=== PATIENT | male | born 1950 | race Caucasian/White ===

== ENCOUNTER → 2017-06-09 | Day surgery (SDC) | payer OTHER ==
[2017-05-14 12:13] VITALS: Ht 175.3 cm; Wt 104.5 kg
[~2017-06-09] VITALS: Ht 175.3 cm; Wt 104.5 kg
[~2017-06-09] MED LIST: 500ML BSS 0.3ML EPI 1:1000PF IRRIG ONE; ACETAMINOPHEN 325 MG TAB PO PRN; AMVISC PLUS 0.8ML SYRINGE INT OCU ONE; ATROPINE SULFATE 0.1 MG/ML 5ML SYR IV PRN; BSS FLUSH ONE; CARV25TA2 PO; CYCL10TA6 PO; DICL-201 PO; EpHEDrine SULFATE INJ 50 MG/ML AMP IV PRN; EpINEphrine INJ 1MG/ML AMP 1 MG/ML AMP ONE; FRS/40 PO; INSDGIPEN SC; LACTATED RINGER'S 1000ML 500 ML IV SCH; LIDOCAINE 3.5% OPH GEL PER APPLICATION CHARGE ONE; LIDOCAINE 4% OP SOLN DROP CHARGE OPL SCH; LIDOCAINE HCL 1% MPF 2 ML VIAL ONE; LISI40TA PO; MIDAZOLAM HCL 1 MG/ML 2ML VIAL ONE; MIX: 4ML BSS 1ML EPI 1:1000 PF INSTIL ONE; NVLGIPEN SQ; NovoLIN-R INSULIN PER UNIT CHARGE IV STA; NovoLIN-R INSULIN PER UNIT CHARGE ONE; OCUCOAT 1 ML SOLN IO ONE; PHENYLEPHRINE HCL 10% OP SOLN PER DROP CHARGE OPL SCH; PHENYLEPHRINE HCL 2.5% OP SOLN PER DROP CHARGE OPL SCH; POTA20TA16 PO; POVIDONE-IODINE OP SOLN 30 ML BTL ONE; PROPARACAINE 0.5% OP SOLN PER DROP CHARGE OPL SCH; RRIPRATNEB INH; TAMS0.4C38 PO; TOBRAMYCIN/DEXAMETHASONE OPH OINT PER APPLN CHARGE ONE
[2017-06-09] MEDS: TROPICAMIDE 1% OP SOLN PER DROP CHARGE OPL SCH ×2 (09:54→10:03)
[2017-06-09] MEDS: CYCLOPENTOLATE HCL 1% OP SOLN PER DROP CHARGE OPL SCH ×2 (09:56→10:05)
[2017-06-09] MEDS: KETOROLAC 0.5% OP SOLN PER DROP CHARGE OPL SCH ×2 (09:57→10:06)
[2017-06-09] MEDS: GATIFLOXACIN OP SOLN PER DROP CHARGE OPL SCH ×2 (09:58→10:09)
--- NOTE | 2017-06-09 10:09 | History & Physical Bridge - [place] ---
H&P Re-Evaluation Bridge Note: I have examined the patient, reviewed the History & Physical and in the interval since the performance of the History & Physical I have noted the following changes of clinical significance: No changes noted
--- NOTE | 2017-06-09 10:49 | Discharge Instructions-SurgCtr ---
Discharge Instructions Date of Service Jun 09, 2017. Visit Reason for Visit: Cataract Left Eye Discharge Discharge Diagnosis / Problem: cataract Discharge Goals Goal(s): Improve function Activity Recommendations Activity Limitations: per Instructions/Follow-up section Anesthesia . Post Anesthesia Instructions: If you have had General Anesthesia or IV Sedation: * Do not drive today. * Resume driving when surgeon permits. * Do not make important decisions or sign legal documents today. * Call surgeon for: 1. Temperature elevations greater than 101 degrees F. 2. Uncontrollable pain. 3. Excessive bleeding. 4. Persistent nausea and vomiting. 5. Medication intolerance (nausea, vomiting or rash). * For nausea and vomiting use only clear liquids such as: tea, soda, bouillon until nausea subsides, then gradually increase diet as tolerated. * If you have any concerns or questions, call your surgeon's office. If physician is unavailable and it is an emergency, call 911 or go to the nearest emergency room. . Instructions / Follow-Up Instructions / Follow-Up ACTIVITY RECOMMENDATIONS: * No strenuous lifting, jogging or running for 4 days * No swimming or yard work for 1 week. * Limited bending is permitted, such as putting on shoes. RETURN TO SCHOOL/WORK: No work until seen by physician in office. MEDICATIONS: Resume previous medications unless instructed otherwise by your surgeon. This includes eye drops for glaucoma. Zymaxid/Gatifloxacin (pham cap) - one drop every 2 hours until bedtime Nevanac/Ilevro/Prolensa/Ketorolac (escalante cap) - one drop every 4 hours until bedtime Prednisolone/Durezol (white/pink cap, SHAKE WELL) - one drop every 2 hours until bedtime Starting tomorrow - all 3 drops every 4 hours until seen in the office Optive drops - as needed for discomfort SPECIAL CARE INSTRUCTIONS: * Wear eyeshield when sleeping, for four nights. * You may wear your own glasses or sunglasses while awake. * You may read or watch TV * You may shower and wash your face, but be gentle around the eye and pat dry. * Blurry vision and mild irritation are normal. * Call office if pain is more severe or vision becomes dark at . FOLLOW UP VISIT: Follow-up with Dr Raygoza tomorrow. Diet Recommendations Home Diet: resume previous diet Procedures Procedures Performed: Left Cataract Phacoemulsification With Intraocular Lens Implant Pending Studies Studies pending at discharge: no Medical Emergencies . Who to Call and When: Medical Emergencies: If at any time you feel your situation is an emergency, please call 911 immediately. . Non-Emergent Contact Non-Emergency issues call your: [employer] . . "Provider Documentation" section prepared by Jerry Raygoza. .
--- NOTE | 2017-06-09 10:50 | [facility] Operative Report ---
Operative Report Date of Service Jun 09, 2017. Operative Report 1. PREOPERATIVE DIAGNOSIS: Cataract of the left eye. 2. POSTOPERATIVE DIAGNOSIS: Same. 3. PROCEDURE: Phacoemulsification with intraocular lens implantation of the left eye. SURGEON: Dr. Jerry Raygoza. ANESTHESIA: Topical Lidocaine gel, 1% Non- Preserved intracameral Lidocaine, and monitored intravenous sedation. INDICATIONS FOR THE PROCEDURE: The patient is a 66 - year-old male with a history of cataract of the left eye causing significant visual impairment. The details of the proposed procedure were explained to the patient who asked appropriate questions and following discussion of all risks, benefits and alternatives agreed to have the procedure done. The patient had a know history of taking of flomax. 4. OPERATION AND FINDINGS: DESCRIPTION OF PROCEDURE: After informed consent was obtained, the patient was brought to the Operating Room at the [facility]. The patient was placed in a supine position and then the left eye was prepped and draped in the usual sterile fashion for intraocular surgery. A drop of topical Lidocaine gel was placed in the operative eye. A wire lid speculum was then placed in the fornices. A corneal paracentesis was then created temporally. The Non-Preserved Lidocaine was then instilled into the anterior chamber. Epinephrine with a 1:4 dilution was instilled into the anterior chamber. The anterior chamber was then pressurized with viscoelastic. A 2.0 mm clear corneal incision was then created temporally. A cystotome was inserted into the anterior chamber and used to create a tear in the anterior lens capsule. This capsular tear was then used to create a small flap and the flap was dragged in a counterclockwise direction in order to create a continuous curvilinear capsulorrhexis. Hydrodissection was accomplished with balanced salt solution. Phacoemulsification of the lens nucleus was then performed in a standard [id number] technique. The phaco time was 1 minute with an average power of 18 %. The remaining cortical material was removed using irrigation aspiration. The capsular bag was then filled with viscoelastic. A [employer]ch [employer] Lomb MI60L +18.0 diopters lens was then loaded into the injector and injected into the capsular bag. The remaining viscoelastic was removed with the irrigation aspiration handpiece. The wound was hydrated and then checked and found to be watertight. The intraocular pressure was checked and found to be adequate. The wire lid speculum was removed and the patient's face was cleaned and dried. TobraDex ointment was placed in the inferior fornix. The patient was discharged to the Recovery Room having tolerated the procedure well. There were no complications. The patient will be seen tomorrow in the office for follow-up. I attest to the content of the Intraoperative Record and any orders documented therein. Any exceptions are noted below.
[2017-06-09 10:53] VITALS: TEMP 36.4
--- NOTE | 2017-06-09 11:03 | Anesthesia Progress Nt - [facility] ---
Anesthesia Post Op Note Date & Time Jun 09, 2017 at 11:03 Vital Signs Vital Signs Past 12 Hours Date Time Temp Pulse Resp B/P (MAP) Pulse Ox O2 Delivery O2 Flow Rate FiO2 06/09/17 10:53 36.4 99 16 165/92 (116) 98 Room Air Notes Mental Status: alert / awake / arousable, participated in evaluation Pt Amnestic to Procedure: Yes Nausea / Vomiting: adequately controlled Pain: adequately controlled Airway Patency, RR, SpO2: stable & adequate BP & HR: stable & adequate Hydration State: stable & adequate Anesthetic Complications: no major complications apparent
[2017-06-09 11:11] VITALS: BP 177/88; PULSE 84; O2SAT 98
== END | disposition home or self-care (01) ==
LOC: X.SURG 09:43
PROVIDERS: ATTEND Ophthalmology
DX: H26.9 Unspecified cataract (principal); I10 Essential (primary) hypertension; E11.9 Type 2 diabetes mellitus without complications; E03.9 Hypothyroidism, unspecified; J44.9 Chronic obstructive pulmonary disease, unspecified; B19.20 Unspecified viral hepatitis C without hepatic coma; K70.30 Alcoholic cirrhosis of liver without ascites; N40.0 Benign prostatic hyperplasia without lower urinary tract symptoms; R91.1 Solitary pulmonary nodule; F17.210 Nicotine dependence, cigarettes, uncomplicated; Z79.899 Other long term (current) drug therapy

== ENCOUNTER 2017-10-07 12:30 | Inpatient (IN) | payer OTHER ==
[~2017-10-07] VITALS: Ht 172.7 cm; Wt 97.8 kg
[~2017-10-07 12:30] MED LIST changes: -500ML BSS 0.3ML EPI 1:1000PF IRRIG ONE; -ACETAMINOPHEN 325 MG TAB PO PRN; -AMVISC PLUS 0.8ML SYRINGE INT OCU ONE; -ATROPINE SULFATE 0.1 MG/ML 5ML SYR IV PRN; -BSS FLUSH ONE; -EpHEDrine SULFATE INJ 50 MG/ML AMP IV PRN; -EpINEphrine INJ 1MG/ML AMP 1 MG/ML AMP ONE; -LACTATED RINGER'S 1000ML 500 ML IV SCH; -LIDOCAINE 3.5% OPH GEL PER APPLICATION CHARGE ONE; -LIDOCAINE 4% OP SOLN DROP CHARGE OPL SCH; -LIDOCAINE HCL 1% MPF 2 ML VIAL ONE; -MIDAZOLAM HCL 1 MG/ML 2ML VIAL ONE; -MIX: 4ML BSS 1ML EPI 1:1000 PF INSTIL ONE; -NovoLIN-R INSULIN PER UNIT CHARGE IV STA; -NovoLIN-R INSULIN PER UNIT CHARGE ONE; -OCUCOAT 1 ML SOLN IO ONE; -PHENYLEPHRINE HCL 10% OP SOLN PER DROP CHARGE OPL SCH; -PHENYLEPHRINE HCL 2.5% OP SOLN PER DROP CHARGE OPL SCH; +POTA-639 PO; -POTA20TA16 PO; -POVIDONE-IODINE OP SOLN 30 ML BTL ONE; -PROPARACAINE 0.5% OP SOLN PER DROP CHARGE OPL SCH; -TOBRAMYCIN/DEXAMETHASONE OPH OINT PER APPLN CHARGE ONE
[2017-10-07] MEDS ORDERED: GUAIFENESIN 600 MG TABCR PO STA (13:01)
[2017-10-07] MEDS ORDERED: ACETAMINOPHEN 325 MG TAB PO STA (13:01)
[2017-10-07] MEDS ORDERED: COUGH DROP (SUGAR FREE) LOZ 24 LOZ/1 BOX PO STA (13:01)
[2017-10-07] MEDS ORDERED: IBUPROFEN 200 MG TAB PO STA (13:01)
--- NOTE | 2017-10-07 13:19 | EMERGENCY ROOM VISIT NOTE ---
History Report prepared by Jaren: Nuha Spence Under the Supervision of: Dr. Bennett Lee M.D. First contact with patient: 12:54 Chief Complaint: RESPIRATORY PROBLEMS Stated Complaint: SICK, TOLD BY [facility] TO COME IN History of Present Illness The patient is a 67 year old male with a past medical history of COPD who presents to the ED with a cc of worsening respiratory problems beginning 3 days ago. Positive productive cough and shortness of breath, noting it feels similar to his COPD. Negative nausea, vomiting, or diarrhea. The patient states that the last time he smoked was yesterday. He notes he stopped taking his medication 6 days ago. Source of History: patient Onset: 3 days ago Position: other (global) Quality: other (respiratory problems) Timing: worsening Associated Symptoms: + cough (productive), + SOB, No nausea, No vomiting, No diarrhea Review of Systems See HPI for pertinent positives and negatives. A total of ten systems were reviewed and were otherwise negative. Past Medical & Surgical Medical Problems: (1) COPD exacerbation (2) Pneumonia Family History Patient reports no known family medical history. Social History Smoking Status: Current Every Day Smoker Current/Historical Medications Scheduled Carvedilol (Coreg), 25 MG PO BID Cyclobenzaprine Hcl (Flexeril), 10 MG PO HS Diclofenac (Voltaren), 75 MG PO BID Furosemide (Lasix), 40 MG PO BID Insulin Glargine (Lantus Solostar), 54 UNITS SC BID Lisinopril (Zestril), 40 MG PO QAM Potassium Ext Rel (Klor-Con), 20 MEQ PO QAM Tamsulosin Hcl (Flomax), 0.4 MG PO QAM Scheduled PRN Insulin Aspart (Novolog Flexpen), 10 UNITS SQ WITH DINNER PRN for HIGH BLOOD SUGAR Ipratropium Caldwell (Ipratropium Caldwell), 1 DOSE INH BID PRN for SOB/Wheezing Allergies Coded Allergies: No Known Allergies (Verified , 06/09/17) Physical Exam Vital Signs Date Time Temp Pulse Resp B/P (MAP) Pulse Ox O2 Delivery O2 Flow Rate FiO2 10/07/17 15:00 140/78 10/07/17 14:35 103 18 98 10/07/17 14:05 88 21 100 10/07/17 14:00 86 18 176/93 100 10/07/17 13:58 96 Room Air 10/07/17 13:57 90 14 95 Room Air 10/07/17 13:30 88 28 97 10/07/17 13:27 181/93 10/07/17 13:27 88 10/07/17 13:27 96 Room Air 10/07/17 12:33 36.3 92 18 170/84 94 Physical Exam GENERAL: Mask in place. Awake, alert, well-appearing, NAD HENT: Normocephalic, atraumatic. EYES: Normal conjunctiva. Sclera non-icteric. NECK: Supple. No nuchal rigidity. FROM. RESPIRATORY: Expiratory wheezing throughout prolong expiratory phase. CTAB, no rhonchi, crackles CARDIAC: RRR, no MRG ABDOMEN: Soft, NTND, BS+ MSK: No chest wall TTP, no LE edema NEURO: GCS 15, CN 2-12 intact, moves all 4s on command SKIN: Arteriole insufficiency changes bilateral LEs. No rash or jaundice noted. Medical Decision & Procedures ER Provider Diagnostic Interpretation: Radiology results as stated below per my review and radiologist interpretation: CHEST ONE VIEW PORTABLE CLINICAL HISTORY: 67 years-old Male presenting with EVALUATE RESPIRATORY DISTRESS.DYSPNEA, sick. TECHNIQUE: Portable upright AP view of the chest was obtained. COMPARISON: None. FINDINGS: Atherosclerosis of aortic arch. Cardiac silhouette enlarged. Mild prominence of upper lobe pulmonary vasculature. Coarsened lung markings most prominently at the lung bases. No focal infiltrate. No large pleural effusion or pneumothorax.. Osseous structures normal. Upper abdomen normal. IMPRESSION: 1. Cardiomegaly with findings suggestive of volume overload. No felix pulmonary edema. Electronically signed by: Orlando Padron M.D. 10/07/2017 1:19 PM Dictated Date/Time: 10/07/2017 1:18 PM Laboratory Results Test 10/07/17 12:55 10/07/17 13:30 Immature Granulocyte % (Auto) 0.3 % White Blood Count 11.26 K/uL (4.8-10.8) Red Blood Count 4.23 M/uL (4.7-6.1) Hemoglobin 14.8 g/dL (14.0-18.0) Hematocrit 39.2 % (42-52) Mean Corpuscular Volume 92.7 fL (80-100) Mean Corpuscular Hemoglobin 35.0 pg (25-34) Mean Corpuscular Hemoglobin Concent 37.8 g/dl (32-36) Platelet Count 129 K/uL (130-400) Mean Platelet Volume 9.3 fL (7.4-10.4) Neutrophils (%) (Auto) 79.4 % Lymphocytes (%) (Auto) 13.0 % Monocytes (%) (Auto) 6.7 % Eosinophils (%) (Auto) 0.4 % Basophils (%) (Auto) 0.2 % Neutrophils # (Auto) 8.94 K/uL (1.4-6.5) Lymphocytes # (Auto) 1.46 K/uL (1.2-3.4) Monocytes # (Auto) 0.76 K/uL (0.11-0.59) Eosinophils # (Auto) 0.05 K/uL (0-0.5) Basophils # (Auto) 0.02 K/uL (0-0.2) Immature Granulocyte # (Auto) 0.03 K/uL (0.00-0.02) Prothrombin Time 10.5 SECONDS (9.0-12.0) Prothromb Time International Ratio 1.0 (0.9-1.1) Activated Partial Thromboplast Time 28.6 SECONDS (21.0-31.0) Partial Thromboplastin Ratio 1.1 Pro-B-Type Natriuretic Peptide 993 pg/ml (0-900) Globulin 4.9 gm/dl (2.5-4.0) Albumin/Globulin Ratio 0.5 (0.9-2) Beta-Hydroxybutyric Acid 8.09 mg/dL (0.2-2.81) Influenza Type A Antigen Neg for Influ A (NEG) Influenza Type B Antigen Neg for Influ B (NEG) Laboratory results reviewed by me Medications Administered Medications (Trade) Dose Ordered Sig/Uday Route Start Time Stop Time Status Last Admin Dose Admin Guaifenesin (Mucinex Contr Rel Tab) 1,200 mg ONE STAT PO 10/07/17 13:01 10/07/17 13:03 DC 10/07/17 14:53 1,200 MG Menthol (Nice Samara) 1 samara NOW STAT PO 10/07/17 13:01 10/07/17 13:03 DC 10/07/17 14:52 1 SAMARA Ibuprofen (Advil Tab) 400 mg NOW STAT PO 10/07/17 13:01 10/07/17 13:03 DC 10/07/17 13:47 400 MG Acetaminophen (Tylenol Tab) 650 mg NOW STAT PO 10/07/17 13:01 10/07/17 13:03 DC 10/07/17 13:47 650 MG Albuterol/ Ipratropium (Duoneb) 12 ml ONE ONCE INH 10/07/17 13:30 10/07/17 13:31 DC 10/07/17 13:55 12 ML Azithromycin (Zithromax Tab) 500 mg NOW STAT PO 10/07/17 13:20 10/07/17 13:22 DC 10/07/17 13:48 500 MG Dexamethasone Sodium Phosphate (Decadron Inj) 10 mg NOW STAT IV 10/07/17 13:20 10/07/17 13:22 DC 10/07/17 13:48 10 MG Magnesium Sulfate (Magnesium Sulfate) 1 gm NOW STAT IV 10/07/17 13:20 10/07/17 13:22 DC 10/07/17 14:00 1 GM Aspirin (Aspirin Chew) 324 mg NOW STAT PO 10/07/17 14:14 10/07/17 14:15 DC 10/07/17 14:53 324 MG Insulin Human Regular (novoLIN-R U-100 PER UNIT) 5 units NOW STAT SQ 10/07/17 14:25 10/07/17 14:26 DC 10/07/17 15:11 5 UNITS ECG Indication: other (cough ) Rate (beats per minute): 91 Rhythm: normal sinus Findings: other (normal intervals and axis, no other STS changes or TWI) ED Course 1314: The patient was evaluated in room A11. A complete history and physical exam was performed. 1401: I reevaluated the patient, who was resting comfortably. I discussed the test findings with the patient, who verbalized complete agreement and understanding. 1427: Discussed the patient's case with Dr. Alex Strickland [facility] [place]. The patient will be evaluated for further treatment and disposition. Medical Decision The patient is a 67 year old male with a past medical history of COPD who presents to the ED with a cc of worsening respiratory problems beginning 3 days ago. Differential diagnosis: Etiologies such as infections, reactive airway disease, pneumonia, pneumothorax , COPD, CHF, cardiac ischemia, pulmonary embolism, musculoskeletal, gastrointestinal, as well as others were entertained. Patient was seen and evaluated at bedside. Patient was referred here from the NH for worsening productive sputum and cough. Patient has noted some shortness of breath. Patient states this is mildly chronic in nature. Patient did have expiratory wheezing as well as a pro-longed expiratory phase. Patient's chest x -ray was negative acute. Patient was treated for COPD exacerbation with mag, steroids, and DuoNeb's. Patient was also given azithromycin. Patient was noted to be hyperglycemic. Patient had a normal anion gap. Patient by bicarbonate was also normal. Patient did have a positive troponin. Patient has mild history of present illness or CK D. I did speak with the hospitalist and given the patient's positive troponin which may be infectious, demand related or other that this could continue to trend especially in light of his shortness of breath. He does sound to have more infectious etiology and he does not have an ischemic EKG. Patient was given a full dose aspirin however. Patient was also given 5 units of subcutaneous insulin for his hyperglycemia. Patient was admitted. Medication Reconcilliation Current Medication List: was personally reviewed by me Blood Pressure Screening Patient's blood pressure: Elevated blood pressure Blood pressure disposition: Referred to PCP (hospitalist) Consults Time Called: 1427 Consulting Physician: ASHLIE Stoddard Returned Call: 1427 Discussed the patient's case with ASHLIE Stoddard. The patient will be evaluated for further treatment and disposition. Impression Primary Impression: COPD exacerbation Additional Impressions: Elevated troponin Anemia Encounter for smoking cessation counseling Transaminitis Hyperglycemia Scribe Attestation The scribe's documentation has been prepared under my direction and personally reviewed by me in its entirety. I confirm that the note above accurately reflects all work, treatment, procedures, and medical decision making performed by me. Departure Information Dispostion Being Evaluated By Hospitalist Referrals No Doctor, Assigned (PCP) Forms HOME CARE DOCUMENTATION FORM, IMPORTANT VISIT INFORMATION, WORK / SCHOOL INSTRUCTIONS Patient Instructions My [facility] Problem Qualifiers Additional Impressions: Anemia Anemia type: unspecified type Qualified Codes: D64.9 - Anemia, unspecified
[2017-10-07] MEDS ORDERED: DEXAMETHASONE SOD INJ 4 MG/ML VIAL IV STA (13:20)
[2017-10-07] MEDS ORDERED: AZITHROMYCIN 250 MG TAB PO STA (13:20)
[2017-10-07] MEDS ORDERED: MAGNESIUM SULFATE 1GM / D5W 1 GM BAG IV STA (13:20)
[2017-10-07 13:23] LABS: BASO % 0.2 %; BASO ABS # 0.02 K/uL (0-0.2); EOS % 0.4 %; EOS ABS # 0.05 K/uL (0-0.5); HEMATOCRIT 39.2 % (42-52); HEMOGLOBIN 14.8 g/dL (14.0-18.0); IG# 0.03 K/uL (0.00-0.02); LYMPH ABS # 1.46 K/uL (1.2-3.4); MEAN CELL VOLUME 92.7 fL (80-100); MEAN CORPUSCULAR HGB CONC 37.8 g/dl (32-36); MEAN PLATELET VOLUME 9.3 fL (7.4-10.4); MONO % 6.7 %; MONO ABS # 0.76 K/uL (0.11-0.59); NEUT % 79.4 %; NEUT ABS # 8.94 K/uL (1.4-6.5); PLATELET COUNT 129 K/uL (130-400); RED CELL DISTRIBUTION WIDTH CV 14.6 % (11.5-14.5); RED CELL DISTRIBUTION WIDTH SD 49.6 fL (36.4-46.3); WHITE BLOOD COUNT 11.26 K/uL (4.8-10.8)
[2017-10-07] MEDS ORDERED: ALBUT/IPRATROP 3MG/0.5MG NEB 3 ML VIAL INH ONE (13:30)
[2017-10-07 13:36] LABS: PTT PATIENT 28.6 SECONDS (21.0-31.0)
[2017-10-07 13:42] LABS: ALBUMIN 2.4 gm/dl (3.4-5.0); CALCIUM 8.5 mg/dl (8.5-10.1); CREATININE 1.34 mg/dl (0.60-1.40); POTASSIUM 3.5 mmol/L (3.5-5.1)
[2017-10-07 13:45] LABS: TOTAL PROTEIN 7.3 gm/dl (6.4-8.2)
[2017-10-07 13:57] VITALS: PULSE 90; O2SAT 95
[2017-10-07] MEDS ORDERED: ASPIRIN 324 MG CHEW PO STA (14:14)
[2017-10-07] MEDS ORDERED: INSULIN HUMAN REGULAR SC STA (14:16)
[2017-10-07] MEDS ORDERED: NovoLIN-R INSULIN PER UNIT CHARGE SQ STA (14:25)
[2017-10-07 14:34] LABS: INFLUENZA B ANTIGEN Neg for Influ B (NEG)
[2017-10-07] MEDS ORDERED: ACETAMINOPHEN 325 MG TAB PO PRN (15:00)
[2017-10-07] MEDS ORDERED: ONDANSETRON INJ 2 MG/ML 2 ML VIAL IV PRN (15:00)
[2017-10-07 15:30] VITALS: Ht 172.7 cm; Wt 97.8 kg
--- NOTE | 2017-10-07 15:42 | NUR ---
admission assessment completed in ED room A11. see documentation. awaiting bed placement. call moreira in reach.
[2017-10-07] MEDS ORDERED: GLUCAGON FOR INJ 1 MG VIAL SQ PRN (15:45)
[2017-10-07] MEDS ORDERED: GLUCOSE 40% GEL 15 GM TUBE PO PRN (15:45)
[2017-10-07] MEDS ORDERED: DEXTROSE 50% 50 ML SYR IV PRN (15:45)
[2017-10-07] MEDS ORDERED: GLUCOSE 10 TABS/TUBE PO PRN (15:45)
[2017-10-07] MEDS ORDERED: PANTOprazole SOD 40 MG TAB PO STA (15:48)
--- NOTE | 2017-10-07 16:14 | HISTORY & PHYSICAL EXAMINATION ---
DATE OF ADMISSION: 10/07/2017 PRIMARY CARE PHYSICIAN: BRADEN. CHIEF COMPLAINT: Increasing shortness of breath with cough and feverish feeling since last. HISTORY OF PRESENT COMPLAINT: He is a 67-year-old male with significant past medical history, diabetes and COPD. Apparently has not been taking any medications, has been complaining of a cough with some shortness of breath since last. He feels feverish and he thinks that he had a low grade fever. The condition is not getting any better. He has productive of white phlegm and since the condition is getting worse he has been here for further evaluation. He called the [place] [facility] but was advised to come to the ER for further evaluation. Denies to have any chest pain, no palpitation. Does not have any swelling of the legs. No numbness or tingling in the extremities and does not have any weakness involving any side of the body. PAST MEDICAL HISTORY: Significant for diabetes on insulin and COPD with emphysema. PAST SURGICAL HISTORY: Only significant for cholecystectomy. FAMILY HISTORY: No significant family history of diabetes and/or ischemic heart disease or high blood pressure. SOCIAL HISTORY: He is single. He lives alone. He smokes sometimes. He drinks occasionally and he has been reasonably ambulant, though he mentions to have some problem with ambulation recently. ALLERGIES: NKDA. MEDICATIONS: As an outpatient, he has been on Flexeril 10 mg at night, diclofenac 375 mg daily, furosemide 40 mg b.i.d., NovoLog 10 units subQ with dinner, bupropion bromide 0.5 mg twice daily, carvedilol 25 mg b.i.d., Lantus 54 units b.i.d., Zestril 40 mg daily, potassium 20 mEq daily, Flomax 0.4 mg daily, but apparently he has not been taking his medications for the last week or so. REVIEW OF SYSTEMS: All other systems were unremarkable except those mentioned in history of present complaint. PHYSICAL EXAMINATION: GENERAL: In the ER, he was having more shortness of breath. VITAL SIGNS: Temperature 36.3, pulse was 86, blood pressure 176/93, saturation 95% on room air. HEAD, EYES, EARS, NOSE, AND THROAT: Unremarkable. NECK: Supple. No JVD. No bruit. CHEST: Decreased breath sounds all over with bibasilar crackles more on the left than on the right. HEART: S1, S2 regular. No murmur appreciated. ABDOMEN: Soft, benign, nontender, no organomegaly. Bowel sounds present. EXTREMITIES: Chronic skin changes but no significant edema bilaterally. GENERAL: He does have bruising especially in the upper extremities, but he has not been taking any aspirin and/or any anticoagulation. CENTRAL NERVOUS SYSTEM: He is alert, awake, oriented x3. He does not have any focal neuro deficit on examination. MUSCULOSKELETAL SYSTEM: Did not show any acute arthritis involving any joint. LABORATORY DATA: Noted today white count was 11.26, H&H 14.8/49 and 39.2, platelet was 129. Sodium 130, potassium 3.5, chloride 96, carbon dioxide 26, BUN 33, creatinine 1.34, random glucose 314, total bilirubin 3.6, AST 94, ALT 64, alkaline phosphatase 96. Troponin was 0.059. BNP was 993. PT/INR unremarkable. Influenza A and B negative. Chest x-ray reported as cardiomegaly with findings suggestive of volume overload. No felix pulmonary edema. It sounded like a left lower lobe infiltration, could be bilateral. EKG was in sinus rhythm, rate of 91 per minute, normal axis and minimal nonspecific ST-T wave changes. IMPRESSION AND PLAN: 1. Chronic obstructive pulmonary disease exacerbation with possible left basilar infiltration. The patient will be admitted to medical floor. He was given oral azithromycin. We will continue with oral azithromycin, add cefuroxime for broader coverage. We will get a nebulized bronchodilator and also intravenous Solu-Medrol for treatment of COPD exacerbation. 2. Diabetes type 2, very uncontrolled. He has not been taking his insulin for the last few days. His blood sugar more than 300. We will put him on sliding scale coverage and we will continue with his Lantus. Will get hemoglobin A1c checked tomorrow. 3. Hypertension. Blood pressure seems to be reasonably controlled. Continue with current medications of carvedilol and also lisinopril. 4.Increase Bilirubin with mild elevation of AST: Likely secondary to use of Alcohol Will monitor LFT 5.Tobacco Abuse ;Continues to smoke . Tobacco cessation Advised to quit. 6. Gastrointestinal prophylaxis with Protonix. 7. Deep venous thrombosis prophylaxis, subQ Lovenox. 8. CODE STATUS. DISCUSSED WITH THE PATIENT. HE WILL BE A DNR. In my clinical judgment, the beneficiary meets criteria as per CMS for 2 midnight stay in the hospital. MTDD
--- NOTE | 2017-10-07 16:15 | NUR ---
A: Pt arrived to room 251-2. Pt is A&Ox4 and denies pain at this time. Pt having non productive cough at this time. Lungs are diminished in the bases. VSS with elevated HR. Pt ambulates to the bathroom with minimal assist. +BS and +PP. No edema and discolored lower extremities. Left arm is ecchymotic with scattered scabs the patient reports from a fall at home recently. Will continue to monitor.
[2017-10-07 16:28] VITALS: BP 144/76; PULSE 120; TEMP 36.4; O2SAT 90
[2017-10-07] MEDS: INSULIN ASPART 100 UNITS/ML 3 ML PEN SC SCH ×3 (16:30→22:40)
[2017-10-07] MEDS ORDERED: NSS + 20MEQ KCL 1000ML 1,000 ML IV SCH (17:00)
[2017-10-07] MEDS ORDERED: CEFUROXIME IV 1,000 MG in DEXTROSE 5% 50ML 50 ML IV SCH (18:00)
[2017-10-07] MEDS: ENOXAPARIN 40 MG/0.4 ML SYR SQ SCH (18:10)
[2017-10-07] MEDS: METHYLPREDNISOLONE IV 40 MG in SYRINGE 0 ML IV SCH (18:18)
[2017-10-07] MEDS: CEFUROXIME IV SCH (18:56)
[2017-10-07] MEDS: DEXTROSE 5% IV SCH (18:56)
[2017-10-07 19:00] VITALS: PULSE 108; O2SAT 96
[2017-10-07] MEDS: ALBUTEROL 0.083% NEBU SOLN 3 ML VIAL INH SCH (19:00)
[2017-10-07 19:58] VITALS: BP 135/76; PULSE 105
[2017-10-07] MEDS ORDERED: PNEUMOCOCCAL POLYSACCHARIDES 25 MCG/0.5 ML VIAL/SYR IM. ONE (20:00)
[2017-10-07] MEDS: CARVEDILOL 25 MG TAB PO SCH (20:00)
[2017-10-07] MEDS ORDERED: PNEUMOCOCCAL ADMINISTRATION CHARGE ONE (20:00)
[2017-10-07] MEDS ORDERED: INSULIN GLARGINE SOLOSTAR 100 UNITS/ML 3 ML PEN SC SCH (20:00)
[2017-10-07] MEDS ORDERED: PHARMACY GLYCEMIC MGMT CONSULT PRN (22:24)
[2017-10-07] MEDS ORDERED: INSULIN IV INFUSION PROTOCOL SCH (22:30)
[2017-10-07 23:00] VITALS: BP 134/81; PULSE 75; TEMP 36.5; O2SAT 91
[2017-10-07] MEDS ORDERED: INSULIN HUMAN REGULAR IV BOLUS 2.5 UNIT in SYRINGE 0 ML IV SCH (23:00)
--- NOTE | 2017-10-07 23:32 | NUR ---
A: Insulin Gtt started @ 2.4 units/hour and bolus of 2.5 units. Pt alert & oriented x 4. IVF per MD order. Pt denies pain or further needs. Will continue to monitor.
[2017-10-07] MEDS: INSULIN REGULAR 250 UNITS in SODIUM CHLORIDE 0.9% 250ML 250 ML IV SCH (23:33)
[2017-10-08] VITALS (10 sets, daily range): BP systolic 97–133; BP diastolic 51–71; PULSE 66–75; TEMP 36.3–36.4; O2SAT 91–97
--- NOTE | 2017-10-08 00:30 | NUR ---
A: BSG 185. Per Insulin Infusion calculator hold infusion for 30 minutes and restart @ 40% lower than previous rate which will be 1.4 units/hour. Will restart at 0100.
[2017-10-08] MEDS ORDERED: PENDING D5NS+20mEq KCL IVF SCH (02:00)
[2017-10-08] MEDS ORDERED: D5NSS + 20MEQ KCL 1,000 ML IV SCH (02:00)
--- NOTE | 2017-10-08 02:00 | NUR ---
A: BSG 122 with previous BSG of 185. Per insulin Gtt protocol reduce rate of Gtt by 20% which is 1.1 units/hour on the pump. Also, per pharmacy, change fluids to D5NS + 20 Kcl @ 125. Downtime begins now.
[2017-10-08] MEDS: ALBUTEROL 0.083% NEBU SOLN 3 ML VIAL INH SCH ×4 (02:20→19:03)
--- NOTE | 2017-10-08 03:00 | NUR ---
A: Downtime calculator shows no change to insulin Gtt.
[2017-10-08 05:40] LABS: HEMOGLOBIN A1C 8.9 % (4.5-5.6)
[2017-10-08] MEDS: METHYLPREDNISOLONE IV 40 MG in SYRINGE 0 ML IV SCH ×2 (05:55→17:11)
[2017-10-08] MEDS: DEXTROSE 5% IV SCH (05:56)
[2017-10-08] MEDS: CEFUROXIME IV SCH (05:56)
[2017-10-08 06:10] LABS: CALCIUM 7.8 mg/dl (8.5-10.1); CREATININE 1.45 mg/dl (0.60-1.40); HEMATOCRIT 34.5 % (42-52); HEMOGLOBIN 13.1 g/dL (14.0-18.0); MEAN CORPUSCULAR HEMOGLOBIN 34.9 pg (25-34); MEAN PLATELET VOLUME 9.3 fL (7.4-10.4); PHOSPHORUS 3.1 mg/dl (2.5-4.9); PLATELET COUNT 105 K/uL (130-400); POTASSIUM 4.2 mmol/L (3.5-5.1); RED CELL DISTRIBUTION WIDTH CV 13.9 % (11.5-14.5); RED CELL DISTRIBUTION WIDTH SD 46.8 fL (36.4-46.3)
[2017-10-08 06:20] LABS: TOTAL PROTEIN 6.3 gm/dl (6.4-8.2)
[2017-10-08] MEDS: INSULIN REGULAR 250 UNITS in SODIUM CHLORIDE 0.9% 250ML 250 ML IV SCH ×7 (06:20→12:01)
[2017-10-08] MEDS: LISINOPRIL 40 MG TAB PO SCH (07:35)
[2017-10-08] MEDS: TAMSULOSIN HCL 0.4 MG CAP PO SCH (07:36)
[2017-10-08] MEDS: CARVEDILOL 25 MG TAB PO SCH ×2 (07:36→21:05)
[2017-10-08] MEDS: PANTOprazole SOD 40 MG TAB PO SCH (07:36)
[2017-10-08] MEDS: AZITHROMYCIN 250 MG TAB PO SCH (07:36)
[2017-10-08] MEDS: POTASSIUM CHLORIDE 20 MEQ TABCR PO SCH (07:36)
[2017-10-08] MEDS ORDERED: INSULIN GLARGINE SOLOSTAR 100 UNITS/ML 3 ML PEN SC ONE ×2 (08:00→11:30)
[2017-10-08] MEDS ORDERED: INSULIN ASPART 100 UNITS/ML 3 ML PEN SC SCH (09:00)
--- NOTE | 2017-10-08 10:04 | Pharmacy Progress Note ---
Glycemic Control Intl Consult Date of Service Oct 08, 2017. Scope Glycemic Pharmacist consulted by Dr Diaz on 10/07/17 for glycemic control and to write orders per [facility] inpatient glycemic control protocol Objective Weight (Kilograms): 98.800 Accuchecks BSG (last 24hrs): Test 10/07/17 12:55 10/07/17 17:21 10/07/17 22:09 10/08/17 00:30 Random Glucose 314 mg/dl (70-99) Bedside Glucose 424 mg/dl (70-99) 435 mg/dl (70-99) 185 mg/dl (70-99) Test 10/08/17 01:51 10/08/17 03:04 10/08/17 04:09 10/08/17 05:15 Bedside Glucose 122 mg/dl (70-99) 137 mg/dl (70-99) 174 mg/dl (70-99) Random Glucose 153 mg/dl (70-99) Laboratory Data (last 24hrs) Test 10/07/17 12:55 10/08/17 05:15 Anion Gap 8.0 mmol/L 6.0 mmol/L BUN/Creatinine Ratio 24.8 29.9 Blood Urea Nitrogen 33 mg/dl 43 mg/dl Creatinine 1.34 mg/dl 1.45 mg/dl Potassium Level 3.5 mmol/L 4.2 mmol/L Sodium Level 130 mmol/L 134 mmol/L White Blood Count 11.26 K/uL 8.80 K/uL Red Blood Count 4.23 M/uL Hemoglobin 14.8 g/dL Hematocrit 39.2 % Mean Corpuscular Volume 92.7 fL Mean Corpuscular Hemoglobin 35.0 pg Mean Corpuscular Hemoglobin Concent 37.8 g/dl Platelet Count 129 K/uL Mean Platelet Volume 9.3 fL Neutrophils (%) (Auto) 79.4 % Lymphocytes (%) (Auto) 13.0 % Monocytes (%) (Auto) 6.7 % Eosinophils (%) (Auto) 0.4 % Basophils (%) (Auto) 0.2 % Neutrophils # (Auto) 8.94 K/uL Lymphocytes # (Auto) 1.46 K/uL Monocytes # (Auto) 0.76 K/uL Eosinophils # (Auto) 0.05 K/uL Basophils # (Auto) 0.02 K/uL Hemoglobin A1c 8.9 % HbA1c Test 10/08/17 05:15 Hemoglobin A1c 8.9 % (4.5-5.6) H Recent Pertinent Medications Outpatient Anti-diabetic Regimen: * Lantus 54 units BID * Novolog 10 units with dinner if high * NONCOMPLIANT The patient is currently receiving: * Basal insulin: Lantus 54 units X 1 * Insulin drip per protocol Risk Factors for Insulin Resistance: * Steroids * Infection? * IVF * Diet Assessment & Plan ASSESSMENT: * 67 yo T2 diabetic M admitted with COPD exacerbation * Pt given high dose dexamethasone IV X 1 in ER then continued on solumedrol 40 mg IV every 12 hours * Per admitting MD's note- pt has not been taking any medication (including insulin) so BSGs even prior to steroid administration were elevated * Given baseline basal deficiency and steroids - insulin drip initiated in addition to Lantus last night * Spoke with Dr. Kamara today - plan is to cut dextrose containing fluids, taper steroids in the near future to PO and get patient off insulin drip PLAN FOR INPATIENT GLYCEMIC CONTROL: * Continue IV insulin infusion per protocol till 1400 * Goal Range 110 - 140 mg/dl * Basal insulin with LANTUS 30 units SQ X 1 this AM * Drip still running at ~2 units/hr - give additional 20 units X 1 * Continue dosing BID based on BSG response tonight * Correctional Insulin with NOVOLOG per scale ACHS + 00,04 to make for smoother transition incase basal dose not appropriate * Goal Range: Low 110 mg/dL - High 140 mg/dL * Correction Factor: 15 mg/dL/unit * Nutritional / Prandial insulin per carb ratio of 1 unit per 5 grams CHO consumed * Please note that the plan above was derived based on current level of insulin resistance and hospital stress. These recommendations are appropriate for inpatient admission only. Plan of care upon discharge will need to be reassessed to avoid potential outpatient hypo/hyperglycemia. Thank you.
--- NOTE | 2017-10-08 10:42 | Progress Note ---
Medicine Progress Note Date & Time of Visit: Oct 08, 2017 at 10:21. Subjective 67 yo M smoker presents with one week of productive cough of whitish sputum and some SOB. Pt denies chest pain this morning and states that his breathing is not much improved. He is not requiring oxygen and is not in respiratory distress. Reports one episode of loose watery stool but nothing since then. Tolerating PO. Afebrile and no chills. Some headache is present. Asking if he can take his Tiotropium inhaler. Objective Last 8 Hrs Date Time Temp Pulse Resp B/P (MAP) Pulse Ox O2 Delivery O2 Flow Rate FiO2 10/08/17 08:00 Room Air 10/08/17 07:29 36.4 68 20 133/71 (91) 95 Room Air 10/08/17 07:16 75 16 94 Room Air Physical Exam: GEN: WNWD, in no acute distress, alert and appropriate, no oxygen, no respiratory distress. HEENT: NC/AT, pupils are equal and round, normal sclerae, MMM CARDIO: reg rate, S1/2 heard without m/g/r, distant heart sounds. LUNGS: minor wheezing in [place], otherwise CTA bilaterally. ABD: soft, non-tender, non-distended, no rebound or guarding, +BS EXTREMITY: RP and DP palpable 2+ bilat, no LE swelling or edema, extremities are warm and well-perfused NEURO: CN 2-12 grossly intact, no gross deficits. MUSC: moves around in bed slowly and deliberately. Appears deconditioned. Moves all extremities equally. SKIN: warm and dry Laboratory Results: 10/08/17 05:15 10/08/17 05:15 Test 10/07/17 12:55 10/07/17 13:30 10/07/17 18:27 10/07/17 19:00 Immature Granulocyte % (Auto) 0.3 % White Blood Count 11.26 K/uL (4.8-10.8) Red Blood Count 4.23 M/uL (4.7-6.1) Hemoglobin 14.8 g/dL (14.0-18.0) Hematocrit 39.2 % (42-52) Mean Corpuscular Volume 92.7 fL (80-100) Mean Corpuscular Hemoglobin 35.0 pg (25-34) Mean Corpuscular Hemoglobin Concent 37.8 g/dl (32-36) Platelet Count 129 K/uL (130-400) Mean Platelet Volume 9.3 fL (7.4-10.4) Neutrophils (%) (Auto) 79.4 % Lymphocytes (%) (Auto) 13.0 % Monocytes (%) (Auto) 6.7 % Eosinophils (%) (Auto) 0.4 % Basophils (%) (Auto) 0.2 % Neutrophils # (Auto) 8.94 K/uL (1.4-6.5) Lymphocytes # (Auto) 1.46 K/uL (1.2-3.4) Monocytes # (Auto) 0.76 K/uL (0.11-0.59) Eosinophils # (Auto) 0.05 K/uL (0-0.5) Basophils # (Auto) 0.02 K/uL (0-0.2) Immature Granulocyte # (Auto) 0.03 K/uL (0.00-0.02) Prothrombin Time 10.5 SECONDS (9.0-12.0) Prothromb Time International Ratio 1.0 (0.9-1.1) Activated Partial Thromboplast Time 28.6 SECONDS (21.0-31.0) Partial Thromboplastin Ratio 1.1 Pro-B-Type Natriuretic Peptide 993 pg/ml (0-900) Globulin 4.9 gm/dl (2.5-4.0) Albumin/Globulin Ratio 0.5 (0.9-2) Beta-Hydroxybutyric Acid 8.09 mg/dL (0.2-2.81) Influenza Type A Antigen Neg for Influ A (NEG) Influenza Type B Antigen Neg for Influ B (NEG) Troponin I 0.071 ng/ml (0-0.045) Urine Color BROWN Urine Appearance CLOUDY (CLEAR) Urine pH (4.5-7.5) Urine Specific [place] 1.026 (1.000-1.030) Urine Protein POS (NEG) Urine Glucose (UA) (NEG) Urine Ketones (NEG) Urine Occult Blood (NEG) Urine Nitrite (NEG) Urine Bilirubin (NEG) Urine Urobilinogen (NEG) Urine Leukocyte Esterase (NEG) Urine RBC 0-4 /hpf (0-4) Urine WBC 1-5 /hpf (0-5) Urine Epithelial Cells >30 /lpf (0-5) Urine Amorphous Sediment PRESENT (NONE PRSENT) Urine Bacteria 2+ (NEG) Urine Hyaline Casts 1-5 /lpf (0-5) Urine Granular Casts 10-20 /lpf (0) Urine Waxy Casts 0-3 /lpf (0) Urine White Blood Cell Casts 0-3 /lpf (0) Urine Mucus PRESENT (NONE PRSENT) Test 10/08/17 04:09 10/08/17 05:15 Bedside Glucose 174 mg/dl (70-99) Red Blood Count 3.75 M/uL (4.7-6.1) Mean Corpuscular Volume 92.0 fL (80-100) Mean Corpuscular Hemoglobin 34.9 pg (25-34) Mean Corpuscular Hemoglobin Concent 38.0 g/dl (32-36) RDW Standard Deviation 46.8 fL (36.4-46.3) RDW Coefficient of Variation 13.9 % (11.5-14.5) Mean Platelet Volume 9.3 fL (7.4-10.4) Anion Gap 6.0 mmol/L (3-11) Est Creatinine Clear Calc Drug Dose 54.8 ml/min Estimated GFR () 56.5 Estimated GFR (Non- 48.8 BUN/Creatinine Ratio 29.9 (10-20) Estimated Average Glucose 209 mg/dl Hemoglobin A1c 8.9 % (4.5-5.6) Calcium Level 7.8 mg/dl (8.5-10.1) Phosphorus Level 3.1 mg/dl (2.5-4.9) Magnesium Level 2.9 mg/dl (1.8-2.4) Total Bilirubin 1.4 mg/dl (0.2-1) Direct Bilirubin 0.5 mg/dl (0-0.2) Aspartate Amino Transf (AST/SGOT) 58 U/L (15-37) Alanine Aminotransferase (ALT/SGPT) 56 U/L (12-78) Alkaline Phosphatase 84 U/L (45-117) Total Protein 6.3 gm/dl (6.4-8.2) Albumin 2.0 gm/dl (3.4-5.0) Thyroid Stimulating Hormone (TSH) 0.800 uIu/ml (0.300-4.500) Last 24 Hours Test 10/07/17 12:55 10/07/17 13:30 10/07/17 17:21 10/07/17 18:27 White Blood Count 11.26 K/uL Red Blood Count 4.23 M/uL Hemoglobin 14.8 g/dL Hematocrit 39.2 % Mean Corpuscular Volume 92.7 fL Mean Corpuscular Hemoglobin 35.0 pg Mean Corpuscular Hemoglobin Concent 37.8 g/dl Platelet Count 129 K/uL Mean Platelet Volume 9.3 fL Neutrophils (%) (Auto) 79.4 % Lymphocytes (%) (Auto) 13.0 % Monocytes (%) (Auto) 6.7 % Eosinophils (%) (Auto) 0.4 % Basophils (%) (Auto) 0.2 % Neutrophils # (Auto) 8.94 K/uL Lymphocytes # (Auto) 1.46 K/uL Monocytes # (Auto) 0.76 K/uL Eosinophils # (Auto) 0.05 K/uL Basophils # (Auto) 0.02 K/uL RDW Standard Deviation 49.6 fL RDW Coefficient of Variation 14.6 % Immature Granulocyte % (Auto) 0.3 % Immature Granulocyte # (Auto) 0.03 K/uL Prothrombin Time 10.5 SECONDS Prothromb Time International Ratio 1.0 Activated Partial Thromboplast Time 28.6 SECONDS Partial Thromboplastin Ratio 1.1 Sodium Level 130 mmol/L Potassium Level 3.5 mmol/L Chloride Level 96 mmol/L Carbon Dioxide Level 26 mmol/L Anion Gap 8.0 mmol/L Blood Urea Nitrogen 33 mg/dl Creatinine 1.34 mg/dl Est Creatinine Clear Calc Drug Dose 59.3 ml/min Estimated GFR () 62.2 Estimated GFR (Non- 53.7 BUN/Creatinine Ratio 24.8 Random Glucose 314 mg/dl Calcium Level 8.5 mg/dl Total Bilirubin 3.6 mg/dl Aspartate Amino Transf (AST/SGOT) 94 U/L Alanine Aminotransferase (ALT/SGPT) 64 U/L Alkaline Phosphatase 96 U/L Troponin I 0.059 ng/ml 0.071 ng/ml Pro-B-Type Natriuretic Peptide 993 pg/ml Total Protein 7.3 gm/dl Albumin 2.4 gm/dl Globulin 4.9 gm/dl Albumin/Globulin Ratio 0.5 Beta-Hydroxybutyric Acid 8.09 mg/dL Influenza Type A Antigen Neg for Influ A Influenza Type B Antigen Neg for Influ B Bedside Glucose 424 mg/dl Test 10/07/17 19:00 10/07/17 22:09 10/08/17 00:30 10/08/17 01:51 Urine Color BROWN Urine Appearance CLOUDY Urine pH Urine Specific [place] 1.026 Urine Protein POS Urine Glucose (UA) Urine Ketones Urine Occult Blood Urine Nitrite Urine Bilirubin Urine Urobilinogen Urine Leukocyte Esterase Urine RBC 0-4 /hpf Urine WBC 1-5 /hpf Urine Epithelial Cells >30 /lpf Urine Amorphous Sediment PRESENT Urine Bacteria 2+ Urine Hyaline Casts 1-5 /lpf Urine Granular Casts 10-20 /lpf Urine Waxy Casts 0-3 /lpf Urine White Blood Cell Casts 0-3 /lpf Urine Mucus PRESENT Bedside Glucose 435 mg/dl 185 mg/dl 122 mg/dl Test 10/08/17 03:04 10/08/17 04:09 10/08/17 05:15 Bedside Glucose 137 mg/dl 174 mg/dl White Blood Count 8.80 K/uL Red Blood Count 3.75 M/uL Hemoglobin 13.1 g/dL Hematocrit 34.5 % Mean Corpuscular Volume 92.0 fL Mean Corpuscular Hemoglobin 34.9 pg Mean Corpuscular Hemoglobin Concent 38.0 g/dl RDW Standard Deviation 46.8 fL RDW Coefficient of Variation 13.9 % Platelet Count 105 K/uL Mean Platelet Volume 9.3 fL Sodium Level 134 mmol/L Potassium Level 4.2 mmol/L Chloride Level 101 mmol/L Carbon Dioxide Level 27 mmol/L Anion Gap 6.0 mmol/L Blood Urea Nitrogen 43 mg/dl Creatinine 1.45 mg/dl Est Creatinine Clear Calc Drug Dose 54.8 ml/min Estimated GFR () 56.5 Estimated GFR (Non- 48.8 BUN/Creatinine Ratio 29.9 Random Glucose 153 mg/dl Estimated Average Glucose 209 mg/dl Hemoglobin A1c 8.9 % Calcium Level 7.8 mg/dl Phosphorus Level 3.1 mg/dl Magnesium Level 2.9 mg/dl Total Bilirubin 1.4 mg/dl Direct Bilirubin 0.5 mg/dl Aspartate Amino Transf (AST/SGOT) 58 U/L Alanine Aminotransferase (ALT/SGPT) 56 U/L Alkaline Phosphatase 84 U/L Total Protein 6.3 gm/dl Albumin 2.0 gm/dl Thyroid Stimulating Hormone (TSH) 0.800 uIu/ml Assessment & Plan 67 yo M smoker presents with one week of productive cough of whitish sputum and some SOB. Pt denies chest pain this morning and states that his breathing is not much improved. He is not requiring oxygen and is not in respiratory distress. Reports one episode of loose watery stool but nothing since then. Tolerating PO. Afebrile and no chills. Some headache is present. Asking if he can take his Tiotropium inhaler. 1. COPD exacerbation-no infiltrates were seen on xray. Stopping cefuroxime and will continue with Azithromycin. Adding tiotropium per home regimen and patient's request. Minor wheezing on exam with otherwise clear lungs to auscultation. Last dose solumedrol this evening and will transition to prednisone in the morning. Cont duonebs. 2. Elevated troponin-pt denies any chest pain but is a diabetic. Denies a history of heart disease (prior records are not available as [facility]) . Will request records from the [place]. With elevated troponin, will move to telemetry and order echo to ensure no wall motion abnormalities. Pt appears euvolemic at this time and has very distant heart sounds with no obvious murmur heard. 3. DMII-uncontrolled at [facility] with elevated A1C 8.9. Hyperglycemia 2/2 noncompliance with insulin over the past week. Insulin drip initiated yesterday with improvement in glucose this morning. Pt is eating and pharmacy is assisting with transition off the drip onto ISS/Glargine with carb coverage. 4. HTN-controlled, cont Coreg and lisinopril. 5. Elevated AST to 94. No abdominal pain or nausea. Pt reports rare ETOH use. Will trend in am. 6. Smoker-tobacco cessation advised. 7. GI prophylaxis while on steroids-Protonix 8. Bacteriuria-repeat UA and add urine culture at this time. Pt is asymptomatic. 9. BRADEN?-unknown baseline. Will cont to trend and await records. DVT proph-Lovenox. DNR Dispo-to telemetry DO [facility] Current Inpatient Medications: Current Inpatient Medications Medications (Trade) Dose Ordered Sig/Uday Route Start Time Stop Time Status Last Admin Dose Admin Enoxaparin Sodium (Lovenox Inj) 40 mg Q24H SQ 10/07/17 18:00 11/06/17 17:59 10/07/17 18:10 40 MG Acetaminophen (Tylenol Tab) 650 mg Q4H PRN PO 10/07/17 15:00 11/06/17 14:59 Ondansetron HCl (Zofran Inj) 4 mg Q6H PRN IV 10/07/17 15:00 11/06/17 14:59 Carvedilol (Coreg Tab) 25 mg BID PO 10/07/17 20:00 11/06/17 20:59 10/08/17 07:36 25 MG Lisinopril (Zestril Tab) 40 mg QAM PO 10/08/17 08:00 11/07/17 08:59 10/08/17 07:35 40 MG Potassium Chloride (Klor-Con Tab) 20 meq QAM PO 10/08/17 08:00 11/07/17 08:59 10/08/17 07:36 20 MEQ Tamsulosin HCl (Flomax Cap) 0.4 mg QAM PO 10/08/17 08:00 11/07/17 08:59 10/08/17 07:36 0.4 MG Insulin Aspart (novoLOG ASPART) SLIDING SCALE G... ACHS SC 10/07/17 16:00 11/06/17 15:59 Future Hold 10/07/17 22:40 13 UNITS Azithromycin (Zithromax Tab) 250 mg QAM PO 10/08/17 08:00 10/10/17 08:01 10/08/17 07:36 250 MG Albuterol Sulfate (Ventolin 0.083% 2.5MG/3ML Neb) 2.5 mg Q6R INH 10/07/17 21:00 11/06/17 20:59 10/08/17 07:14 2.5 MG Methylprednisolone Sodium Succinate 40 mg/Syringe 0.64 ml @ 1.5 mls/min Q12@0600,1800 IV 10/07/17 18:00 11/06/17 17:59 10/08/17 05:55 1.5 MLS/MIN Pantoprazole Sodium (Protonix Tab) 40 mg QAM PO 10/08/17 08:00 11/07/17 08:59 10/08/17 07:36 40 MG Glucose (Glucose 40% Gel) 15-30 GRAMS 15 GRAMS... UD PRN PO 10/07/17 15:45 11/06/17 15:44 Glucose (Glucose Chew Tab) 4-8 Tablets 4 Tabl... UD PRN PO 10/07/17 15:45 11/06/17 15:44 Dextrose (Dextrose 50% 50ML Syringe) 25-50ML OF 50% DW IV FOR... UD PRN IV 10/07/17 15:45 11/06/17 15:44 Glucagon (Glucagon Inj) 1 mg UD PRN SQ 10/07/17 15:45 11/06/17 15:44 Cefuroxime Sodium 1500 mg/Dextrose 65 ml @ 100 mls/hr Q12H IV 10/07/17 19:00 10/14/17 18:59 10/08/17 05:56 100 MLS/HR Miscellaneous Information (Consult Glycemic Management Pharmacy) 1 ea DAILY PRN N/A 10/07/17 22:24 11/06/17 22:23 Insulin Human Regular 250 units/ Sodium Chloride 252.5 ml @ 0 mls/hr Q24H IV 10/07/17 23:00 11/06/17 22:59 10/08/17 10:08 2.8 MLS/HR Insulin Aspart (novoLOG ASPART) SLIDING SCALE [facility] 10/08/17 09:00 11/07/17 08:59 10/08/17 08:24 3 UNITS
--- NOTE | 2017-10-08 11:00 | NUR ---
Case Management- Met with pt to review the role of transplant case manager, possible needs identified. Pt lives alone in a basement apartment, 4 stairs to enter. He reports he is independent with ambulation and all other ADLs, he continues to drive. Pt has a daughter that lives in [place] she assist prn. Noted on admission pt had not been taking his medications for several days, he stated "I just don't feel like they do anything. I don't even know what most of them are for and I was taking a fist full of pills every day." Pt reports he is able to get his medications through the [place] but just doesn't bother. He does realize that his non compliance contributed to his admission. Offered home health services for possible medication management and teaching, pt is declining stating "It wouldn't do any good I'm just going to do what I want to do anyway." Pt denies needs at this time. Will continue to follow. Addendum: 10/08/17 at 1320 by Carmen Christopher SERV Pt transferred to 209, report given to unit transplant case manager.
[2017-10-08] MEDS: TIOTROPIUM BROMIDE 5 PUFF/90 MCG INH INH SCH (11:34)
--- NOTE | 2017-10-08 12:30 | NUR ---
Patient received into PCU Room 209 from the medical floor. Cardiac monitoring applied. VSS. NSR on monitor. Patient able to ambulate over to bed with standby supervision. Insulin drip infusing at 1.8 unit/hr- to be discontinued at 1400. Patient denies any CP/pressure. Pulses palpable. 1+ edema noted to B/LLE. PVD-type appearance to B/LLE. He report neuropathy/tingling in bilateral feet. Lung sounds diminished throughout with expiratory wheezing heard in the left lung terry. Currently 91% on RA; he reports feeling mildly SOB, but is not in obvious distress. Tolerating diet. 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 Voids in urinal per his report. No pressure ulcers seen. Scattered ecchymosis to bilateral arms. IV to right hand infusing Insulin drip and KVO. Oriented patient to new room and unit setup. Call moreira within reach. Explained plan to D/C Insulin drip at 1400. Advised patient to ring for assistance before getting out of bed on his own. Will continue to monitor.
--- NOTE | 2017-10-08 12:30 | NUR ---
A- Patient transferred to E209 due to elevated troponin. Report called to KARYNA Early. Patient transported at 1220 via wheelchair accompanied by this RN and BUFFING TURNER AND COUNTER. Chart,belongings and meds with patient.
[2017-10-08] MEDS ORDERED: DC IV INSULIN INFUSION SCH (14:00)
--- NOTE | 2017-10-08 14:52 | NUR ---
DIABETES: Pt seen for elevated A1c 8.9%. Good goal for his age & PMH might be < 8%. Pt admits to being ill & not taking meds for ~ 1 week [employer]OT[employer] SAL[employer]. Pt placed on insulin gtt for elevated BS on admission & then big spike w/ solumedrol. Pharmacist is consulted for glycemic management. Lantus 30 units Sq given when CDE vss prior to weaning gtt. Pt w/ + neuropathy & agrees to shoes when OOB- place on neuropathy precautions please. See DM teaching record for subjects taught. Addendum: 10/08/17 at 1500 by Shannan Johnston RN Amended: Links added.
--- NOTE | 2017-10-08 15:48 | NUR ---
A: Patient resting in room. Denies CP or SOB. VSS. Self positioning. Tolerating diet. Call moreira within reach. Verbalizes no needs at this time.
[2017-10-08] MEDS: ENOXAPARIN 40 MG/0.4 ML SYR SQ SCH (17:11)
[2017-10-08] MEDS: INSULIN ASPART 100 UNITS/ML 3 ML PEN SC SCH ×2 (17:14→21:08)
--- NOTE | 2017-10-08 19:10 | ECHOCARDIOGRAM REPORT ---
*NOTICE TO RECEIVING [employer] This information is strictly Confidential and protected under [place] law. [place] law prohibits you from making any further disclosure of this information unless further disclosure is expressly permitted by the written consent of the person to whom it pertains or is authorized by law. A general authorization for the release of medical or other information is not sufficient for this purpose. Hospital accepts no responsibility if the information is made available to any other person, INCLUDING THE PATIENT. Interpretation Summary * Name: RENETTA GUZMAN Study Date: 10/08/2017 02:55 PM BP: 97/51 mmHg * Patient Location: C.2E\S\E209\S\1 HR: 75 * : 1950 (M/d/yyyy) Gender: Male Height: 67 in * Age: 67 yrs Ethnicity: CA Weight: 217 lb * Ordering Physician: Yvette Kamara * Performed By: Joy Hadley RDCS * * Reason For Study: Elevated Troponin, Dyspnea, Diabetic * BSA: 2.1 m2 * -- Conclusions -- * The aortic valve is not well visualized. * Hemodynamically significant valvular aortic stenosis cannot be excluded. * There is moderate concentric left ventricular hypertrophy. * Ejection Fraction = 55-60%. * The right ventricular systolic function is normal. * The left atrium is moderately dilated. * Right atrial size is normal. * There is mild mitral regurgitation. * Significant tricuspid regurgitation is absent. Procedure Details * A complete two-dimensional transthoracic echocardiogram was performed (2D, M-mode, Doppler and color flow Doppler). Left Ventricle * The left ventricle is normal in size. * There is moderate concentric left ventricular hypertrophy. * Ejection Fraction = 55-60%. * The left ventricular wall motion is normal. Right Ventricle * The right ventricle is normal size. * The right ventricular systolic function is normal. Atria * The left atrium is moderately dilated. * Right atrial size is normal. * The interatrial septum is intact with no evidence for an atrial septal defect. Mitral Valve * The mitral valve leaflets appear thickened, but open well. * There is mild mitral regurgitation. Tricuspid Valve * The tricuspid valve is not well visualized, but is grossly normal. * Significant tricuspid regurgitation is absent. Aortic Valve * The aortic valve is not well visualized. * Hemodynamically significant valvular aortic stenosis cannot be excluded. * There is no significant aortic regurgitation. Pulmonic Valve * The pulmonic valve is not well visualized. Great Vessels * The aortic root and proximal ascending aorta are normal sized. Pericardium/Pleural * There is no pericardial effusion. MMode 2D Measurements and Calculations IVSd 1.5 cm IVSs 1.7 cm LVIDd 4.7 cm LVIDs 3.3 cm LVPWd 1.1 cm LVPWs 1.5 cm IVS/LVPW 1.4 FS 29.5 % EDV(Teich) 102.3 ml ESV(Teich) 44.6 ml EF(Teich) 56.4 % EDV(cubed) 103.7 ml ESV(cubed) 36.4 ml EF(cubed) 64.9 % % IVS thick 19.6 % % LVPW thick 44.0 % LV mass(C)d 225.5 grams LV mass(C)dI 107.7 grams/m\S\2 LV mass(C)s 206.2 grams LV mass(C)sI 98.5 grams/m\S\2 SV(Teich) 57.7 ml SI(Teich) 27.6 ml/m\S\2 SV(cubed) 67.3 ml SI(cubed) 32.2 ml/m\S\2 Ao root diam 4.0 cm Ao root area 12.4 cm\S\2 ACS 1.4 cm LA dimension 4.7 cm LA/Ao 1.2 LVOT diam 1.8 cm LVOT area 2.4 cm\S\2 LVAd ap4 32.4 cm\S\2 LVLd ap4 9.1 cm EDV(MOD-sp4) 96.4 ml EDV(sp4-el) 98.0 ml LVAs ap4 18.6 cm\S\2 LVLs ap4 8.2 cm ESV(MOD-sp4) 36.8 ml ESV(sp4-el) 36.1 ml EF(MOD-sp4) 61.9 % EF(sp4-el) 63.2 % LVAd ap2 34.5 cm\S\2 LVLd ap2 9.1 cm EDV(MOD-sp2) 114.9 ml EDV(sp2-el) 111.2 ml LVAs ap2 21.2 cm\S\2 LVLs ap2 8.2 cm ESV(MOD-sp2) 47.6 ml ESV(sp2-el) 46.3 ml EF(MOD-sp2) 58.5 % EF(sp2-el) 58.4 % LVLd %diff 0.04 % EDV(MOD-bp) 104.9 ml LVLs %diff 0.53 % ESV(MOD-bp) 41.7 ml EF(MOD-bp) 60.2 % SV(MOD-sp4) 59.6 ml SI(MOD-sp4) 28.5 ml/m\S\2 SV(MOD-sp2) 67.3 ml SI(MOD-sp2) 32.1 ml/m\S\2 SV(MOD-bp) 63.2 ml SI(MOD-bp) 30.2 ml/m\S\2 SV(sp4-el) 62.0 ml SI(sp4-el) 29.6 ml/m\S\2 SV(sp2-el) 64.9 ml SI(sp2-el) 31.0 ml/m\S\2 Doppler Measurements and Calculations MV E max brian 106.8 cm/sec MV A max brian 92.1 cm/sec MV E/A 1.2 MV dec time 0.28 sec Ao V2 max 243.2 cm/sec Ao max PG 23.7 mmHg Ao max PG (full) 20.7 mmHg Ao V2 mean 173.0 cm/sec Ao mean PG 13.4 mmHg Ao mean PG (full) 11.7 mmHg Ao V2 VTI 59.3 cm LEFTY(I,A) 0.88 cm\S\2 LEFTY(I,D) 0.88 cm\S\2 LEFTY(V,A) 0.86 cm\S\2 LEFTY(V,D) 0.86 cm\S\2 LV V1 max PG 3.0 mmHg LV V1 mean PG 1.7 mmHg LV V1 max 86.6 cm/sec LV V1 mean 62.1 cm/sec LV V1 VTI 21.6 cm SV(Ao) 737.1 ml SI(Ao) 352.1 ml/m\S\2 SV(LVOT) 51.9 ml SI(LVOT) 24.8 ml/m\S\2 PA V2 max 118.9 cm/sec PA max PG 5.8 mmHg TR max brian 225.4 cm/sec
[2017-10-08] MEDS ORDERED: INSULIN GLARGINE SOLOSTAR 100 UNITS/ML 3 ML PEN SC SCH (20:00)
--- NOTE | 2017-10-08 20:33 | NUR ---
A: Patient resting in room. Denies CP or SOB. VSS. Self positioning. Tolerating diet. Call moreira within reach. Verbalizes no needs at this time.
[2017-10-09] VITALS (10 sets, daily range): BP systolic 105–151; BP diastolic 64–89; PULSE 61–84; TEMP 36.3–36.9; O2SAT 93–97
--- NOTE | 2017-10-09 | NUR ---
PHYSICAL ASSESSMENT COMPLETE, SEE EMR FOR FULL DOCUMENTATION. RESTING IN BED, READING. VSS. NO DISTRESS EVIDENT. DENIES PAIN OR SOB. AMBULATING TO BR W/ WALKER AND STANDBY ASSIST OF 1. PRODUCTIVE COUGH NOTED. REMAINS OFF INSULIN GTT. NO S/S OF HYPO- OR HYPERGLYCEMIA NOTED. CALL [facility] IN REACH, BED IN LOWEST POSITION, SIDE RAILS UP, WILL CONTINUE TO MONITOR.
[2017-10-09] MEDS: INSULIN ASPART 100 UNITS/ML 3 ML PEN SC SCH ×6 (00:27→20:38)
[2017-10-09] MEDS: ALBUTEROL 0.083% NEBU SOLN 3 ML VIAL INH SCH ×4 (01:55→19:04)
--- NOTE | 2017-10-09 04:00 | NUR ---
PHYSICAL ASSESSMENT UNCHANGED AT THIS TIME. SLEEPING W/O DIFFICULTY. SR ON MONITOR. NO DISTRESS EVIDENT. NO C/O PAIN OR SOB. REPOSITIONS SELF IN BED. NO NEW ISSUES OR CONCERNS AT THIS TIME. CALL [facility] IN REACH, WILL CONTINUE TO MONITOR.
[2017-10-09 07:12] LABS: ALBUMIN 2.1 gm/dl (3.4-5.0); CALCIUM 7.9 mg/dl (8.5-10.1); CREATININE 1.22 mg/dl (0.60-1.40); POTASSIUM 3.8 mmol/L (3.5-5.1)
[2017-10-09 07:15] LABS: TOTAL PROTEIN 6.2 gm/dl (6.4-8.2)
[2017-10-09] MEDS: TIOTROPIUM BROMIDE 5 PUFF/90 MCG INH INH SCH (07:56)
[2017-10-09] MEDS: TAMSULOSIN HCL 0.4 MG CAP PO SCH (07:57)
[2017-10-09] MEDS: CARVEDILOL 25 MG TAB PO SCH ×2 (07:57→20:39)
[2017-10-09] MEDS: POTASSIUM CHLORIDE 20 MEQ TABCR PO SCH (07:58)
[2017-10-09] MEDS: LISINOPRIL 40 MG TAB PO SCH (07:58)
[2017-10-09] MEDS: PANTOprazole SOD 40 MG TAB PO SCH (07:58)
[2017-10-09] MEDS: AZITHROMYCIN 250 MG TAB PO SCH (07:58)
--- NOTE | 2017-10-09 08:00 | NUR ---
A/ID: Patient assessment complete, see EMR. Patient alert and oriented x4. Denies pain, nausea, or shortness of breath at this time. See EMR for labs and vital signs. SR on flexo operator. Patient tolerated breakfast well. Patient independent with bed mobility. Awaiting physician assessment. Call moreira within reach, will continue to monitor.
[2017-10-09] MEDS ORDERED: INSULIN GLARGINE SOLOSTAR 100 UNITS/ML 3 ML PEN SC SCH (09:00)
--- NOTE | 2017-10-09 11:05 | Progress Note ---
Medicine Progress Note Date & Time of Visit: Oct 09, 2017 at 10:49. Subjective 67 yo M smoker presents with one week of productive cough of whitish sputum and some SOB. States breathing has improved somewhat and that his mucous is clearing up and not discolored. He is still coughing some and there is wheezing at the bases on exam. He remains free of fevers and chills. In the last 24 hours he has had two small (<10sec) bursts of an atrial tachycardia. Echo yesterday revealed a normal EF with a dilated LA. EKG was not performed yet this morning as ordered. Objective Last 8 Hrs Date Time Temp Pulse Resp B/P (MAP) Pulse Ox O2 Delivery O2 Flow Rate FiO2 10/09/17 08:11 36.8 66 19 105/64 (78) 93 Room Air 10/09/17 08:00 Room Air 10/09/17 06:57 68 16 94 Room Air 10/09/17 04:52 36.3 62 19 141/74 (96) 94 Room Air 10/09/17 04:00 Room Air Physical Exam: GEN: WNWD, in no acute distress, alert and appropriate, no oxygen, no respiratory distress. HEENT: NC/AT, pupils are equal and round, normal sclerae, MMM CARDIO: reg rate, S1/2 heard without m/g/r, distant heart sounds. LUNGS: wheezing heard at bases, otherwise CTA bilaterally. ABD: soft, non-tender, non-distended, no rebound or guarding, +BS EXTREMITY: RP and DP palpable 2+ bilat, no LE swelling or edema, extremities are warm and well-perfused NEURO: CN 2-12 grossly intact, no gross deficits. MUSC: Appears deconditioned. Moves all extremities equally. SKIN: warm and dry Laboratory Results: 10/08/17 05:15 10/09/17 06:05 Test 10/07/17 12:55 10/07/17 13:30 10/07/17 19:00 10/08/17 05:15 Immature Granulocyte % (Auto) 0.3 % White Blood Count 11.26 K/uL (4.8-10.8) Red Blood Count 4.23 M/uL (4.7-6.1) 3.75 M/uL (4.7-6.1) Hemoglobin 14.8 g/dL (14.0-18.0) Hematocrit 39.2 % (42-52) Mean Corpuscular Volume 92.7 fL (80-100) 92.0 fL (80-100) Mean Corpuscular Hemoglobin 35.0 pg (25-34) 34.9 pg (25-34) Mean Corpuscular Hemoglobin Concent 37.8 g/dl (32-36) 38.0 g/dl (32-36) Platelet Count 129 K/uL (130-400) Mean Platelet Volume 9.3 fL (7.4-10.4) 9.3 fL (7.4-10.4) Neutrophils (%) (Auto) 79.4 % Lymphocytes (%) (Auto) 13.0 % Monocytes (%) (Auto) 6.7 % Eosinophils (%) (Auto) 0.4 % Basophils (%) (Auto) 0.2 % Neutrophils # (Auto) 8.94 K/uL (1.4-6.5) Lymphocytes # (Auto) 1.46 K/uL (1.2-3.4) Monocytes # (Auto) 0.76 K/uL (0.11-0.59) Eosinophils # (Auto) 0.05 K/uL (0-0.5) Basophils # (Auto) 0.02 K/uL (0-0.2) Immature Granulocyte # (Auto) 0.03 K/uL (0.00-0.02) Prothrombin Time 10.5 SECONDS (9.0-12.0) Prothromb Time International Ratio 1.0 (0.9-1.1) Activated Partial Thromboplast Time 28.6 SECONDS (21.0-31.0) Partial Thromboplastin Ratio 1.1 Pro-B-Type Natriuretic Peptide 993 pg/ml (0-900) Globulin 4.9 gm/dl (2.5-4.0) Albumin/Globulin Ratio 0.5 (0.9-2) Beta-Hydroxybutyric Acid 8.09 mg/dL (0.2-2.81) Influenza Type A Antigen Neg for Influ A (NEG) Influenza Type B Antigen Neg for Influ B (NEG) Urine RBC 0-4 /hpf (0-4) Urine WBC 1-5 /hpf (0-5) Urine Epithelial Cells >30 /lpf (0-5) Urine Amorphous Sediment PRESENT (NONE PRSENT) Urine Bacteria 2+ (NEG) Urine Hyaline Casts 1-5 /lpf (0-5) Urine Granular Casts 10-20 /lpf (0) Urine Waxy Casts 0-3 /lpf (0) Urine White Blood Cell Casts 0-3 /lpf (0) RDW Standard Deviation 46.8 fL (36.4-46.3) RDW Coefficient of Variation 13.9 % (11.5-14.5) Estimated Average Glucose 209 mg/dl Hemoglobin A1c 8.9 % (4.5-5.6) Phosphorus Level 3.1 mg/dl (2.5-4.9) Magnesium Level 2.9 mg/dl (1.8-2.4) Thyroid Stimulating Hormone (TSH) 0.800 uIu/ml (0.300-4.500) Test 10/08/17 11:45 10/09/17 06:05 10/09/17 06:58 Urine Color DK YELLOW Urine Appearance CLEAR (CLEAR) Urine pH 5.0 (4.5-7.5) Urine Specific [place] 1.028 (1.000-1.030) Urine Protein 2+ (NEG) Urine Glucose (UA) TRACE (NEG) Urine Ketones TRACE (NEG) Urine Occult Blood 1+ (NEG) Urine Nitrite NEG (NEG) Urine Bilirubin NEG (NEG) Urine Urobilinogen NEG (NEG) Urine Leukocyte Esterase TRACE (NEG) Urine WBC (Auto) 1-5 /hpf (0-5) Urine RBC (Auto) 0-4 /hpf (0-4) Urine Hyaline Casts (Auto) 1-5 /lpf (0-5) Urine Epithelial Cells (Auto) >30 /lpf (0-5) Urine Bacteria (Auto) NEG (NEG) Urine Pathogenic Casts 0-3 GRANULAR CASTS /lpf (0) Urine Mucus PRESENT (NONE PRSENT) Urine Yeast (Auto) (NONE PRSENT) Anion Gap 6.0 mmol/L (3-11) Est Creatinine Clear Calc Drug Dose 65.2 ml/min Estimated GFR () 69.7 Estimated GFR (Non- 60.1 BUN/Creatinine Ratio 34.8 (10-20) Calcium Level 7.9 mg/dl (8.5-10.1) Total Bilirubin 0.9 mg/dl (0.2-1) Direct Bilirubin 0.3 mg/dl (0-0.2) Aspartate Amino Transf (AST/SGOT) 73 U/L (15-37) Alanine Aminotransferase (ALT/SGPT) 71 U/L (12-78) Alkaline Phosphatase 88 U/L (45-117) Total Protein 6.2 gm/dl (6.4-8.2) Albumin 2.1 gm/dl (3.4-5.0) Bedside Glucose 119 mg/dl (70-99) Date/Time Source Procedure Growth Status 10/08/17 11:45 Urine , Clean Catch Urine Culture Pending Received Last 24 Hours Test 10/08/17 11:02 10/08/17 11:45 10/08/17 11:57 10/08/17 13:03 Bedside Glucose 144 mg/dl 115 mg/dl 118 mg/dl Urine Color DK YELLOW Urine Appearance CLEAR Urine pH 5.0 Urine Specific [place] 1.028 Urine Protein 2+ Urine Glucose (UA) TRACE Urine Ketones TRACE Urine Occult Blood 1+ Urine Nitrite NEG Urine Bilirubin NEG Urine Urobilinogen NEG Urine Leukocyte Esterase TRACE Urine WBC (Auto) 1-5 /hpf Urine RBC (Auto) 0-4 /hpf Urine Hyaline Casts (Auto) 1-5 /lpf Urine Epithelial Cells (Auto) >30 /lpf Urine Bacteria (Auto) NEG Urine Pathogenic Casts 0-3 GRANULAR CASTS /lpf Urine Mucus PRESENT Urine Yeast (Auto) Test 10/08/17 16:11 10/08/17 20:23 10/09/17 00:14 10/09/17 04:15 Bedside Glucose 153 mg/dl 166 mg/dl 213 mg/dl 136 mg/dl Test 10/09/17 06:05 10/09/17 06:58 Sodium Level 133 mmol/L Potassium Level 3.8 mmol/L Chloride Level 103 mmol/L Carbon Dioxide Level 24 mmol/L Anion Gap 6.0 mmol/L Blood Urea Nitrogen 42 mg/dl Creatinine 1.22 mg/dl Est Creatinine Clear Calc Drug Dose 65.2 ml/min Estimated GFR () 69.7 Estimated GFR (Non- 60.1 BUN/Creatinine Ratio 34.8 Random Glucose 114 mg/dl Calcium Level 7.9 mg/dl Total Bilirubin 0.9 mg/dl Direct Bilirubin 0.3 mg/dl Aspartate Amino Transf (AST/SGOT) 73 U/L Alanine Aminotransferase (ALT/SGPT) 71 U/L Alkaline Phosphatase 88 U/L Total Protein 6.2 gm/dl Albumin 2.1 gm/dl Bedside Glucose 119 mg/dl Date/Time Source Procedure Growth Status 10/08/17 11:45 Urine , Clean Catch Urine Culture Pending Received Assessment & Plan 67 yo M smoker presents with one week of productive cough of whitish sputum and some SOB. States breathing has improved somewhat and that his mucous is clearing up and not discolored. He is still coughing some and there is wheezing at the bases on exam. He remains free of fevers and chills. In the last 24 hours he has had two small (<10sec) bursts of an atrial tachycardia. Echo yesterday revealed a normal EF with a dilated LA. EKG was not performed yet this morning as ordered. 1. COPD exacerbation-no infiltrates were seen on xray. Stopped cefuroxime and will continue with Azithromycin. Minor wheezing on exam with otherwise clear lungs to auscultation. Cont prednisone and duonebs and home tiptropium. [facility]. 2. Elevated troponin-third trop pending this morning. No evidence of acute wall motion abnormalities on ECHO yesterday. Clinical picture not consistent with acute ischemia. Cardiology consulted for short bursts atrial tachycardia on monitor overnight, poss 2/2/ acute lung disease. 3. Atrial tachycardia-very short bursts, likely related to acute lung disease. Consulted Cards to assess. 4. DMII-uncontrolled at baseline with elevated A1C 8.9. Hyperglycemia 2/2 noncompliance with insulin over the past week. Off insulin drip with improvement in glucose this morning. Pt is eating and pharmacy is assisting with management, cont ISS/Glargine with carb coverage. 5. HTN-controlled, cont Coreg and lisinopril. 6. Elevated AST to 94. No abdominal pain or nausea. Pt reports rare ETOH use. Would recommend outpatient follow-up with PCP. 7. Smoker-tobacco cessation advised. 8. GI prophylaxis while on steroids-Protonix 9. Bacteriuria-repeat UA and add urine culture at this time. Pt is asymptomatic. No abx at this time unless UCx positive. 9. BRADEN?-unknown baseline. Creatinine improved to 1.2. Will cont to trend and await records. DVT proph-Lovenox. DNR Dispo-to telemetry DO [facility] Current Inpatient Medications: Current Inpatient Medications Medications (Trade) Dose Ordered Sig/Uday Route Start Time Stop Time Status Last Admin Dose Admin Enoxaparin Sodium (Lovenox Inj) 40 mg Q24H SQ 10/07/17 18:00 11/06/17 17:59 10/08/17 17:11 40 MG Acetaminophen (Tylenol Tab) 650 mg Q4H PRN PO 10/07/17 15:00 11/06/17 14:59 Ondansetron HCl (Zofran Inj) 4 mg Q6H PRN IV 10/07/17 15:00 11/06/17 14:59 Carvedilol (Coreg Tab) 25 mg BID PO 10/07/17 20:00 11/06/17 20:59 10/09/17 07:57 25 MG Lisinopril (Zestril Tab) 40 mg QAM PO 10/08/17 08:00 11/07/17 08:59 10/09/17 07:58 40 MG Potassium Chloride (Klor-Con Tab) 20 meq QAM PO 10/08/17 08:00 11/07/17 08:59 10/09/17 07:58 20 MEQ Tamsulosin HCl (Flomax Cap) 0.4 mg QAM PO 10/08/17 08:00 11/07/17 08:59 10/09/17 07:57 0.4 MG Azithromycin (Zithromax Tab) 250 mg QAM PO 10/08/17 08:00 10/10/17 09:01 10/09/17 07:58 250 MG Albuterol Sulfate (Ventolin 0.083% 2.5MG/3ML Neb) 2.5 mg Q6R INH 10/07/17 21:00 11/06/17 20:59 10/09/17 06:56 2.5 MG Pantoprazole Sodium (Protonix Tab) 40 mg QAM PO 10/08/17 08:00 11/07/17 08:59 10/09/17 07:58 40 MG Glucose (Glucose 40% Gel) 15-30 GRAMS 15 GRAMS... UD PRN PO 10/07/17 15:45 11/06/17 15:44 Glucose (Glucose Chew Tab) 4-8 Tablets 4 Tabl... UD PRN PO 10/07/17 15:45 11/06/17 15:44 Dextrose (Dextrose 50% 50ML Syringe) 25-50ML OF 50% DW IV FOR... UD PRN IV 10/07/17 15:45 11/06/17 15:44 Glucagon (Glucagon Inj) 1 mg UD PRN SQ 10/07/17 15:45 11/06/17 15:44 Miscellaneous Information (Consult Glycemic Management Pharmacy) 1 ea DAILY PRN N/A 10/07/17 22:24 11/06/17 22:23 Tiotropium [place] (Spiriva Handihaler Inhaler) 1 puff QAM INH 10/08/17 11:00 11/07/17 10:59 10/09/17 07:56 1 PUFF Prednisone (PredniSONE TAB) 40 mg DAILY PO 10/09/17 08:00 11/08/17 07:59 10/09/17 07:59 40 MG Insulin Aspart (novoLOG ASPART) SLIDING SCALE ACHS SC 10/08/17 16:15 11/07/17 16:29 10/09/17 08:06 12 UNITS Insulin Glargine (Lantus Solostar Pen) 30 units BID SC 10/09/17 09:00 11/08/17 08:59 10/09/17 08:07 30 UNITS
--- NOTE | 2017-10-09 11:52 | NUR ---
A: VSS, SR on drier belt conveyor. See EMR for troponin result, physician aware. Patient tolerating lunch well. Independent with mobility. Call moreira within reach, will continue to monitor.
[2017-10-09] MEDS ORDERED: TIOTROPIUM BROMIDE-OLODATEROL 2.5-2.5MCG/ACT INH SCH (12:15)
--- NOTE | 2017-10-09 12:28 | Cardiology Consultation ---
Cardiology Consultation Date of Consultation: Oct 09, 2017 History of Present Illness Patient is a 67 year old male seen in cardiology consultation per the request of Dr Kamara for the evaluation of tachycardia. The patient has not been followed by our cardiology practice in the past. He receives [facility] primary [facility] in [place] and he believes that he also sees the [facility] cardiology practice in [place]. He has an apparent long-standing history of COPD and emphysema. He presented on 10/07/17 with a one-week history of generalized illness with feeling feverish, decreased appetite, productive cough, and shortness of breath. He is found to be hyperglycemic on presentation. His been treated with azithromycin, inhaled bronchodilators, and corticosteroids with subsequent improvement. On telemetry, he has been noted to have 2 short episodes of tachycardia at the first of which was captured on 10/08/17 at 1435 with 17 beat run of narrow complex tachycardia with peak rate of 150 bpm and a second tachycardia episodes of took place today on 10/09/17 at 5:18 AM to 9 beat run of narrow complex tachycardia. Review of the telemetry strips reveals episodes of regular R to R interval as well as irregular R to R interval. Both episodes seemed to start with a premature atrial complex. The patient is a symptomatically tachycardia standpoint states he is not treated for any heart rate concerns as an outpatient. He is on carvedilol 25 twice a day as an outpatient for hypertension. He denies any past history of no coronary disease. He believes that he is followed by the [facility] cardiology clinic due to a valve problem. History Past Medical History: 1. Type 2 diabetes mellitus requiring insulin 2. Hypertension 3. Apparent aortic stenosis, at least mild in severity Past Surgical History: Cholecystectomy Social History: He is single and lives alone. He continues to smoke cigarettes. Family History: Denies family history of ischemic heart disease Review Of Systems See above for pertinent positives & negatives. A total of 10 systems reviewed and were otherwise negative. Allergies Coded Allergies: No Known Allergies (Verified , 06/09/17) Medications Reported Home Medications Medications Dose Route/Sig Max Daily Dose Days Date Category Dose Instructions Ipratropium [place] 0.5 Mg/2.5 Ml Nebu 1 Dose INH BID PRN 05/14/17 Reported Novolog Flexpen (Insulin Aspart) 100 Units/Ml Inj 10 Units SQ WITH DINNER PRN 05/14/17 Reported Lantus Solostar (Insulin Glargine) 100 Unit/Ml Inj 54 Units SC BID 05/14/17 Reported Flexeril (Cyclobenzaprine Hcl) 10 Mg Tab 10 Mg PO HS 05/14/17 Reported Zestril (Lisinopril) 40 Mg Tab 40 Mg PO QAM 05/14/17 Reported Coreg (Carvedilol) 25 Mg Tab 25 Mg PO BID 05/14/17 Reported Lasix (Furosemide) 40 Mg Tab 40 Mg PO BID 05/14/17 Reported Flomax (Tamsulosin Hcl) 0.4 Mg Cap 0.4 Mg PO QAM 05/14/17 Reported Voltaren (Diclofenac Sodium) 75 Mg Tabcr 75 Mg PO BID 05/14/17 Reported WITH FOOD Klor-Con (Potassium Chloride) 20 Meq Tabcr 20 Meq PO QAM 05/14/17 Reported Physical Exam Vital Signs (Last 8hrs): Last 8 Hrs Date Time Temp Pulse Resp B/P (MAP) Pulse Ox O2 Delivery O2 Flow Rate FiO2 10/09/17 12:03 Room Air 10/09/17 12:00 Room Air 10/09/17 10:59 36.3 67 18 126/65 (85) 95 Room Air 10/09/17 08:11 36.8 66 19 105/64 (78) 93 Room Air 10/09/17 08:00 Room Air 10/09/17 06:57 68 16 94 Room Air 10/09/17 04:52 36.3 62 19 141/74 (96) 94 Room Air General Appearance: Alert and Oriented x3. NAD. Head: Normocephalic Atraumatic. Eyes: PERRLA, EOMI, conjunctiva and sclera clear Neck: Supple. No carotid bruits noted. No JVD. No HJD. Respiratory: Breath sounds clear to auscultation bilaterally. No w/r/r. Cardiovascular: Reg rate and rhythm. S1 and S2 noted. 1/6 systolic murmur Abdomen: Normal bowel sounds, soft nontender. no abdominal bruits. Extremities: No edema, no clubbing or cyanosis. distal pulses 2/4 bilaterally. Neuro: No focal deficits. Psychiatric: Normal affect. Data Last Resulted 10/08/17 05:15 Last Resulted 10/09/17 06:05 Past 24 Hours Test 10/09/17 06:05 Range/Units Troponin I 0.270 *H 0-0.045 ng/ml Troponin has been mildly elevated at: 0.059,0.071,-10/07/17 and 0.270 ng/ml on 10/09/17 ProBNP screen was mildly elevated at 993 on admission Echocardiogram performed 10/08/17: The aortic valve is not well visualized. Moderate concentric left ventricular hypertrophy was present with ejection fraction 55-60%. The right ventricular systolic function was noted to be normal. Based on the Doppler evaluation with peak continuous wave velocity of 2.4 meters per second across aortic valve, at least mild aortic valve stenosis appears to be present. Imaging: Chest x-ray performed 10/07/17, per radiology report revealed enlargement of the cardiac silhouette with findings suggestive of volume overload without felix pulmonary edema EKG: Performed 09/2713:18 normal sinus rhythm at 91 bpm, no significant ST changes Telemetry reviewed: As noted above Assessment & Plan Impression: 67-year-old male 1. Presentation for generalized illness with poor appetite shortness of breath , partially improved. He has responded to treatment for an acute exacerbation of COPD, although underlying volume overload is a concern also based on his chest x-ray findings mild elevation in BNP, and mild troponin elevation in the setting of what was felt to be at least mild aortic valve stenosis based on his echocardiogram 2. Two brief episodes tachycardia, felt to be either due to supraventricular tachycardia with complex super ventricular ectopy, or very brief episodes of atrial fibrillation. 3. Underlying risk factors of hypertension and diabetes, cigarette smoking Discussion/recommendations Per review of the patient's outpatient medication regimen, it is surprising that he is not on statin therapy. He states that in the past he has been told on repeated occasions that his good cholesterol is high and his bad cholesterol is low and that statin therapy is not indicated. Typically if the patient is a type II diabetic with an LDL at baseline in excess of 70, statin therapy is indicated. The patient however would not be swayed towards taking his statin medication at baseline and therefore think this seems to be readdressed by his primary care provider as an outpatient as it is not an acute issue. Regarding the 2 episodes tachycardia. This could simply be complex super ventricular ectopy/SVT provoked by his treatment with corticosteroids and inhaled bronchodilators. At the present time, I think we should just continue to watch him on his same dose of carvedilol. If he declares himself is having more frequent arrhythmia consistent with atrial fibrillation, then anticoagulation would become warranted given his age of over 63, type 2 diabetes , history of hypertension, at this point I favor just watching him. I recommend an empiric trial of low-dose furosemide 20 mg IV to see if this helps with his respiratory status. His very mild blunted elevation in troponin , and mild BNP elevation together with chest x-ray findings suggest possible mild interstitial edema which in light of his aortic stenosis would make sense. I do not think he is expressing acute coronary syndrome as he has no felix anginal symptoms. No regional wall motion of her maladies on his recent echo. Repeat resting EKG tomorrow.
--- NOTE | 2017-10-09 12:48 | NUR ---
Advance Directive note: Information provided to patient and questions answered. Patient is not interested in completing an Advance Directive at this time.
--- NOTE | 2017-10-09 12:52 | Pharmacy Progress Note ---
Pharmacy Glycemic Short Note 2 Date of Service Oct 09, 2017. OUTPATIENT ANTIDIABETIC REGIMEN: * Lantus 54 units BID * Novolog 10 units with dinner if high * NONCOMPLIANT ASSESSMENT: * 67 yo T2 diabetic M admitted with COPD exacerbation * Pt given high dose dexamethasone IV X 1 in ER then continued on solumedrol 40 mg IV every 12 hours * Per admitting MD's note- pt has not been taking any medication (including insulin) so BSGs even prior to steroid administration were elevated * Given baseline basal deficiency and steroids - insulin drip initiated * Pt successfully transitioned off insulin drip last night and only one BSG above goal range * Today lunch BSG 88 because IV steroids discontinued and change to PO prednisone * Loosen Novolog and start to titrate down on Lantus tonight PLAN FOR INPATIENT GLYCEMIC CONTROL: * Hold outpatient oral diabetes medications * Reduce Basal insulin * Lantus 17-25 units SQ BID based on BSG * Loosen Bolus insulin * NovoLog per scale ACHS or Q6hrs while NPO * Goal Range: Low 110 mg/dL - High 140 mg/dL * Correction Factor: 20 mg/dL/unit * Nutritional / Prandial insulin per carb ratio of 1 unit per 8 grams CHO consumed PLAN FOR DISCHARGE: * Need to assess compliance as outpatient regimen not safe if patient not taking * Please note that the plan above was derived based on current level of insulin resistance and hospital stress. These recommendations are appropriate for inpatient admission only. Plan of care upon discharge will need to be reassessed to avoid potential outpatient hypo/hyperglycemia. Thank you.
[2017-10-09] MEDS ORDERED: POTASSIUM CHLORIDE 10 MEQ TABCR PO ONE (13:00)
[2017-10-09] MEDS ORDERED: FUROSEMIDE INJ 20 MG in SYRINGE 0 ML IV ONE (13:00)
[2017-10-09] MEDS ORDERED: NURSING VERBAL MED ORDER ONE ×2 (14:00→14:15)
--- NOTE | 2017-10-09 16:00 | NUR ---
A: Patient OOB ad vicente in room, sitting up in recliner, tolerating well. Patient is voiding in the toilet. Denies pain or shortness of breath. SR on site monitor. VSS, see EMR. Will continue to monitor.
--- NOTE | 2017-10-09 16:22 | NUR ---
Case management note. Spoke with pt about discharge planning. Pt a&o. Pt plans to return home at discharge. Pt does not want home health. Pt denies any discharge needs. Case management to follow with pt.
[2017-10-09] MEDS: ENOXAPARIN 40 MG/0.4 ML SYR SQ SCH (17:11)
--- NOTE | 2017-10-09 20:00 | NUR ---
Pt A&O. Denies pain. Independent in room. VSS. Monitor showing NSR. See EMR for full assessment.
[2017-10-09] MEDS: INSULIN GLARGINE SOLOSTAR 100 UNITS/ML 3 ML PEN SC SCH (20:40)
[2017-10-10] VITALS (12 sets, daily range): BP systolic 121–140; BP diastolic 63–75; PULSE 50–101; TEMP 36.3–37.8; O2SAT 92–96
--- NOTE | 2017-10-10 | NUR ---
Pt sleeping. Has had no complaints. No change in status.
[2017-10-10] MEDS: ALBUTEROL 0.083% NEBU SOLN 3 ML VIAL INH SCH ×3 (02:03→15:00)
[2017-10-10 06:33] LABS: CALCIUM 8.2 mg/dl (8.5-10.1); CREATININE 1.16 mg/dl (0.60-1.40); POTASSIUM 3.7 mmol/L (3.5-5.1)
[2017-10-10] MEDS: INSULIN ASPART 100 UNITS/ML 3 ML PEN SC SCH ×4 (07:00→21:20)
[2017-10-10] MEDS: TAMSULOSIN HCL 0.4 MG CAP PO SCH (08:00)
[2017-10-10] MEDS: FUROSEMIDE 40 MG TAB PO SCH ×2 (08:01→17:14)
[2017-10-10] MEDS: AZITHROMYCIN 250 MG TAB PO SCH (08:01)
[2017-10-10] MEDS: LISINOPRIL 40 MG TAB PO SCH (08:01)
[2017-10-10] MEDS: POTASSIUM CHLORIDE 20 MEQ TABCR PO SCH (08:02)
[2017-10-10] MEDS: PANTOprazole SOD 40 MG TAB PO SCH (08:02)
[2017-10-10] MEDS: INSULIN GLARGINE SOLOSTAR 100 UNITS/ML 3 ML PEN SC SCH ×2 (08:07→21:21)
--- NOTE | 2017-10-10 08:10 | NUR ---
Pt oob in chair eating breakfast, stating he was having a hard time catching his breath this morning. Sat normal on room air, received breathing treatment. BSG low, rechecked and came up wnl with breakfast; Lantus given, No Novolog required. Call moreira in reach. Coreg Held for heart rate 40-50s this morning.
[2017-10-10] MEDS ORDERED: TIOTROPIUM BROMIDE-OLODATEROL 2.5-2.5MCG/ACT INH SCH (09:00)
[2017-10-10] MEDS: CARVEDILOL 25 MG TAB PO SCH (09:00)
--- NOTE | 2017-10-10 12:00 | NUR ---
Pt sitting up in bed with feet dangling eating lunch; daughter visiting. No changes at this time. Call moreira in reach.
--- NOTE | 2017-10-10 16:00 | NUR ---
No changes. Waiting for bed to transfer to [facility]. Addendum: 10/10/17 at 1722 by Savanah Romero RN Pt refused Lovenox in abdomen; given in right arm per pt request.
[2017-10-10] MEDS: ENOXAPARIN 40 MG/0.4 ML SYR SQ SCH (17:17)
--- NOTE | 2017-10-10 17:36 | Progress Note ---
Medicine Progress Note Date & Time of Visit: Oct 10, 2017 at 15:53. Subjective 67 yo M smoker presents with one week of productive cough of whitish sputum and some SOB. Continues to improve off oxygen. Cont inhalers. Ambulatory. Denies CP, Tolerating PO. Objective Last 8 Hrs Date Time Temp Pulse Resp B/P (MAP) Pulse Ox O2 Delivery O2 Flow Rate FiO2 10/10/17 15:49 60 16 92 Room Air 10/10/17 12:25 Room Air 10/10/17 12:25 58 20 138/63 (88) 93 Room Air 10/10/17 08:00 Room Air 10/10/17 08:00 36.6 51 18 130/73 (92) 95 Room Air Physical Exam: GEN: WNWD, in no acute distress, alert and appropriate, no oxygen, no respiratory distress. HEENT: NC/AT, pupils are equal and round, normal sclerae, MMM CARDIO: reg rate, S1/2 heard without m/g/r, distant heart sounds. LUNGS: CTAB, no wheezing, rhonchi or rales were heard. ABD: soft, non-tender, non-distended, no rebound or guarding, +BS EXTREMITY: RP and DP palpable 2+ bilat, no LE swelling or edema, extremities are warm and well-perfused NEURO: CN 2-12 grossly intact, no gross deficits. MUSC: Moves all extremities equally. SKIN: warm and dry Laboratory Results: 10/08/17 05:15 10/10/17 05:48 Test 10/07/17 12:55 10/07/17 13:30 10/07/17 19:00 10/08/17 05:15 Immature Granulocyte % (Auto) 0.3 % White Blood Count 11.26 K/uL (4.8-10.8) Red Blood Count 4.23 M/uL (4.7-6.1) 3.75 M/uL (4.7-6.1) Hemoglobin 14.8 g/dL (14.0-18.0) Hematocrit 39.2 % (42-52) Mean Corpuscular Volume 92.7 fL (80-100) 92.0 fL (80-100) Mean Corpuscular Hemoglobin 35.0 pg (25-34) 34.9 pg (25-34) Mean Corpuscular Hemoglobin Concent 37.8 g/dl (32-36) 38.0 g/dl (32-36) Platelet Count 129 K/uL (130-400) Mean Platelet Volume 9.3 fL (7.4-10.4) 9.3 fL (7.4-10.4) Neutrophils (%) (Auto) 79.4 % Lymphocytes (%) (Auto) 13.0 % Monocytes (%) (Auto) 6.7 % Eosinophils (%) (Auto) 0.4 % Basophils (%) (Auto) 0.2 % Neutrophils # (Auto) 8.94 K/uL (1.4-6.5) Lymphocytes # (Auto) 1.46 K/uL (1.2-3.4) Monocytes # (Auto) 0.76 K/uL (0.11-0.59) Eosinophils # (Auto) 0.05 K/uL (0-0.5) Basophils # (Auto) 0.02 K/uL (0-0.2) Immature Granulocyte # (Auto) 0.03 K/uL (0.00-0.02) Prothrombin Time 10.5 SECONDS (9.0-12.0) Prothromb Time International Ratio 1.0 (0.9-1.1) Activated Partial Thromboplast Time 28.6 SECONDS (21.0-31.0) Partial Thromboplastin Ratio 1.1 Pro-B-Type Natriuretic Peptide 993 pg/ml (0-900) Globulin 4.9 gm/dl (2.5-4.0) Albumin/Globulin Ratio 0.5 (0.9-2) Beta-Hydroxybutyric Acid 8.09 mg/dL (0.2-2.81) Influenza Type A Antigen Neg for Influ A (NEG) Influenza Type B Antigen Neg for Influ B (NEG) Urine RBC 0-4 /hpf (0-4) Urine WBC 1-5 /hpf (0-5) Urine Epithelial Cells >30 /lpf (0-5) Urine Amorphous Sediment PRESENT (NONE PRSENT) Urine Bacteria 2+ (NEG) Urine Hyaline Casts 1-5 /lpf (0-5) Urine Granular Casts 10-20 /lpf (0) Urine Waxy Casts 0-3 /lpf (0) Urine White Blood Cell Casts 0-3 /lpf (0) RDW Standard Deviation 46.8 fL (36.4-46.3) RDW Coefficient of Variation 13.9 % (11.5-14.5) Estimated Average Glucose 209 mg/dl Hemoglobin A1c 8.9 % (4.5-5.6) Phosphorus Level 3.1 mg/dl (2.5-4.9) Magnesium Level 2.9 mg/dl (1.8-2.4) Thyroid Stimulating Hormone (TSH) 0.800 uIu/ml (0.300-4.500) Test 10/08/17 11:45 10/09/17 06:05 10/10/17 05:48 10/10/17 20:21 Urine Color DK YELLOW Urine Appearance CLEAR (CLEAR) Urine pH 5.0 (4.5-7.5) Urine Specific [place] 1.028 (1.000-1.030) Urine Protein 2+ (NEG) Urine Glucose (UA) TRACE (NEG) Urine Ketones TRACE (NEG) Urine Occult Blood 1+ (NEG) Urine Nitrite NEG (NEG) Urine Bilirubin NEG (NEG) Urine Urobilinogen NEG (NEG) Urine Leukocyte Esterase TRACE (NEG) Urine WBC (Auto) 1-5 /hpf (0-5) Urine RBC (Auto) 0-4 /hpf (0-4) Urine Hyaline Casts (Auto) 1-5 /lpf (0-5) Urine Epithelial Cells (Auto) >30 /lpf (0-5) Urine Bacteria (Auto) NEG (NEG) Urine Pathogenic Casts 0-3 GRANULAR CASTS /lpf (0) Urine Mucus PRESENT (NONE PRSENT) Urine Yeast (Auto) (NONE PRSENT) Total Bilirubin 0.9 mg/dl (0.2-1) Direct Bilirubin 0.3 mg/dl (0-0.2) Aspartate Amino Transf (AST/SGOT) 73 U/L (15-37) Alanine Aminotransferase (ALT/SGPT) 71 U/L (12-78) Alkaline Phosphatase 88 U/L (45-117) Troponin I 0.270 ng/ml (0-0.045) Total Protein 6.2 gm/dl (6.4-8.2) Albumin 2.1 gm/dl (3.4-5.0) Anion Gap 5.0 mmol/L (3-11) Est Creatinine Clear Calc Drug Dose 68.6 ml/min Estimated GFR () 74.1 Estimated GFR (Non- 63.9 BUN/Creatinine Ratio 30.3 (10-20) Calcium Level 8.2 mg/dl (8.5-10.1) Bedside Glucose 166 mg/dl (70-99) Date/Time Source Procedure Growth Status 10/08/17 11:45 Urine , Clean Catch Urine Culture - Final THREE TYPES OF ORGANISMS PRESENT, ALL... Complete Last 24 Hours Test 10/09/17 16:09 10/09/17 20:30 10/10/17 05:48 10/10/17 08:01 Bedside Glucose 127 mg/dl 139 mg/dl 104 mg/dl Sodium Level 136 mmol/L Potassium Level 3.7 mmol/L Chloride Level 105 mmol/L Carbon Dioxide Level 26 mmol/L Anion Gap 5.0 mmol/L Blood Urea Nitrogen 35 mg/dl Creatinine 1.16 mg/dl Est Creatinine Clear Calc Drug Dose 68.6 ml/min Estimated GFR () 74.1 Estimated GFR (Non- 63.9 BUN/Creatinine Ratio 30.3 Random Glucose 60 mg/dl Calcium Level 8.2 mg/dl Test 10/10/17 11:18 Bedside Glucose 183 mg/dl Assessment & Plan 67 yo M smoker presents with one week of productive cough of whitish sputum and some SOB. Continues to improve off oxygen. Cont inhalers. Ambulatory. Denies CP, Tolerating PO. 1. COPD exacerbation-no infiltrates were seen on xray. Azithromycin. Wheezing has cleared on exam. Cont prednisone and duonebs and home tiptropium. 2. Elevated troponin-No evidence of acute wall motion abnormalities on ECHO. Clinical picture not consistent with acute ischemia. Cardiology consulted for short bursts atrial tachycardia on monitor overnight, poss 2/2 acute lung disease. No further workup recommended at this time. 3. Atrial tachycardia-very short bursts, likely related to acute lung disease. No further workup at this time. 4. DMII-uncontrolled at baseline with elevated A1C 8.9. Hyperglycemia 2/2 noncompliance with insulin over the past week. Controlled, cont ISS/Glargine with carb coverage. Apprec pharmacy management. 5. HTN-controlled, cont Coreg and lisinopril. 6. Elevated AST to 94. No abdominal pain or nausea. Pt reports rare ETOH use. Would recommend outpatient follow-up with PCP. 7. Smoker-tobacco cessation advised. 8. GI prophylaxis while on steroids-Protonix. 9. BRADEN-resolved, DVT proph-Lovenox. DNR Dispo-transfer to med/surg, likely dc to home in am. Yvette Kamara DO [facility] Hospitalist Consultants: Rajni Current Inpatient Medications: Current Inpatient Medications Medications (Trade) Dose Ordered Sig/Uday Route Start Time Stop Time Status Last Admin Dose Admin Enoxaparin Sodium (Lovenox Inj) 40 mg Q24H SQ 10/07/17 18:00 11/06/17 17:59 10/09/17 17:11 40 MG Acetaminophen (Tylenol Tab) 650 mg Q4H PRN PO 10/07/17 15:00 11/06/17 14:59 Ondansetron HCl (Zofran Inj) 4 mg Q6H PRN IV 10/07/17 15:00 11/06/17 14:59 Carvedilol (Coreg Tab) 25 mg BID PO 10/07/17 20:00 11/06/17 20:59 10/09/17 20:39 25 MG Lisinopril (Zestril Tab) 40 mg QAM PO 10/08/17 08:00 11/07/17 08:59 10/10/17 08:01 40 MG Potassium Chloride (Klor-Con Tab) 20 meq QAM PO 10/08/17 08:00 11/07/17 08:59 10/10/17 08:02 20 MEQ Tamsulosin HCl (Flomax Cap) 0.4 mg QAM PO 10/08/17 08:00 11/07/17 08:59 10/10/17 08:00 0.4 MG Albuterol Sulfate (Ventolin 0.083% 2.5MG/3ML Neb) 2.5 mg Q6R INH 10/07/17 21:00 11/06/17 20:59 10/10/17 15:00 2.5 MG Pantoprazole Sodium (Protonix Tab) 40 mg QAM PO 10/08/17 08:00 11/07/17 08:59 10/10/17 08:02 40 MG Glucose (Glucose 40% Gel) 15-30 GRAMS 15 GRAMS... UD PRN PO 10/07/17 15:45 11/06/17 15:44 Glucose (Glucose Chew Tab) 4-8 Tablets 4 Tabl... UD PRN PO 10/07/17 15:45 11/06/17 15:44 Dextrose (Dextrose 50% 50ML Syringe) 25-50ML OF 50% DW IV FOR... UD PRN IV 10/07/17 15:45 11/06/17 15:44 Glucagon (Glucagon Inj) 1 mg UD PRN SQ 10/07/17 15:45 11/06/17 15:44 Miscellaneous Information (Consult Glycemic Management Pharmacy) 1 ea DAILY PRN N/A 10/07/17 22:24 11/06/17 22:23 Prednisone (PredniSONE TAB) 40 mg DAILY PO 10/09/17 08:00 11/08/17 07:59 10/10/17 08:02 40 MG Insulin Aspart (novoLOG ASPART) SLIDING SCALE ACHS SC 10/08/17 16:15 11/07/17 16:29 10/10/17 12:00 5 UNITS Insulin Glargine (Lantus Solostar Pen) SEE PROTOCOL BID SC 10/09/17 21:00 11/08/17 20:59 10/10/17 08:07 17 UNITS Tiotropium [place]/Olodaterol (Stiolto Respimat 2.5-2.5 Mcg/Act) 5 mcg QAM INH 10/10/17 09:00 11/09/17 08:59 10/10/17 08:08 5 MCG Furosemide (Lasix Tab) 40 mg BID17 PO 10/10/17 09:00 11/09/17 08:59 10/10/17 08:01 40 MG
--- NOTE | 2017-10-10 18:40 | NUR ---
Pt transferred via wheelchair to room 461 with meds, chart and belongings. Monitor removed. Report called to
--- NOTE | 2017-10-10 18:42 | Cardiology Progress Note ---
Cardiology Progress Note Date of Service Oct 10, 2017. Cardiology Progress Note No additional arrhythmia events have been noted since that described on at 5:18 AM. Continue present therapy.
--- NOTE | 2017-10-10 18:53 | NUR ---
A: Pt transferred to [facility], oriented to room and call moreira system. VSS on RA. Denies pain, N/V/D, pain, SOB. Currently sitting at side of bed. Independent in room, gait steady. Denies further needs at this time. Call moreira and bedside table in reach, bed in lowest position. Continue to monitor.
[2017-10-10] MEDS: CARVEDILOL 12.5 MG TAB PO SCH (20:43)
[2017-10-10] MEDS: ALBUTEROL 0.083% NEBU SOLN 3 ML VIAL INH PRN (21:55)
[2017-10-11] VITALS (7 sets, daily range): BP systolic 107–193; BP diastolic 63–84; PULSE 61–74; TEMP 36.6–36.8; O2SAT 92–96
--- NOTE | 2017-10-11 00:38 | NUR ---
ID: Pt has been resting comfortably in bed. No complaints of pain or SOB. Assessment completed see EMR. VSS on RA. Pt is A&O X4. Independent in room, encouraged to ring for assistance. Hourly rounding maintained. Pt will be discharged home when medically stable. Will continue to monitor.
[2017-10-11] MEDS: TAMSULOSIN HCL 0.4 MG CAP PO SCH (07:22)
[2017-10-11] MEDS: LISINOPRIL 40 MG TAB PO SCH (07:22)
[2017-10-11] MEDS: POTASSIUM CHLORIDE 20 MEQ TABCR PO SCH (07:23)
[2017-10-11] MEDS: PANTOprazole SOD 40 MG TAB PO SCH (07:24)
[2017-10-11] MEDS: CARVEDILOL 12.5 MG TAB PO SCH ×2 (07:24→20:28)
[2017-10-11] MEDS: FUROSEMIDE 40 MG TAB PO SCH ×2 (07:25→16:57)
[2017-10-11] MEDS: INSULIN GLARGINE SOLOSTAR 100 UNITS/ML 3 ML PEN SC SCH ×2 (09:28→20:28)
[2017-10-11] MEDS: INSULIN ASPART 100 UNITS/ML 3 ML PEN SC SCH ×4 (09:31→20:27)
[2017-10-11] MEDS ORDERED: GUAIFENESIN/CODEINE 200MG/20MG 10ML UDC PO PRN (10:15)
[2017-10-11] MEDS: ALBUTEROL 0.083% NEBU SOLN 3 ML VIAL INH PRN ×2 (10:57→22:03)
--- NOTE | 2017-10-11 11:11 | DIAGNOSTIC IMAGING REPORT ---
CHEST 2 VIEWS ROUTINE CLINICAL HISTORY: persistent cough, admitted for COPD exacerb, no hypoxia, malaise dyspnea COMPARISON STUDY: 10/07/2017 FINDINGS: Mild emphysematous change. Mild stable chronic fibrotic change. No well-defined focal infiltrate. IMPRESSION: Mild emphysematous change. Mild chronic fibrosis. No acute process. The above report was generated using voice recognition software. It may contain grammatical, syntax or spelling errors. Electronically signed by: Kwesi Sr M.D. 10/11/2017 11:09 AM Dictated Date/Time: 10/11/2017 11:09 AM
[2017-10-11] MEDS: DOXYCYCLINE HYCLATE 100 MG CAP PO SCH ×2 (13:32→20:29)
--- NOTE | 2017-10-11 13:40 | Pharmacy Progress Note ---
Pharmacy Glycemic Short Note 2 Date of Service Oct 11, 2017. OUTPATIENT ANTIDIABETIC REGIMEN: * Lantus 54 units BID * Novolog 10 units with dinner if high * NONCOMPLIANT ASSESSMENT: * 67 yo T2 diabetic M admitted with COPD exacerbation - currently titrated down to Prednisone 40 mg daily * I have aggressively been titrating Lantus down each day due to quick steroid taper but pt has had fasting low's X 2 days * Unfortunately - pt was to receive a reduced Lantus dose last night and was given a higher dose by nurse * Plan will be to hold basal insulin this AM and continue with much reduced dose tonight * Pt could use tighter meal time coverage which I will adjust for dinner tonight PLAN FOR INPATIENT GLYCEMIC CONTROL: * Reduce Basal insulin * Lantus 0-17 units SQ BID based on BSG * Tighten Bolus insulin * NovoLog per scale ACHS or Q6hrs while NPO * Goal Range: Low 110 mg/dL - High 140 mg/dL * Correction Factor: 20 mg/dL/unit * Nutritional / Prandial insulin per carb ratio of 1 unit per 7 grams CHO consumed PLAN FOR DISCHARGE: * Pt requiring much less insulin inpatient versus outpatient regimen - even with steroids on board * It is known that he is noncompliant prior to admission * Will be important to stress compliance and reduce insulin regimen significantly prior to discharge * Please note that the plan above was derived based on current level of insulin resistance and hospital stress. These recommendations are appropriate for inpatient admission only. Plan of care upon discharge will need to be reassessed to avoid potential outpatient hypo/hyperglycemia. Thank you.
[2017-10-11] MEDS ORDERED: PROMETHAZINE HCL 12.5 MG SUPP PR PRN (17:00)
[2017-10-11] MEDS: ENOXAPARIN 40 MG/0.4 ML SYR SQ SCH (18:13)
[2017-10-11] MEDS ORDERED: TIOTROPIUM BROMIDE-OLODATEROL 2.5-2.5MCG/ACT INH SCH (20:00)
--- NOTE | 2017-10-11 21:23 | Progress Note ---
Medicine Progress Note Date & Time of Visit: Oct 11, 2017 at 10:15. Subjective 67 yo M smoker presents with one week of productive cough of whitish sputum and some SOB. Today he states that he doesn't feel much better. Still not requiring oxygen, still coughing some and reporting shortness of breath. Repeat xray 2 view today was negative for new infiltrate. Changed abx -zpak just given to doxy in case of resistance. Objective Last 8 Hrs Date Time Temp Pulse Resp B/P (MAP) Pulse Ox O2 Delivery O2 Flow Rate FiO2 10/11/17 07:11 61 18 193/84 (120) 95 Room Air Physical Exam: GEN: WNWD, in no acute distress, alert and appropriate, no oxygen, no respiratory distress. HEENT: NC/AT, pupils are equal and round, normal sclerae, MMM CARDIO: reg rate, S1/2 heard without m/g/r, distant heart sounds. LUNGS: CTAB, no wheezing, rhonchi or rales were heard. ABD: soft, non-tender, non-distended, no rebound or guarding, +BS EXTREMITY: RP and DP palpable 2+ bilat, no LE swelling or edema, extremities are warm and well-perfused NEURO: CN 2-12 grossly intact, no gross deficits. MUSC: Moves all extremities equally. SKIN: warm and dry Laboratory Results: 10/08/17 05:15 10/10/17 05:48 Test 10/07/17 12:55 10/07/17 13:30 10/07/17 19:00 10/08/17 05:15 Immature Granulocyte % (Auto) 0.3 % White Blood Count 11.26 K/uL (4.8-10.8) Red Blood Count 4.23 M/uL (4.7-6.1) 3.75 M/uL (4.7-6.1) Hemoglobin 14.8 g/dL (14.0-18.0) Hematocrit 39.2 % (42-52) Mean Corpuscular Volume 92.7 fL (80-100) 92.0 fL (80-100) Mean Corpuscular Hemoglobin 35.0 pg (25-34) 34.9 pg (25-34) Mean Corpuscular Hemoglobin Concent 37.8 g/dl (32-36) 38.0 g/dl (32-36) Platelet Count 129 K/uL (130-400) Mean Platelet Volume 9.3 fL (7.4-10.4) 9.3 fL (7.4-10.4) Neutrophils (%) (Auto) 79.4 % Lymphocytes (%) (Auto) 13.0 % Monocytes (%) (Auto) 6.7 % Eosinophils (%) (Auto) 0.4 % Basophils (%) (Auto) 0.2 % Neutrophils # (Auto) 8.94 K/uL (1.4-6.5) Lymphocytes # (Auto) 1.46 K/uL (1.2-3.4) Monocytes # (Auto) 0.76 K/uL (0.11-0.59) Eosinophils # (Auto) 0.05 K/uL (0-0.5) Basophils # (Auto) 0.02 K/uL (0-0.2) Immature Granulocyte # (Auto) 0.03 K/uL (0.00-0.02) Prothrombin Time 10.5 SECONDS (9.0-12.0) Prothromb Time International Ratio 1.0 (0.9-1.1) Activated Partial Thromboplast Time 28.6 SECONDS (21.0-31.0) Partial Thromboplastin Ratio 1.1 Pro-B-Type Natriuretic Peptide 993 pg/ml (0-900) Globulin 4.9 gm/dl (2.5-4.0) Albumin/Globulin Ratio 0.5 (0.9-2) Beta-Hydroxybutyric Acid 8.09 mg/dL (0.2-2.81) Influenza Type A Antigen Neg for Influ A (NEG) Influenza Type B Antigen Neg for Influ B (NEG) Urine RBC 0-4 /hpf (0-4) Urine WBC 1-5 /hpf (0-5) Urine Epithelial Cells >30 /lpf (0-5) Urine Amorphous Sediment PRESENT (NONE PRSENT) Urine Bacteria 2+ (NEG) Urine Hyaline Casts 1-5 /lpf (0-5) Urine Granular Casts 10-20 /lpf (0) Urine Waxy Casts 0-3 /lpf (0) Urine White Blood Cell Casts 0-3 /lpf (0) RDW Standard Deviation 46.8 fL (36.4-46.3) RDW Coefficient of Variation 13.9 % (11.5-14.5) Estimated Average Glucose 209 mg/dl Hemoglobin A1c 8.9 % (4.5-5.6) Phosphorus Level 3.1 mg/dl (2.5-4.9) Magnesium Level 2.9 mg/dl (1.8-2.4) Thyroid Stimulating Hormone (TSH) 0.800 uIu/ml (0.300-4.500) Test 10/08/17 11:45 10/09/17 06:05 10/10/17 05:48 10/11/17 19:31 Urine Color DK YELLOW Urine Appearance CLEAR (CLEAR) Urine pH 5.0 (4.5-7.5) Urine Specific [place] 1.028 (1.000-1.030) Urine Protein 2+ (NEG) Urine Glucose (UA) TRACE (NEG) Urine Ketones TRACE (NEG) Urine Occult Blood 1+ (NEG) Urine Nitrite NEG (NEG) Urine Bilirubin NEG (NEG) Urine Urobilinogen NEG (NEG) Urine Leukocyte Esterase TRACE (NEG) Urine WBC (Auto) 1-5 /hpf (0-5) Urine RBC (Auto) 0-4 /hpf (0-4) Urine Hyaline Casts (Auto) 1-5 /lpf (0-5) Urine Epithelial Cells (Auto) >30 /lpf (0-5) Urine Bacteria (Auto) NEG (NEG) Urine Pathogenic Casts 0-3 GRANULAR CASTS /lpf (0) Urine Mucus PRESENT (NONE PRSENT) Urine Yeast (Auto) (NONE PRSENT) Total Bilirubin 0.9 mg/dl (0.2-1) Direct Bilirubin 0.3 mg/dl (0-0.2) Aspartate Amino Transf (AST/SGOT) 73 U/L (15-37) Alanine Aminotransferase (ALT/SGPT) 71 U/L (12-78) Alkaline Phosphatase 88 U/L (45-117) Troponin I 0.270 ng/ml (0-0.045) Total Protein 6.2 gm/dl (6.4-8.2) Albumin 2.1 gm/dl (3.4-5.0) Anion Gap 5.0 mmol/L (3-11) Est Creatinine Clear Calc Drug Dose 68.6 ml/min Estimated GFR () 74.1 Estimated GFR (Non- 63.9 BUN/Creatinine Ratio 30.3 (10-20) Calcium Level 8.2 mg/dl (8.5-10.1) Bedside Glucose 282 mg/dl (70-99) Date/Time Source Procedure Growth Status 10/08/17 11:45 Urine , Clean Catch Urine Culture - Final THREE TYPES OF ORGANISMS PRESENT, ALL... Complete Last 24 Hours Test 10/10/17 11:18 10/10/17 16:32 10/10/17 20:21 10/11/17 07:15 Bedside Glucose 183 mg/dl 212 mg/dl 166 mg/dl 65 mg/dl Test 10/11/17 07:34 Bedside Glucose 90 mg/dl Assessment & Plan 67 yo M smoker presents with one week of productive cough of whitish sputum and some SOB. Today he states that he doesn't feel much better. Still not requiring oxygen, still coughing some and reporting shortness of breath. Repeat xray 2 view today was negative for new infiltrate. Changed abx -zpak just given to doxy in case of resistance. 1. COPD exacerbation-no infiltrates were seen on xray. Azithromycin completed yesterday-starting doxy. Wheezing has cleared on exam. Cont prednisone and duonebs and home tiptropium. 2. Elevated troponin-No evidence of acute wall motion abnormalities on ECHO. Clinical picture not consistent with acute ischemia. Cardiology consulted for short bursts atrial tachycardia on monitor overnight, poss 2/2 acute lung disease. No further workup recommended at this time. 3. Atrial tachycardia-very short bursts, likely related to acute lung disease. No further workup at this time. 4. DMII-uncontrolled at baseline with elevated A1C 8.9. Hyperglycemia 2/2 noncompliance with insulin over the past week. Cont ISS/Glargine with carb coverage. Apprec pharmacy management. 5. HTN-controlled, cont Coreg and lisinopril. 6. Elevated AST to 94. No abdominal pain or nausea. Pt reports rare ETOH use. Would recommend outpatient follow-up with PCP. 7. Smoker-tobacco cessation advised. 8. GI prophylaxis while on steroids-Protonix. 9. BRADEN-resolved, DVT proph-Lovenox. DNR Dispo-transfer to med/surg, likely dc to home in am. Yvette Kamara DO [facility] Hospitalist Consultants: Rajni Current Inpatient Medications: Current Inpatient Medications Medications (Trade) Dose Ordered Sig/Uday Route Start Time Stop Time Status Last Admin Dose Admin Enoxaparin Sodium (Lovenox Inj) 40 mg Q24H SQ 10/07/17 18:00 11/06/17 17:59 10/10/17 17:17 40 MG Acetaminophen (Tylenol Tab) 650 mg Q4H PRN PO 10/07/17 15:00 11/06/17 14:59 Ondansetron HCl (Zofran Inj) 4 mg Q6H PRN IV 10/07/17 15:00 11/06/17 14:59 Lisinopril (Zestril Tab) 40 mg QAM PO 10/08/17 08:00 11/07/17 08:59 10/11/17 07:22 40 MG Potassium Chloride (Klor-Con Tab) 20 meq QAM PO 10/08/17 08:00 11/07/17 08:59 10/11/17 07:23 20 MEQ Tamsulosin HCl (Flomax Cap) 0.4 mg QAM PO 10/08/17 08:00 11/07/17 08:59 10/11/17 07:22 0.4 MG Pantoprazole Sodium (Protonix Tab) 40 mg QAM PO 10/08/17 08:00 11/07/17 08:59 10/11/17 07:24 40 MG Glucose (Glucose 40% Gel) 15-30 GRAMS 15 GRAMS... UD PRN PO 10/07/17 15:45 11/06/17 15:44 Glucose (Glucose Chew Tab) 4-8 Tablets 4 Tabl... UD PRN PO 10/07/17 15:45 11/06/17 15:44 Dextrose (Dextrose 50% 50ML Syringe) 25-50ML OF 50% DW IV FOR... UD PRN IV 10/07/17 15:45 11/06/17 15:44 Glucagon (Glucagon Inj) 1 mg UD PRN SQ 10/07/17 15:45 11/06/17 15:44 Miscellaneous Information (Consult Glycemic Management Pharmacy) 1 ea DAILY PRN N/A 10/07/17 22:24 11/06/17 22:23 Prednisone (PredniSONE TAB) 40 mg DAILY PO 10/09/17 08:00 11/08/17 07:59 10/11/17 07:23 40 MG Insulin Aspart (novoLOG ASPART) SLIDING SCALE ACHS SC 10/08/17 16:15 11/07/17 16:29 10/11/17 09:31 6 UNITS Insulin Glargine (Lantus Solostar Pen) SEE PROTOCOL BID SC 10/09/17 21:00 11/08/17 20:59 10/10/17 21:21 17 UNITS Furosemide (Lasix Tab) 40 mg BID17 PO 10/10/17 09:00 11/09/17 08:59 10/11/17 07:25 40 MG Albuterol Sulfate (Ventolin 0.083% 2.5MG/3ML Neb) 2.5 mg Q6R PRN INH 10/10/17 21:00 11/06/17 20:59 10/10/17 21:55 2.5 MG Carvedilol (Coreg Tab) 12.5 mg BID PO 10/10/17 20:00 11/09/17 20:59 10/11/17 07:24 12.5 MG Tiotropium [place]/Olodaterol (Stiolto Respimat 2.5-2.5 Mcg/Act) 5 mcg DAILY@1999 INH 10/11/17 20:00 11/10/17 19:59
[2017-10-11] MEDS ORDERED: GUAIFENESIN SUGAR FREE 100 MG/5 ML UDC PO PRN (21:30)
--- NOTE | 2017-10-12 06:31 | NUR ---
ID: PT ALERT AND ORIENTED. NO C/O PAIN. PT HAS SL. INDEPENDENT FOR CARE. LICENSED [employer] INVOLVED WITH D/C PLANNING. HOURLY ROUNDING MAINTAINED/ENCOURAGED TO RING FOR ASSISTANCE.
[2017-10-12 06:58] VITALS: BP 111/70; PULSE 71; TEMP 36.6; O2SAT 91
[2017-10-12] MEDS: TAMSULOSIN HCL 0.4 MG CAP PO SCH (08:09)
[2017-10-12] MEDS: LISINOPRIL 40 MG TAB PO SCH (08:09)
[2017-10-12] MEDS: PANTOprazole SOD 40 MG TAB PO SCH (08:09)
[2017-10-12] MEDS: CARVEDILOL 12.5 MG TAB PO SCH (08:09)
[2017-10-12] MEDS: DOXYCYCLINE HYCLATE 100 MG CAP PO SCH (08:09)
[2017-10-12] MEDS: POTASSIUM CHLORIDE 20 MEQ TABCR PO SCH (08:10)
[2017-10-12] MEDS: INSULIN ASPART 100 UNITS/ML 3 ML PEN SC SCH ×2 (08:15→12:18)
[2017-10-12] MEDS: INSULIN GLARGINE SOLOSTAR 100 UNITS/ML 3 ML PEN SC SCH (08:16)
[2017-10-12] MEDS: FUROSEMIDE 40 MG TAB PO SCH (09:43)
[2017-10-12] MEDS ORDERED: PRD20 PO (10:05)
[2017-10-12] MEDS ORDERED: DXY100 PO (10:05)
--- NOTE | 2017-10-12 10:08 | Discharge Summary ---
Discharge Summary Date of Service Oct 12, 2017. Discharge Summary Admission Date: Oct 07, 2017 at 15:00 Discharge Date: Oct 12, 2017 Discharge Disposition: Home Principal Diagnosis: COPD exacerbation Elevated troponin Atrial tachycardia-lone episode DMII HTN Elevated transaminase Smoker BRADEN Procedures: TTE 10/08: The aortic valve is not well visualized. * Hemodynamically significant valvular aortic stenosis cannot be excluded. * There is moderate concentric left ventricular hypertrophy. * Ejection Fraction = 55-60%. * The right ventricular systolic function is normal. * The left atrium is moderately dilated. * Right atrial size is normal. * There is mild mitral regurgitation. * Significant tricuspid regurgitation is absent. Vaccinations: Pneumovax Consultations: Rajni Pending Studies/Follow-Up: see instructions below Medication Reconciliation New Medications: Doxycycline Hyclate (Doxycycline Hyclate) 100 Mg Cap 100 MG PO BID for 4 Days, #8 CAP Prednisone (Prednisone) 20 Mg Tab 40 MG PO DAILY for 4 Days, #8 TAB Continued Medications: Carvedilol (Coreg) 25 Mg Tab 25 MG PO BID, TAB Cyclobenzaprine Hcl (Flexeril) 10 Mg Tab 10 MG PO HS Diclofenac (Voltaren) 75 Mg Tabcr 75 MG PO BID, TAB WITH FOOD Furosemide (Lasix) 40 Mg Tab 40 MG PO BID, TAB Insulin Aspart (Novolog Flexpen) 100 Units/Ml Inj 10 UNITS SQ WITH DINNER PRN for HIGH BLOOD SUGAR Insulin Glargine (Lantus Solostar) 100 Unit/Ml Inj 54 UNITS SC BID, PEN Ipratropium [place] (Ipratropium [place]) 0.5 Mg/2.5 Ml Nebu 1 DOSE INH BID PRN for SOB/Wheezing Lisinopril (Zestril) 40 Mg Tab 40 MG PO QAM, TAB Potassium Ext Rel (Klor-Con) 20 Meq Tabcr 20 MEQ PO QAM, TAB Tamsulosin Hcl (Flomax) 0.4 Mg Cap 0.4 MG PO QAM, CAP Admission Information HPI (per Admitting provider): HISTORY OF PRESENT COMPLAINT: He is a 67-year-old male with significant past medical history, diabetes and COPD. Apparently has not been taking any medications, has been complaining of a cough with some shortness of breath since last. He feels feverish and he thinks that he had a low grade fever. The condition is not getting any better. He has productive of white phlegm and since the condition is getting worse he has been here for further evaluation. He called the [place] [facility] but was advised to come to the ER for further evaluation. Denies to have any chest pain, no palpitation. Does not have any swelling of the legs. No numbness or tingling in the extremities and does not have any weakness involving any side of the body. Physical Exam (per Admitting): PHYSICAL EXAMINATION: GENERAL: In the ER, he was having more shortness of breath. VITAL SIGNS: Temperature 36.3, pulse was 86, blood pressure 176/93, saturation 95% on room air. HEAD, EYES, EARS, NOSE, AND THROAT: Unremarkable. NECK: Supple. No JVD. No bruit. CHEST: Decreased breath sounds all over with bibasilar crackles more on the left than on the right. HEART: S1, S2 regular. No murmur appreciated. ABDOMEN: Soft, benign, nontender, no organomegaly. Bowel sounds present. EXTREMITIES: Chronic skin changes but no significant edema bilaterally. GENERAL: He does have bruising especially in the upper extremities, but he has not been taking any aspirin and/or any anticoagulation. CENTRAL NERVOUS SYSTEM: He is alert, awake, oriented x3. He does not have any focal neuro deficit on examination. MUSCULOSKELETAL SYSTEM: Did not show any acute arthritis involving any joint. Hospital Course 67 yo M smoker presents with one week of productive cough of whitish sputum and some SOB. Repeat xray 2 view today was negative for new infiltrate. Changed abx -zpak just given to doxy in case of resistance as he wasn't improved enough after the Zpak was completed. 1. COPD exacerbation-no infiltrates were seen on xray. Azithromycin completed yesterday-starting doxy. Wheezing has cleared on exam. Cont prednisone and duonebs and home tiptropium. 2. Elevated troponin-No evidence of acute wall motion abnormalities on ECHO. Clinical picture not consistent with acute ischemia. Cardiology consulted for short bursts atrial tachycardia on monitor overnight, poss 2/2 acute lung disease. No further workup recommended at this time. 3. Atrial tachycardia-very short bursts, likely related to acute lung disease. No further workup at this time. 4. DMII-uncontrolled at baseline with elevated A1C 8.9. Hyperglycemia 2/2 noncompliance with insulin over the past week. Cont ISS/Glargine with carb coverage. Apprec pharmacy management. 5. HTN-controlled, cont Coreg and lisinopril. 6. Elevated AST to 94. No abdominal pain or nausea. Pt reports rare ETOH use. Would recommend outpatient follow-up with PCP. 7. Smoker-tobacco cessation advised. 8. GI prophylaxis while on steroids-Protonix. 9. BRADEN-resolved, On day of discharge he was mentating and ambulating at baseline and was tolerating PO. He was reliably not requiring supplemental oxygen and was feeling improved from a breathing standpoint overall. Physical exam was unremarkable. He was discharged in stable condition with close PCP follow-up at the [place] [facility] in [place], [place]. Total time spent on discharge = 60 minutes This includes examination of the patient, discharge planning, medication reconciliation, and communication with other providers. Discharge Instructions [facility] [address] [place] [address] Discharge Medical Patient Name: Ihsan Miranda Unit Number: [id number] Date of : 1950 Patient Status: Admitted Inpatient Attending Doctor: Yvette Kamara DO DI: Medical v4 Discharge Instructions Date of Service Oct 12, 2017. Admission Reason for Admission: Copd Exacerbation, Pneumonia Discharge Discharge Diagnosis / Problem: COPD exacerbation Discharge Goals Goal(s): Prevent Disease Progression Activity Recommendations Activity Limitations: per Instructions/Follow-up section . Instructions / Follow-Up Instructions / Follow-Up Please take all medications as instructed on discharge list. It is recommended that you follow-up with your primary care provider within one week of discharge. It was a pleasure taking care of you! Call if you have any questions or problems. You can reach a [facility] hospitalist on duty at [facility] 24 hours a day by calling [phone]. Take care of yourself. DO [facility] Hospitalist Current Hospital Diet Patient's current hospital diet: AHA Diet (Heart Healthy), Diabetes Type 2 Diet Discharge Diet Recommended Diet: AHA Diet (Heart Healthy), Diabetes Type 2 Diet Procedures Procedures Performed: TTE: Hemodynamically significant valvular aortic stenosis cannot be excluded. * There is moderate concentric left ventricular hypertrophy. * Ejection Fraction = 55-60%. * The right ventricular systolic function is normal. * The left atrium is moderately dilated. * Right atrial size is normal. * There is mild mitral regurgitation. * Significant tricuspid regurgitation is absent. Pending Studies Studies pending at discharge: no Laboratory Results Hemoglobin A1c Test 10/08/17 05:15 Range/Units Estimated Average Glucose 209 mg/dl Hemoglobin A1c 8.9 H 4.5-5.6 % Medical Emergencies . Who to Call and When: Medical Emergencies: If at any time you feel your situation is an emergency, please call 911 immediately. . Non-Emergent Contact Non-Emergency issues call your: Primary Care Provider . . "Provider Documentation" section prepared by Yvette Kamara. . VTE Core Measure Inpt VTE Proph given/why not?: Enoxaparin (Lovenox)SQ Additional Copies To [facility]
[2017-10-12 10:31] VITALS: BP 111/70; PULSE 71; TEMP 36.6; O2SAT 91
--- NOTE | 2017-10-14 12:30 | EDITING REQUIRED CODING QUERY ---
CODING QUERY To promote full compliance with coding requirements relating to patient care, provider participation is requested in all cases of septic tank service technician uncertainty. Please assist us with the question(s) below: Coding Question(s): BRADEN is documented in the record and on the Discharge Summary. Please clarify below as BRADEN is not a valid abbreviation. ( x ) BRADEN means Acute Kidney Injury ( ) BRADEN means Acute Kidney Insufficiency ( ) BRADEN means other: Specify Physician's Response(s): Thank you Roma Kirk Principal Diagnosis: "_that condition established after study, to be chiefly responsible for occasioning the admission of the patient to the hospital for care." Co-Existing Principal Diagnosis: "_when two or more diagnoses equally meet the criteria for principal diagnosis as determined by the circumstances of admission, diagnostic work up, and/or therapy provided, and the Alphabetic Index, Tabular List, or another coding guideline does not provide sequencing direction, any one of the diagnoses may be sequenced first." "When the physician has documented what appears to be a current diagnosis in the body of the record, but has not included the diagnosis in the final diagnostic statement, the physician should be asked whether the diagnosis should be added." (Source Coding Clinic 2 QTR90. p3-4)
== END 2017-10-12 13:05 | disposition home or self-care (01) | DRG 191 ==
LOC: C.EDB 12:33 → C.MS4W 15:00 → ENRESERV 15:34 → C.2E 10-08 10:42 → EDBEDREQ 10-08 10:48 → ENRESERV 10-08 11:08 → C.MS4W 10-10 18:44
PROVIDERS: ADMIT Internal Medicine; ATTEND Hospitalist
DX: J44.1 Chronic obstructive pulmonary disease with (acute) exacerbation (principal); I47.1 Supraventricular tachycardia; N17.9 Acute kidney failure, unspecified; E11.65 Type 2 diabetes mellitus with hyperglycemia; R78.89 Finding of other specified substances, not normally found in blood; I35.0 Nonrheumatic aortic (valve) stenosis; I11.9 Hypertensive heart disease without heart failure; F17.210 Nicotine dependence, cigarettes, uncomplicated; Z51.81 Encounter for therapeutic drug level monitoring; Z79.899 Other long term (current) drug therapy; Z79.4 Long term (current) use of insulin; Z66 Do not resuscitate; Z91.14 Patient's other noncompliance with medication regimen

== ENCOUNTER 2019-10-26 16:02 | Inpatient (IN) ==
--- NOTE | 2019-10-26 16:43 | XRay Report ---
XR chest 1V portable CLINICAL HISTORY: weakness dyspnea COMPARISON STUDY: 10/07/2017 FINDINGS: Slight basilar chronic interstitial change. Mild cardiac enlargement. Diaphragms are smooth . Pulmonary apices are clear. IMPRESSION: Subtle basilar interstitial infiltrative change. ACT 112: Negative or not required by law. The above report was generated using voice recognition software. It may contain grammatical, syntax or spelling errors. Electronically signed by: Kwesi Sr M.D. 10/26/2019 4:41 PM
[2019-10-26 16:45] LABS: Basophils # (auto) 0.01 K/uL (0-0.2); Basophils % (auto) 0.1 %; Eosinophils # (auto) 0.14 K/uL (0-0.5); Eosinophils % (auto) 2.1 %; Hematocrit (blood only) 34.3 % (42-52); Hemoglobin 12.7 g/dL (14.0-18.0); Immature Granulocytes # (auto) 0.01 K/uL (0.00-0.02); Immature Granulocytes % (auto) 0.1 %; Lymphocytes # (auto) 2.19 K/uL (1.2-3.4); Lymphocytes % (auto) 32.8 %; Mean Corpuscular Hemoglobin 34.3 pg (25-34); Mean Corpuscular Volume 92.7 fL (80-100); Mean Platelet Volume 9.1 fL (7.4-10.4); Monocytes # (auto) 0.36 K/uL (0.11-0.59); Monocytes % (auto) 5.4 %; Neutrophils # (auto) 3.96 K/uL (1.4-6.5); Neutrophils % (auto) 59.5 %; Platelet Count 129 K/uL (130-400); RDW Coefficient of Variation 14.8 % (11.5-14.5); RDW Standard Deviation 50.4 fL (36.4-46.3); White Blood Count 6.67 K/uL (4.8-10.8)
[2019-10-26 16:58] LABS: Albumin Level 2.9 gm/dl (3.4-5.0); BUN Creatinine Ratio 10.6 (10-20); Calcium 8.8 mg/dl (8.5-10.1); Creatinine Clr Calc Pharmacy 57.8 ml/min; Est GFR (African American) 60.8; Est GFR (Non-African American) 52.4; Magnesium 1.9 mg/dl (1.8-2.4)
[2019-10-26 17:00] LABS: Prothrombin Time 10.6 Seconds (9.0-12.0)
--- NOTE | 2019-10-26 17:15 | CT Scan Report ---
CT head/brain wo con CT DOSE: 537.48 mGy.cm HISTORY: Mental status change R hand tingling, difficulty w/ ambulation TECHNIQUE: Multiaxial CT images of the head were performed without the use of intravenous contrast. A dose lowering technique was utilized adhering to the principles of ALARA. Comparison: None. Findings: The paranasal sinuses and mastoid air cells are clear. The calvarium and skull base are int act. The ventricles and sulci are within normal limits. There is no mass, hematoma, midline shift, or acute infarct. Impression: No acute intracranial abnormality. ACT 112: Negative or not required by law. The above report was generated using voice recognition software. It may contain grammatical, syntax or spelling errors. Electronically signed by: Kwesi Sr M.D. 10/26/2019 5:14 PM
[2019-10-26 17:18] LABS: Albumin Globulin Ratio 0.7 (0.9-2); Bilirubin,Total 1.5 mg/dl (0.2-1); Globulin 3.9 gm/dl (2.5-4.0); Thyroid Stimulating Hormone 5.99 uIu/ml (0.300-4.500); Total Protein 6.8 gm/dl (6.4-8.2); Troponin I 0.086 ng/ml (0-0.045)
[2019-10-26] MEDS ORDERED: ASPIRIN CHEW 324 MG PO STA (17:19)
[2019-10-26 17:30] LABS: Appearance Urine Clear (Clear); Bacteria Urine Automated Negative (Negative); Bilirubin Urine Negative (Negative); Blood Urine 1+ (Negative); Color Urine Yellow; Glucose Urine UA Negative (Negative); Ketones Urine Negative (Negative); Leukocyte Esterase Urine Negative (Negative); Nitrite Urine Negative (Negative); Protein Urine 3+ (Negative); RBC Urine Automated 0-4 /hpf (0-4); Specific Gravity Urine 1.008 (1.000-1.030); Urobilinogen Urine Negative (Negative)
--- NOTE | 2019-10-26 18:19 | History & Physical Report ---
Date of Service October 26, 2019 Assessment & Plan (1) Right sided weakness: Pt is 69 y/o M with PMH DM II, COPD, HTN, cirrhosis, tobacco use, chronic back pain presented to ER with c/o right hand paresthesias and intermittent right leg weakness x 1 month. Family member reports intermittent slurred speech this past week. In ER BP: 176/92, P: 84, R: 18, 98% on RA, afebrile. No leukocytosis. H/H: 12.7/34 (Hgb: 13 in 2017), Plt: 129, Glucose: 181 CT Head: no acute findings -In ER given ASA 325mg po -Tele to monitor for arrhythmias -Lipid, HA1C in AM -MRI brain without contrast -U/S carotids -echo with bubble study -aspiration precautions -PT/OT consult -Start atorvastatin, aspirin 81mg -Pt did not take all home BP meds today, will dose now -neurology consult (2) Elevated troponin: Troponin: 0.086. No acute EKG changes Pt denies CP, denies increased SOB from baseline. History elevated troponin in 2017 (0.059, 0.07) -Repeat EKG in am -Will trend troponin -Echo -lipid panel in am -Continue carvedilol -Consider cardiology consult if increasing troponin or develops CP (3) HTN (hypertension): BP elevated in ER up to 193/91 Did not have all BP meds today -Dose lisinopril and evening carvedilol now -Monitor BP -Continue lisinopril and carvedilol (4) COPD (chronic obstructive pulmonary disease): No increased SOB or cough or sputum production -Continue inhalers (5) Diabetes mellitus, type II: Insulin dependent -A1c in AM -Hold home insulin -Basal bolus insulin per protocol (6) Hypothyroidism: TSH: 5.9 -Will need further TSH monitoring outpatient -Continue levothyroxine (7) Tobacco abuse: -Smoking cessation encouraged -Nicotine patch DVT Prophylaxis -Heparin SQ DNR/DNI as per discussion with pt Follows with Rose Daniels PA-C at [facility] for routine care Pt was seen and care coordinated with Dr Rosales. See addendum History of Present Illness Chief Complaint: Right sided weakness Primary Care Provider: Rebeca Cardona PA-C at [facility] in [place] Pt is 69 y/o M with PMH DM II, COPD, HTN, cirrhosis, tobacco use, chronic back pain presented to ER with c/o right hand paresthesias and intermittent right leg weakness x 1 month. Pt lives alone. Family member reports talks to pt on phone daily and has noticed some intermittent slurred speech this past week. Reports intermittent right leg weakness with walking. Denies falls or injury. Denies any noted right hand/arm weakness but paresthesias sensation to hand/fingers is constant. Pt denies any CP. Reports chronic SOB and cough with COPD and denies any increased SOB or increased cough or sputum production. Reports follows with cardiology at [facility] in [place] and reports had follow up appointment yesterday and "things ok". Reports chronic heart murmur but denies any hx TX or cardiac procedures. Reports chronic leg redness/discoloration and discomfort and denies any increased redness or edema. Denies fever/chills, diaphoresis, N/V/D/C, WICK, dizziness, syncope, vision changes, neck pain, orthopnea, palpitations, cough, sore throat, choking, otalgia, rhinorrhea, abdominal pain, rashes, urinary symptoms. Allergies Allergy/AdvReac Type Severity Reaction Status Date / Time No Known Allergies Allergy Mild Verified 10/26/19 18:12 Home Medications Home Medications Medication Instructions Recorded Confirmed Type albuterol sulfate 1 puff INHALATION QID PRN 10/26/19 10/26/19 History albuterol sulfate 2.5 mg INHALATION QID PRN 10/26/19 10/26/19 History carvedilol 25 mg PO BID 10/26/19 10/26/19 History cyclobenzaprine 10 mg PO BID PRN 10/26/19 10/26/19 History insulin aspart U-100 [Novolog 10 unit SUBCUT TIDM 10/26/19 10/26/19 History Flexpen U-100 Insulin] insulin glargine 51 unit SUBCUT BID 10/26/19 10/26/19 History levothyroxine 50 mcg PO DAILY 10/26/19 10/26/19 History lisinopril 40 mg PO DAILY 10/26/19 10/26/19 History polyvinyl alcohol [Artificial 1 drp OPHTHALMIC (EYE) BID PRN 10/26/19 10/26/19 History Tears (polyvin alc)] potassium chloride 20 meq PO DAILY 10/26/19 10/26/19 History tiotropium-olodaterol 2 puff INHALATION DAILY 10/26/19 10/26/19 History Past Med/Surg History Medical History (Updated 10/26/19 @ 18:47 by Irina Donovan PA-C) Cirrhosis COPD (chronic obstructive pulmonary disease) COPD exacerbation Diabetes mellitus, type II HTN (hypertension) Hypothyroidism Pneumonia Tobacco abuse Surgical History (Updated 10/26/19 @ 18:41 by Irina Donovan PA-C) History of cholecystectomy Family History (Updated 10/26/19 @ 18:41 by Irina Donovan PA-C) Other Family history non-contributory Social History (Updated 10/26/19 @ 18:42 by Irina Donovan PA-C) Preferred Language: Haitian Beliefs That Will Affect Care: None Current Living Situation: Alone Other Information That Helps Us Care for You: No Feels Safe at Home: Yes Safety Concerns: Feels Safe At This Time Smoking Status: Current every day smoker Tobacco Type: cigarettes ; Cigarettes Per Day: 1ppd ; Do You Dip or Chew Tobacco: No ; Hx Alcohol Use: No Hx Substance Use: No Review of Systems Review of Systems: All systems reviewed & are unremarkable except as noted in HPI & below Physical Exam Physical Exam: General: no acute distress, WDWN Head: normocephalic, atraumatic Eyes: PERRL, EOM's intact, conjunctiva non-injected, anicteric ENT: normal inspection external ears, nose, mucous membranes moist Neck: supple, trachea midline, non-tender, ROM intact Lungs: no respiratory distress, diminished breath sounds without rales, rhonchi, wheezing CV: RRR,+ systolic murmur, 1+pretibial edema Abd: normal BS, soft, non-tender Ext: no calf tenderness, BLE +venous stasis skin discoloration Neuro: A&O x 3, normal affect, No nystagmus, Facial sensation is intact and symmetric, The face is strong and symmetric, Soft palate elevates symmetrically, no dysarthria, Shoulder shrug intact, Tongue is midline, normal movement, no fasciculations, strength upper and lower extremities 4/5, ice skater strength strong and equal bilaterally, finger to nose intact, rapid alternating movements intact, no pronator drift Skin: warm, dry Results & Data Vital Signs (Past 12 Hours) Vital Signs Temp Pulse Pulse Resp BP BP Pulse Ox 10/26/19 17:34 84 193/91 H 10/26/19 17:18 85 18 195/114 H 97 10/26/19 16:10 98 10/26/19 16:03 36.7 C 84 18 176/92 H 98 Laboratory Results Short CBC 10/26/19 Range/Units 16:10 WBC 6.67 (4.8-10.8) K/uL Hgb 12.7 L (14.0-18.0) g/dL Hct 34.3 L (42-52) % Plt Count 129 L (130-400) K/uL BMP 10/26/19 16:10 Sodium 136 Potassium 4.0 Chloride 106 Carbon Dioxide 28 BUN 14 Creatinine 1.35 Glucose 181 H Calcium 8.8 Cardiac Enzymes 10/26/19 Range/Units 16:10 Troponin I 0.086 H* (0-0.045) ng/ml Liver Function 10/26/19 Range/Units 16:10 Total Bilirubin 1.5 H (0.2-1) mg/dl AST 16 (15-37) U/L ALT 29 (12-78) U/L Alkaline Phosphatase 128 H (45-117) U/L Albumin 2.9 L (3.4-5.0) gm/dl Urine 10/26/19 Range/Units Unknown Urine Color Yellow Urine Appearance Clear (Clear) Urine pH 6.0 (4.5-7.5) Ur Specific [place] 1.008 (1.000-1.030) Urine Protein 3+ H (Negative) Urine Glucose (UA) Negative (Negative) Diagnostic Findings CXR: IMPRESSION: Subtle basilar interstitial infiltrative change. CT HEAD: Impression: No acute intracranial abnormality. ECG Rate (beats per minute): 85 Rhythm: sinus rhythm Code Status & VTE Plan VTE Prophylaxis Plan VTE Prophylaxis will be ordered: Yes Supervising Physician Co-Signing Physician Notes I, Dr. Anuj Rosales, have seen and examined the patient with physician assistant property manager and agree with the assessment and plan as above and would like to comment that On my exam General/Extremities: no gross motor weakness of upper extremities, patient reports numbness of palm of right hand, lower extremity strength on bed is generally symmetric, no aphasia, no facial droop Lungs: clear to auscultation Heart: regular rate Abdomen: soft, nontender, positive bowel sounds right sided weakness elevated troponins Hypertension/Hypertensive Urgency Type 2 diabetes mellitus with intermediate accountant current use of insulin -symptoms or complaints of 1 month duration of right hand numbness and difficulty with ambulation -patient denies falls -CT head on presentation unremarkable but blood pressures are elevated -continue current medications as documented by physician assistant property manager. in addition because blood pressures have been above systolic 176, patient has either poorly controlled hypertension or hypertensive urgency and so will add labetolol 10 mg IV q8 hours as needed if blood pressure are above systolic 185 and hold parameters. -currently patient getting imaging for Brain MRI and ultrasound carotid -will need neurology consult -continue telemetry, get echocardiogram My colleague Dr. Donovan will follow the patient starting on 08/27/2020
[2019-10-26] MEDS ORDERED: CARBOHYDRATES FOR HYPOGLYCEMIA PO PRN (19:13)
[2019-10-26] MEDS ORDERED: GLUCAGON FOR INJ 1 MG VIAL SQ PRN (19:13)
[2019-10-26] MEDS ORDERED: DEXTROSE 50% 50 ML SYRINGE IV PRN (19:13)
[2019-10-26] MEDS ORDERED: PHARMACIST DISCHARGE MED REC CONSULT PRN (19:13)
[2019-10-26] MEDS ORDERED: GLUCOSE 10 TABS/TUBE PO PRN (19:13)
[2019-10-26] MEDS ORDERED: ACETAMINOPHEN 325 MG TAB PO PRN (19:13)
[2019-10-26] MEDS ORDERED: GLUCOSE 40% GEL 15 GM TUBE PO PRN (19:13)
[2019-10-26] MEDS ORDERED: ARTIFICIAL TEARS OP PRN (19:13)
[2019-10-26] MEDS ORDERED: ALBUTEROL 0.083% NEBU SOLN 3 ML VIAL NEB PRN (19:13)
[2019-10-26] MEDS ORDERED: NITROGLYCERIN SL 0.4 MG/TAB TAB SL PRN (19:13)
[2019-10-26] MEDS ORDERED: CYCLOBENZAPRINE HCL 10 MG TAB PO PRN (19:49)
[2019-10-26] MEDS ORDERED: UMECLIDINIUM/VILANTEROL 62.5/25MCG 7 PUFFS/INHALER INH ONE (19:52)
[2019-10-26 20:35] LABS: Bilirubin Direct 0.3 mg/dl (0-0.2); Bilirubin,Total 1.6 mg/dl (0.2-1); Troponin I 0.067 ng/ml (0-0.045)
[2019-10-26] MEDS: lisinopriL 40 MG TAB PO SCH (21:09)
[2019-10-26] MEDS: carvediloL 25 MG TAB PO SCH (21:09)
[2019-10-26] MEDS: INSULIN ASPART 100 UNITS/ML 3 ML PEN SC SCH (21:10)
[2019-10-26] MEDS: NICOTINE 21 MG/24 HR TDSY TD SCH (21:10)
[2019-10-26] MEDS: INSULIN GLARGINE SOLOSTAR 100 UNITS/ML 3 ML PEN SC SCH (21:12)
[2019-10-26] MEDS: HEPARIN SOD 5,000 UNIT/0.5 ML VIAL SQ SCH (21:13)
[2019-10-26] MEDS ORDERED: LABETALOL HCL IV 5 MG/ML 20ML IV PRN (23:02)
--- NOTE | 2019-10-26 23:56 | Emergency Department Note ---
Entered by Domi Guthrie acting as a scribe for History of Present Illness General Chief complaint: Neuro Symptoms/Deficit Stated complaint: ABNORMAL GAIT, R HAND TINGLING Time Seen by Provider: 10/26/19 16:21 History of Present Illness Location: chest, upper extremity, lower extremity and right Pain Consistency: + intermittent Quality: + other (weakness) Relieved By: + none Associated symptoms: + denies other symptoms (denies abdominal pain), + chest pain, + weakness and + other (trouble speaking, leg swelling, right upper extremity numbness); no loss of appetite and no nausea/vomiting Treatments prior to arrival: none The patient is a 69 year old white male who presents to the ED w/ CC of neurological symptoms beginning a month ago. The patient states that he first started feeling intermittent chest pain about a month ago. He went to bed and when he woke up the next morning, he states that he could not walk and had num bness in his right hand. He notes that the weakness seems to be worse in his right leg. He now needs a walker to ambulate and often bumps into things. He went to [facility] in [place], who recommended going to a commercial manager. He had an appointment with him yesterday, and the doctor stated that his heart was fine, and stated that his symptoms may have a neurological cause. He complains of trouble speaking and finding words. The patient is a current smoker, and denies alcohol use. He denies abdominal pain, nausea, vomiting, and loss of appetite. The patient lives by himself. He has also noticed leg swelling recently. Home Medications Home Medications Medication Instructions Recorded Confirmed Type albuterol sulfate 1 puff INHALATION QID PRN 10/26/19 10/26/19 History albuterol sulfate 2.5 mg INHALATION QID PRN 10/26/19 10/26/19 History carvedilol 25 mg PO BID 10/26/19 10/26/19 History cyclobenzaprine 10 mg PO BID PRN 10/26/19 10/26/19 History insulin aspart U-100 [Novolog 10 unit SUBCUT TIDM 10/26/19 10/26/19 History Flexpen U-100 Insulin] insulin glargine 51 unit SUBCUT BID 10/26/19 10/26/19 History levothyroxine 50 mcg PO DAILY 10/26/19 10/26/19 History lisinopril 40 mg PO DAILY 10/26/19 10/26/19 History polyvinyl alcohol [Artificial 1 drp OPHTHALMIC (EYE) BID PRN 10/26/19 10/26/19 H istory Tears (polyvin alc)] potassium chloride 20 meq PO DAILY 10/26/19 10/26/19 History tiotropium-olodaterol 2 puff INHALATION DAILY 10/26/19 10/26/19 History Allergies Allergy/AdvReac Type Severity Reaction Status Date / Time No Known Allergies Allergy Mild Verified 10/26/19 18:12 Past Med/Surg History Medical History (Updated 10/26/19 @ 18:47 by Irina Donovan PA-C) Cirrhosis COPD (chronic obstructive pulmonary disease) COPD exacerbation Diabetes mellitus, type II HTN (hypertension) Hypothyroidism Pneumonia Tobacco abuse Surgical History (Updated 10/26/19 @ 18:41 by Irina Donovan PA-C) History of cholecystectomy Family History (Updated 10/26/19 @ 18:41 by Irina Donovan PA-C) Other Family history non-contributory Social History (Updated 10/26/19 @ 18:42 by Irina Donovan PA-C) Preferred Language: Faroese Beliefs That Will Affect Care: None Current Living Situation: Alone Other Information That Helps Us Care for You: No Feels Safe at Home: Yes Safety Concerns: Feels Safe At This Time Smoking Status: Current every day smoker Tobacco Type: cigarettes ; Cigarettes Per Day: 1ppd ; Do You Dip or Chew Tobacco: No ; Hx Alcohol Use: No Hx Substance Use: No Review of Systems See HPI for pertinent positives & negatives. and A total of 10 systems reviewed and were otherwise negative Physical Exam Vital Signs Vital Signs - 24 hr 10/26/19 16:03 10/26/19 16:10 10/26/19 17:18 Temperature 36.7 C Temperature Source Oral Pulse Rate 84 Pulse Rate [Apical] 85 Respiratory Rate 18 18 Respiratory Effort / Characteristics Non-Labored Spontaneous Respiratory Depth Normal Respiratory Pattern Regular Blood Pressure 176/92 H Blood Pressure [Left Arm] 195/114 H Blood Pressure Mean 120 Blood Pressure Mean [Left Arm] 141 Pulse Oximetry 98 98 97 Oxygen Delivery Method Room Air Room Air Room Air Sepsis Recent Fever Within 48 Hours No Sepsis New/Unexplained Change in Mental Status No Sepsis Action Taken by Nursing No Action Required 10/26/19 17:34 Temperature Temperature Source Pulse Rate Pulse Rate [Apical] 84 Respiratory Rate Respiratory Effort / Characteristics Respiratory Depth Respiratory Pattern Blood Pressure Blood Pressure [Left Arm] 193/91 H Blood Pressure Mean Blood Pressure Mean [Left Arm] 125 Pulse Oximetry Oxygen Delivery Method Sepsis Recent Fever Within 48 Hours Sepsis New/Unexplained Change in Mental Status Sepsis Action Taken by Nursing GENERAL: Well appearing, well nourished, NAD, non-toxic. EYE EXAM: Normal conjunctiva. PERRL, no anisocoria and EOM's grossly intact w/o pain. OROPHARYNX: Moist mucous membranes. Poor dentition. NECK: Supple, no nuchal rigidity, no adenopathy, non-tender. No signs of meningismus. LUNGS: Clear to auscultation. Normal chest wall mechanics. HEART: NSR, no MRG. ABDOMEN: Abdomen soft, non-tender, normo-active bowel sounds, no masses, no rebound or guarding. BACK: No CVA TTP. SKIN: No rashes and no bruising. UPPER EXTREMITIES: Upper extremities are grossly normal. LOWER EXTREMITIES: No pitting edema. No calf pain. NEURO EXAM: Questionable right sided weakness. No droop, no sensory deficits. Questionable dysarthria. Course Course 1652: Past medical records reviewed. The patient was evaluated in room C09. A complete history and physical exam was performed. 1654: Patient was placed on monitor car operator. Sinus rhythm with rate of 85. 1728: [facility] take over care of the patient. Dr. Rosales will see the patient for further evaluation and treatment. I updated the patient, who verbally expressed understanding and agreement of the treatment plan. The patient will be evaluated for further treatment. Administered Medications Carvedilol (Coreg) 25 mg PO BID DARIAN Stop: 11/25/19 20:59 Last Admin: 10/26/19 21:09 Dose: 25 mg Documented by: [id number] Heparin Sodium (Porcine) (Heparin Sodium (Porcine)) 5,000 units SQ Q8 DARIAN Stop: 11/25/19 21:59 Last Admin: 10/26/19 21:13 Dose: 5,000 units Documented by: [id number] Cosigned by: [id number] Insulin Aspart (Novolog Flexpen) 0 units SC ACHS DARIAN Stop: 11/25/19 20:59 Last Admin: 10/26/19 21:10 Dose: 2 units Documented by: [id number] Cosigned by: [id number] Insulin Glargine (Lantus Solostar Pen) 0 - 50 units SC BID DARIAN Stop: 11/25/19 20:59 Last Admin: 10/26/19 21:12 Dose: 50 units Documented by: [id number] Cosigned by: [id number] Lisinopril (Zestril) 40 mg PO DAILY DARIAN Stop: 11/25/19 18:31 Last Admin: 10/26/19 21:09 Dose: 40 mg Documented by: [id number] Nicotine (Nicoderm Cq) 21 mg TD QAM DARIAN Stop: 11/25/19 19:12 Last Admin: 10/26/19 21:10 Dose: Not Given Documented by: [id number] Discontinued Medications Aspirin (Aspirin) 324 mg PO NOW STA Stop: 10/26/19 17:20 Last Admin: 10/26/19 17:42 Dose: 324 mg Documented by: [id number] Medical Decision Making Differential Diagnosis Differential includes acute coronary syndrome, myocardial infarction, CVA, TIA, anemia, infection, pneumonia, UTI, pyelonephritis, poor nutrition, dehydration, electrolyte disturbance,hypoglycemia. Medical Records Attestation: I reviewed the patient's medical records. Home Medications Current Medication List: was personally reviewed by me Laboratory Data Attestation: I reviewed the patient's lab results. Result diagrams: 10/26/19 16:10 10/26/19 16:10 Lab Results 10/26/19 10/26/19 10/26/19 Range/Units 16:10 16:10 16:10 WBC 6.67 (4.8-10.8) K/uL RBC 3.70 L (4.7-6.1) M/uL Hgb 12.7 L (14.0-18.0) g/dL Hct 34.3 L (42-52) % MCV 92.7 (80-100) fL MCH 34.3 H (25-34) pg MCHC 37.0 H (32-36) g/dL RDW Std Deviation 50.4 H (36.4-46.3) fL RDW Coeff of Khushboo 14.8 H (11.5-14.5) % Plt Count 129 L (130-400) K/uL MPV 9.1 (7.4-10.4) fL Immature Gran % (Auto) 0.1 % Neut % (Auto) 59.5 % Lymph % (Auto) 32.8 % [place] % (Auto) 5.4 % Eos % (Auto) 2.1 % Baso % (Auto) 0.1 % Immature Gran # (Auto) 0.01 (0.00-0.02) K/uL Neut # (Auto) 3.96 (1.4-6.5) K/uL Lymph # (Auto) 2.19 (1.2-3.4) K/uL [place] # (Auto) 0.36 (0.11-0.59) K/uL Eos # (Auto) 0.14 (0-0.5) K/uL Baso # (Auto) 0.01 (0-0.2) K/uL PT 10.6 (9.0-12.0) Seconds INR 1.0 (0.9-1.1) Sodium 136 (136-145) mmol/L Potassium 4.0 (3.5-5.1) mmol/L Chloride 106 (98-107) mmol/L Carbon Dioxide 28 (21-32) mmol/L Anion Gap 3.0 (3-11) BUN 14 (7-18) mg/dl Creatinine 1.35 (0.6-1.4) mg/dl Est Cr Clr Drug Dosing 57.8 ml/min Est GFR ( Amer) 60.8 Est GFR (Non-Af Amer) 52.4 BUN/Creatinine Ratio 10.6 (10-20) Glucose 181 H (70-99) mg/dl POC Glucose (70-99) mg/dl Calcium 8.8 (8.5-10.1) mg/dl Magnesium 1.9 (1.8-2.4) mg/dl Total Bilirubin 1.5 H (0.2-1) mg/dl AST 16 (15-37) U/L ALT 29 (12-78) U/L Alkaline Phosphatase 128 H (45-117) U/L Troponin I 0.086 H* (0-0.045) ng/ml Total Protein 6.8 (6.4-8.2) gm/dl Albumin 2.9 L (3.4-5.0) gm/dl Globulin 3.9 (2.5-4.0) gm/dl Albumin/Globulin Ratio 0.7 L (0.9-2) TSH 5.990 H (0.300-4.500) uIu/ml Free T4 1.00 (0.8-1.6) ng/dl 10/26/19 Range/Units 16:37 WBC (4.8-10.8) K/uL RBC (4.7-6.1) M/uL Hgb (14.0-18.0) g/dL Hct (42-52) % MCV (80-100) fL MCH (25-34) pg MCHC (32-36) g/dL RDW Std Deviation (36.4-46.3) fL RDW Coeff of Khushboo (11.5-14.5) % Plt Count (130-400) K/uL MPV (7.4-10.4) fL Immature Gran % (Auto) % Neut % (Auto) % Lymph % (Auto) % [place] % (Auto) % Eos % (Auto) % Baso % (Auto) % Immature Gran # (Auto) (0.00-0.02) K/uL Neut # (Auto) (1.4-6.5) K/uL Lymph # (Auto) (1.2-3.4) K/uL [place] # (Auto) (0.11-0.59) K/uL Eos # (Auto) (0-0.5) K/uL Baso # (Auto) (0-0.2) K/uL PT (9.0-12.0) Seconds INR (0.9-1.1) Sodium (136-145) mmol/L Potassium (3.5-5.1) mmol/L Chloride (98-107) mmol/L Carbon Dioxide (21-32) mmol/L Anion Gap (3-11) BUN (7-18) mg/dl Creatinine (0.6-1.4) mg/dl Est Cr Clr Drug Dosing ml/min Est GFR ( Amer) Est GFR (Non-Af Amer) BUN/Creatinine Ratio (10-20) Glucose (70-99) mg/dl POC Glucose 205 H (70-99) mg/dl Calcium (8.5-10.1) mg/dl Magnesium (1.8-2.4) mg/dl Total Bilirubin (0.2-1) mg/dl AST (15-37) U/L ALT (12-78) U/L Alkaline Phosphatase (45-117) U/L Troponin I (0-0.045) ng/ml Total Protein (6.4-8.2) gm/dl Albumin (3.4-5.0) gm/dl Globulin (2.5-4.0) gm/dl Albumin/Globulin Ratio (0.9-2) TSH (0.300-4.500) uIu/ml Free T4 (0.8-1.6) ng/dl Imaging Data Radiologist's Impression: Radiology results as stated below per my review and the radiologist's interpretation: CT head/brain wo con CT DOSE: 537.48 mGy.cm HISTORY: Mental status change R hand tingling, difficulty w/ ambulation TECHNIQUE: Multiaxial CT images of the head were performed without the use of intravenous contrast. A dose lowering technique was utilized adhering to the principles of ALARA. Comparison: None. Findings: The paranasal sinuses and mastoid air cells are clear. The calvarium and skull base are intact. The ventricles and sulci are within normal limits. There is no mass, hematoma, midline shift, or acute infarct. Impression: No acute intracranial abnormality. ACT 112: Negative or not required by law. The above report was generated using voice recognition software. It may contain grammatical, syntax or spelling errors. Electronically signed by: Kwesi Sr M.D. 10/26/2019 5:14 PM XR chest 1V portable CLINICAL HISTORY: weakness dyspnea COMPARISON STUDY: 10/07/2017 FINDINGS: Slight basilar chronic interstitial change. Mild cardiac enlargement. Diaphragms are smooth. Pulmonary apices are clear. IMPRESSION: Subtle basilar interstitial infiltrative change. ACT 112: Negative or not required by law. The above report was generated using voice recognition software. It may contain grammatical, syntax or spelling errors. Electronically signed by: Kwesi Sr M.D. 10/26/2019 4:41 PM ECG Data Attestation: I personally reviewed and interpreted this ECG as follows: Indication: + weakness Rate (beats per minute): 85 Rhythm: + normal sinus ECG Intervals/blocks: + Normal QRS, + Normal ID and + Normal QT-c ECG [place]: + Normal ECG ST segments: no ST depression and no ST elevation Blood Pressure Blood Pressure Findings: Elevated blood pressure Blood Pressure Disposition: further management by hospitalist TON Mittal The patient is a 69 year old white male who presents to the ED w/ CC of neurological symptoms beginning a month ago Patient was seen in eval at the bedside. The patient did present with concerns for right-sided weakness that been ongoing for approximate 3 to 4 weeks. Patient also did relate that he had some nondescript chest pain but was seen by commercial manager at the [facility] yesterday and was cleared. The patient was stating that he was having some difficulty with ambulation. The patient also does complain of word finding difficulty as well as some slurred speech which is apparent on exam. Questionable right-sided weakness but it would be very subtle. The patient does have some slow deliberate speech and some dysarthria. Patient does have obvious ambulatory dysfunction. The patient did a blood work completed along with a CT of the head. CT head is negative. Blood work does show a positive troponin. No obvious EKG changes so the patient was given full dose aspirin. I counseled patient on smoking cessation for 3 minutes. Treatment options discussed and resources provided. Patient was not receptive. Impression & Plan Right sided weakness, Ambulatory dysfunction, Elevated troponin, Encounter for smoking cessation counseling Discharge Plan Visit Data *Final* Discharge Date/Time: 10/26/19 18:50 Chief Complaint: Neuro Symptoms/Deficit Stated Complaint: ABNORMAL GAIT, R HAND TINGLING ED Provider: Bennett Lee Discharge Problem: Right sided weakness, Ambulatory dysfunction, Elevated troponin, Encounter for smoking cessation counseling Patient Disposition: Admitted As Inpatient Discharge Instructions Interventions: ED Discharge Assessment Last Done: 10/26/19 18:50 The scribe's documentation has been prepared under my direction and personally reviewed by me in its entirety. I confirm that the note above accurately reflect s all work, treatment, procedures, and medical decision making performed by me.
[2019-10-27 04:00] LABS: Basophils # (auto) 0.01 K/uL (0-0.2); Basophils % (auto) 0.1 %; Eosinophils # (auto) 0.15 K/uL (0-0.5); Hematocrit (blood only) 32.7 % (42-52); Hemoglobin 11.9 g/dL (14.0-18.0); Immature Granulocytes # (auto) 0.01 K/uL (0.00-0.02); Immature Granulocytes % (auto) 0.1 %; Lymphocytes # (auto) 2.11 K/uL (1.2-3.4); Lymphocytes % (auto) 27.8 %; Mean Corpuscular Hemoglobin 33.8 pg (25-34); Mean Corpuscular Hgb Conc 36.4 g/dL (32-36); Mean Corpuscular Volume 92.9 fL (80-100); Mean Platelet Volume 8.8 fL (7.4-10.4); Monocytes # (auto) 0.37 K/uL (0.11-0.59); Monocytes % (auto) 4.9 %; Neutrophils # (auto) 4.93 K/uL (1.4-6.5); Neutrophils % (auto) 65.1 %; Platelet Count 116 K/uL (130-400); RDW Coefficient of Variation 14.8 % (11.5-14.5); RDW Standard Deviation 49.7 fL (36.4-46.3); Red Blood Count 3.52 M/uL (4.7-6.1); White Blood Count 7.58 K/uL (4.8-10.8)
[2019-10-27 04:18] LABS: BUN Creatinine Ratio 12.7 (10-20); Calcium 8.4 mg/dl (8.5-10.1); Creatinine Clr Calc Pharmacy 63.6 ml/min; Est GFR (African American) 66.7; Est GFR (Non-African American) 57.6; Potassium 4.4 mmol/L (3.5-5.1)
[2019-10-27 04:23] LABS: Troponin I 0.042 ng/ml (0-0.045)
[2019-10-27] MEDS: HEPARIN SOD 5,000 UNIT/0.5 ML VIAL SQ SCH ×3 (05:52→21:07)
[2019-10-27] MEDS: LEVOTHYROXINE SODIUM 50 MCG TABLET PO SCH (05:53)
[2019-10-27 06:06] LABS: Estimated Average Glucose 117 mg/dl; Hemoglobin A1C 5.7 % (4.5-5.6)
--- NOTE | 2019-10-27 07:03 | Ultrasound Report ---
US carotid doppler BI CLINICAL HISTORY: 69 years-old Male presenting with neuro symptoms, right hand tingling, difficulty w alking, altered mental status. TECHNIQUE: Real-time grayscale and color and spectral Doppler ultrasound imaging of the bilateral car otid arteries was performed. Stenosis measurements were based on NASCET-like criteria (distal lumen d iameter as the denominator for stenosis measurement). COMPARISON: None. FINDINGS: RIGHT: Common carotid artery (CCA): Atherosclerosis at the carotid bulb. Peak systolic velocity (PSV) 79 cm/ s. Internal carotid artery (ICA): Atherosclerosis of the proximal ICA. PSV 88 cm/s. End diastolic veloci ty (EDV) 24 cm/s. ICA/CCA (systolic) ratio: 1.1. External carotid artery (ECA): Patent. PSV 110 cm/s. LEFT: CCA: Patent. PSV 82 cm/s. ICA: Atherosclerosis of the proximal ICA. PSV 94 cm/s. EDV 33 cm/s. ICA/CCA (systolic) ratio: 1.1. ECA: Patent. PSV 106 cm/s. Bilateral antegrade flow within the vertebral arteries. Blood pressure: Brachial: Right: 107/58 mmHg, Left: 103/57 mmHg. Reference ranges: Stenosis measurements are compared to reference velocity parameters by the Society of Radiologists in Ultrasound (SRU) consensus and Sonographic NASCET index (S-NASCET). * SRU Primary parameters: ICA PSV <125 cm/s = normal or less than 50% stenosis; ICA PSV 125-230 cm/s = 50-69% stenosis; ICA PSV >230 cm/s = greater than or equal to 70% stenosis. * SRU Additional parameters: ICA/CCA PSV ratio <2 = normal or less than 50% stenosis; ratio 2-4 = 5 0-69% stenosis; ratio >4 = greater than or equal to 70% stenosis. ICA EDV <40 cm/s = normal or less t schneider 50% stenosis; ICA EDV 40-100 cm/s = 50-69% stenosis; ICA EDV >100 cm/s = greater than or equal to 70% stenosis. * S-NASCET parameters: Deceleration spectral broadening + PSV <125 cm/s = less than 50% stenosis; pa nsystolic spectral broadening + PSV <125 cm/s = 16-49% stenosis; pansystolic spectral broadening + PS V >125 cm/s + EDV <110 cm/s or ICA/CCA PSV ratio 2-4 = 50-69% stenosis; pansystolic spectral broadeni ng + PSV >270 cm/s OR EDV >110 cm/s OR ICA/CCA PSV ratio >4 = 70-79% stenosis; EDV >140 cm/s = 80-99% stenosis. IMPRESSION: 1. Atherosclerosis without hemodynamically significant stenosis in the carotid arteries. ACT 112: Negative or not required by law. Electronically signed by: Orlando Padron M.D. 10/27/2019 7:02 AM
--- NOTE | 2019-10-27 07:09 | Magnetic Resonance Report ---
MRI OF THE BRAIN WITHOUT IV CONTRAST CLINICAL HISTORY: Right hand tingling. COMPARISON STUDY: CT of the brain dated 10/26/2019. TECHNIQUE: MRI of the brain was performed utilizing various T1 and T2-weighted sequences in the axial , sagittal, and coronal planes. IV contrast was not administered for this examination. FINDINGS: Brain parenchyma: There is a punctate focus of restricted diffusion identified in the left thalamus c onsistent with acute to subacute ischemia. No additional foci of restricted diffusion are identified. There is no hemorrhage or mass effect. There is age-related involutional change noting mild subcorti arsen and periventricular microangiopathic disease. There are tiny chronic lacunar infarcts identified in the right thalamus and the right cerebellar hemisphere. Hurtado-white matter differentiation is prese rved. No extra-axial fluid collection is seen. The cerebellar tonsils are normal in configuration. Ventricles, sulci, and cisterns: Prominent secondary to involutional change. Pituitary and sella: Unremarkable. Intracranial vasculature: Normal flow voids are maintained at the skull base. Orbits: The bony orbits are grossly intact. Orbital contents are normal in appearance noting bilatera l ocular lens implants. Sinuses and mastoids: Clear. Calvarium: Unremarkable. Cervical cord: Partially visualized cervical spinal cord is normal in morphology and signal intensity . IMPRESSION: 1. There is a punctate focus of restricted diffusion identified in the left thalamus consistent with an acute to subacute lacunar infarct. 2. No additional foci of restricted diffusion are identified. 3. There is no hemorrhage or mass effect. ACT 112: Negative or not required by law. Electronically signed by: Remi Singer M.D. 10/27/2019 7:07 AM
[2019-10-27] MEDS: UMECLIDINIUM/VILANTEROL 62.5/25MCG 7 PUFFS/INHALER INH SCH (09:02)
[2019-10-27] MEDS: carvediloL 25 MG TAB PO SCH ×2 (09:03→21:08)
[2019-10-27] MEDS: ATORVASTATIN 40 MG TAB PO SCH (09:04)
[2019-10-27] MEDS: ASPIRIN 81 MG ECTAB PO SCH (09:04)
[2019-10-27] MEDS: INSULIN GLARGINE SOLOSTAR 100 UNITS/ML 3 ML PEN SC SCH ×2 (09:06→21:06)
[2019-10-27] MEDS: INSULIN ASPART 100 UNITS/ML 3 ML PEN SC SCH ×4 (09:07→21:07)
[2019-10-27] MEDS: NICOTINE 21 MG/24 HR TDSY TD SCH (09:09)
[2019-10-27] MEDS: CLOPIDOGREL BISULFATE 75 MG TAB PO SCH (09:11)
[2019-10-27] MEDS: lisinopriL 40 MG TAB PO SCH (09:46)
--- NOTE | 2019-10-27 10:35 | Hospitalist Progress Note ---
Date of Service October 27, 2019 Assessment & Plan (1) Right sided weakness: Pt is 69 y/o M with PMH DM II, COPD, HTN, cirrhosis, tobacco use, chronic back pain presented to ER with c/o right hand paresthesias and intermittent right leg weakness x 1 month. Family member reports intermittent slurred speech this past week. Acute/Subacute CVA MRI reveals: There is a punctate focus of restricted diffusion identified in the left thalamus consistent with an acute to subacute lacunar infarct. Carotid U/S: 1. Atherosclerosis without hemodynamically significant stenosis in the carotid arteries. Continue tele monitoring A1C 5.7, Lipid panel (trig 114, chol 125, LDL 72, HDL 30) awaiting Echo Had OT consult who is recommending Rehab await PT/ST await neuro recommendations Atorvastatin, ASA and plavix started (2) Elevated troponin: Troponin: 0.086 on admission, no chest pain or ecg changes troponin this a.m. 0.042 repeat ecg in a.m. unchanged Pt denies CP, denies increased SOB from baseline. History elevated troponin in 2017 (0.059, 0.07) await echo results continue coreg, now ASA and statin added (3) HTN (hypertension): BP improved continue lisinopril and coreg (4) COPD (chronic obstructive pulmonary disease): No increased SOB or cough or sputum production Continue inhalers (5) Diabetes mellitus, type II: Insulin dependent A1C 5.7 Hold home insulin Basal bolus insulin per protocol (6) Hypothyroidism: TSH: 5.9 Will need further TSH monitoring outpatient Continue levothyroxine (7) Tobacco abuse: Smoking cessation encouraged refused nicotine patch DVT Prophylaxis Heparin SQ DNR/DNI as per discussion with pt [facility] [place] [facility] Pt was seen and care coordinated with Dr Donovan. See addendum Disposition: await PT/OT/ST evals and neurology consultation to determine if patient able to d/c home or needs acute rehab Supervising Physician Co-Signing Physician Notes Patient is seen and examined at bedside. Complains of right leg weakness and slurred speech. Denies any change in vision. Denies any chest pain, shortness of breath, dizziness, nausea, abdominal pain. MRI brain showed acute to subacute lacunar infarct. Echo suggestive of small interatrial shunt. LDL 72. HbA1c 5.7. On exam patient is moderately built and nourished, no apparent distress, normocephalic atraumatic, lungs-clear to auscultation, S1-S2, no murmur, abdomen soft nontender, neuro--intermittent slurred speech, right lower extremity 4/5. No other focal deficits noted. Continue aspirin, plavix, Lipitor for CVA. Plan to continue aspirin, Plavix for 21 days and then transition to aspirin alone for lifelong. Await for neurology recommendations. Counseled to quit smoking completely. May need rehab placement. I personally reviewed the record. Patient is interviewed and examined at bedside. Patient's care is coordinated with Christa Cartwright PA-C. Please refer to the documentation above for details of patient's presentation and for discussion of other issues. Subjective Patient seen and examined in room 285-2. Follow up R sided weakness, dx of acute/subacute L thalamic CVA. "I want to go home." Continues with R sided weakness. Denies f/c/s, chest pain, n/v/d, abdominal pain, passing flatus, no dysuria, increased urg/freq with urination. +LOBO due to COPD and tobacco use. Craving nicotine but doesn't tolerate patch well. Had OT so far this morning. He is agreeable to rehab if necessary. Review of Systems Review of Systems: All systems reviewed & are unremarkable except as noted in HPI & below Physical Exam Physical Exam: Gen: WD/WN, M, Obese, unkempt, NAD, A&O x3 HEENT: Normocephalic, atraumatic, conjunctivae moist, sclerae anicteric, mucous membranes moist. 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 Nail beds/fingers stained yellow from sm oking Results & Data Vital Signs (Past 12 Hours) Vital Signs Temp Pulse Pulse Pulse Resp BP BP 10/27/19 07:40 77 10/27/19 07:29 36.6 C 74 18 129/66 10/27/19 06:05 82 20 10/27/19 04:55 75 10/27/19 04:05 36.4 C L 75 16 117/61 10/27/19 01:00 36.5 C 81 18 156/85 H Pulse Ox 10/27/19 07:40 10/27/19 07:29 95 10/27/19 06:05 94 10/27/19 04:55 10/27/19 04:05 92 10/27/19 01:00 95 Laboratory Results Short CBC 10/26/19 10/26/19 10/26/19 Range/Units 16:10 16:10 19:43 WBC 6.67 (4.8-10.8) K/uL Hgb 12.7 L (14.0-18.0) g/dL Hct 34.3 L (42-52) % Plt Count 129 L (130-400) K/uL Troponin I 0.086 H* 0.067 H* (0-0.045) ng/ml 10/26/19 10/27/19 10/27/19 Range/Units 21:42 03:43 03:43 WBC 7.58 (4.8-10.8) K/uL Hgb 11.9 L (14.0-18.0) g/dL Hct 32.7 L (42-52) % Plt Count 116 L (130-400) K/uL Troponin I 0.075 H* 0.042 (0-0.045) ng/ml BMP 10/26/19 10/27/19 16:10 03:43 Sodium 136 139 Potassium 4.0 4.4 Chloride 106 109 H Carbon Dioxide 28 28 BUN 14 16 Creatinine 1.35 1.25 Glucose 181 H 117 H Calcium 8.8 8.4 L Cardiac Enzymes 10/26/19 10/26/19 10/26/19 Range/Units 16:10 19:43 21:42 Troponin I 0.086 H* 0.067 H* 0.075 H* (0-0.045) ng/ml 10/27/19 Range/Units 03:43 Troponin I 0.042 (0-0.045) ng/ml Liver Function 10/26/19 10/26/19 Range/Units 16:10 19:43 Total Bilirubin 1.5 H 1.6 H (0.2-1) mg/dl Direct Bilirubin 0.3 H (0-0.2) mg/dl AST 16 (15-37) U/L ALT 29 (12-78) U/L Alkaline Phosphatase 128 H (45-117) U/L Albumin 2.9 L (3.4-5.0) gm/dl Urine 10/26/19 Range/Units Unknown Urine Color Yellow Urine Appearance Clear (Clear) Urine pH 6.0 (4.5-7.5) Ur Specific [place] 1.008 (1.000-1.030) Urine Protein 3+ H (Negative) Urine Glucose (UA) Negative (Negative) Medications Administered Short CBC 10/26/19 10/27/19 Range/Units 16:10 03:43 WBC 6.67 7.58 (4.8-10.8) K/uL Hgb 12.7 L 11.9 L (14.0-18.0) g/dL Hct 34.3 L 32.7 L (42-52) % Plt Count 129 L 116 L (130-400) K/uL BMP 10/26/19 10/27/19 16:10 03:43 Sodium 136 139 Potassium 4.0 4.4 Chloride 106 109 H Carbon Dioxide 28 28 BUN 14 16 Creatinine 1.35 1.25 Glucose 181 H 117 H Calcium 8.8 8.4 L Cardiac Enzymes 10/26/19 10/26/19 10/26/19 Range/Units 16:10 19:43 21:42 Troponin I 0.086 H* 0.067 H* 0.075 H* (0-0.045) ng/ml 10/27/19 Range/Units 03:43 Troponin I 0.042 (0-0.045) ng/ml Liver Function 10/26/19 10/26/19 Range/Units 16:10 19:43 Total Bilirubin 1.5 H 1.6 H (0.2-1) mg/dl Direct Bilirubin 0.3 H (0-0.2) mg/dl AST 16 (15-37) U/L ALT 29 (12-78) U/L Alkaline Phosphatase 128 H (45-117) U/L Albumin 2.9 L (3.4-5.0) gm/dl Urine 10/26/19 Range/Units Unknown Urine Color Yellow Urine Appearance Clear (Clear) Urine pH 6.0 (4.5-7.5) Ur Specific Mobile 1.008 (1.000-1.030) Urine Protein 3+ H (Negative) Urine Glucose (UA) Negative (Negative) ECG Rate (beats per minute): 72 Rhythm: normal sinus
--- NOTE | 2019-10-27 13:59 | Neurology Consultation ---
Date of Consultation October 27, 2019 Assessment & Plan (1) Right sided weakness: 1. MRI punctate focus L thalamus lacunar infarct 2. start aspirin 81 mg and plavix 75 mg daily x 3 weeks then asa alone 3. TTE - small ASD 4. optimize HTN, HLD, DM, LDL <70 5. PT/OT speech for discharge needs 6. smoking cessation strongly recommended. 7. carotid doppler-atherosclerosis no significant stenosis 8. ok to discharge when medically stable follow up with neurology 4-6 week Sailaja Henao PAC schedule (2) HTN (hypertension): as above (3) COPD (chronic obstructive pulmonary disease): as above (4) Tobacco abuse: as above Supervising Physician Co-Signing Physician Notes I have seen and discussed above patient with Dr Sailaja Pena, neurology Pt seen and examined, discussed with Demetria Henao. Agree with management as above. HENNY Pena MD History of Present Illness Reason for Consultation: R sided weakness Requesting Physician: Corwin Donovan MD Attending Physician: Corwin Donovan MD History of Present Illness Ihsan is a 69 year old male with PMH- DM II, COPD, HTN, cirrhosis, tobacco use, chronic back pain presented to ER with c/o right hand paresthesias and intermittent right leg weakness x 1 month. He lives alone but he was talking on the phone and family noticed intermittent slurred speech this past week. He was having a hard time walking due to right leg weakness he was running into [place] but no falls. He has chronic SOB and cough with COPD and venous stasis and peripheral neuropathy from DM. He follow [facility] [place] and reports had follow up appointment yesterday and "things ok" they gave him a walker and told him to see his PCP who then referred him to the ED. He is a ppd smoker and has LOBO due to chronic COPD.he was not on a daily aspirin. denies CP, SOB, abdominal pain, one sided weakness, tingling, vision changes, new bowel or bladder issues, N, V, swallowing issues. Allergies Allergy/AdvReac Type Severity Reaction Status Date / Time No Known Allergies Allergy Mild Verified 10/26/19 18:12 Home Medications Home Medications Medication Instructions Recorded Confirmed Type albuterol sulfate 1 puff INHALATION QID PRN 10/26/19 10/26/19 History albuterol sulfate 2.5 mg INHALATION QID PRN 10/26/19 10/26/19 History carvedilol 25 mg PO BID 10/26/19 10/26/19 History cyclobenzaprine 10 mg PO BID PRN 10/26/19 10/26/19 History insulin aspart U-100 [Novolog 10 unit SUBCUT TIDM 10/26/19 10/26/19 History Flexpen U-100 Insulin] insulin glargine 51 unit SUBCUT BID 10/26/19 10/26/19 History levothyroxine 50 mcg PO DAILY 10/26/19 10/26/19 History lisinopril 40 mg PO DAILY 10/26/19 10/26/19 History polyvinyl alcohol [Artificial 1 drp OPHTHALMIC (EYE) BID PRN 10/26/19 10/26/19 History Tears (polyvin alc)] potassium chloride 20 meq PO DAILY 10/26/19 10/26/19 History tiotropium-olodaterol 2 puff INHALATION DAILY 10/26/19 10/26/19 History Patient History Medical History (Updated 10/26/19 @ 18:47 by Irina Donovan PA-C) Cirrhosis COPD (chronic obstructive pulmonary disease) COPD exacerbation Diabetes mellitus, type II HTN (hypertension) Hypothyroidism Pneumonia Tobacco abuse Surgical History (Updated 10/26/19 @ 18:41 by Irina Donovan PA-C) History of cholecystectomy Family History (Updated 10/26/19 @ 18:41 by Irina Donovan PA-C) Other Family history non-contributory Social History (Updated 10/26/19 @ 18:42 by Irina Donovan PA-C) Preferred Language: Jamaican Communication Ability: Effective Beliefs That Will Affect Care: None Current Living Situation: Alone Other Information That Helps Us Care for You: No Feels Safe at Home: Yes Safety Concerns: Feels Safe At This Time Smoking Status: Current every day smoker Tobacco Type: cigarettes ; Cigarettes Per Day: 1ppd ; Do You Dip or Chew Tobacco: No ; Hx Alcohol Use: No Hx Substance Use: No Physical Exam Physical Exam: Physical Exam: Constitutional: appearance over nourished Ears, Nose, Mouth and Throat: mucous membranes moist, no injection and skin normal, eyes normal Cardiovascular: normal S-1 and S-2 and regular rate and rhythm Respiratory: course breath sounds Musculoskeletal: distant distal pulses Skin: venous stasis bilaterally to mid cifuentes neurocutaneous disease multiple scabs and bruises. Eyes: extraocular muscles intact (EOMI) and pupils equal, round and reactive to light (PERRL), gross peripheral vision intact NEUROLOGIC EXAMINATION: Mental status: Alert and interactive Oriented to full date and location Oriented to person Speech slurred speech, no ifs ands buts, identifies button pen, write with pen, stethoscope, close eyes, sticks out tongue, points to ceiling with right hand Cranial Nerves smile eye brow raise symmetric Reflexes: Deep tendon reflexes were symmetrical and graded 2/5. down going toes Sensory: decrease sensation to touch in hand, bilateral LE decreased sensation to cool, vibration to mid cifuentes, GT proprioception intact Coordination: finger to nose, cifuentes to heel intact, right hand slowed Gait/Stance: Posture normal. Gait normal: with steady with steps walks with walker Motor: Negative for pronator drift of out stretched arms with eyes closed. 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 5/5, hip flex plantar flex ext bilaterally 5/5 Results & Data Vital Signs (Past 12 Hours) Vital Signs Temp Pulse Pulse Pulse Resp BP Pulse Ox 10/27/19 11:26 36.5 C 66 18 161/67 H 98 10/27/19 07:40 77 10/27/19 07:29 36.6 C 74 18 129/66 95 10/27/19 06:05 82 20 94 10/27/19 04:55 75 10/27/19 04:05 36.4 C L 75 16 117/61 92 Laboratory Results Abnormal lab results 10/26/19 10/26/19 10/26/19 Range/Units 16:10 16:10 16:37 RBC 3.70 L (4.7-6.1) M/uL Hgb 12.7 L (14.0-18.0) g/dL Hct 34.3 L (42-52) % MCH 34.3 H (25-34) pg MCHC 37.0 H (32-36) g/dL RDW Std Deviation 50.4 H (36.4-46.3) fL RDW Coeff of Khushboo 14.8 H (11.5-14.5) % Plt Count 129 L (130-400) K/uL Chloride (98-107) mmol/L Anion Gap (3-11) Glucose 181 H (70-99) mg/dl POC Glucose 205 H (70-99) mg/dl Hemoglobin A1c (4.5-5.6) % Calcium (8.5-10.1) mg/dl Total Bilirubin 1.5 H (0.2-1) mg/dl Direct Bilirubin (0-0.2) mg/dl Alkaline Phosphatase 128 H (45-117) U/L Troponin I 0.086 H* (0-0.045) ng/ml Albumin 2.9 L (3.4-5.0) gm/dl Albumin/Globulin Ratio 0.7 L (0.9-2) TSH 5.990 H (0.300-4.500) uIu/ml Urine Protein (Negative) Urine Blood (Negative) U Epithel Cells (Auto) (0-5) /[facility] 10/26/19 10/26/19 10/26/19 Range/Units 19:39 19:43 20:21 RBC (4.7-6.1) M/uL Hgb (14.0-18.0) g/dL Hct (42-52) % MCH (25-34) pg MCHC (32-36) g/dL RDW Std Deviation (36.4-46.3) fL RDW Coeff of Khushboo (11.5-14.5) % Plt Count (130-400) K/uL Chloride (98-107) mmol/L Anion Gap (3-11) Glucose (70-99) mg/dl POC Glucose 156 H 171 H (70-99) mg/dl Hemoglobin A1c (4.5-5.6) % Calcium (8.5-10.1) mg/dl Total Bilirubin 1.6 H (0.2-1) mg/dl Direct Bilirubin 0.3 H (0-0.2) mg/dl Alkaline Phosphatase (45-117) U/L Troponin I 0.067 H* (0-0.045) ng/ml Albumin (3.4-5.0) gm/dl Albumin/Globulin Ratio (0.9-2) TSH (0.300-4.500) uIu/ml Urine Protein (Negative) Urine Blood (Negative) U Epithel Cells (Auto) (0-5) /lpf 10/26/19 10/26/1910/27/20 Range/Units 21:42 Unknown 03:43 RBC (4.7-6.1) M/uL Hgb (14.0-18.0) g/dL Hct (42-52) % MCH (25-34) pg MCHC (32-36) g/dL RDW Std Deviation (36.4-46.3) fL RDW Coeff of Khushboo (11.5-14.5) % Plt Count (130-400) K/uL Chloride 109 H (98-107) mmol/L Anion Gap 2.0 L (3-11) Glucose 117 H (70-99) mg/dl POC Glucose (70-99) mg/dl Hemoglobin A1c (4.5-5.6) % Calcium 8.4 L (8.5-10.1) mg/dl Total Bilirubin (0.2-1) mg/dl Direct Bilirubin (0-0.2) mg/dl Alkaline Phosphatase (45-117) U/L Troponin I 0.075 H* (0-0.045) ng/ml Albumin (3.4-5.0) gm/dl Albumin/Globulin Ratio (0.9-2) TSH (0.300-4.500) uIu/ml Urine Protein 3+ H (Negative) Urine Blood 1+ H (Negative) U Epithel Cells (Auto) 10-20 H (0-5) /lpf 10/27/19 10/27/19 10/27/19 Range/Units 03:43 03:43 07:40 RBC 3.52 L (4.7-6.1) M/uL Hgb 11.9 L (14.0-18.0) g/dL Hct 32.7 L (42-52) % MCH (25-34) pg MCHC 36.4 H (32-36) g/dL RDW Std Deviation 49.7 H (36.4-46.3) fL RDW Coeff of Khushboo 14.8 H (11.5-14.5) % Plt Count 116 L (130-400) K/uL Chloride (98-107) mmol/L Anion Gap (3-11) Glucose (70-99) mg/dl POC Glucose 120 H (70-99) mg/dl Hemoglobin A1c 5.7 H (4.5-5.6) % Calcium (8.5-10.1) mg/dl Total Bilirubin (0.2-1) mg/dl Direct Bilirubin (0-0.2) mg/dl Alkaline Phosphatase (45-117) U/L Troponin I (0-0.045) ng/ml Albumin (3.4-5.0) gm/dl Albumin/Globulin Ratio (0.9-2) TSH (0.300-4.500) uIu/ml Urine Protein (Negative) Urine Blood (Negative) U Epithel Cells (Auto) (0-5) /lpf Diagnostic Findings CXR-Subtle basilar interstitial infiltrative change. CT head- No acute intracranial abnormality. MRI brain-There is a punctate focus of restricted diffusion identified in the left thalamus consistent with an acute to subacute lacunar infarct. No additional foci of restricted diffusion are identified. There is no hemorrhage or mass effect Carotid doppler-Atherosclerosis without hemodynamically significant stenosis in the carotid arteries. TTE- 55-60% small ASD
--- NOTE | 2019-10-27 16:38 | Electrocardiogram Report ---
Test Reason : Blood Pressure : / mmHG Vent. Rate : 085 BPM Atrial Rate : 085 BPM P-R Int : 160 ms QRS Dur : 100 ms QT Int : 386 ms P-R-T Axes : 047 056 056 degrees QTc Int : 459 ms Normal sinus rhythm Normal ECG When compared with ECG of 10-OCT-2017 07:19, Vent. rate has increased BY 34 BPM Confirmed by Jase Carias ([id number]) on 10/27/2019 4:38:24 PM Referred By: REFERRED SELF Confirmed By:Jase Carias
--- NOTE | 2019-10-27 17:22 | Electrocardiogram Report ---
Test Reason : Blood Pressure : / mmHG Vent. Rate : 072 BPM Atrial Rate : 072 BPM P-R Int : 176 ms QRS Dur : 096 ms QT Int : 412 ms P-R-T Axes : 071 073 084 degrees QTc Int : 451 ms Normal sinus rhythm Normal ECG When compared with ECG of 26-OCT-2019 16:09, (unconfirmed) No significant change was found Confirmed by Jase Carias ([id number]) on 10/27/2019 5:22:35 PM Referred By: REFERRED SELF Confirmed By:Jase Carias
[2019-10-28] MEDS: LEVOTHYROXINE SODIUM 50 MCG TABLET PO SCH (05:53)
[2019-10-28] MEDS: HEPARIN SOD 5,000 UNIT/0.5 ML VIAL SQ SCH ×2 (05:53→13:46)
[2019-10-28 06:56] LABS: Hematocrit (blood only) 32.3 % (42-52); Hemoglobin 11.8 g/dL (14.0-18.0); Mean Corpuscular Hemoglobin 34.2 pg (25-34); Mean Corpuscular Hgb Conc 36.5 g/dL (32-36); Mean Corpuscular Volume 93.6 fL (80-100); Mean Platelet Volume 8.9 fL (7.4-10.4); Platelet Count 123 K/uL (130-400); RDW Coefficient of Variation 14.9 % (11.5-14.5); RDW Standard Deviation 50.4 fL (36.4-46.3); Red Blood Count 3.45 M/uL (4.7-6.1); White Blood Count 7.39 K/uL (4.8-10.8)
[2019-10-28 07:32] LABS: BUN Creatinine Ratio 13.8 (10-20); Calcium 8.4 mg/dl (8.5-10.1); Creatinine Clr Calc Pharmacy 56.8 ml/min; Est GFR (African American) 58.7; Est GFR (Non-African American) 50.6; Potassium 4.4 mmol/L (3.5-5.1)
--- NOTE | 2019-10-28 08:04 | Hospitalist Progress Note ---
Date of Service October 28, 2019 Assessment & Plan (1) Right sided weakness: Pt is 69 y/o M with PMH DM II, COPD, HTN, cirrhosis, tobacco use, chronic back pain presented to ER with c/o right hand paresthesias and intermittent right leg weakness x 1 month. Family member reports intermittent slurred speech this past week. Acute/Subacute CVA MRI reveals: There is a punctate focus of restricted diffusion identified in the left thalamus consistent with an acute to subacute lacunar infarct. Carotid U/S: 1. Atherosclerosis without hemodynamically significant stenosis in the carotid arteries. Continue tele monitoring: NSR 60-70s A1C 5.7, Lipid panel (trig 114, chol 125, LDL 72, HDL 30) Echo: EF 55-60%, AV sclerosis moderate w/o significant stenosis, grade I DD, small R to L interatrial shunt PT/OT recommending acute rehab: auth pending ASA, Plavix x 21 days, then ASA alone continue high intensity statin Smoking cessation strongly advised Follow up neurology in 4-6 weeks (2) Elevated troponin: Troponin: 0.086 on admission, no chest pain or ecg changes troponin this a.m. 0.042 repeat ecg in a.m. unchanged Pt denies CP, denies increased SOB from baseline. History elevated troponin in 2017 (0.059, 0.07) await echo results continue coreg, now ASA and statin added (3) HTN (hypertension): BP improved continue lisinopril and coreg (4) COPD (chronic obstructive pulmonary disease): No increased SOB or cough or sputum production Continue inhalers (5) Diabetes mellitus, type II: Insulin dependent A1C 5.7 Hold home insulin Basal bolus insulin per protocol (6) Hypothyroidism: TSH: 5.9 Will need further TSH monitoring outpatient Continue levothyroxine (7) Tobacco abuse: Smoking cessation encouraged refused nicotine patch DVT Prophylaxis Heparin SQ DNR/DNI as per discussion with pt Follows with [facility] at [facility] [place] for routine care Pt was seen and care coordinated with Dr Donovan. See addendum Disposition: Pt medically stable for discharge, awaiting auth for [employer] Supervising Physician Co-Signing Physician Notes Patient is seen and examined at bedside. Doing better today. Speech more clear today. Right leg weakness unchanged. No new complaints. Denies any chest pain, shortness of breath, dizziness, nausea, abdominal pain. On exam patient is moderately built and nourished, no apparent distress, normocephalic atraumatic, lungs-clear to auscultation, S1-S2, no murmur, abdomen soft nontender, neuro--intermittent slurred speech, right lower extremity 4/5. No other focal deficits noted. Continue aspirin, plavix, Lipitor for CVA. Plan to continue aspirin, Plavix for 21 days and then transition to aspirin alone for lifelong. Appreciate Neurology recommendations. Needs follow-up with neurology upon discharge. Counseled to quit smoking completely. Agree with decreasing Lantus dose upon discharge given HbA1c 5.7 to minimize hypoglycemic episodes. Needs further adjustment of his diabetic medication as outpatient. Planned to be discharged to Rehab facility today. I personally reviewed the record. Patient is interviewed and examined at bedside. Patient's care is coordinated with Christa Cartwright PA-C. Please refer to the documentation above for details of patient's presentation and for discussion of other issues. Subjective Patient seen and examined in room 285-2. Follow up R sided weakness, dx of acute/subacute L thalamic CVA. Pt overall feels well this morning. R sided weakness feels the same. "Hoping I g et to go home today." Slept well. Denies f/c/s, dizziness, lightheaded, chest pain, sob, n/v/d. Appetite is good. Offers no concerns or questions. Review of Systems Review of Systems: All systems reviewed & are unremarkable except as noted in HPI & below Physical Exam Physical Exam: Gen: WD/WN, M, appears older than age, NAD, A&O x3, sitting up at bedside HEENT: Normocephalic, atraumatic, conjunctivae moist, sclerae anicteric, mucous membranes moist. Lung: Clear to Auscultation bilaterally, distant breath sounds but no wheezes/rales/rhonchi Heart: Regular rate, regular rhythm, no murmurs, rubs, or gallops Abdomen: Soft, NT, ND +BS x 4 Extremities: b/l trace LE edema with venous stasis change Skin: Warm, no rash, negative turgor. Results & Data Vital Signs (Past 12 Hours) Vital Signs Temp Pulse Pulse Resp BP BP Pulse Ox 10/28/19 07:54 67 10/28/19 03:05 36.4 C L 66 20 124/58 L 96 10/28/19 00:03 36.6 C 72 20 159/69 H 95 10/27/19 23:40 72 10/27/19 20:08 36.4 C L 75 18 156/73 H 96 Laboratory Results Short CBC 10/28/19 Range/Units 06:27 WBC 7.39 (4.8-10.8) K/uL Hgb 11.8 L (14.0-18.0) g/dL Hct 32.3 L (42-52) % Plt Count 123 L (130-400) K/uL BMP 10/28/19 06:27 Sodium 138 Potassium 4.4 Chloride 108 H Carbon Dioxide 28 BUN 19 H Creatinine 1.39 Glucose 87 Calcium 8.4 L Diagnostic Findings Carotid Doppler Study: IMPRESSION: 1. Atherosclerosis without hemodynamically significant stenosis in the carotid arteries. Echocardiogram: EF 55-60%, AV sclerosis moderate w/o significant stenosis, grade I DD, small R to L interatrial shunt Medications Administered Albuterol (Ventolin 0.083% 2.5mg/3ml) 2.5 mg NEB Q6R PRN PRN Reason: Shortness Of Breath Or Wheezing Stop: 11/25/19 19:12 Last Admin: 10/27/19 06:02 Dose: 2.5 mg Documented by: [id number] Aspirin (Ecotrin Ectab) 81 mg PO [facility] Stop: 11/26/19 08:59 Last Admin: 10/27/19 09:04 Dose: 81 mg Documented by: [id number] Atorvastatin Calcium (Lipitor) 40 mg PO [facility] Stop: 11/26/19 08:59 Last Admin: 10/27/19 09:04 Dose: 40 mg Documented by: [id number] Carvedilol (Coreg) 25 mg PO BID [facility] Stop: 11/25/19 20:59 Last Admin: 10/27/19 21:08 Dose: 25 mg Documented by: [id number] Admin: 10/27/19 09:03 Dose: 25 mg Documented by: [id number] Admin: 10/26/19 21:09 Dose: 25 mg Documented by: [id number] Clopidogrel Bisulfate (Plavix) 75 mg PO [facility] Stop: 11/26/19 08:59 Last Admin: 10/27/19 09:11 Dose: 75 mg Documented by: [id number] Heparin Sodium (Porcine) (Heparin Sodium (Porcine)) 5,000 units SQ Q8 [facility] Stop: 11/25/19 21:59 Last Admin: 10/28/19 05:53 Dose: 5,000 units Documented by: [id number] Cosigned by: [id number] Admin: 10/27/19 21:07 Dose: 5,000 units Documented by: [id number] Cosigned by: [id number] Admin: 10/27/19 14:03 Dose: 5,000 units Documented by: [id number] Cosigned by: [id number] Admin: 10/27/19 05:52 Dose: 5,000 units Documented by: [id number] Cosigned by: [id number] Admin: 10/26/19 21:13 Dose: 5,000 units Documented by: [id number] Cosigned by: [id number] Insulin Aspart (Novolog Flexpen) 0 units SC ACHS [facility] Stop: 11/25/19 20:59 Last Admin: 10/27/19 21:07 Dose: Not Given Documented by: [id number] Cosigned by: [id number] Admin: 10/27/19 17:28 Dose: 15 units Documented by: [id number] Cosigned by: [id number] Admin: 10/27/19 12:58 Dose: Not Given Documented by: [id number] Cosigned by: [id number] Admin: 10/27/19 09:07 Dose: 13 units Documented by: [id number] Cosigned by: [id number] Admin: 10/26/19 21:10 Dose: 2 units Documented by: [id number] Cosigned by: [id number] Insulin Glargine (Lantus Solostar Pen) 0 - 50 units SC BID [facility] Stop: 11/25/19 20:59 Last Admin: 10/27/19 21:06 Dose: Not Given Documented by: [id number] Admin: 10/27/19 09:06 Dose: 25 units Documented by: [id number] Cosigned by: [id number] Admin: 10/26/19 21:12 Dose: 50 units Documented by: [id number] Cosigned by: [id number] Levothyroxine Sodium (Synthroid) 50 mcg PO DAILYBB [facility] Stop: 11/26/19 06:29 Last Admin: 10/28/19 05:53 Dose: 50 mcg Documented by: [id number] Admin: 10/27/19 05:53 Dose: 50 mcg Documented by: [id number] Lisinopril (Zestril) 40 mg PO DAILY [facility] Stop: 11/25/19 18:31 Last Admin: 10/27/19 09:46 Dose: 40 mg Documented by: [id number] Admin: 10/26/19 21:09 Dose: 40 mg Documented by: [id number] Miscellaneous (Remove Nicoderm Patch) 1 ea N/A DAILY@[id number] [facility] Stop: 11/26/19 08:58 Last Admin: 10/27/19 09:01 Dose: Not Given Documented by: [id number] Nicotine (Nicoderm Cq) 21 mg TD QAM [facility] Stop: 11/25/19 19:12 Last Admin: 10/27/19 09:09 Dose: Not Given Documented by: [id number] Admin: 10/26/19 21:10 Dose: Not Given Documented by: [id number] Umeclidinium/Vilanterol (Anoro Ellipta 62.5/25 Mcg Inh) 1 puffs INH DAILY [facility]; Protocol Stop: 11/26/19 08:59 Last Admin: 10/27/19 09:02 Dose: 1 puffs Documented by: [id number] Discontinued Medications Aspirin (Aspirin) 324 mg PO NOW STA Stop: 10/26/19 17:20 Last Admin: 10/26/19 17:42 Dose: 324 mg Documented by: [id number]
[2019-10-28] MEDS: INSULIN ASPART 100 UNITS/ML 3 ML PEN SC SCH ×2 (08:57→13:45)
[2019-10-28] MEDS: carvediloL 25 MG TAB PO SCH (08:57)
[2019-10-28] MEDS: lisinopriL 40 MG TAB PO SCH (08:58)
[2019-10-28] MEDS: ASPIRIN 81 MG ECTAB PO SCH (08:58)
[2019-10-28] MEDS: CLOPIDOGREL BISULFATE 75 MG TAB PO SCH (08:58)
[2019-10-28] MEDS: UMECLIDINIUM/VILANTEROL 62.5/25MCG 7 PUFFS/INHALER INH SCH (08:59)
[2019-10-28] MEDS: ATORVASTATIN 40 MG TAB PO SCH (08:59)
[2019-10-28] MEDS: INSULIN GLARGINE SOLOSTAR 100 UNITS/ML 3 ML PEN SC SCH (09:00)
[2019-10-28] MEDS: NICOTINE 21 MG/24 HR TDSY TD SCH (09:00)
--- NOTE | 2019-10-28 13:21 | Discharge Summary ---
Date of Service October 28, 2019 Admission HPI Per Admitting Provider Pt is 69 y/o M with PMH DM II, COPD, HTN, cirrhosis, tobacco use, chronic back pain presented to ER with c/o right hand paresthesias and intermittent right leg weakness x 1 month. Pt lives alone. Family member reports talks to pt on phone daily and has noticed some intermittent slurred speech this past week. Reports intermittent right leg weakness with walking. Denies falls or injury. Denies any noted right hand/arm weakness but paresthesias sensation to hand/fingers is constant. Pt denies any CP. Reports chronic SOB and cough with COPD and denies any increased SOB or increased cough or sputum production. Reports follows with cardiology at [facility] in [place] and reports had follow up appointment yesterday and "things ok". Reports chronic heart murmur but denies any hx AL or cardiac procedures. Reports chronic leg redness/discoloration and discomfort and denies any increased redness or edema. Denies fever/chills, diaphoresis, N/V/D/C, WICK, dizziness, syncope, vision changes, neck pain, orthopnea, palpi tations, cough, sore throat, choking, otalgia, rhinorrhea, abdominal pain, rashes, urinary symptoms. Admission Exam Per Admitting Provider General: no acute distress, WDWN Head: normocephalic, atraumatic Eyes: PERRL, EOM's intact, conjunctiva non-injected, anicteric ENT: normal inspection external ears, nose, mucous membranes moist Neck: supple, trachea midline, non-tender, ROM intact Lungs: no respiratory distress, diminished breath sounds without rales, rhonchi, wheezing CV: RRR,+ systolic murmur, 1+pretibial edema Abd: normal BS, soft, non-tender Ext: no calf tenderness, BLE +venous stasis skin discoloration Neuro: A&O x 3, normal affect, No nystagmus, Facial sensation is intact and symmetric, The face is strong and symmetric, Soft palate elevates symmetrically, no dysarthria, Shoulder shrug intact, Tongue is midline, normal movement, no fasciculations, strength upper and lower extremities 4/5, 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 Lung: Clear to Auscultation bilaterally, distant breath sounds but no wheezes/rales/rhonchi Heart: Regular rate, regular rhythm, no murmurs, rubs, or gallops Abdomen: Soft, NT, ND +BS x 4 Extremities: b/l trace LE edema with venous stasis change Skin: Warm, no rash, negative turgor. Discharge Data Allergies Allergy/AdvReac Type Severity Reaction Status Date / Time No Known Allergies Allergy Mild Verified 10/26/19 18:12 Consultations Consult Neurology: (1) Right sided weakness: 1. MRI punctate focus L thalamus lacunar infarct 2. start aspirin 81 mg and plavix 75 mg daily x 3 weeks then asa alone 3. TTE - small ASD 4. optimize HTN, HLD, DM, LDL <70 5. PT/OT speech for discharge needs 6. smoking cessation strongly recommended. 7. carotid doppler-atherosclerosis no significant stenosis 8. ok to discharge when medically stable follow up with neurology 4-6 week Sailaja Henao PAC schedule (2) HTN (hypertension): as above (3) COPD (chronic obstructive pulmonary disease): as above (4) Tobacco abuse: as above Ordered Studies CXR-Subtle basilar interstitial infiltrative change. CT head- No acute intracranial abnormality. MRI brain-There is a punctate focus of restricted diffusion identified in the le ft thalamus consistent with an acute to subacute lacunar infarct. No additional foci of restricted diffusion are identified. There is no hemorrhage or mass effect Carotid doppler-Atherosclerosis without hemodynamically significant stenosis in the carotid arteries. TTE- 55-60% small ASD Hospital Course (1) Right sided weakness: Pt is 69 y/o M with PMH DM II, COPD, HTN, cirrhosis, tobacco use, chronic back pain presented to ER with c/o right hand paresthesias and intermittent right leg weakness x 1 month. Family member reports intermittent slurred speech this past week. Acute/Subacute CVA MRI reveals: There is a punctate focus of restricted diffusion identified in the left thalamus consistent with an acute to subacute lacunar infarct. Carotid U/S: 1. Atherosclerosis without hemodynamically significant stenosis in the carotid arteries. Continue tele monitoring: NSR 60-70s A1C 5.7, Lipid panel (trig 114, chol 125, LDL 72, HDL 30) Echo: EF 55-60%, AV sclerosis moderate w/o significant stenosis, grade I DD, small R to L interatrial shunt PT/OT recommending acute rehab: auth pending ASA, Plavix x 21 days total, then ASA alone continue high intensity statin Smoking cessation strongly advised Follow up neurology in 4-6 weeks (2) Elevated troponin: Troponin: 0.086 on admission, no chest pain or ecg changes troponin this a.m. 0.042 repeat ecg in a.m. unchanged Pt denies CP, denies increased SOB from baseline. History elevated troponin in 2017 (0.059, 0.07) await echo results continue coreg, now ASA and statin added (3) HTN (hypertension): BP improved continue lisinopril and coreg (4) COPD (chronic obstructive pulmonary disease): No increased SOB or cough or sputum production Continue inhalers (5) Diabetes mellitus, type II: Insulin dependent A1C 5.7 Hold home insulin Basal bolus insulin per protocol Lantus dose decreased to 25 twice daily given A1c 5.7. Needs further adjustment of diabetic medications as outpatient (6) Hypothyroidism: TSH: 5.9 Will need further TSH monitoring outpatient Continue levothyroxine (7) Tobacco abuse: Smoking cessation encouraged refused nicotine patch DVT Prophylaxis Heparin SQ DNR/DNI as per discussion with pt Follows with Rose Daniels PA-C at [facility] [place] for routine care Total Time Total Time Spent Total Time Spent (In Minutes): 45 minutes Discharge Plan Discharge Items Patient Disposition: Transfer Inpatient Rehab Fac Reason For Visit: R SIDED WEAKNESS Discharge Diagnosis: Acute/Subacute L thalamic CVA Right sided weakness Elevated Troponin COPD Tobacco abuse HTN T2DM - insulin dependent Condition on Discharge: Fair Activity: Resume your previous activity Bathing: No limitations Non-emergency contact: Primary Care Provider and Neurologist Call non-emergency contact if: you have any medication questions, your symptoms worsen and you have a fever Follow-up/Referrals: Sailaja Henao PA-C [Physician Hydropress Operator] - 11/22/19 11:05 am PCP,NO [Primary Care Provider] - Diet: Carb Consistent or DM2 and Heart Healthy Addtl Attending Provider Instructions: With your primary care physician [place] in 1 week after discharge from rehab facility Follow-up with your neurologist Sailaja Henao PA-C as scheduled MEDICATION CHANGES: You were started on aspirin 81 mg daily to continue for lifetime. This is for stroke prevention. You were started on Plavix 75 mg daily to be continued for additional 19 days, then discontinue. This is for stroke prevention. Started on atorvastatin 40 mg daily at bedtime. This is for stroke prevention and cholesterol-lowering. We decreased your Lantus from 51 units BID to 25 units BID, because your A1C is 5.7 and you have not been requiring 51 units bid while admitted Continue all other medications as prescribed. SUMMARY OF TEST RESULTS: You were admitted to hospital secondary to right-sided weakness and intermittent slurred speech. MRI revealed an acute to subacute stroke on the left side of your brain. This is what is causing your weakness. Telemetry monitoring revealed normal sinus rhythm with no heart arrhythmias. Ultrasound of your carotids was negative for significant stenosis. A1c was 5.7, Lipid panel (trig 114, chol 125, LDL 72, HDL 30). PENDING TEST RESULTS: None RECOMMENDATIONS FOR FOLLOW-UP: Follow-up with neurology in 4 to 6 weeks, as scheduled below. Follow-up with your primary care provider at the [place] after discharge from rehab. Please quit smoking! Recommend utilizing Lantus sliding scale during rehab stay to prevent hypoglycemia. Lantus Give 25 units if BSG > 180 Give 14 units if BSG 120-180 Give 0 units if BSG < 120 Risk Factors for Stroke: You can reduce your chances of stroke by working with your medical provider to adopt a healthy lifestyle. Some specific ways to lower your chance of stroke are: * If you are a smoker, now is the time to stop smoking cigarettes * If you are diabetic, improve the control of your blood sugars * Avoid excessive amounts of alcohol * Control high blood pressure * Lose weight if you are overweight * Be sure to lead an active lifestyle * Eat a healthy diet low in salt, cholesterol and fat You should know about other risk factors for stroke that you are unable to control. These include: * Age 55 years or older * Male gender * Certain racial groups: , or / * Family History of Stroke, Mini stroke or Heart Attack * Sickle Cell Disease Follow Up: It is important for you to keep your follow up appointments with your medical provider. Who to Call and When: Medical Emergencies: Call 911 immediately if you experience any of the following warning signs and symptoms of Stroke: * Sudden numbness or weakness of the face, arm or leg, especially on one side of the body * Sudden confusion, trouble speaking or understanding * Sudden trouble seeing in one or both eyes * Sudden trouble walking, dizziness, loss of balance or coordination * Sudden severe headache with no cause Do not delay calling 911 if you experience any warning signs or symptoms of a stroke. Delay in seeking medical attention may affect what treatments can be given to you. . OTHER INSTRUCTIONS: Seek medical attention if you have: * temperature above 101 * chest pain or trouble breathing * abdominal pain, nausea, vomiting * diarrhea, dark stools or bloody stools * any unanswered questions or concerns Call 911 if symptoms are severe. Please take good care of yourself. Call if you have any questions or problems. You can reach a [facility] hospitalist on duty at [facility] 24 hours a day by calling [phone]. My pager number # is [phone]. Christa Cartwright PA-C [facility] Team Pending Studies at Discharge: No Stand-Alone Forms: My [facility] Skilled Items Patient informed of condition?: Yes DNR: Yes Discharge Level of Care: Acute rehab Communicable Disease: No Discharge Prognosis: Stable Lines: None Urinary Catheter: No Medications and DC Order Prescriptions: New atorvastatin 40 mg Tablet 40 mg PO QAM 30 Days Qty: 30 RF: 0 aspirin [Ecotrin Low Strength] 81 mg Tablet,Delayed Release (Dr/Ec) 81 mg PO QAM 30 Days Qty: 30 RF: 0 clopidogrel [Plavix] 75 mg tablet 75 mg PO DAILY Qty: 19 RF: 0 Continued cyclobenzaprine 10 mg Tablet 10 mg PO BID PRN (Reason: Spasms) RF: 0 carvedilol 25 mg Tablet 25 mg PO BID RF: 0 albuterol sulfate 2.5 mg /3 mL (0.083 %) Solution For Nebulization 2.5 mg INHALATION QID PRN (Reason: Shortness Of Breath Or Wheezing) RF: 0 polyvinyl alcohol [Artificial Tears (polyvin alc)] 1.4 % Drops 1 drp OPHTHALMIC (EYE) BID PRN (Reason: Eye Irritation) RF: 0 albuterol sulfate 90 mcg/actuation Hfa Aerosol Inhaler 1 puff INHALATION QID PRN (Reason: Shortness Of Breath Or Wheezing) RF: 0 levothyroxine 50 mcg Tablet 50 mcg PO DAILY RF: 0 lisinopril 40 mg Tablet 40 mg PO DAILY RF: 0 insulin aspart U-100 [Novolog Flexpen U-100 Insulin] 100 unit/mL (3 mL) Ins ulin Pen 10 unit SUBCUT TIDM RF: 0 tiotropium-olodaterol 2.5-2.5 mcg/actuation Mist 2 puff INHALATION DAILY RF: 0 Changed insulin glargine 100 unit/mL (3 mL) Insulin Pen 25 unit SUBCUT BID Qty: 0 RF: 0 Discontinued potassium chloride 20 mEq Tablet Extended Release 20 meq PO DAILY RF: 0 Discharge Orders: Discharge Order (Routine); Ordered 10/28/19 Ordered By: Corwin Donovan Admission Data Admit Date/Time: 10/26/19 18:17 Attending Provider: Corwin Donovan Admit Provider: Anuj Rosales Primary Care Provider: PCP,NO Other Providers: Anuj Rosales ; Sailaja Pena ; [facility]
[2019-10-28] MEDS ORDERED: STROKE PATIENT DISCHARGE STA (14:35)
== END 2019-10-28 17:49 | DRG 65 ==
LOC: ED 16:02 → SUATTDRO 18:17 → 2N 18:17

== ENCOUNTER 2023-02-01 20:09 | Inpatient (IN) ==
[2023-02-01] MEDS ORDERED: SODIUM CHLORIDE 0.9% 500 ML IV ONE (21:27)
[2023-02-01 21:58] LABS: Albumin Level 3.6 gm/dl (3.4-5.0); BUN Creatinine Ratio 16.7 (10-20); Bilirubin,Total 7.4 mg/dl (0.2-1.0); Calcium 9.3 mg/dl (8.6-10.3); Creatinine Clr Calc Pharmacy 39.3 ml/min; Est GFR (African American) 38.9 ml/min; Est GFR (Non-African American) 33.5 ml/min; Globulin 3.5 gm/dl (2.5-4.0); Phosphorus 3.1 mg/dl (2.5-4.9); Potassium 4.4 mmol/L (3.5-5.1); Total Protein 7.1 gm/dl (6.0-8.3)
[2023-02-01 22:01] LABS: Basophils # (auto) 0.02 K/uL (0-0.2); Basophils % (auto) 0.2 %; Eosinophils # (auto) 0.27 K/uL (0-0.50); Eosinophils % (auto) 2.9 %; Hematocrit (blood only) 33.4 % (42.0-52.0); Hemoglobin 12.4 g/dl (14.0-18.0); Immature Granulocytes # (auto) 0.05 K/uL (0.01-0.20); Immature Granulocytes % (auto) 0.5 %; Lymphocytes # (auto) 1.66 K/uL (1.2-3.4); Mean Corpuscular Hemoglobin 35.6 pg (25.0-34.0); Mean Corpuscular Hgb Conc 37.1 g/dL (32.0-36.0); Mean Platelet Volume 9.5 fL (9.4-12.4); Monocytes % (auto) 3.3 %; Neutrophils # (auto) 6.91 K/uL (1.40-6.50); Neutrophils % (auto) 75.1 %; Platelet Count 102 K/uL (130-400); RDW Coefficient of Variation 14.7 % (11.5-14.5); RDW Standard Deviation 50.2 fL (36.4-46.3); Red Blood Count 3.48 M/uL (4.70-6.10); White Blood Count 9.21 K/ul (4.8-10.8)
[2023-02-01 22:05] LABS: Troponin I High Sensitivity 27.6 pg/ml (0-20)
[2023-02-01 22:12] LABS: Thyroid Stimulating Hormone 4.625 uIu/ml (0.300-4.500)
[2023-02-01 22:32] LABS: INR 1.2 (0.9-1.1); Prothrombin Time 12.6 Seconds (9.0-12.0)
[2023-02-01] MEDS ORDERED: MoRPHine SULFATE 4 MG/ML 1 ML CARP\\VIAL IV STA (22:32)
[2023-02-01 22:45] LABS: T4 Free Thyroxine 1.18 ng/dl (0.61-1.60)
--- NOTE | 2023-02-01 23:26 | CT Scan Report ---
Exam(s): CT HEAD Without Contrast EXAM: CT Head Without Intravenous Contrast CLINICAL HISTORY: Reason for exam: pain, fall, trauma. TECHNIQUE: Axial computed tomography images of the head/brain without intravenous contrast. CTDI is 54.58 mGy and DLP is 884.08 mGy-cm. Automated exposure control was utilized for the study. A dose lowering technique was utilized adhering to the principles of ALARA. COMPARISON: October 26, 2019. FINDINGS: Brain: Trace amount of periventricular white matter low density consistent with chronic small vessel disease, unchanged. No acute large vessel infarct or intracranial hemorrhage is seen. Ventricles: Unremarkable. No ventriculomegaly. Bones/joints: Unremarkable. No acute fracture. Soft tissues: Unremarkable. Sinuses: Trace amount of fluid in the left maxillary sinus, possible mild sinusitis. The remaining paranasal sinuses are within normal limits. Mastoid air cells: Unremarkable as visualized. No mastoid effusion. IMPRESSION: 1. Trace amount of fluid in the left maxillary sinus, possible mild sinusitis. The remaining paranasal sinuses are within normal limits. 2. Trace amount of periventricular white matter low density consistent with chronic small vessel disease, unchanged. No acute large vessel infarct or intracranial hemorrhage is seen. Electronically signed by: Jose C Lopez MD 02/01/23 23:25 PM
--- NOTE | 2023-02-01 23:38 | CT Scan Report ---
Exam(s): CT ABDOMEN + PELVIS Without Contrast EXAM: CT Abdomen and Pelvis Without Intravenous Contrast CLINICAL HISTORY: Reason for exam: pain, fall, trauma. TECHNIQUE: Axial computed tomography images of the abdomen and pelvis without intravenous contrast. CTDI is 54.58 mGy and DLP is 884.08 mGy-cm. Automated exposure control was utilized for the study. A dose lowering technique was utilized adhering to the principles of ALARA. COMPARISON: No relevant prior studies available. FINDINGS: Lung bases: There is a smooth oval pulmonary nodule the right costophrenic angle measuring 2 cm. ABDOMEN: Liver: The liver is small and nodular suggesting cirrhosis. The portal vein is upper limits of normal in diameter measuring 1.5 cm. The spleen is not enlarged. No ascites is seen. Gallbladder and bile ducts: The gallbladder has been removed. No ductal dilation. Pancreas: Unremarkable. No ductal dilation. Spleen: Unremarkable. No splenomegaly. Adrenals: Unremarkable. No mass. Kidneys and ureters: There are 2 3 mm calcifications in the renal hilum bilaterally, possibly vascular. No hydronephrosis or ureterolithiasis is seen. Stomach and bowel: Unremarkable. No obstruction. No mucosal thickening. PELVIS: Appendix: No findings to suggest acute appendicitis. Bladder: Unremarkable. No stones. Reproductive: Unremarkable as visualized. ABDOMEN and PELVIS: Intraperitoneal space: See above. Bones/joints: There is a compression fracture involving the superior aspect of the T12 vertebral body. There is a cleft under the superior endplate consistent with 10% compression which has subsequently distracted due to positioning. No posterior protrusion fracture fragments or spinal stenosis. No dislocation. Soft tissues: Unremarkable. Vasculature: The abdominal aorta is severely calcified but nondilated. Lymph nodes: Unremarkable. No enlarged lymph nodes. IMPRESSION: There is a compression fracture involving the superior aspect of the T12 vertebral body. There is a cleft under the superior endplate consistent with 10% compression which has subsequently distracted due to positioning. No posterior protrusion fracture fragments or spinal stenosis. Electronically signed by: Jose C Lopez MD 02/01/23 23:37 PM
--- NOTE | 2023-02-01 23:41 | CT Scan Report ---
Exam(s): CT CHEST Without Contrast EXAM: CT Chest Without Intravenous Contrast CLINICAL HISTORY: Reason for exam: pain, fall, trauma. TECHNIQUE: Axial computed tomography images of the chest without intravenous contrast. CTDI is 54.58 mGy and DLP is 884.08 mGy-cm. Automated exposure control was utilized for the study. A dose lowering technique was utilized adhering to the principles of ALARA. COMPARISON: No relevant prior studies available. FINDINGS: Lungs: Mild emphysematous changes throughout both lungs. No acute infiltrate is seen. There is a 1.8 cm pulmonary nodule the right costophrenic angle. This was not visible on previous plain films. This contacts the pleura. Pleural space: Unremarkable. No pneumothorax. No significant effusion. Heart: The heart is not enlarged. Severe coronary calcification is present. No significant pericardial effusion. Bones/joints: There is a 10% compression fracture involving the supra aspect of the T12 vertebral body. No posterior protrusion fracture fragments. There are mild degenerative changes throughout the remainder of the spine. No dislocation. Soft tissues: Unremarkable. Vasculature: Unremarkable. No thoracic aortic aneurysm. Lymph nodes: Unremarkable. No enlarged lymph nodes. IMPRESSION: 1. There is a 10% compression fracture involving the supra aspect of the T12 vertebral body. No posterior protrusion fracture fragments. There are mild degenerative changes throughout the remainder of the spine. 2. Mild emphysematous changes throughout both lungs. No acute infiltrate is seen. There is a 1.8 cm pulmonary nodule the right costophrenic angle. This was not visible on previous plain films. This contacts the pleura. Fleischner Society Guidelines suggest no follow-up is necessary for patients with low or high risk of malignancy. Electronically signed by: Jose C Lopez MD 02/01/23 23:39 PM
--- NOTE | 2023-02-01 23:42 | CT Scan Report ---
Exam(s): CT L SPINE EXAM: CT Lumbar Spine Without Intravenous Contrast CLINICAL HISTORY: Reason for exam: pain, fall, trauma. TECHNIQUE: Axial computed tomography images of the lumbar spine without intravenous contrast. CTDI is 54.58 mGy and DLP is 884.08 mGy-cm. Automated exposure control was utilized for the study. A dose lowering technique was utilized adhering to the principles of ALARA. COMPARISON: No relevant prior studies available. FINDINGS: Vertebrae: Mild multilevel degenerative disc disease and facet arthrosis throughout the lumbar spine. No acute fracture or subluxation is seen. There is an old healed 20% superior endplate compression fracture of L5. The remaining lumbar spine vertebral body heights are within normal limits. No acute compression fracture or burst fracture is seen involving the lumbar spine. Discs/spinal canal/neural foramina: No significant spinal stenosis is identified. Soft tissues: Unremarkable. IMPRESSION: 1. No significant spinal stenosis is identified. 2. Mild multilevel degenerative disc disease and facet arthrosis throughout the lumbar spine. No acute fracture or subluxation is seen. 3. There is an old healed 20% superior endplate compression fracture of L5. The remaining lumbar spine vertebral body heights are within normal limits. No acute compression fracture or burst fracture is seen involving the lumbar spine. Electronically signed by: Jose C Lopez MD 02/01/23 23:41 PM
--- NOTE | 2023-02-01 23:48 | CT Scan Report ---
Exam(s): CT T SPINE EXAM: CT Thoracic Spine Without Intravenous Contrast CLINICAL HISTORY: Reason for exam: pain, fall, trauma. TECHNIQUE: Axial computed tomography images of the thoracic spine without intravenous contrast. CTDI is 54.58 mGy and DLP is 884.08 mGy-cm. Automated exposure control was utilized for the study. A dose lowering technique was utilized adhering to the principles of ALARA. COMPARISON: No relevant prior studies available. FINDINGS: Vertebrae: There is a cleft immediately inferior to the superior end plate of T12 consistent with an approximately 10% compression fracture which has subsequently returned to normal height. No posterior protrusion fracture fragments or spinal stenosis. Discs/spinal canal/neural foramina: Moderate multilevel degenerative disc disease and osteophytosis throughout the thoracic spine. No other acute fracture is seen. No subluxation or spinal stenosis. Soft tissues: Unremarkable. IMPRESSION: 1. There is a cleft immediately inferior to the superior end plate of T12 consistent with an approximately 10% compression fracture which has subsequently returned to normal height. No posterior protrusion fracture fragments or spinal stenosis. 2. Moderate multilevel degenerative disc disease and osteophytosis throughout the thoracic spine. No other acute fracture is seen. No subluxation or spinal stenosis. Electronically signed by: Jose C Lopez MD 02/01/23 23:47 PM
--- NOTE | 2023-02-01 23:51 | CT Scan Report ---
Exam(s): CT C SPINE EXAM: CT Cervical Spine Without Intravenous Contrast CLINICAL HISTORY: Reason for exam: pain, fall trauma. TECHNIQUE: Axial computed tomography images of the cervical spine without intravenous contrast. CTDI is 54.58 mGy and DLP is 884.08 mGy-cm. Automated exposure control was utilized for the study. A dose lowering technique was utilized adhering to the principles of ALARA. COMPARISON: No relevant prior studies available. FINDINGS: Vertebrae: Mild narrowing and osteophytosis of the atlantodental joint. The odontoid process is intact. The spinal alignment is normal. No subluxation is seen. No acute fracture. Soft tissues: The prevertebral soft tissues are normal. Vasculature: Mild calcification of the carotid bifurcation bilaterally. DISCS/SPINAL CANAL/NEURAL FORAMINA: C2-C3: Moderate degenerative disc disease. No stenosis. C3-C4: Moderate degenerative disc disease. Mild spinal stenosis measuring 8 mm due to posterior disc marginal osteophyte. C4-C5: Moderate degenerative disc disease. No stenosis. C5-C6: Moderate degenerative disc disease. No stenosis. C6-C7: Moderate degenerative disc disease. No stenosis. C7-T1: Moderate degenerative disc disease. No stenosis. 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 There is posterior osteophyte formation at C2-3 and C3-4 measuring up to 4 mm causing mild spinal stenosis narrowing the canal to 8 mm at C3-4. Electronically signed by: Jose C Lopez MD 02/01/23 23:49 PM
--- NOTE | 2023-02-02 00:43 | Emergency Department Note ---
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 He reports he believes he fell after having acute episode of room spinning/dizziness and upon hitting the ground believes he hurt his back where he has had acute on chronic flare of his chronic back pain. Otherwise he denies any recent fevers, chills, cough congestion, GI or sick symptoms. He reports he bhas not drank alcohol in some time. On arrival, the patient is uncomfortable but in no acute distress, afebrile stable vital signs. He has ecchymosis of bilateral forearms which they report the left-sided bruising is new whereas the right-sided bruising is old. He does have a 5 cm linear abrasion of the right posterior shoulder that he feels occurred when he had fallen. He exhibits mild mid thoracic to upper lumbar midline tenderness to palpation. There are no step-offs. He exhibits generalized weakness of all extremities without focal deficits. EKG without overt acute ischemia. Chest x-ray negative for acute cardiopulmonary process per my preliminary review. WBC within normal limits. H/H and platelets similar to prior. Creatinine 1.9, similar to prior in setting of CKD. Lactic acid 1.5 within normal limits. Total bilirubin 7.4, increased from prior values in the setting of cirrhosis however LFTs otherwise unremarkable. CPK mildly elevated at 348 in the setting of prolonged downtime. High-sensitivity troponin 27.6, nonspecific. Lipase mildly above normal at 120, nonspecific. TSH 4.6, mildly above normal with free T4 within limits. COVID-19 RNA, PORTIA test was negative. UA pending. CT of the head, CT L-spine, chest, abdomen pelvis were performed. Traumatic findings limited to T12 compression fracture with 10% loss of height without involvement of posterior elements. Given the patient's prolonged downtime and generalized weakness as well as compression fracture patient agrees with plan for admission for pain control and PT/OT and likely placement. [facility]. Triage Nursing notes reviewed and agree them. Prior/outside medical records reviewed Vital Signs: reviewed Differential diagnosis: Fracture, dislocation, contusion, intra-abdominal, pneumothorax, intrathoracic, intracranial, neurologic, compartment syndrome, rhabdomyolysis, as well as other pathologies. ER treatment provided: See below. Diagnostics interpreted by me: ECG: Normal sinus rhythm, 86 bpm, no ectopy, no overt ST elevation or depression, QTc 452, QRS 80 Cardiac Monitoring: An order for continuous cardiac monitoring was placed and demonstrated Normal sinus rhythm, 86 bpm, no ectopy, Laboratory studies: See below Imaging studies: See below Consultation(s): Case was discussed with [facility] who will evaluate the patient for admission. 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 He reports he believes he fell after having acute episode of room spinning/dizziness and upon hitting the ground believes he hurt his back where he has had acute on chronic flare of his chronic back pain. Otherwise he denies any recent fevers, chills, cough congestion, GI or sick symptoms. He reports he bhas not drank alcohol in some time. ROS: See above HPI for pertinent positives & negatives. A total of 10 systems reviewed and were otherwise negative. VITALS:See Below PHYSICAL EXAMINATION: GENERAL: Awake, alert, chronically ill, uncomfortable-appearing, in no distress HENT: Normocephalic, atraumatic. Oropharynx with dry mucous membranes and otherwise unremarkable. EYES: Normal conjunctiva. Sclera non-icteric. NECK: Supple. No nuchal rigidity. FROM. No JVD. RESPIRATORY: Clear to auscultation. CARDIAC: Regular rate, normal rhythm. Extremities warm and well perfused. Pulses equal. ABDOMEN: Soft, non-distended. No tenderness to palpation. No rebound or guarding . No masses. RECTAL: Deferred. MUSCULOSKELETAL: Chest examination reveals no tenderness. Mild mid thoracic to upper lumbar midline tenderness to palpation. There are no step-offs. There is no CVA tenderness to palpation. No joint edema. LOWER EXTREMITIES: Calves are equal size bilaterally and non-tender. No edema. No discoloration. NEURO: Normal sensorium. No sensory or motor deficits noted. SKIN: Mild jaundice noted. Scattered areas of ecchymosis/bruising. 5 cm linear abrasion to the posterior right shoulder. Jayson Culp MD Past Med/Surg History Medical History Cataract Cirrhosis COPD (chronic obstructive pulmonary disease) COPD exacerbation CVA (cerebral vascular accident) Diabetes mellitus, type II Hematuria HTN (hypertension) Hypothyroidism Tobacco abuse Vitamin D deficiency Surgical History History of cholecystectomy Family History Other Family history non-contributory Social History Smoking Status: Current every day smoker Tobacco Type: Cigarettes Cigarettes Per Day: 1ppd; Hx Alcohol Use: No Hx Substance Use: No Preferred Language: Armenian Communication Ability: Effective Beliefs That Will Affect Care: None Current Living Situation: Alone Feels Safe at Home: Yes Assistive Devices: Walker Allergies Allergies Allergy/AdvReac Type Severity Reaction Status Date / Time gabapentin Allergy Unknown Verified 12/18/21 11:15 tramadol Allergy Unknown Verified 12/18/21 11:15 Home Meds Home Medications Medication Instructions Recorded Confirmed albuterol sulfate 2.5 mg/3 mL 2.5 mg inhalation QID PRN 10/26/19 02/02/23 (0.083 %) solution for nebulization Shortness Of Breath Or Wheezing albuterol sulfate 90 mcg/actuation 1 puff inhalation QID PRN 10/26/19 02/02/23 aerosol inhaler Shortness Of Breath Or Wheezing carvedilol 25 mg tablet 25 mg PO BID 10/26/19 12/18/21 tiotropium 2.5 mcg-olodaterol 2.5 2 puff inhalation DAILY 10/26/19 12/18/21 mcg/actuation mist for inhalation aspirin 81 mg capsule 81 mg PO DAILY 11/20/21 02/02/23 atorvastatin 20 mg tablet 40 mg PO DAILY 11/20/21 12/18/21 furosemide 20 mg tablet 20 mg PO DAILY 11/20/21 12/18/21 insulin aspart U-100 100 unit/mL 14 unit subcut TIDM 11/20/21 02/02/23 (3 mL) subcutaneous pen (Novolog FlexPen U-100 Insulin aspart) insulin glargine 100 unit/mL (3 16 unit subcut BID 11/20/21 02/02/23 mL) subcutaneous pen pregabalin 75 mg capsule 75 mg PO BID 11/20/21 12/18/21 cholecalciferol (vitamin D3) 50 50 mcg PO DAILY 11/22/21 12/18/21 mcg (2,000 unit) capsule lisinopril 5 mg tablet 2.5 mg PO UD 11/22/21 11/22/21 fluticasone 250 mcg-salmeterol 50 1 inh inhalation BID 12/18/21 02/02/23 mcg/dose blistr powdr for inhalation spironolactone 50 mg tablet 50 mg PO DAILY PRN swelling 12/18/21 lancets (Accu-Chek Softclix 01/15/22 Lancets) Results & Data (ED) Vital Signs Vital Signs - 24 hr 02/01/23 20:12 02/01/23 20:17 02/01/23 20:39 Temperature 36.9 C 36.9 C Temperature Source Oral Oral Pulse Rate 85 86 Pulse Rate [Finger] 86 Pulse Rate from SpO2 Sensor Pulse Rhythm Regular Pulse Rhythm [Finger] Regular Pulse Strength Normal Pulse Strength [Finger] Normal Respiratory Rate 18 18 Respiratory Effort / Characteristics Non-Labored Non-Labored Respiratory Depth Normal Normal Respiratory Pattern Regular Regular Blood Pressure 182/87 H Blood Pressure Mean 118 Blood Pressure Position Lying Pulse Oximetry 96 96 Oxygen Delivery Method Room Air Room Air Sepsis Recent Fever Within 48 Hours No Sepsis New/Unexplained Change in Mental Status No Sepsis Action Taken by Nursing No Action Required 02/01/23 21:27 02/01/23 20:13 02/01/23 20:14 Temperature Temperature Source Pulse Rate 83 87 85 Pulse Rate [Finger] Pulse Rate from SpO2 Sensor 85 Pulse Rhythm Pulse Rhythm [Finger] Pulse Strength Pulse Strength [Finger] Respiratory Rate 18 9 L 28 H Respiratory Effort / Characteristics Respiratory Depth Respiratory Pattern Blood Pressure 182/87 H Blood Pressure Mean 118 Blood Pressure Position Pulse Oximetry 98 94 Oxygen Delivery Method Sepsis Recent Fever Within 48 Hours Sepsis New/Unexplained Change in Mental Status Sepsis Action Taken by Nursing 02/01/23 20:30 02/01/23 21:00 02/01/23 21:02 Temperature Temperature Source Pulse Rate 85 86 90 Pulse Rate [Finger] Pulse Rate from SpO2 Sensor 85 86 89 Pulse Rhythm Pulse Rhythm [Finger] Pulse Strength Pulse Strength [Finger] Respiratory Rate 26 H 21 15 Respiratory Effort / Characteristics Respiratory Depth Respiratory Pattern Blood Pressure 166/92 H 169/71 H Blood Pressure Mean 116 103 Blood Pressure Position Pulse Oximetry 97 93 96 Oxygen Delivery Method Sepsis Recent Fever Within 48 Hours Sepsis New/Unexplained Change in Mental Status Sepsis Action Taken by Nursing 02/01/23 21:30 02/01/23 22:00 02/01/23 22:30 Temperature Temperature Source Pulse Rate 83 85 84 Pulse Rate [Finger] Pulse Rate from SpO2 Sensor 84 86 84 Pulse Rhythm Pulse Rhythm [Finger] Pulse Strength Pulse Strength [Finger] Respiratory Rate 15 18 23 Respiratory Effort / Characteristics Respiratory Depth Respiratory Pattern Blood Pressure 155/87 H 184/67 H 171/108 H Blood Pressure Mean 109 106 129 Blood Pressure Position Pulse Oximetry 94 94 94 Oxygen Delivery Method Sepsis Recent Fever Within 48 Hours Sepsis New/Unexplained Change in Mental Status Sepsis Action Taken by Nursing 02/01/23 23:04 02/01/23 23:30 02/02/23 00:00 Temperature Temperature Source Pulse Rate 85 80 81 Pulse Rate [Finger] Pulse Rate from SpO2 Sensor 81 Pulse Rhythm Pulse Rhythm [Finger] Pulse Strength Pulse Strength [Finger] Respiratory Rate 26 H 24 17 Respiratory Effort / Characteristics Respiratory Depth Respiratory Pattern Blood Pressure 178/83 H 155/62 H 139/58 L Blood Pressure Mean 114 93 85 Blood Pressure Position Pulse Oximetry 94 Oxygen Delivery Method Sepsis Recent Fever Within 48 Hours Sepsis New/Unexplained Change in Mental Status Sepsis Action Taken by Nursing 02/02/23 00:34 Temperature Temperature Source Pulse Rate 77 Pulse Rate [Finger] Pulse Rate from SpO2 Sensor Pulse Rhythm Pulse Rhythm [Finger] Pulse Strength Pulse Strength [Finger] Respiratory Rate Respiratory Effort / Characteristics Respiratory Depth Respiratory Pattern Blood Pressure Blood Pressure Mean Blood Pressure Position Pulse Oximetry Oxygen Delivery Method Sepsis Recent Fever Within 48 Hours Sepsis New/Unexplained Change in Mental Status Sepsis Action Taken by Nursing Laboratory Data Attestation: I reviewed the patient's lab results. 02/01/23 20:31 02/01/23 20:31 Lab Results 02/01/23 02/01/23 02/01/23 Range/Units 20:31 20:31 20:31 WBC 9.21 (4.8-10.8) K/ul RBC 3.48 L (4.70-6.10) M/uL Hgb 12.4 L (14.0-18.0) g/dl Hct 33.4 L (42.0-52.0) % MCV 96.0 (80.0-100.0) fL MCH 35.6 H (25.0-34.0) pg MCHC 37.1 H (32.0-36.0) g/dL RDW Std Deviation 50.2 H (36.4-46.3) fL RDW Coeff of Khushboo 14.7 H (11.5-14.5) % Plt Count 102 L (130-400) K/uL MPV 9.5 (9.4-12.4) fL Immature Gran % (Auto) 0.5 % Neut % (Auto) 75.1 % Lymph % (Auto) 18.0 % [place] % (Auto) 3.3 % Eos % (Auto) 2.9 % Baso % (Auto) 0.2 % Neut # (Auto) 6.91 H (1.40-6.50) K/uL Lymph # (Auto) 1.66 (1.2-3.4) K/uL [place] # (Auto) 0.30 (0.11-0.59) K/uL Eos # (Auto) 0.27 (0-0.50) K/uL Baso # (Auto) 0.02 (0-0.2) K/uL Immature Gran # (Auto) 0.05 (0.01-0.20) K/uL PT 12.6 H (9.0-12.0) Seconds INR 1.2 H (0.9-1.1) Sodium 137 (136-145) mmol/L Potassium 4.4 (3.5-5.1) mmol/L Chloride 104 (98-107) mmol/L Carbon Dioxide 27 (21-32) mmol/L Anion Gap 6 (3-11) BUN 32 H (6-23) mg/dl Creatinine 1.92 H (0.6-1.4) mg/dl Est Cr Clr Drug Dosing 39.3 ml/min Est GFR ( Amer) 38.9 ml/min Est GFR (Non-Af Amer) 33.5 ml/min BUN/Creatinine Ratio 16.7 (10-20) Glucose 127 H (70-99(Fasting)) mg/dl Lactate (0.4-2.0) mmol/L Calcium 9.3 (8.6-10.3) mg/dl Phosphorus 3.1 (2.5-4.9) mg/dl Magnesium 2.0 (1.7-2.4) mg/dl Total Bilirubin 7.4 H (0.2-1.0) mg/dl AST 30 (13-39) U/L ALT 22 (7-52) U/L Alkaline Phosphatase 81 (34-104) U/L Total Creatine Kinase 348 H (30-223) U/L Troponin I High Sens 27.6 H (0-20) pg/ml Total Protein 7.1 (6.0-8.3) gm/dl Albumin 3.6 (3.4-5.0) gm/dl Globulin 3.5 (2.5-4.0) gm/dl Albumin/Globulin Ratio 1.0 (0.9-2) Lipase 120 H (11-82) U/L TSH (0.300-4.500) uIu/ml Free T4 (0.61-1.60) ng/dl Urine Color Urine Appearance (Clear) Urine pH (4.5-7.5) Ur Specific [place] (1.000-1.030) Urine Protein (Negative) Urine Glucose (UA) (Negative) Urine Ketones (Negative) Urine Blood (Negative) Urine Nitrite (Negative) Urine Bilirubin (Negative) Urine Urobilinogen (Negative) Ur Leukocyte Esterase (Negative) Urine WBC (Auto) (0-5) /hpf Urine RBC (Auto) (0-4) /hpf U Hyaline Cast (Auto) (0-5) /lpf U Epithel Cells (Auto) (0-5) /lpf Urine Bacteria (Auto) (Negative) Ethyl Alcohol mg/dL (<10.0) mg/dl SARS-CoV-2, RNA, NAAT (NEGATIVE) 02/01/23 02/01/23 02/01/23 Range/Units 20:31 21:31 23:57 WBC (4.8-10.8) K/ul RBC (4.70-6.10) M/uL Hgb (14.0-18.0) g/dl Hct (42.0-52.0) % MCV (80.0-100.0) fL MCH (25.0-34.0) pg MCHC (32.0-36.0) g/dL RDW Std Deviation (36.4-46.3) fL RDW Coeff of Khushboo (11.5-14.5) % Plt Count (130-400) K/uL MPV (9.4-12.4) fL Immature Gran % (Auto) % Neut % (Auto) % Lymph % (Auto) % [place] % (Auto) % Eos % (Auto) % Baso % (Auto) % Neut # (Auto) (1.40-6.50) K/uL Lymph # (Auto) (1.2-3.4) K/uL [place] # (Auto) (0.11-0.59) K/uL Eos # (Auto) (0-0.50) K/uL Baso # (Auto) (0-0.2) K/uL Immature Gran # (Auto) (0.01-0.20) K/uL PT (9.0-12.0) Seconds INR (0.9-1.1) Sodium (136-145) mmol/L Potassium (3.5-5.1) mmol/L Chloride (98-107) mmol/L Carbon Dioxide (21-32) mmol/L Anion Gap (3-11) BUN (6-23) mg/dl Creatinine (0.6-1.4) mg/dl Est Cr Clr Drug Dosing ml/min Est GFR ( Amer) ml/min Est GFR (Non-Af Amer) ml/min BUN/Creatinine Ratio (10-20) Glucose (70-99(Fasting)) mg/dl Lactate 1.5 (0.4-2.0) mmol/L Calcium (8.6-10.3) mg/dl Phosphorus (2.5-4.9) mg/dl Magnesium (1.7-2.4) mg/dl Total Bilirubin (0.2-1.0) mg/dl AST (13-39) U/L ALT (7-52) U/L Alkaline Phosphatase (34-104) U/L Total Creatine Kinase (30-223) U/L Troponin I High Sens (0-20) pg/ml Total Protein (6.0-8.3) gm/dl Albumin (3.4-5.0) gm/dl Globulin (2.5-4.0) gm/dl Albumin/Globulin Ratio (0.9-2) Lipase (11-82) U/L TSH 4.625 H (0.300-4.500) uIu/ml Free T4 1.18 (0.61-1.60) ng/dl Urine Color Urine Appearance (Clear) Urine pH (4.5-7.5) Ur Specific [place] (1.000-1.030) Urine Protein (Negative) Urine Glucose (UA) (Negative) Urine Ketones (Negative) Urine Blood (Negative) Urine Nitrite (Negative) Urine Bilirubin (Negative) Urine Urobilinogen (Negative) Ur Leukocyte Esterase (Negative) Urine WBC (Auto) (0-5) /hpf Urine RBC (Auto) (0-4) /hpf U Hyaline Cast (Auto) (0-5) /lpf U Epithel Cells (Auto) (0-5) /lpf Urine Bacteria (Auto) (Negative) Ethyl Alcohol mg/dL (<10.0) mg/dl SARS-CoV-2, RNA, NAAT NEGATIVE (NEGATIVE) 02/01/23 02/02/23 Range/Units 23:57 01:03 WBC (4.8-10.8) K/ul RBC (4.70-6.10) M/uL Hgb (14.0-18.0) g/dl Hct (42.0-52.0) % MCV (80.0-100.0) fL MCH (25.0-34.0) pg MCHC (32.0-36.0) g/dL RDW Std Deviation (36.4-46.3) fL RDW Coeff of Khushboo (11.5-14.5) % Plt Count (130-400) K/uL MPV (9.4-12.4) fL Immature Gran % (Auto) % Neut % (Auto) % Lymph % (Auto) % [place] % (Auto) % Eos % (Auto) % Baso % (Auto) % Neut # (Auto) (1.40-6.50) K/uL Lymph # (Auto) (1.2-3.4) K/uL [place] # (Auto) (0.11-0.59) K/uL Eos # (Auto) (0-0.50) K/uL Baso # (Auto) (0-0.2) K/uL Immature Gran # (Auto) (0.01-0.20) K/uL PT (9.0-12.0) Seconds INR (0.9-1.1) Sodium (136-145) mmol/L Potassium (3.5-5.1) mmol/L Chloride (98-107) mmol/L Carbon Dioxide (21-32) mmol/L Anion Gap (3-11) BUN (6-23) mg/dl Creatinine (0.6-1.4) mg/dl Est Cr Clr Drug Dosing ml/min Est GFR ( Amer) ml/min Est GFR (Non-Af Amer) ml/min BUN/Creatinine Ratio (10-20) Glucose (70-99(Fasting)) mg/dl Lactate (0.4-2.0) mmol/L Calcium (8.6-10.3) mg/dl Phosphorus (2.5-4.9) mg/dl Magnesium (1.7-2.4) mg/dl Total Bilirubin (0.2-1.0) mg/dl AST (13-39) U/L ALT (7-52) U/L Alkaline Phosphatase (34-104) U/L Total Creatine Kinase (30-223) U/L Troponin I High Sens (0-20) pg/ml Total Protein (6.0-8.3) gm/dl Albumin (3.4-5.0) gm/dl Globulin (2.5-4.0) gm/dl Albumin/Globulin Ratio (0.9-2) Lipase (11-82) U/L TSH (0.300-4.500) uIu/ml Free T4 (0.61-1.60) ng/dl Urine Color [place] Urine Appearance Clear (Clear) Urine pH 5.0 (4.5-7.5) Ur Specific [place] 1.019 (1.000-1.030) Urine Protein 2+ H (Negative) Urine Glucose (UA) Negative (Negative) Urine Ketones Trace H (Negative) Urine Blood 1+ H (Negative) Urine Nitrite Positive A (Negative) Urine Bilirubin Negative (Negative) Urine Urobilinogen Negative (Negative) Ur Leukocyte Esterase Trace H (Negative) Urine WBC (Auto) 1-5 (0-5) /hpf Urine RBC (Auto) 10-30 H (0-4) /hpf U Hyaline Cast (Auto) 1-5 (0-5) /lpf U Epithel Cells (Auto) 20-30 H (0-5) /lpf Urine Bacteria (Auto) Negative (Negative) Ethyl Alcohol mg/dL < 10.0 (<10.0) mg/dl SARS-CoV-2, RNA, NAAT (NEGATIVE) Administered Medications Sodium Chloride (Nss 1000ml) 1,000 mls @ 75 mls/hr IV .[id number] ONE Stop: 02/02/23 14:09 Last Admin: 02/02/23 01:56 Dose: 75 mls/hr Documented By: LORNE Discontinued Medications Hydromorphone HCl (Hydromorphone Inj 0.5 Mg/0.5 Ml Syr) 0.5 mg IV NOW STA Stop: 02/02/23 01:15 Last Admin: 02/02/23 01:46 Dose: 0.5 mg Documented By: LORNE Sodium Chloride (Nss) 500 mls @ 999 mls/hr IV .[id number] ONE Stop: 02/01/23 21:57 Last Infusion: 02/01/23 22:35 Dose: 0 mls/hr Documented By: Admin: 02/01/23 21:35 Dose: 999 mls/hr Documented By: LORNE Cefepime HCl (Maxipime) 2,000 mg in 20 mls @ 5 mls/min IV NOW STA; Protocol Stop: 02/02/23 01:46 Last Admin: 02/02/23 01:54 Dose: 5 mls/min Documented By: LORNE Morphine Sulfate (Morphine Sulfate 4 Mg/Ml 1 Ml Carp\Vial) 4 mg IV NOW STA Stop: 02/01/23 22:33 Last Admin: 02/01/23 23:03 Dose: 4 mg Documented By: LORNE Imaging Data Radiologist's Impression: Abdomen/Pelvis CT 02/01/23 22:31 Exam(s): CT ABDOMEN + PELVIS Without Contrast EXAM: CT Abdomen and Pelvis Without Intravenous Contrast CLINICAL HISTORY: Reason for exam: pain, fall, trauma. TECHNIQUE: Axial computed tomography images of the abdomen and pelvis without intravenous contrast. CTDI is 54.58 mGy and DLP is 884.08 mGy-cm. Automated exposure control was utilized for the study. A dose lowering technique was utilized adhering to the principles of ALARA. COMPARISON: No relevant prior studies available. FINDINGS: Lung bases: There is a smooth oval pulmonary nodule the right costophrenic angle measuring 2 cm. ABDOMEN: Liver: The liver is small and nodular suggesting cirrhosis. The portal vein is upper limits of normal in diameter measuring 1.5 cm. The spleen is not enlarged. No ascites is seen. Gallbladder and bile ducts: The gallbladder has been removed. No ductal dilation. Pancreas: Unremarkable. No ductal dilation. Spleen: Unremarkable. No splenomegaly. Adrenals: Unremarkable. No mass. Kidneys and ureters: There are 2 3 mm calcifications in the renal hilum bilaterally, possibly vascular. No hydronephrosis or ureterolithiasis is seen. Stomach and bowel: Unremarkable. No obstruction. No mucosal thickening. PELVIS: Appendix: No findings to suggest acute appendicitis. Bladder: Unremarkable. No stones. Reproductive: Unremarkable as visualized. ABDOMEN and PELVIS: Intraperitoneal space: See above. Bones/joints: There is a compression fracture involving the superior aspect of the T12 vertebral body. There is a cleft under the superior endplate consistent with 10% compression which has subsequently distracted due to positioning. No posterior protrusion fracture fragments or spinal stenosis. No dislocation. Soft tissues: Unremarkable. Vasculature: The abdominal aorta is severely calcified but nondilated. Lymph nodes: Unremarkable. No enlarged lymph nodes. IMPRESSION: There is a compression fracture involving the superior aspect of the T12 vertebral body. There is a cleft under the superior endplate consistent with 10% compression which has subsequently distracted due to positioning. No posterior protrusion fracture fragments or spinal stenosis. Electronically signed by: Jose C Lopez MD 02/01/23 23:[address] 02/01/23 22:31 Exam(s): CT CHEST Without Contrast EXAM: CT Chest Without Intravenous Contrast CLINICAL HISTORY: Reason for exam: pain, fall, trauma. TECHNIQUE: Axial computed tomography images of the chest without intravenous contrast. CTDI is 54.58 mGy and DLP is 884.08 mGy-cm. Automated exposure control was utilized for the study. A dose lowering technique was utilized adhering to the principles of ALARA. COMPARISON: No relevant prior studies available. FINDINGS: Lungs: Mild emphysematous changes throughout both lungs. No acute infiltrate is seen. There is a 1.8 cm pulmonary nodule the right costophrenic angle. This was not visible on previous plain films. This contacts the pleura. Pleural space: Unremarkable. No pneumothorax. No significant effusion. Heart: The heart is not enlarged. Severe coronary calcification is present. No significant pericardial effusion. Bones/joints: There is a 10% compression fracture involving the supra aspect of the T12 vertebral body. No posterior protrusion fracture fragments. There are mild degenerative changes throughout the remainder of the spine. No dislocation. Soft tissues: Unremarkable. Vasculature: Unremarkable. No thoracic aortic aneurysm. Lymph nodes: Unremarkable. No enlarged lymph nodes. IMPRESSION: 1. There is a 10% compression fracture involving the supra aspect of the T12 vertebral body. No posterior protrusion fracture fragments. There are mild degenerative changes throughout the remainder of the spine. 2. Mild emphysematous changes throughout both lungs. No acute infiltrate is seen. There is a 1.8 cm pulmonary nodule the right costophrenic angle. This was not visible on previous plain films. This contacts the pleura. Fleischner Society Guidelines suggest no follow-up is necessary for patients with low or high risk of malignancy. Electronically signed by: Joes C Lopez MD 02/01/23 23:[address] 02/01/23 22:31 Exam(s): CT HEAD Without Contrast EXAM: CT Head Without Intravenous Contrast CLINICAL HISTORY: Reason for exam: pain, fall, trauma. TECHNIQUE: Axial computed tomography images of the head/brain without intravenous contrast. CTDI is 54.58 mGy and DLP is 884.08 mGy-cm. Automated exposure control was utilized for the study. A dose lowering technique was utilized adhering to the principles of ALARA. COMPARISON: October 26, 2019. FINDINGS: Brain: Trace amount of periventricular white matter low density consistent with chronic small vessel disease, unchanged. No acute large vessel infarct or intracranial hemorrhage is seen. Ventricles: Unremarkable. No ventriculomegaly. Bones/joints: Unremarkable. No acute fracture. Soft tissues: Unremarkable. Sinuses: Trace amount of fluid in the left maxillary sinus, possible mild sinusitis. The remaining paranasal sinuses are within normal limits. Mastoid air cells: Unremarkable as visualized. No mastoid effusion. IMPRESSION: 1. Trace amount of fluid in the left maxillary sinus, possible mild sinusitis. The remaining paranasal sinuses are within normal limits. 2. Trace amount of periventricular white matter low density consistent with chronic small vessel disease, unchanged. No acute large vessel infarct or intracranial hemorrhage is seen. Electronically signed by: Jose C Lopez MD 02/01/23 23:[address] 02/01/23 22:31 Exam(s): CT L SPINE EXAM: CT Lumbar Spine Without Intravenous Contrast CLINICAL HISTORY: Reason for exam: pain, fall, trauma. TECHNIQUE: Axial computed tomography images of the lumbar spine without intravenous contrast. CTDI is 54.58 mGy and DLP is 884.08 mGy-cm. Automated exposure control was utilized for the study. A dose lowering technique was utilized adhering to the principles of ALARA. COMPARISON: No relevant prior studies available. FINDINGS: Vertebrae: Mild multilevel degenerative disc disease and facet arthrosis throughout the lumbar spine. No acute fracture or subluxation is seen. There is an old healed 20% superior endplate compression fracture of L5. The remaining lumbar spine vertebral body heights are within normal limits. No acute compression fracture or burst fracture is seen involving the lumbar spine. Discs/spinal canal/neural foramina: No significant spinal stenosis is identified. Soft tissues: Unremarkable. IMPRESSION: 1. No significant spinal stenosis is identified. 2. Mild multilevel degenerative disc disease and facet arthrosis throughout the lumbar spine. No acute fracture or subluxation is seen. 3. There is an old healed 20% superior endplate compression fracture of L5. The remaining lumbar spine vertebral body heights are within normal limits. No acute compression fracture or burst fracture is seen involving the lumbar spine. Electronically signed by: Jose C Lopez MD 02/01/23 23:[address] 02/01/23 22:31 Exam(s): CT T SPINE EXAM: CT Thoracic Spine Without Intravenous Contrast CLINICAL HISTORY: Reason for exam: pain, fall, trauma. TECHNIQUE: Axial computed tomography images of the thoracic spine without intravenous contrast. CTDI is 54.58 mGy and DLP is 884.08 mGy-cm. Automated exposure control was utilized for the study. A dose lowering technique was utilized adhering to the principles of ALARA. COMPARISON: No relevant prior studies available. FINDINGS: Vertebrae: There is a cleft immediately inferior to the superior end plate of T12 consistent with an approximately 10% compression fracture which has subsequently returned to normal height. No posterior protrusion fracture fragments or spinal stenosis. Discs/spinal canal/neural foramina: Moderate multilevel degenerative disc disease and osteophytosis throughout the thoracic spine. No other acute fracture is seen. No subluxation or spinal stenosis. Soft tissues: Unremarkable. IMPRESSION: 1. There is a cleft immediately inferior to the superior end plate of T12 consistent with an approximately 10% compression fracture which has subsequently returned to normal height. No posterior protrusion fracture fragments or spinal stenosis. 2. Moderate multilevel degenerative disc disease and osteophytosis throughout the thoracic spine. No other acute fracture is seen. No subluxation or spinal stenosis. Electronically signed by: Jose C Lopez MD 02/01/23 23:[address] 02/01/23 22:48 Exam(s): CT C SPINE EXAM: CT Cervical Spine Without Intravenous Contrast CLINICAL HISTORY: Reason for exam: pain, fall trauma. TECHNIQUE: Axial computed tomography images of the cervical spine without intravenous contrast. CTDI is 54.58 mGy and DLP is 884.08 mGy-cm. Automated exposure control was utilized for the study. A dose lowering technique was utilized adhering to the principles of ALARA. COMPARISON: No relevant prior studies available. FINDINGS: Vertebrae: Mild narrowing and osteophytosis of the atlantodental joint. The odontoid process is intact. The spinal alignment is normal. No subluxation is seen. No acute fracture. Soft tissues: The prevertebral soft tissues are normal. Vasculature: Mild calcification of the carotid bifurcation bilaterally. DISCS/SPINAL CANAL/NEURAL FORAMINA: C2-C3: Moderate degenerative disc disease. No stenosis. C3-C4: Moderate degenerative disc disease. Mild spinal stenosis measuring 8 mm due to posterior disc marginal osteophyte. C4-C5: Moderate degenerative disc disease. No stenosis. C5-C6: Moderate degenerative disc disease. No stenosis. C6-C7: Moderate degenerative disc disease. No stenosis. C7-T1: Moderate degenerative disc disease. No stenosis. 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 There is posterior osteophyte formation at C2-3 and C3-4 measuring up to 4 mm causing mild spinal stenosis narrowing the canal to 8 mm at C3-4. Electronically signed by: Jose C Lopez MD 02/01/23 23:49 PM Discharge Plan Visit Data Chief Complaint: Back Injury/Pain ED Provider: Jayson Culp Discharge Problem: Syncope, Ambulatory dysfunction, Elevated troponin, Fall from standing, Compression fracture of T12 vertebra, Elevated CPK
[2023-02-02] MEDS ORDERED: SODIUM CHLORIDE 0.9% 1000ML 1,000 ML IV ONE (00:50)
[2023-02-02] MEDS ORDERED: HYDROmorphone INJ 0.5 MG/0.5 ML SYR IV STA (01:14)
[2023-02-02] MEDS ORDERED: LIDOCAINE 5% 1 PATCH TD STA (01:29)
--- NOTE | 2023-02-02 01:29 | History & Physical Report ---
Date of Service February 02, 2023 Assessment & Plan (1) Complicated UTI (urinary tract infection): Plan: No sepsis for now Cerebral concussion Thoracic compression fracture secondary to fall ARF on CKD, mild rhabdomyolysis secondary to fall/immobility Troponin elevation in the setting of mild rhabdomyolysis, kidney dysfunction and elevated BP upon arrival at the ER Patient denies chest pain or unusual shortness of breath. Valvular heart disease (mild MR/AR, TTE 2019) COPD, baseline pulmonary status hx CVA DM2 insulin requiring, well-controlled as of hemoglobin A1c of 5.7 last 2019 alcoholic cirrhosis no overt decompensation hx HCV status post Rx chronic anemia, hemoglobin at baseline past tobacco/alcohol abuse Medical telemetry given troponin elevation and cerebral concussion Urine CS, cefepime GCS, neurochecks every 4 hours Neurology consult Re: Cerebral concussion Lidoderm patch trial for thoracic compression fracture Orthopedic spine consult Re: Thoracic compression fracture Follow troponin, TTE for progression Monitor CPK, creatinine response to IVF Hold home diuretics and lisinopril until creatinine back to baseline Hold statin until CPK within normal limits Basal bolus insulin, ISS BG goal 1 10-1 40, carb count coverage, update hemoglob in A1c DVT prophylaxis. SCDs Re: Multiple ecchymoses post fall DNR Text document was generated using [employer] voice recognition software. It may contain grammatical or spelling errors. Kindly contact undersigned for clarification of any documentation item in question. History of Present Illness Chief Complaint: Fall, head trauma, back pain Primary Care Provider: Madeline Au PA-C History obtained from patient and records. Medical history significant for COPD, hypertension, CVA, valvular heart disease (mild MR/AR, TTE 2019), chronic pain, DM2 insulin requiring, alcoholic cirrhosis, HCV status post Rx, CRI (baseline creatinine 1.7), chronic anemia (baseline hemoglobin of 12 ), BPH, past tobacco/alcohol abuse. Last confinement October 2019 for acute/subacute CVA left thalamus presenting as right-sided weakness. Patient discharged on antiplatelet Rx. Patient woke up feeling weak 2 days ago. Legs gave out causing him to fall and hit his head. Thinks he may have passed out after hitting his head. Patient denies chest pain, unusual shortness of breath, abdominal pain. Patient not sure how long he was out but when he woke up he noted achy back pain without radiation and bilateral arm bruising. EMS called to patient's home. Medical History as above Surgical History : Cholecystectomy Family History : Heart disease Personal/Social history : Past tobacco/alcohol abuse Allergies Allergy/AdvReac Type Severity Reaction Status Date / Time gabapentin Allergy Unknown Verified 12/18/21 11:15 tramadol Allergy Unknown Verified 12/18/21 11:15 Home Medications Medication Instructions Recorded Confirmed Type albuterol sulfate 2.5 mg/3 mL 2.5 mg inhalation QID PRN 10/26/19 02/02/23 History (0.083 %) solution for nebulization Shortness Of Breath Or Wheezing albuterol sulfate 90 mcg/actuation 1 puff inhalation QID PRN 10/26/19 02/02/23 History aerosol inhaler Shortness Of Breath Or Wheezing carvedilol 25 mg tablet 25 mg PO BID 10/26/19 12/18/21 History tiotropium 2.5 mcg-olodaterol 2.5 2 puff inhalation DAILY 10/26/19 12/18/21 History mcg/actuation mist for inhalation aspirin 81 mg capsule 81 mg PO DAILY 11/20/21 02/02/23 History atorvastatin 20 mg tablet 40 mg PO DAILY 11/20/21 12/18/21 History furosemide 20 mg tablet 20 mg PO DAILY 11/20/21 12/18/21 History insulin aspart U-100 100 unit/mL 14 unit subcut TIDM 11/20/21 02/02/23 History (3 mL) subcutaneous pen (Novolog FlexPen U-100 Insulin aspart) insulin glargine 100 unit/mL (3 16 unit subcut BID 11/20/21 02/02/23 History mL) subcutaneous pen pregabalin 75 mg capsule 75 mg PO BID 11/20/21 12/18/21 History cholecalciferol (vitamin D3) 50 50 mcg PO DAILY 11/22/21 12/18/21 History mcg (2,000 unit) capsule lisinopril 5 mg tablet 2.5 mg PO UD 11/22/21 11/22/21 History fluticasone 250 mcg-salmeterol 50 1 inh inhalation BID 12/18/21 02/02/23 History mcg/dose blistr powdr for inhalation spironolactone 50 mg tablet 50 mg PO DAILY PRN swelling 12/18/21 History lancets (Accu-Chek Softclix 01/15/22 History Lancets) Past Med/Surg History Medical History Cataract Cirrhosis COPD (chronic obstructive pulmonary disease) COPD exacerbation CVA (cerebral vascular accident) Diabetes mellitus, type II Hematuria HTN (hypertension) Hypothyroidism Tobacco abuse Vitamin D deficiency Surgical History History of cholecystectomy Family History Other Family history non-contributory Social History Smoking Status: Current every day smoker Tobacco Type: Cigarettes Cigarettes Per Day: 1ppd; Do You Dip or Chew Tobacco: No; Tobacco Cessation Education Requested by Patient: No Hx Alcohol Use: No Hx Substance Use: No Preferred Language: Greek Communication Ability: Effective Airline Attendant Required: No Beliefs That Will Affect Care: None Current Living Situation: Alone Other Information That Helps Us Care for You: No Feels Safe at Home: Yes Assistive Devices: Glasses Review of Systems Review of Systems: As per HPI, all other systems reviewed and negative Physical Exam Physical Exam: GENERAL: Slightly uncomfortable, obese, no respiratory distress SKIN: Pallor, warm HEENT: Pale palpebral conjunctivae, no ptosis, dry buccal mucosa NECK : Supple, short neck, no tenderness CHEST : Decreased breath sounds, occasional expiratory wheezes, no tenderness HEART : RRR, no obvious murmurs ABDOMEN: Some distention, nontender BACK : Mid back tenderness, negative SLR EXTREMITIES : Bilateral LE swelling, no LE tenderness, ecchymoses noted over both upper extremities L>R NEUROLOGIC : Coherent, no facial asymmetry, no other gross focality Results & Data Results & Data Vital Signs (Past 12 Hours) Vital Signs Temp Pulse Pulse Resp BP Pulse Ox O2 Del Method 02/02/23 00:34 77 02/02/23 00:00 81 17 139/58 L 94 02/01/23 23:30 80 24 155/62 H 02/01/23 23:04 85 26 H 178/83 H 02/01/23 22:30 84 23 171/108 H 94 02/01/23 22:00 85 18 184/67 H 94 02/01/23 21:30 83 15 155/87 H 94 02/01/23 21:02 90 15 169/71 H 96 02/01/23 21:00 86 21 93 02/01/23 20:30 85 26 H 166/92 H 97 02/01/23 20:14 85 28 H 182/87 H 94 02/01/23 20:13 87 9 L 02/01/23 21:27 83 18 98 02/01/23 20:39 86 02/01/23 20:17 36.9 C 86 18 96 Room Air 02/01/23 20:12 36.9 C 85 18 182/87 H 96 Room Air Laboratory Results Laboratory Results WBC 9.21 K/ul (4.8-10.8) 02/01/23 20: RBC 3.48 M/uL (4.70-6.10) L 02/01/23 20:31 Hgb 12.4 g/dl (14.0-18.0) L 02/01/23 20: Hct 33.4 % (42.0-52.0) L 02/01/23 20: MCV 96.0 fL (80.0-100.0) 02/01/23 20: MCH 35.6 pg (25.0-34.0) H 02/01/23 20: MCHC 37.1 g/dL (32.0-36.0) H 02/01/23 20:31 RDW Std Deviation 50.2 fL (36.4-46.3) H 02/01/23 20:31 RDW Coeff of Khushboo 14.7 % (11.5-14.5) H 02/01/23 20: Plt Count 102 K/uL (130-400) L 02/01/23 20:31 MPV 9.5 fL (9.4-12.4) 02/01/23 20:31 Immature Gran % (Auto) 0.5 % 02/01/23 20: Neut % (Auto) 75.1 % 02/01/23 20: Lymph % (Auto) 18.0 % 02/01/23 20: [place] % (Auto) 3.3 % 02/01/23 20:31 Eos % (Auto) 2.9 % 02/01/23 20:31 Baso % (Auto) 0.2 % 02/01/23 20:31 Neut # (Auto) 6.91 K/uL (1.40-6.50) H 02/01/23 20:31 Lymph # (Auto) 1.66 K/uL (1.2-3.4) 02/01/23 20:31 [place] # (Auto) 0.30 K/uL (0.11-0.59) 02/01/23 20:31 Eos # (Auto) 0.27 K/uL (0-0.50) 02/01/23 20:31 Baso # (Auto) 0.02 K/uL (0-0.2) 02/01/23 20:31 Immature Gran # (Auto) 0.05 K/uL (0.01-0.20) 02/01/23 20:31 PT 12.6 Seconds (9.0-12.0) H 02/01/23 20:31 INR 1.2 (0.9-1.1) H 02/01/23 20:31 Sodium 137 mmol/L (136-145) 02/01/23 20:31 Potassium 4.4 mmol/L (3.5-5.1) 02/01/23 20:31 Chloride 104 mmol/L (98-107) 02/01/23 20:31 Carbon Dioxide 27 mmol/L (21-32) 02/01/23 20:31 Anion Gap 6 (3-11) 02/01/23 20:31 BUN 32 mg/dl (6-23) H 02/01/23 20:31 Creatinine 1.92 mg/dl (0.6-1.4) H 02/01/23 20:31 Est Cr Clr Drug Dosing 39.3 ml/min 02/01/23 20:31 Est GFR ( Amer) 38.9 ml/min 02/01/23 20:31 Est GFR (Non-Af Amer) 33.5 ml/min 02/01/23 20:31 BUN/Creatinine Ratio 16.7 (10-20) 02/01/23 20:31 Glucose 127 mg/dl (70-99(Fasting)) H 02/01/23 20:31 Lactate 1.5 mmol/L (0.4-2.0) 02/01/23 23:57 Calcium 9.3 mg/dl (8.6-10.3) 02/01/23 20:31 Phosphorus 3.1 mg/dl (2.5-4.9) 02/01/23 20:31 Magnesium 2.0 mg/dl (1.7-2.4) 02/01/23 20:31 Total Bilirubin 7.4 mg/dl (0.2-1.0) H 02/01/23 20:31 AST 30 U/L (13-39) 02/01/23 20:31 ALT 22 U/L (7-52) 02/01/23 20:31 Alkaline Phosphatase 81 U/L (34-104) 02/01/23 20:31 Total Creatine Kinase 348 U/L (30-223) H 02/01/23 20:31 Troponin I High Sens 27.6 pg/ml (0-20) H 02/01/23 20:31 Total Protein 7.1 gm/dl (6.0-8.3) 02/01/23 20:31 Albumin 3.6 gm/dl (3.4-5.0) 02/01/23 20:31 Globulin 3.5 gm/dl (2.5-4.0) 02/01/23 20:31 Albumin/Globulin Ratio 1.0 (0.9-2) 02/01/23 20:31 Lipase 120 U/L (11-82) H 02/01/23 20:31 TSH 4.625 uIu/ml (0.300-4.500) H 02/01/23 20:31 Free T4 1.18 ng/dl (0.61-1.60) 02/01/23 20:31 Ethyl Alcohol mg/dL < 10.0 mg/dl (<10.0) 02/01/23 23:57 SARS-CoV-2, RNA, NAAT NEGATIVE (NEGATIVE) 02/01/23 21:31 Impressions Abdomen/Pelvis CT 02/01/23 22:31 Exam(s): CT ABDOMEN + PELVIS Without Contrast EXAM: CT Abdomen and Pelvis Without Intravenous Contrast CLINICAL HISTORY: Reason for exam: pain, fall, trauma. TECHNIQUE: Axial computed tomography images of the abdomen and pelvis without intravenous contrast. CTDI is 54.58 mGy and DLP is 884.08 mGy-cm. Automated exposure control was utilized for the study. A dose lowering technique was utilized adhering to the principles of ALARA. COMPARISON: No relevant prior studies available. FINDINGS: Lung bases: There is a smooth oval pulmonary nodule the right costophrenic angle measuring 2 cm. ABDOMEN: Liver: The liver is small and nodular suggesting cirrhosis. The portal vein is upper limits of normal in diameter measuring 1.5 cm. The spleen is not enlarged. No ascites is seen. Gallbladder and bile ducts: The gallbladder has been removed. No ductal dilation. Pancreas: Unremarkable. No ductal dilation. Spleen: Unremarkable. No splenomegaly. Adrenals: Unremarkable. No mass. Kidneys and ureters: There are 2 3 mm calcifications in the renal hilum bilaterally, possibly vascular. No hydronephrosis or ureterolithiasis is seen. Stomach and bowel: Unremarkable. No obstruction. No mucosal thickening. PELVIS: Appendix: No findings to suggest acute appendicitis. Bladder: Unremarkable. No stones. Reproductive: Unremarkable as visualized. ABDOMEN and PELVIS: Intraperitoneal space: See above. Bones/joints: There is a compression fracture involving the superior aspect of the T12 vertebral body. There is a cleft under the superior endplate consistent with 10% compression which has subsequently distracted due to positioning. No posterior protrusion fracture fragments or spinal stenosis. No dislocation. Soft tissues: Unremarkable. Vasculature: The abdominal aorta is severely calcified but nondilated. Lymph nodes: Unremarkable. No enlarged lymph nodes. IMPRESSION: There is a compression fracture involving the superior aspect of the T12 vertebral body. There is a cleft under the superior endplate consistent with 10% compression which has subsequently distracted due to positioning. No posterior protrusion fracture fragments or spinal stenosis. Electronically signed by: Jose C Lopez MD 02/01/23 23:[address] 02/01/23 22:31 Exam(s): CT CHEST Without Contrast EXAM: CT Chest Without Intravenous Contrast CLINICAL HISTORY: Reason for exam: pain, fall, trauma. TECHNIQUE: Axial computed tomography images of the chest without intravenous contrast. CTDI is 54.58 mGy and DLP is 884.08 mGy-cm. Automated exposure control was utilized for the study. A dose lowering technique was utilized adhering to the principles of ALARA. COMPARISON: No relevant prior studies available. FINDINGS: Lungs: Mild emphysematous changes throughout both lungs. No acute infiltrate is seen. There is a 1.8 cm pulmonary nodule the right costophrenic angle. This was not visible on previous plain films. This contacts the pleura. Pleural space: Unremarkable. No pneumothorax. No significant effusion. Heart: The heart is not enlarged. Severe coronary calcification is present. No significant pericardial effusion. Bones/joints: There is a 10% compression fracture involving the supra aspect of the T12 vertebral body. No posterior protrusion fracture fragments. There are mild degenerative changes throughout the remainder of the spine. No dislocation. Soft tissues: Unremarkable. Vasculature: Unremarkable. No thoracic aortic aneurysm. Lymph nodes: Unremarkable. No enlarged lymph nodes. IMPRESSION: 1. There is a 10% compression fracture involving the supra aspect of the T12 vertebral body. No posterior protrusion fracture fragments. There are mild degenerative changes throughout the remainder of the spine. 2. Mild emphysematous changes throughout both lungs. No acute infiltrate is seen. There is a 1.8 cm pulmonary nodule the right costophrenic angle. This was not visible on previous plain films. This contacts the pleura. Fleischner Society Guidelines suggest no follow-up is necessary for patients with low or high risk of malignancy. Electronically signed by: Jose C Lopez MD 02/01/23 23:[address] 02/01/23 22:31 Exam(s): CT HEAD Without Contrast EXAM: CT Head Without Intravenous Contrast CLINICAL HISTORY: Reason for exam: pain, fall, trauma. TECHNIQUE: Axial computed tomography images of the head/brain without intravenous contrast. CTDI is 54.58 mGy and DLP is 884.08 mGy-cm. Automated exposure control was utilized for the study. A dose lowering technique was utilized adhering to the principles of ALARA. COMPARISON: October 26, 2019. FINDINGS: Brain: Trace amount of periventricular white matter low density consistent with chronic small vessel disease, unchanged. No acute large vessel infarct or intracranial hemorrhage is seen. Ventricles: Unremarkable. No ventriculomegaly. Bones/joints: Unremarkable. No acute fracture. Soft tissues: Unremarkable. Sinuses: Trace amount of fluid in the left maxillary sinus, possible mild sinusitis. The remaining paranasal sinuses are within normal limits. Mastoid air cells: Unremarkable as visualized. No mastoid effusion. IMPRESSION: 1. Trace amount of fluid in the left maxillary sinus, possible mild sinusitis. The remaining paranasal sinuses are within normal limits. 2. Trace amount of periventricular white matter low density consistent with chronic small vessel disease, unchanged. No acute large vessel infarct or intracranial hemorrhage is seen. Electronically signed by: Jose C Lopez MD 02/01/23 23:[address] 02/01/23 22:31 Exam(s): CT L SPINE EXAM: CT Lumbar Spine Without Intravenous Contrast CLINICAL HISTORY: Reason for exam: pain, fall, trauma. TECHNIQUE: Axial computed tomography images of the lumbar spine without intravenous contrast. CTDI is 54.58 mGy and DLP is 884.08 mGy-cm. Automated exposure control was utilized for the study. A dose lowering technique was utilized adhering to the principles of ALARA. COMPARISON: No relevant prior studies available. FINDINGS: Vertebrae: Mild multilevel degenerative disc disease and facet arthrosis throughout the lumbar spine. No acute fracture or subluxation is seen. There is an old healed 20% superior endplate compression fracture of L5. The remaining lumbar spine vertebral body heights are within normal limits. No acute compression fracture or burst fracture is seen involving the lumbar spine. Discs/spinal canal/neural foramina: No significant spinal stenosis is identified. Soft tissues: Unremarkable. IMPRESSION: 1. No significant spinal stenosis is identified. 2. Mild multilevel degenerative disc disease and facet arthrosis throughout the lumbar spine. No acute fracture or subluxation is seen. 3. There is an old healed 20% superior endplate compression fracture of L5. The remaining lumbar spine vertebral body heights are within normal limits. No acute compression fracture or burst fracture is seen involving the lumbar spine. Electronically signed by: Jose C Lopez MD 02/01/23 23:[address] 02/01/23 22:31 Exam(s): CT T SPINE EXAM: CT Thoracic Spine Without Intravenous Contrast CLINICAL HISTORY: Reason for exam: pain, fall, trauma. TECHNIQUE: Axial computed tomography images of the thoracic spine without intravenous contrast. CTDI is 54.58 mGy and DLP is 884.08 mGy-cm. Automated exposure control was utilized for the study. A dose lowering technique was utilized adhering to the principles of ALARA. COMPARISON: No relevant prior studies available. FINDINGS: Vertebrae: There is a cleft immediately inferior to the superior end plate of T12 consistent with an approximately 10% compression fracture which has subsequently returned to normal height. No posterior protrusion fracture fragments or spinal stenosis. Discs/spinal canal/neural foramina: Moderate multilevel degenerative disc disease and osteophytosis throughout the thoracic spine. No other acute fracture is seen. No subluxation or spinal stenosis. Soft tissues: Unremarkable. IMPRESSION: 1. There is a cleft immediately inferior to the superior end plate of T12 consistent with an approximately 10% compression fracture which has subsequently returned to normal height. No posterior protrusion fracture fragments or spinal stenosis. 2. Moderate multilevel degenerative disc disease and osteophytosis throughout the thoracic spine. No other acute fracture is seen. No subluxation or spinal stenosis. Electronically signed by: Jose C Lopez MD 02/01/23 23:[address] 02/01/23 22:48 Exam(s): CT C SPINE EXAM: CT Cervical Spine Without Intravenous Contrast CLINICAL HISTORY: Reason for exam: pain, fall trauma. TECHNIQUE: Axial computed tomography images of the cervical spine without intravenous contrast. CTDI is 54.58 mGy and DLP is 884.08 mGy-cm. Automated exposure control was utilized for the study. A dose lowering technique was utilized adhering to the principles of ALARA. COMPARISON: No relevant prior studies available. FINDINGS: Vertebrae: Mild narrowing and osteophytosis of the atlantodental joint. The odontoid process is intact. The spinal alignment is normal. No subluxation is seen. No acute fracture. Soft tissues: The prevertebral soft tissues are normal. Vasculature: Mild calcification of the carotid bifurcation bilaterally. DISCS/SPINAL CANAL/NEURAL FORAMINA: C2-C3: Moderate degenerative disc disease. No stenosis. C3-C4: Moderate degenerative disc disease. Mild spinal stenosis measuring 8 mm due to posterior disc marginal osteophyte. C4-C5: Moderate degenerative disc disease. No stenosis. C5-C6: Moderate degenerative disc disease. No stenosis. C6-C7: Moderate degenerative disc disease. No stenosis. C7-T1: Moderate degenerative disc disease. No stenosis. 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 There is posterior osteophyte formation at C2-3 and C3-4 measuring up to 4 mm causing mild spinal stenosis narrowing the canal to 8 mm at C3-4. Electronically signed by: Jose C Lopez MD 02/01/23 23:49 PM Diagnostic Findings EKG as per my interpretation : Rate 85, NSR, normal axis, septal infarct, no ischemia Code Status & VTE Plan VTE Prophylaxis Plan VTE Prophylaxis will be ordered: Yes
[2023-02-02 01:33] LABS: Appearance Urine Clear (Clear); Bacteria Urine Automated Negative (Negative); Bilirubin Urine Negative (Negative); Blood Urine 1+ (Negative); Color Urine Orange; Epithelial Cell Urine Auto 20-30 /lpf (0-5); Glucose Urine UA Negative (Negative); Ketones Urine Trace (Negative); Leukocyte Esterase Urine Trace (Negative); Nitrite Urine Positive (Negative); Protein Urine 2+ (Negative); Specific Gravity Urine 1.019 (1.000-1.030); Urobilinogen Urine Negative (Negative)
[2023-02-02] MEDS ORDERED: CEFEPIME 2,000 MG/20 ML VIAL IV STA (01:43)
[2023-02-02] MEDS ORDERED: GLUCOSE 40% GEL 15 GM TUBE PO PRN (02:06)
[2023-02-02] MEDS ORDERED: GLUCOSE 10 TAB/TUBE PO PRN (02:06)
[2023-02-02] MEDS ORDERED: CARBOHYDRATES FOR HYPOGLYCEMIA PO PRN (02:06)
[2023-02-02] MEDS ORDERED: DEXTROSE 50% 50 ML SYRINGE IV PRN (02:06)
[2023-02-02] MEDS ORDERED: GLUCAGON FOR INJ 1 MG VIAL SQ PRN (02:06)
[2023-02-02] MEDS: INSULIN ASPART PER UNIT CHARGE SC SCH ×5 (03:24→20:38)
[2023-02-02] MEDS: oxyCODONE HCL IR 5 MG TAB (IMMEDIATE RELEASE) PO PRN ×3 (04:38→22:52)
[2023-02-02 05:10] LABS: Bilirubin Direct 0.9 mg/dl (0-0.2)
[2023-02-02 05:11] LABS: BUN Creatinine Ratio 20.8 (10-20); Calcium 8.3 mg/dl (8.6-10.3); Creatinine Clr Calc Pharmacy 43.6 ml/min; Est GFR (African American) 44.1 ml/min
[2023-02-02] MEDS: HYDROmorphone INJ 0.5 MG/0.5 ML SYR IV PRN ×5 (05:11→21:08)
[2023-02-02 05:15] LABS: Troponin I High Sensitivity 20.3 pg/ml (0-20)
[2023-02-02 06:24] LABS: Basophils # (auto) 0.03 K/uL (0-0.2); Basophils % (auto) 0.4 %; Eosinophils # (auto) 0.23 K/uL (0-0.50); Eosinophils % (auto) 2.8 %; Hematocrit (blood only) 27.5 % (42.0-52.0); Hemoglobin 10.3 g/dl (14.0-18.0); Immature Granulocytes # (auto) 0.03 K/uL (0.01-0.20); Immature Granulocytes % (auto) 0.4 %; Lymphocytes # (auto) 1.99 K/uL (1.2-3.4); Lymphocytes % (auto) 24.5 %; Mean Corpuscular Hemoglobin 35.4 pg (25.0-34.0); Mean Corpuscular Hgb Conc 37.5 g/dL (32.0-36.0); Mean Corpuscular Volume 94.5 fL (80.0-100.0); Mean Platelet Volume 9.5 fL (9.4-12.4); Monocytes # (auto) 0.36 K/uL (0.11-0.59); Monocytes % (auto) 4.4 %; Neutrophils # (auto) 5.49 K/uL (1.40-6.50); Neutrophils % (auto) 67.5 %; Platelet Count 84 K/uL (130-400); Polychromasia 1+; RDW Coefficient of Variation 14.8 % (11.5-14.5); RDW Standard Deviation 50.5 fL (36.4-46.3); Red Blood Count 2.91 M/uL (4.70-6.10); White Blood Count 8.13 K/ul (4.8-10.8)
[2023-02-02 07:56] LABS: Estimated Average Glucose 88 mg/dl; Hemoglobin A1C 4.7 % (4.5-5.6)
--- NOTE | 2023-02-02 08:06 | XRay Report ---
XR chest 1V portable HISTORY: weakness COMPARISON: Chest 10/26/2019. FINDINGS: No pneumothorax. No pleural effusions. The cardiac silhouette remains mildly enlarged. Ther e is mild interstitial thickening which is likely chronic. No new focal lung consolidations to sugges t a pneumonia. No evidence for pulmonary edema. Suspect mild emphysema. Increased markings at the deepak g bases favors vascular crowding. IMPRESSION: No significant change compared to the prior study. No acute process. ACT 112: Negative or not required by law. Electronically signed by: Richar Collado M.D. 02/02/2023 8:04 AM
--- NOTE | 2023-02-02 08:09 | Neurology Consultation ---
Date of Consultation February 02, 2023 Assessment & Plan (1) Syncope: (2) Fall from standing: (3) Compression fracture of T12 vertebra: (4) H/O: stroke: Plan 72-year-old male with probable syncopal episode occurring the day prior to presentation in the emergency department, found on the floor at home by patient's daughter with multiple acute on chronic ecchymoses, patient is jaundiced, history of alcohol-related cirrhosis. He does have an acute thoracic spinal fracture at T12, not involving the posterior elements. He is not myelopathic on examination. He may have struck the back of his head as well in the context of the above fall although I do not appreciate any obvious bruising or ecchymosis along the scalp or face. He does not complain of postconcussive symptoms such as headache, nausea or dizziness. He does complain of some neck pain and does have an abrasion along the posterior right shoulder. I note there is no evidence of subdural hematoma, skull fracture, cerebral contusion, or other acute abnormality on his recent CT of the head. The study does reveal chronic microvascular ischemic disease. Further, there is no evidence of acute fracture on CT of the cervical spine although he does have chronic changes including osteophytosis and associated spinal stenosis at C3-4. Again, he is not myelopathic and does not complain of radicular symptoms to any limb at this point in time. His pain seems to localize to the posterior right shoulder and right cervical region. Again, there is an abrasion in this area related to his recent fall. Although this patient may have struck the back of his head in the context of the above fall, there is no obvious signs of significant external trauma or acute injury on CT of the head or cervical spine. Further, he does not really complain of significant concussive symptoms such as headache, dizziness, or naus ea. It is difficult to formally diagnose this patient with a concussion although it is certainly possible based on the mechanism of injury. I do not really have any further specific recommendations in this regard, at least at this time. If he were to develop persistent postconcussive symptoms, we could certainly reassess him in the outpatient setting. Do note that his presentation, fall, etc., occurs in the context of a probable syncopal episode. I also note his previous history of ischemic subcortical left hemispheric stroke occurring in 2019. He does not appear to have obvious residual neurologic deficits. It may not be unreasonable to obtain a brain MRI in the context of this current hospitalization to further exclude any acute process. Further, because there is no evidence of intracranial bleeding on his recent CT of the head, he may continue with daily low-dose aspirin, in light of his history of ischemic stroke. He should also continue with his statin. I note this patient's history of heavy alcohol use and related liver disease. However, he apparently has not consumed alcohol in several years. Further, I do not find any signs of Wernicke encephalopathy on his examination such as ophthalmoplegia, nystagmus, or obvious ataxia. Risk for delirium tremens is probably low but would continue to monitor in the context of this hospitalization. I do not see a reason to obtain an EEG at this time. [facility] consultation regarding spinal compression fracture. However, I suspect conservative care will be recommended. Please call with any questions. History of Present Illness Reason for Consultation: Concussion Requesting Physician: Dr. Urbina Attending Physician: Marco A Johnson MD History of Present Illness The patient is a 72-year-old male with a history of chronic kidney disease, stroke, hypertension, hyperlipidemia, COPD, type 2 diabetes mellitus, ambulatory dysfunction, cirrhosis related to history of alcohol use, chronic back pain, on oxycodone who was brought to the emergency department overnight via EMS, complaint by daughter, evaluation for a fall, found down in his home by his daughter earlier last night, lying on the ground, apparently since yesterday morning. Patient had indicated that he had fallen in the context of dizziness, vertigo, had been complaining of some back pain. He was noted to have bruising of the forearms, left-sided bruising new compared with right, abrasion along the posterior right shoulder, had some spinal tenderness to palpation. There is evidence of a compression fracture at T12 without involvement of the posterior elements. Patient was admitted for further evaluation and care. I did review the admission history as well. There is mention of a previous stroke occurring in October 2019 involving the left thalamus, presenting with right-sided weakness at that time, discharged on antiplatelet treatment. Patient had also apparently hit his head during the recent fall as above resulting in concern for concussion and subsequent neurology consultation requested. CT of the head completed overnight revealed chronic small vessel ischemic disease, no evidence of hemorrhage or large territory evolving infarct. There was a small amount of fluid within the left maxillary sinus suggesting mild sinusitis. Again, no evidence of hemorrhage or subdural collection. I did independently review these images and agree with the findings as described by the interpreting radiologist a CT of the cervical spine revealed large anterior osteophytes throughout the cervical spine with pseudoarticulation at all cervical levels. Posterior osteophyte at C2-3 and C3-4 measuring up to 4 mm causing mild spinal stenosis narrowing the canal to 8 mm at C3-4. I independently reviewed these images as well and agree with the radiologist's interpretation. The thoracic spine CT revealed the T12 compression deformity as described above. Moderate multilevel degenerative disc disease and oste ophytosis observed as well. The lumbar spine CT revealed mild multilevel degenerative disc disease and facet arthrosis throughout the lumbar spine, no acute fracture or subluxation. Old healed compression fracture at L5 observed as well. Currently, the patient denies headache, dizziness, nausea. He thinks he may have hit his head when he fell, as above. He does not have any obvious bruising or ecchymosis along the scalp or face. Allergies Allergy/AdvReac Type Severity Reaction Status Date / Time gabapentin Allergy Unknown Verified 12/18/21 11:15 tramadol Allergy Unknown Verified 12/18/21 11:15 Home Medications Medication Instructions Recorded Confirmed Type albuterol sulfate 2.5 mg/3 mL 2.5 mg inhalation QID PRN 10/26/19 02/02/23 History (0.083 %) solution for nebulization Shortness Of Breath Or Wheezing albuterol sulfate 90 mcg/actuation 1 puff inhalation QID PRN 10/26/19 02/02/23 History aerosol inhaler Shortness Of Breath Or Wheezing carvedilol 25 mg tablet 25 mg PO BID 10/26/19 12/18/21 History tiotropium 2.5 mcg-olodaterol 2.5 2 puff inhalation DAILY 10/26/19 12/18/21 History mcg/actuation mist for inhalation aspirin 81 mg capsule 81 mg PO DAILY 11/20/21 02/02/23 History atorvastatin 20 mg tablet 40 mg PO DAILY 11/20/21 12/18/21 History furosemide 20 mg tablet 20 mg PO DAILY 11/20/21 12/18/21 History insulin aspart U-100 100 unit/mL 14 unit subcut TIDM 11/20/21 02/02/23 History (3 mL) subcutaneous pen (Novolog FlexPen U-100 Insulin aspart) insulin glargine 100 unit/mL (3 16 unit subcut BID 11/20/21 02/02/23 History mL) subcutaneous pen pregabalin 75 mg capsule 75 mg PO BID 11/20/21 12/18/21 History cholecalciferol (vitamin D3) 50 50 mcg PO DAILY 11/22/21 12/18/21 History mcg (2,000 unit) capsule lisinopril 5 mg tablet 2.5 mg PO UD 11/22/21 11/22/21 History fluticasone 250 mcg-salmeterol 50 1 inh inhalation BID 12/18/21 02/02/23 History mcg/dose blistr powdr for inhalation spironolactone 50 mg tablet 50 mg PO DAILY PRN swelling 12/18/21 History lancets (Accu-Chek Softclix 01/15/22 History Lancets) Patient History Medical History Cataract Cirrhosis COPD (chronic obstructive pulmonary disease) COPD exacerbation CVA (cerebral vascular accident) Diabetes mellitus, type II Hematuria HTN (hypertension) Hypothyroidism Tobacco abuse Vitamin D deficiency Surgical History History of cholecystectomy Family History Other Family history non-contributory Social History Smoking Status: Current every day smoker Tobacco Type: Cigarettes Cigarettes Per Day: 1ppd; Do You Dip or Chew Tobacco: No; Tobacco Cessation Education Requested by Patient: No Hx Alcohol Use: No Hx Substance Use: No Preferred Language: Filipino Communication Ability: Effective Hand Mixer Required: No Beliefs That Will Affect Care: None Current Living Situation: Alone Other Information That Helps Us Care for You: No Feels Safe at Home: Yes Assistive Devices: Glasses Review of Systems Constitutional: no fever and no chills Eyes: no blind spots and no diplopia Ear, Nose, Mouth, Throat: no hearing loss and no dizziness Respiratory: no cough and no dyspnea Cardiovascular: no chest pain and no palpitations Gastrointestinal: no nausea and no vomiting Genitourinary: no dysuria Integumentary: + yellowing of the skin Neurologic: as per Subjective / HPI and + unsteadiness; no tremor(s) and no headache(s) Psychiatric: no depression and no anxiety Hematologic / Lymphatic: + easy bruising Exam (Neuro) Constitutional: + overweight; + not healthy appearing Eyes: normal visual terry by confrontation, PERRL and EOM intact bilaterally; no papilledema Cardiovascular: Vessels: no carotid bruit Neurologic: Oriented to:: Person, Place and Time Memory: Short Term Intact and Remote Intact Attention: Span Intact and Concentration Intact Speech Fluency: negative Dysarthria or Dysfluency Speech Aphasia: negative Aphasia Fund of Knowledge: Current Events, Past History and Vocabulary Cranial Nerve s: Normal II, III, IV, , V, VII, VIII, IX, X, XI and XII Motor Strength: Normal Lower Extremities and Normal Upper Extremities Muscle Bulk/Involuntary Movements: No Involuntary Movements; negative Muscle Atrophy, Rest Tremor (Arm) or Action Tremor Sensation: Light Touch Intact and Proprioception Intact; negative Pain/Temperature Intact or Vibration Intact Coordination: negative Dysdiadochokinesia, Finger-Nose Abnormal or Heel-Suh Abnormal Deep Tendon Reflexes: Rt Triceps: 1+, Lt Triceps: 1+, Rt Biceps: 1+, Lt Biceps: 1+, Rt Brachioradialis: 1+, Lt Brachioradialis: 1+, Rt Patellar: 1+, Lt Patellar: 1+, Rt Ankle: 0 and Lt Ankle: 0 Special Tests: negative Babinski Present Details: Gait could not be tested. Patient is jaundiced appearing. Acute and chronic ecchymosis noted on the limbs. Acute abrasion, posterior right shoulder noted. No asterixis, myoclonus or tremors. No ophthalmoplegia or nystagmus. Speech is slightly slow and dysarthric, patient edentulous. Attention normal to perhaps slightly reduced. Results & Data Vital Signs (Past 12 Hours) Vital Signs Temp Pulse Pulse Resp BP BP Pulse Ox 02/02/23 06:54 70 02/02/23 06:00 67 15 96 02/02/23 05:30 70 17 118/49 L 96 02/02/23 05:00 71 20 115/51 L 98 02/02/23 04:30 79 17 128/93 96 02/02/23 04:00 74 19 143/61 H 96 02/02/23 03:30 73 19 128/59 L 95 02/02/23 04:44 72 18 128/93 97 02/02/23 04:44 02/02/23 03:00 71 18 111/50 L 95 02/02/23 02:30 73 19 105/44 L 95 02/02/23 02:00 75 19 126/52 L 91 02/02/23 01:30 78 20 158/72 H 93 02/02/23 01:00 78 18 146/67 H 93 02/02/23 00:30 78 23 92 02/02/23 00:34 77 02/02/23 00:00 81 17 139/58 L 94 02/01/23 23:30 80 24 155/62 H 02/01/23 23:04 85 26 H 178/83 H 02/01/23 22:30 84 23 171/108 H 94 02/01/23 22:00 85 18 184/67 H 94 02/01/23 21:30 83 15 155/87 H 94 02/01/23 21:02 90 15 169/71 H 96 02/01/23 21:00 86 21 93 02/01/23 20:30 85 26 H 166/92 H 97 02/01/23 20:14 85 28 H 182/87 H 94 02/01/23 20:13 87 9 L 02/01/23 21:27 83 18 98 02/01/23 20:39 86 02/01/23 20:17 36.9 C 86 18 96 02/01/23 20:12 36.9 C 85 18 182/87 H 96 Pulse Ox O2 Del Method O2 Del Method O2 Flow Rate O2 Flow Rate 02/02/23 06:54 02/02/23 06:00 02/02/23 05:30 02/02/23 05:00 02/02/23 04:30 02/02/23 04:00 02/02/23 03:30 02/02/23 04:44 Nasal Cannula 2 02/02/23 04:44 98 Nasal Cannula 2 02/02/23 03:00 02/02/23 02:30 02/02/23 02:00 02/02/23 01:30 02/02/23 01:00 02/02/23 00:30 02/02/23 00:34 02/02/23 00:00 02/01/23 23:30 02/01/23 23:04 02/01/23 22:30 02/01/23 22:00 02/01/23 21:30 02/01/23 21:02 02/01/23 21:00 02/01/23 20:30 02/01/23 20:14 02/01/23 20:13 02/01/23 21:27 02/01/23 20:39 02/01/23 20:17 Room Air 02/01/23 20:12 Room Air Laboratory Results WBC 8.13, hemoglobin 10.3, hematocrit 27.5, MCV 94.5, platelet count 84, sodium 136, potassium 4.0, BUN 36, creatinine 1.73, glucose 99, hemoglobin A1c 4.7, calcium 8.3, total CK2 29, troponin 20.3, TSH 4.625, free T41.[address] of the head and CT of the cervical, thoracic, and lumbar spine are as described in the HPI. I did review images pertaining to patient's brain MRI and carotid ultrasound completed in October 2019. Brain MRI reveals generalized atrophy, chronic microvascular ischemic disease as well as an acute appearing ischemic infarct within the left thalamus, internal capsule region. Carotid ultrasound at that time was negative for hemodynamically significant stenosis, there was atherosclerotic plaque buildup in the carotid arteries. Antegrade flow in both vertebral arteries noted at that time. Electrocardiogram revealed a normal sinus rhythm, 86 bpm. PG Care Time/CCT Total # of Minutes Spent Total Time Spent with Patient: Total time spent is greater than 50% in coordination of care (as documented) at patient's floor/unit and/or counseling patient: Coding Level of Care Code 01146 INT INP/OBS CARE 3/75MIN Diagnoses Syncope R55 Fall from standing W19.XXXA Compression fracture of T12 vertebra S22.080A H/O: stroke Z86.73 Time Spent (min) 80
[2023-02-02] MEDS ORDERED: FLUTICASONE/SALMETEROL 250/50 (ADVAIR) 14 PUFF/1 INHALER INH SCH (09:00)
[2023-02-02] MEDS: FLUTICASONE/VILANTEROL 100/25MCG 14 PUFFS/INHALER INH SCH (10:28)
[2023-02-02] MEDS: carvediloL 3.125 MG TAB PO SCH ×2 (10:29→19:40)
[2023-02-02] MEDS: LANTUS PER UNIT CHARGE SQ SCH ×2 (10:40→20:40)
--- NOTE | 2023-02-02 12:46 | Electrocardiogram Report ---
Test Reason : Blood Pressure : / mmHG Vent. Rate : 084 BPM Atrial Rate : 084 BPM P-R Int : 174 ms QRS Dur : 066 ms QT Int : 366 ms P-R-T Axes : 057 064 071 degrees QTc Int : 432 ms Poor data quality, interpretation may be adversely affected Normal sinus rhythm Nonspecific ST abnormality Abnormal ECG When compared with ECG of 27-OCT-2019 06:54, No significant change Confirmed by Jeison Tobin ([id number]) on 02/02/2023 12:45:44 PM Referred By: REFERRED SELF Confirmed By:Jeison Tobin
--- NOTE | 2023-02-02 12:46 | Electrocardiogram Report ---
Test Reason : Blood Pressure : / mmHG Vent. Rate : 086 BPM Atrial Rate : 086 BPM P-R Int : 158 ms QRS Dur : 080 ms QT Int : 378 ms P-R-T Axes : 071 065 056 degrees QTc Int : 452 ms Poor data quality, interpretation may be adversely affected Normal sinus rhythm Cannot rule out Septal infarct , age undetermined Abnormal ECG When compared with ECG of 01-FEB-2023 20:17, (unconfirmed) No significant change Confirmed by Jeison Tobin ([id number]) on 02/02/2023 12:46:11 PM Referred By: REFERRED SELF Confirmed By:Jeison Tobin
[2023-02-02] MEDS: ASPIRIN 81 MG ECTAB PO SCH (14:23)
[2023-02-02] MEDS: CEFEPIME 2,000 MG in SYRINGE 0 ML IV SCH (15:12)
--- NOTE | 2023-02-02 16:20 | Communication Note ---
Date of Service: February 02, 2023 The patient was admitted early this morning and remains stable since admission. He was seen and examined today and a full progress note will be done tomorrow. Dr Chester Johnson
[2023-02-02] MEDS ORDERED: UMECLIDINIUM/VILANTEROL 62.5/25MCG 7 PUFFS/INHALER INH SCH (23:10)
[2023-02-03] MEDS: SPIRIVA RESPIMAT INH SCH ×2 (01:34→19:33)
[2023-02-03] MEDS: CEFEPIME 2,000 MG in SYRINGE 0 ML IV SCH ×2 (01:36→14:15)
[2023-02-03] MEDS: HYDROmorphone INJ 0.5 MG/0.5 ML SYR IV PRN ×3 (01:40→17:15)
[2023-02-03] MEDS: LANTUS PER UNIT CHARGE SQ SCH ×2 (08:30→22:07)
[2023-02-03] MEDS: ACETAMINOPHEN 325 MG TAB PO PRN (08:33)
[2023-02-03] MEDS: oxyCODONE HCL IR 5 MG TAB (IMMEDIATE RELEASE) PO PRN ×3 (08:33→22:09)
[2023-02-03] MEDS: carvediloL 3.125 MG TAB PO SCH ×2 (08:34→19:33)
[2023-02-03] MEDS: INSULIN ASPART PER UNIT CHARGE SC SCH ×4 (08:34→22:08)
[2023-02-03] MEDS: ASPIRIN 81 MG ECTAB PO SCH (08:34)
[2023-02-03] MEDS: LIDOCAINE 5% 1 PATCH TD SCH (08:34)
[2023-02-03 09:14] LABS: Hematocrit (blood only) 26.8 % (42.0-52.0); Hemoglobin 10.1 g/dl (14.0-18.0); Mean Corpuscular Hemoglobin 35.2 pg (25.0-34.0); Mean Corpuscular Hgb Conc 37.7 g/dL (32.0-36.0); Mean Corpuscular Volume 93.4 fL (80.0-100.0); Mean Platelet Volume 9.3 fL (9.4-12.4); Platelet Count 90 K/uL (130-400); RDW Coefficient of Variation 14.4 % (11.5-14.5); RDW Standard Deviation 48.6 fL (36.4-46.3); Red Blood Count 2.87 M/uL (4.70-6.10); White Blood Count 7.02 K/ul (4.8-10.8)
[2023-02-03 09:16] LABS: BUN Creatinine Ratio 20.2 (10-20); Calcium 8.3 mg/dl (8.6-10.3); Creatinine Clr Calc Pharmacy 41.2 ml/min; Est GFR (African American) 41.2 ml/min; Est GFR (Non-African American) 35.6 ml/min
[2023-02-03] MEDS: FLUTICASONE/VILANTEROL 100/25MCG 14 PUFFS/INHALER INH SCH (09:17)
[2023-02-03 09:27] LABS: Basophils # (auto) 0.02 K/uL (0-0.2); Basophils % (auto) 0.3 %; Eosinophils # (auto) 0.37 K/uL (0-0.50); Eosinophils % (auto) 5.3 %; Immature Granulocytes # (auto) 0.02 K/uL (0.01-0.20); Immature Granulocytes % (auto) 0.3 %; Lymphocytes # (auto) 1.64 K/uL (1.2-3.4); Lymphocytes % (auto) 23.4 %; Monocytes # (auto) 0.39 K/uL (0.11-0.59); Monocytes % (auto) 5.6 %; Neutrophils # (auto) 4.58 K/uL (1.40-6.50); Neutrophils % (auto) 65.1 %
--- NOTE | 2023-02-03 11:35 | Consultation ---
Date of Consultation February 03, 2023 Assessment & Plan (1) Compression fracture of T12 vertebra: Renetta has an acute T12 compression fracture status post fall at home [address] Moralez has reviewed imaging. Treatment plan is conservative. I have ordered a TLSO brace to be worn when up and ambulatory or active. May remove in bed or when in a seated position. No lifting over 5 pounds. Ambulate ad vicente once brace has been received. Continue with pain control. May ultimately need SNF/acute rehab referral. We will follow him up in the office in about 2 weeks for x-ray follow-up and reassessment. History of Present Illness Reason for Consultation: T12 compression fracture Attending Physician: Marco A Johnson MD History of Present Illness Is a pleasant 72-year-old gentleman who sustained a fall on January 31 while at home. He lives at home alone. He states he was walking into the kitchen, got dizzy and fell. He was unable to get up on his own. He laid on the floor for at least 24 hours until his daughter came to check on him the following day. EMS was summoned and he was taken to the ER and subsequently admitted. He has thoracolumbar pain. He does have chronic lower back pain which he states he takes oxycodone 10 mg as needed for. He ambulates with a walker at home. Denies any radicular leg pain. States his most comfortable position is lying on his left side currently. Allergies Allergy/AdvReac Type Severity Reaction Status Date / Time gabapentin Allergy Unknown Verified 12/18/21 11:15 tramadol Allergy Unknown Verified 12/18/21 11:15 Home Medications Medication Instructions Recorded Confirmed Type albuterol sulfate 2.5 mg/3 mL 2.5 mg inhalation QID PRN 10/26/19 02/02/23 History (0.083 %) solution for nebulization Shortness Of Breath Or Wheezing albuterol sulfate 90 mcg/actuation 1 puff inhalation QID PRN 10/26/19 02/02/23 History aerosol inhaler Shortness Of Breath Or Wheezing carvedilol 25 mg tablet 25 mg PO BID 10/26/19 12/18/21 History tiotropium 2.5 mcg-olodaterol 2.5 2 puff inhalation DAILY 10/26/19 12/18/21 History mcg/actuation mist for inhalation aspirin 81 mg capsule 81 mg PO DAILY 11/20/21 02/02/23 History atorvastatin 20 mg tablet 40 mg PO DAILY 11/20/21 12/18/21 History furosemide 20 mg tablet 20 mg PO DAILY 11/20/21 12/18/21 History insulin aspart U-100 100 unit/mL 14 unit subcut TIDM 11/20/21 02/02/23 History (3 mL) subcutaneous pen (Novolog FlexPen U-100 Insulin aspart) insulin glargine 100 unit/mL (3 16 unit subcut BID 11/20/21 02/02/23 History mL) subcutaneous pen pregabalin 75 mg capsule 75 mg PO BID 11/20/21 12/18/21 History cholecalciferol (vitamin D3) 50 50 mcg PO DAILY 11/22/21 12/18/21 History mcg (2,000 unit) capsule lisinopril 5 mg tablet 2.5 mg PO UD 11/22/21 11/22/21 History fluticasone 250 mcg-salmeterol 50 1 inh inhalation BID 12/18/21 02/02/23 History mcg/dose blistr powdr for inhalation spironolactone 50 mg tablet 50 mg PO DAILY PRN swelling 12/18/21 History lancets (Accu-Chek Softclix 01/15/22 History Lancets) Patient History Medical History Cataract Cirrhosis COPD (chronic obstructive pulmonary disease) COPD exacerbation CVA (cerebral vascular accident) Diabetes mellitus, type II Hematuria HTN (hypertension) Hypothyroidism Tobacco abuse Vitamin D deficiency Surgical History History of cholecystectomy Family History Other Family history non-contributory Social History Smoking Status: Current every day smoker Tobacco Type: Cigarettes Cigarettes Per Day: 1ppd; Hx Alcohol Use: No Hx Substance Use: No Preferred Language: Ecuadorean Communication Ability: Effective [employer] Required: No Beliefs That Will Affect Care: None Current Living Situation: Alone Feels Safe at Home: Yes Assistive Devices: Glasses and Walker Review of Systems Review of Systems: All systems reviewed & are unremarkable except as noted in HPI & below Physical Exam Physical Exam: Alert and oriented x3 No acute distress Is laying down favoring the left side Bruising and ecchymosis noted over his right posterior shoulder, both arms. Lidocaine cane patch noted midline lower thoracic region He is tender over the midline lower thoracic region to palpation. No palpable step-offs. Strength is intact bilateral lower extremities. Constitutional: well developed Eyes: normal visual terry by confrontation ENMT: external ear and nose normal, oropharynx normal Neck: normal visual inspection Respiratory: normal respiratory effort Cardiovascular: Extremities: normal capillary refill Gastrointestinal (Abdomen): Inspection/Auscultation: abdomen normal to inspection Musculoskeletal: Spine: + pain with thoraco-lumbar ROM and + thoracic spinal tenderness Extremities: extremities normal to inspection and strength 5/5 throughout Skin: no rashes, warm and dry + ecchymosis Neurologic: normal touch/pain/proprioception and moves all extremities Psychiatric: A+Ox3, euthymic affect Eye Contact: good eye contact Results & Data Vital Signs (Past 12 Hours) Vital Signs Temp Pulse Pulse Resp BP Pulse Ox O2 Del Method 02/03/23 11:21 36.5 C 73 18 127/60 92 Room Air 02/03/23 07:31 36.6 C 82 18 157/65 H 92 Room Air 02/03/23 03:51 36.6 C 77 18 125/62 93 Room Air 02/03/23 01:27 74 Diagnostic Findings [place] [phone] CT Scan Report Patient:RENETTA GUZMAN Admit Date:02/01/23 MR#:[id number] Address1:[address] Acct ID:[id number] Address2: Date:[address] [facility] Zip:[place] [address] Age:72 Location:ED Sex:M Room/Bed: Att Phy: Diagnosis:FALL Gale Phy:Madeline Au PA-C Service Date:02/01/23 Fam Phy: Interpreting Phy:Jose C Lopez MDAdmit Phy: Ordering Phy:Jayson Culp M.D. cc: ~ Exam(s): CT C SPINE EXAM: CT Cervical Spine Without Intravenous Contrast CLINICAL HISTORY: Reason for exam: pain, fall trauma. TECHNIQUE: Axial computed tomography images of the cervical spine without intravenous contrast. CTDI is 54.58 mGy and DLP is 884.08 mGy-cm. Automated exposure control was utilized for the study. A dose lowering technique was utilized adhering to the principles of ALARA. COMPARISON: No relevant prior studies available. FINDINGS: Vertebrae: Mild narrowing and osteophytosis of the atlantodental joint. The odontoid process is intact. The spinal alignment is normal. No subluxation is seen. No acute fracture. Soft tissues: The prevertebral soft tissues are normal. Vasculature: Mild calcification of the carotid bifurcation bilaterally. DISCS/SPINAL CANAL/NEURAL FORAMINA: C2-C3: Moderate degenerative disc disease. No stenosis. C3-C4: Moderate degenerative disc disease. Mild spinal stenosis measuring 8 mm due to posterior disc marginal osteophyte. C4-C5: Moderate degenerative disc disease. No stenosis. C5-C6: Moderate degenerative disc disease. No stenosis. C6-C7: Moderate degenerative disc disease. No stenosis. C7-T1: Moderate degenerative disc disease. No stenosis. 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 There is posterior osteophyte formation at C2-3 and C3-4 measuring up to 4 mm causing mild spinal stenosis narrowing the canal to 8 mm at C3-4. Electronically signed by: Jose C Lopez MD 02/01/23 23:49 PM Dictated:02/01/232348 Transcribed: 02/01/232348 [place], [place] [phone] CT Scan Report Patient:RENETTA GUZMAN Admit Date:02/01/23 MR#:[id number] Address1:[address] Acct ID:[id number] Address2: Date:1950 [facility] Zip:[place] [address] Age:72 Location:ED Sex:M Room/Bed: Att Phy: Diagnosis:FALL Gale Phy:Madeline Au PA-C Service Date:02/01/23 [facility] Phy: Interpreting [facility]: Ordering Phy:Jayson Culp M.D. cc: ~ Exam(s): CT T SPINE EXAM: CT Thoracic Spine Without Intravenous Contrast CLINICAL HISTORY: Reason for exam: pain, fall, trauma. TECHNIQUE: Axial computed tomography images of the thoracic spine without intravenous contrast. CTDI is 54.58 mGy and DLP is 884.08 mGy-cm. Automated exposure control was utilized for the study. A dose lowering technique was utilized adhering to the principles of ALARA. COMPARISON: No relevant prior studies available. FINDINGS: Vertebrae: There is a cleft immediately inferior to the superior end plate of T12 consistent with an approximately 10% compression fracture which has subsequently returned to normal height. No posterior protrusion fracture fragments or spinal stenosis. Discs/spinal canal/neural foramina: Moderate multilevel degenerative disc disease and osteophytosis throughout the thoracic spine. No other acute fracture is seen. No subluxation or spinal stenosis. Soft tissues: Unremarkable. IMPRESSION: 1. There is a cleft immediately inferior to the superior end plate of T12 consistent with an approximately 10% compression fracture which has subsequently returned to normal height. No posterior protrusion fracture fragments or spinal stenosis. 2. Moderate multilevel degenerative disc disease and osteophytosis throughout the thoracic spine. No other acute fracture is seen. No subluxation or spinal stenosis. Electronically signed by: Jose C Lopez MD 02/01/23 23:47 PM Dictated:02/01/232346 Transcribed: 02/01/232346 [phone] CT Scan Report Patient:RENETTA GUZMAN Admit Date:02/01/23 MR#:[id number] Address1:[address] [place] [address] [address] Acct ID:[id number] Address2: Date:1950 [facility] Zip:[place] [address] Age:72 Location:ED Sex:M Room/Bed: Att Phy: Diagnosis:FALL Gale Phy:Madeline Au PA-C Service Date:02/01/23 [facility] Phy: Interpreting Phy:Jose C Lopez MDAdmit Phy: Ordering Phy:Jayson Culp M.D. cc: ~ Exam(s): CT L SPINE EXAM: CT Lumbar Spine Without Intravenous Contrast CLINICAL HISTORY: Reason for exam: pain, fall, trauma. TECHNIQUE: Axial computed tomography images of the lumbar spine without intravenous contrast. CTDI is 54.58 mGy and DLP is 884.08 mGy-cm. Automated exposure control was utilized for the study. A dose lowering technique was utilized adhering to the principles of ALARA. COMPARISON: No relevant prior studies available. FINDINGS: Vertebrae: Mild multilevel degenerative disc disease and facet arthrosis throughout the lumbar spine. No acute fracture or subluxation is seen. There is an old healed 20% superior endplate compression fracture of L5. The remaining lumbar spine vertebral body heights are within normal limits. No acute compression fracture or burst fracture is seen involving the lumbar spine. Discs/spinal canal/neural foramina: No significant spinal stenosis is identified. Soft tissues: Unremarkable. IMPRESSION: 1. No significant spinal stenosis is identified. 2. Mild multilevel degenerative disc disease and facet arthrosis throughout the lumbar spine. No acute fracture or subluxation is seen. 3. There is an old healed 20% superior endplate compression fracture of L5. The remaining lumbar spine vertebral body heights are within normal limits. No acute compression fracture or burst fracture is seen involving the lumbar spine. Electronically signed by: Jose C Lopez MD 02/01/23 23:41 PM Dictated:02/01/23 2341 Transcribed: 02/01/23 2341
[2023-02-03] MEDS: ALBUTEROL 0.083% NEBU SOLN 3 ML VIAL INH PRN (11:55)
--- NOTE | 2023-02-03 16:31 | Hospitalist Progress Note ---
Date of Service February 03, 2023 Assessment & Plan (1) Complicated UTI (urinary tract infection): Plan: No sepsis for now UA was suggestive but culture came back 3 different organisms Was started with intravenous cefepime We will continue antibiotic for 3 days on discharge Troponin elevation in the setting of mild rhabdomyolysis, kidney dysfunction and elevated BP upon arrival at the ER Patient denies chest pain or unusual shortness of breath. (2) Fall from standing: Plan: Weakness followed by legs gave way with a fall Hit his head with loss of consciousness as in H&P Clinically much better today Complains of pain at the upper back We will get PT and OT evaluation Possible discharge to [place] facility for rehab tomorrow (3) Syncope: Plan: Possible loss of consciousness with the fall Appreciate neurology input and recommendation Appreciate neurology input and recommendation With a history of prior stroke aspirin 81 mg was recommended to continue (4) Compression fracture of T12 vertebra: Plan: Compression fracture of the T12 vertebral Appreciate Ortho input and recommended Will have brace placement and PT and OT evaluation prior to discharge (5) Chronic kidney disease, stage 3b: Plan: Has chronic kidney disease stage III Creatinine remains stable (6) HTN (hypertension): Plan: Blood pressure is on the upper side at 162/75 Continue his current medication (7) COPD (chronic obstructive pulmonary disease): Plan: Has COPD with minimal wheezing and shortness of breath We will continue nebulized bronchodilator (8) Diabetes mellitus, type II: Plan: Basal bolus insulin, ISS BG goal 1 10-1 40, carb count coverage, update hemoglobin A1c On SSI (9) H/O: stroke: Plan: As above Plan Other significant medical conditions are as follow: Alcoholic cirrhosis no overt decompensation hx HCV status post Rx Chronic anemia, hemoglobin at baseline Past tobacco/alcohol abuse DVT prophylaxis. SCDs Re: Multiple ecchymoses post fall DNR Admission and Anticipated Discharge Date Admission Date: February 02, 2023 Subjective 02/03/2023 The patient was seen and examined in medical telemetry unit He has been complaining of back pain without any radiation of pain Otherwise feeling better and denies any significant urinary symptoms Review of Systems Review of Systems: All systems reviewed and are unremarkable except as noted below Musculoskeletal: Upper back pain with tenderness without any radiation of pain Physical Exam Physical Exam: Lying in bed comfortably Constitutional: well developed, well nourished, + ill appearing and + obese Eyes: PERRL, conjunctivae normal, anicteric sclerae ENMT: external ear and nose normal, oropharynx normal Neck: trachea midline, no thyromegaly Respiratory: no respiratory distress Auscultation: + diminished lung sounds and + crackles (Minimal crackles at the bases with occasional wheezing) Cardiovascular: Rate/Rhythm: regular rate and regular rhythm; not tachycardic Heart Sounds: normal S1 and normal S2; no murmur Extremities: + edema (Trace edema bilaterally) Gastrointestinal (Abdomen): Inspection/Auscultation: normal bowel sounds; abdomen not distended Percussion/Palpation: abdomen soft; abdomen nontender Musculoskeletal: Upper back tenderness and pain with a spinal movement Neurologic: Moving all limbs. Generally weak but no focal neurodeficit Lymphatic: no cervical or axillary lymphadenopathy Results & Data Results & Data Vital Signs (Past 12 Hours) Vital Signs Temp Pulse Pulse Resp BP Pulse Ox O2 Del Method 02/03/23 15:43 36.3 C L 77 20 168/75 H 93 Room Air 02/03/23 08:00 Room Air 02/03/23 07:30 70 02/03/23 11:57 74 18 92 Room Air 02/03/23 11:21 36.5 C 73 18 127/60 92 Room Air 02/03/23 07:31 36.6 C 82 18 157/65 H 92 Room Air Laboratory Results Short CBC 02/03/23 Range/Units 08:40 WBC 7.02 (4.8-10.8) K/ul Hgb 10.1 L (14.0-18.0) g/dl Hct 26.8 L (42.0-52.0) % Plt Count 90 L (130-400) K/uL BMP 02/03/23 08:40 Sodium 137 Potassium 4.0 Chloride 105 Carbon Dioxide 26 BUN 37 H Creatinine 1.83 H Glucose 78 Calcium 8.3 L Medications Administered Current Inpatient Medications Acetaminophen (Acetaminophen 325 Mg Tab) 325 mg PO Q6H PRN PRN Reason: Mild Pain (Scale 1, 2, 3) Stop: 03/04/23 01:26 Last Admin: 02/03/23 08:33 Dose: 325 mg Albuterol (Albuterol 0.083% Nebu Soln 3 Ml Vial) 2.5 mg INH QID PRN; Protocol PRN Reason: Shortness Of Breath Or Wheezing Stop: 03/05/23 11:12 Last Admin: 02/03/23 11:55 Dose: 2.5 mg Aspirin (Aspirin 81 Mg Ectab) 81 mg PO QAM [facility] Stop: 03/04/23 13:44 Last Admin: 02/03/23 08:34 Dose: 81 mg Carvedilol (Carvedilol 3.125 Mg Tab) 3.125 mg PO BID [facility] Stop: 03/04/23 08:59 Last Admin: 02/03/23 08:34 Dose: 3.125 mg Dextrose (Dextrose 50% 50 Ml Syringe) 25 - 50 ml IV UD PRN; Protocol PRN Reason: Hypoglycemia Protocol Stop: 03/04/23 02:05 Fluticasone/Vilanterol (Fluticasone/Vilanterol 100/25mcg 14 Puffs/Inhaler) 1 puffs INH DAILY [facility] Stop: 03/04/23 08:59 Last Admin: 02/03/23 09:17 Dose: 1 puffs Glucagon (Glucagon For Inj 1 Mg Vial) 1 mg SQ UD PRN; Protocol PRN Reason: Hypoglycemia Protocol Stop: 03/04/23 02:05 Glucose (Glucose 10 Tab/Tube) 4 - 8 tab PO UD PRN; Protocol PRN Reason: Hypoglycemia Treatment Stop: 03/04/23 02:05 Glucose (Glucose 40% Gel 15 Gm Tube) 15 - 30 gm PO UD PRN; Protocol PRN Reason: Hypoglycemia Protocol Stop: 03/04/23 02:05 Hydromorphone HCl (Hydromorphone Inj 0.5 Mg/0.5 Ml Syr) 0.5 mg IV Q3H PRN PRN Reason: Pain Stop: 02/16/23 01:13 Last Admin: 02/03/23 10:17 Dose: 0.5 mg Cefepime HCl 2,000 mg/ Syringe 20 mls @ 5 mls/min IV Q12H [facility]; Protocol Stop: 02/12/23 13:59 Last Admin: 02/03/23 14:15 Dose: 5 mls/min Insulin Aspart (Insulin Aspart Per Unit Charge) 0 units SC ACHS [facility] Stop: 03/04/23 02:05 Last Admin: 02/03/23 12:42 Dose: Not Given Insulin Glargine (Lantus Per Unit Charge) 5 units SQ BID [facility] Stop: 03/04/23 08:59 Last Admin: 02/03/23 08:30 Dose: 5 units Lidocaine (Lidocaine 5% 1 Patch) 1 patch TD QAM [facility] Stop: 03/05/23 08:59 Last Admin: 02/03/23 08:34 Dose: 1 patch Miscellaneous (Remove Lidoderm Patch) 1 each N/A DAILY@2100 [facility] Stop: 03/04/23 13:59 Last Admin: 02/02/23 15:23 Dose: Not Given Miscellaneous (Carbohydrates For Hypoglycemia ) 15 - 30 gm PO UD PRN PRN Reason: Hypoglycemia Protocol Stop: 03/04/23 02:05 Spiriva Respimat - (Patient's Own Med) 2 each INH HS [facility] Stop: 03/05/23 00:29 Last Admin: 02/03/23 01:34 Dose: 2 puffs Oxycodone HCl (Oxycodone Hcl Ir 5 Mg Tab (Immediate Release)) 5 - 10 mg PO QID PRN PRN Reason: Pain Stop: 02/16/23 01:26 Last Admin: 02/03/23 14:13 Dose: 10 mg
[2023-02-04] MEDS: HYDROmorphone INJ 0.5 MG/0.5 ML SYR IV PRN (02:22)
[2023-02-04] MEDS: CEFEPIME 2,000 MG in SYRINGE 0 ML IV SCH ×2 (02:23→14:45)
[2023-02-04] MEDS: INSULIN ASPART PER UNIT CHARGE SC SCH ×4 (08:16→20:56)
[2023-02-04] MEDS: carvediloL 3.125 MG TAB PO SCH ×2 (08:18→21:07)
[2023-02-04] MEDS: ASPIRIN 81 MG ECTAB PO SCH (08:18)
[2023-02-04] MEDS: LANTUS PER UNIT CHARGE SQ SCH ×2 (08:18→21:08)
[2023-02-04] MEDS: LIDOCAINE 5% 1 PATCH TD SCH (08:19)
[2023-02-04] MEDS: FLUTICASONE/VILANTEROL 100/25MCG 14 PUFFS/INHALER INH SCH (08:19)
[2023-02-04] MEDS: ACETAMINOPHEN 325 MG TAB PO PRN ×2 (08:20→14:45)
[2023-02-04] MEDS: oxyCODONE HCL IR 5 MG TAB (IMMEDIATE RELEASE) PO PRN ×3 (08:20→21:15)
[2023-02-04 08:26] LABS: Basophils # (auto) 0.02 K/uL (0-0.2); Basophils % (auto) 0.3 %; Eosinophils # (auto) 0.28 K/uL (0-0.50); Eosinophils % (auto) 3.9 %; Hematocrit (blood only) 26.3 % (42.0-52.0); Hemoglobin 9.9 g/dl (14.0-18.0); Immature Granulocytes # (auto) 0.05 K/uL (0.01-0.20); Immature Granulocytes % (auto) 0.7 %; Lymphocytes # (auto) 1.84 K/uL (1.2-3.4); Lymphocytes % (auto) 25.9 %; Mean Corpuscular Hemoglobin 35.4 pg (25.0-34.0); Mean Corpuscular Hgb Conc 37.6 g/dL (32.0-36.0); Mean Corpuscular Volume 93.9 fL (80.0-100.0); Mean Platelet Volume 9.4 fL (9.4-12.4); Monocytes % (auto) 5.6 %; Neutrophils # (auto) 4.52 K/uL (1.40-6.50); Neutrophils % (auto) 63.6 %; Platelet Count 88 K/uL (130-400); RDW Coefficient of Variation 14.3 % (11.5-14.5); RDW Standard Deviation 47.9 fL (36.4-46.3); White Blood Count 7.11 K/ul (4.8-10.8)
[2023-02-04 08:47] LABS: BUN Creatinine Ratio 18.5 (10-20); Calcium 8.3 mg/dl (8.6-10.3); Est GFR (African American) 49.6 ml/min; Est GFR (Non-African American) 42.8 ml/min; Potassium 3.9 mmol/L (3.5-5.1)
[2023-02-04 14:03] LABS: Albumin Level 2.9 gm/dl (3.4-5.0); Bilirubin,Total 6.3 mg/dl (0.2-1.0); Total Protein 5.7 gm/dl (6.0-8.3)
[2023-02-04] MEDS: ALBUTEROL 0.083% NEBU SOLN 3 ML VIAL INH PRN ×2 (15:20→21:38)
[2023-02-04] MEDS: SPIRIVA RESPIMAT INH SCH (21:07)
[2023-02-05] MEDS: CEFEPIME 2,000 MG in SYRINGE 0 ML IV SCH ×2 (01:04→14:07)
[2023-02-05] MEDS ORDERED: cloNIDine HCL 0.1 MG TAB PO ONE (03:21)
[2023-02-05] MEDS: ASPIRIN 81 MG ECTAB PO SCH (07:38)
[2023-02-05] MEDS: carvediloL 3.125 MG TAB PO SCH (07:39)
[2023-02-05] MEDS: FLUTICASONE/VILANTEROL 100/25MCG 14 PUFFS/INHALER INH SCH (07:45)
[2023-02-05] MEDS: LIDOCAINE 5% 1 PATCH TD SCH (07:46)
[2023-02-05] MEDS: INSULIN ASPART PER UNIT CHARGE SC SCH ×4 (09:52→22:39)
[2023-02-05] MEDS: LANTUS PER UNIT CHARGE SQ SCH ×2 (09:54→22:40)
--- NOTE | 2023-02-05 13:45 | Hospitalist Progress Note ---
Date of Service February 04, 2023 Delayed note for 02/04/2023 Assessment & Plan (1) Complicated UTI (urinary tract infection): Plan: No sepsis for now UA was suggestive but culture came back 3 different organisms Was started with intravenous cefepime We will continue antibiotic for 3 days on discharge Antibiotics will be discontinued Troponin elevation in the setting of mild rhabdomyolysis, kidney dysfunction and elevated BP upon arrival at the ER Patient denies chest pain or unusual shortness of breath. (2) Fall from standing: Plan: Weakness followed by legs gave way with a fall Hit his head with loss of consciousness as in H&P Clinically much better today Complains of pain at the upper back We will get PT and OT evaluation Possible [facility] to [place] [facility] (3) Syncope: Plan: Possible loss of consciousness with the fall Appreciate neurology input and recommendation Appreciate neurology input and recommendation With a history of prior stroke aspirin 81 mg was recommended to continue No more syncope and no arrhythmias (4) Compression fracture of T12 vertebra: Plan: Compression fracture of the T12 vertebral Appreciate Ortho input and recommended Will have brace placement and PT and OT evaluation prior to discharge Has a brace and awaiting PT and OT evaluation-recommended rehab (5) Chronic kidney disease, stage 3b: Plan: Has chronic kidney disease stage III Creatinine remains stable (6) HTN (hypertension): Plan: Blood pressure is on the upper side at 162/75 Continue his current medication (7) COPD (chronic obstructive pulmonary disease): Plan: Has COPD with minimal wheezing and shortness of breath We will continue nebulized bronchodilator (8) Diabetes mellitus, type II: Plan: Basal bolus insulin, ISS BG goal 1 10-1 40, carb count coverage, update hemoglobin A1c On SSI (9) H/O: stroke: Plan: As above Plan Other significant medical conditions are as follow: Alcoholic cirrhosis no overt decompensation hx HCV status post Rx Chronic anemia, hemoglobin at baseline Past tobacco/alcohol abuse DVT prophylaxis. SCDs Re: Multiple ecchymoses post fall DNR Admission and Anticipated Discharge Date Admission Date: February 02, 2023 Subjective 02/03/2023 The patient was seen and examined in medical telemetry unit He has been complaining of back pain without any radiation of pain Otherwise feeling better and denies any significant urinary symptoms 02/04/2023 The patient was seen and examined in medical telemetry unit He has been stable but he still complains some pain in the upper back Has not had physical therapy yet [facility] Review of Systems Review of Systems: All systems reviewed and are unremarkable except as noted below Musculoskeletal: Upper back pain with tenderness without any radiation of pain Physical Exam Physical Exam: Lying in bed comfortably Constitutional: well developed, well nourished, + ill appearing and + obese Eyes: PERRL, conjunctivae normal, anicteric sclerae ENMT: external ear and nose normal, oropharynx normal Neck: trachea midline, no thyromegaly Respiratory: no respiratory distress Auscultation: + diminished lung sounds and + crackles (Minimal crackles at the bases with occasional wheezing) Cardiovascular: Rate/Rhythm: regular rate and regular rhythm; not tachycardic Heart Sounds: normal S1 and normal S2; no murmur Extremities: + edema (Trace edema bilaterally) Gastrointestinal (Abdomen): Inspection/Auscultation: normal bowel sounds; abdomen not distended Percussion/Palpation: abdomen soft; abdomen nontender Musculoskeletal: Localized upper back pain and the pain is worse with movement Lymphatic: no cervical or axillary lymphadenopathy Results & Data Results & Data Vital Signs (Past 12 Hours) Vital Signs Temp Pulse Pulse Resp BP BP Pulse Ox 02/05/23 11:32 36.7 C 76 18 188/83 H 96 02/05/23 10:09 83 02/05/23 08:17 36.6 C 79 16 141/73 H 95 02/05/23 04:50 153/64 H 02/05/23 03:09 36.6 C 83 18 206/78 H 96 O2 Del Method 02/05/23 11:32 Room Air 02/05/23 10:09 02/05/23 08:17 Room Air 02/05/23 04:50 02/05/23 03:09 Room Air
--- NOTE | 2023-02-05 13:48 | Hospitalist Progress Note ---
Date of Service February 05, 2023 Assessment & Plan (1) Complicated UTI (urinary tract infection): Plan: No sepsis for now UA was suggestive but culture came back 3 different organisms Was started with intravenous cefepime We will continue antibiotic for 3 days on discharge Antibiotics will be discontinued Troponin elevation in the setting of mild rhabdomyolysis, kidney dysfunction and elevated BP upon arrival at the ER Patient denies chest pain or unusual shortness of breath No cardiac symptoms (2) Fall from standing: Plan: Weakness followed by legs gave way with a fall Hit his head with loss of consciousness as in H&P Clinically much better today Complains of pain at the upper back We will get PT and OT evaluation Possible discharge to [facility] Has been waiting to be placed Will need more physical therapy with the back brace on (3) Syncope: Plan: Possible loss of consciousness with the fall Appreciate neurology input and recommendation Appreciate neurology input and recommendation With a history of prior stroke aspirin 81 mg was recommended to continue No more syncope and no arrhythmias (4) Compression fracture of T12 vertebra: Plan: Compression fracture of the T12 vertebral Appreciate Ortho input and recommended Will have brace placement and PT and OT evaluation prior to discharge Has a brace and awaiting PT and OT evaluation-recommended rehab Has a back brace and awaiting placement (5) Chronic kidney disease, stage 3b: Plan: Has chronic kidney disease stage III Creatinine remains stable (6) HTN (hypertension): Plan: Blood pressure is on the upper side at 162/75 Continue his current medication (7) COPD (chronic obstructive pulmonary disease): Plan: Has COPD with minimal wheezing and shortness of breath We will continue nebulized bronchodilator No acute wheezing and no shortness of breath (8) Diabetes mellitus, type II: Plan: Basal bolus insulin, ISS BG goal 1 10-1 40, carb count coverage, update h emoglobin A1c On SSI (9) H/O: stroke: Plan: As above Has been started on baby aspirin Plan Other significant medical conditions are as follow: Alcoholic cirrhosis no overt decompensation hx HCV status post Rx Chronic anemia, hemoglobin at baseline Past tobacco/alcohol abuse DVT prophylaxis. SCDs Re: Multiple ecchymoses post fall DNR Admission and Anticipated Discharge Date Admission Date: February 02, 2023 Subjective 02/03/2023 The patient was seen and examined in medical telemetry unit He has been complaining of back pain without any radiation of pain Otherwise feeling better and denies any significant urinary symptoms 02/04/2023 The patient was seen and examined in medical telemetry unit He has been stable but he still complains some pain in the upper back Has not had physical therapy yet [facility] the [facility] not accepted 02/05/2023 The patient was seen and examined in medical telemetry unit in presence of the daughter He has been stable but is still complaining back pain and dizziness with a standing He denies any chest pain, palpitation or shortness of breath He does not have any urinary symptoms Review of Systems Review of Systems: All systems reviewed and are unremarkable except as noted below Musculoskeletal: Upper back pain with tenderness without any radiation of pain Physical Exam Physical Exam: Lying in bed comfortably Constitutional: well developed, well nourished, + ill appearing and + obese Eyes: PERRL, conjunctivae normal, anicteric sclerae ENMT: external ear and nose normal, oropharynx normal Neck: trachea midline, no thyromegaly Respiratory: no respiratory distress Auscultation: + diminished lung sounds and + crackles (Minimal crackles at the bases with occasional wheezing) Cardiovascular: Rate/Rhythm: regular rate and regular rhythm; not tachycardic Heart Sounds: normal S1 and normal S2; no murmur Extremities: + edema (Trace edema bilaterally) Gastrointestinal (Abdomen): Inspection/Auscultation: normal bowel sounds; abdomen not distended Percussion/Palpation: abdomen soft; abdomen nontender Musculoskeletal: Spine: + limited thoraco-lumbar ROM Neurologic: normal touch/pain/proprioception and moves all extremities; no focal motor deficits Psychiatric: A+Ox3, euthymic affect Lymphatic: no cervical or axillary lymphadenopathy Results & Data Results & Data Vital Signs (Past 12 Hours) Vital Signs Temp Pulse Pulse Resp BP BP Pulse Ox 02/05/23 11:32 36.7 C 76 18 188/83 H 96 02/05/23 10:09 83 02/05/23 08:17 36.6 C 79 16 141/73 H 95 02/05/23 04:50 153/64 H 02/05/23 03:09 36.6 C 83 18 206/78 H 96 O2 Del Method 02/05/23 11:32 Room Air 02/05/23 10:09 02/05/23 08:17 Room Air 02/05/23 04:50 02/05/23 03:09 Room Air Laboratory Results Liver Function 02/04/23 Range/Units 07:46 Total Bilirubin 6.3 H (0.2-1.0) mg/dl Direct Bilirubin 1.0 H (0-0.2) mg/dl AST 27 (13-39) U/L ALT 20 (7-52) U/L Alkaline Phosphatase 71 (34-104) U/L Albumin 2.9 L (3.4-5.0) gm/dl Medications Administered Current Inpatient Medications Acetaminophen (Acetaminophen 325 Mg Tab) 325 mg PO Q6H PRN PRN Reason: Mild Pain (Scale 1, 2, 3) Stop: 03/04/23 01:26 Last Admin: 02/04/23 14:45 Dose: 325 mg Albuterol (Albuterol 0.083% Nebu Soln 3 Ml Vial) 2.5 mg INH QID PRN; Protocol PRN Reason: Shortness Of Breath Or Wheezing Stop: 03/05/23 11:12 Last Admin: 02/04/23 21:38 Dose: 2.5 mg Aspirin (Aspirin 81 Mg Ectab) 81 mg PO QAM [facility] Stop: 03/04/23 13:44 Last Admin: 02/05/23 07:38 Dose: 81 mg Carvedilol (Carvedilol 3.125 Mg Tab) 3.125 mg PO BID [facility] Stop: 03/04/23 08:59 Last Admin: 02/05/23 07:39 Dose: 3.125 mg Dextrose (Dextrose 50% 50 Ml Syringe) 25 - 50 ml IV UD PRN; Protocol PRN Reason: Hypoglycemia Protocol Stop: 03/04/23 02:05 Fluticasone/Vilanterol (Fluticasone/Vilanterol 100/25mcg 14 Puffs/Inhaler) 1 puffs INH DAILY [facility] Stop: 03/04/23 08:59 Last Admin: 02/05/23 07:45 Dose: Not Given Glucagon (Glucagon For Inj 1 Mg Vial) 1 mg SQ UD PRN; Protocol PRN Reason: Hypoglycemia Protocol Stop: 03/04/23 02:05 Glucose (Glucose 10 Tab/Tube) 4 - 8 tab PO UD PRN; Protocol PRN Reason: Hypoglycemia Treatment Stop: 03/04/23 02:05 Glucose (Glucose 40% Gel 15 Gm Tube) 15 - 30 gm PO UD PRN; Protocol PRN Reason: Hypoglycemia Protocol Stop: 03/04/23 02:05 Hydromorphone HCl (Hydromorphone Inj 0.5 Mg/0.5 Ml Syr) 0.5 mg IV Q3H PRN PRN Reason: Pain Stop: 02/16/23 01:13 Last Admin: 02/04/23 02:22 Dose: 0.5 mg Cefepime HCl 2,000 mg/ Syringe 20 mls @ 5 mls/min IV Q12H [facility]; Protocol Stop: 02/12/23 13:59 Last Admin: 02/05/23 01:04 Dose: 5 mls/min Insulin Aspart (Insulin Aspart Per Unit Charge) 0 units SC ACHS [facility] Stop: 03/04/23 02:05 Last Admin: 02/05/23 12:00 Dose: Not Given Insulin Glargine (Lantus Per Unit Charge) 5 units SQ BID [facility] Stop: 03/04/23 08:59 Last Admin: 02/05/23 09:54 Dose: Not Given Lidocaine (Lidocaine 5% 1 Patch) 1 patch TD QAM [facility] Stop: 03/05/23 08:59 Last Admin: 02/05/23 07:46 Dose: 1 patch Miscellaneous (Remove Lidoderm Patch) 1 each N/A DAILY@2100 [facility] Stop: 03/04/23 13:59 Last Admin: 02/04/23 21:08 Dose: 1 each Miscellaneous (Carbohydrates For Hypoglycemia ) 15 - 30 gm PO UD PRN PRN Reason: Hypoglycemia Protocol Stop: 03/04/23 02:05 Spiriva Respimat - (Patient's Own Med) 2 each INH HS [facility] Stop: 03/05/23 00:29 Last Admin: 02/04/23 21:07 Dose: 2 puffs Oxycodone HCl (Oxycodone Hcl Ir 5 Mg Tab (Immediate Release)) 5 - 10 mg PO QID PRN PRN Reason: Pain Stop: 02/16/23 01:26 Last Admin: 02/04/23 21:15 Dose: 10 mg
[2023-02-05] MEDS: oxyCODONE HCL IR 5 MG TAB (IMMEDIATE RELEASE) PO PRN (14:15)
[2023-02-05] MEDS ORDERED: carvediloL 3.125 MG TAB PO ONE (15:30)
[2023-02-05] MEDS ORDERED: ONDANSETRON INJ 2 MG/ML 2 ML VIAL IV PRN (16:50)
[2023-02-05] MEDS: ALBUTEROL 0.083% NEBU SOLN 3 ML VIAL INH PRN (17:10)
[2023-02-05] MEDS ORDERED: ALBUTEROL HFA 8 GM INHALER INH PRN (17:14)
[2023-02-05] MEDS ORDERED: hydrALAZINE HCL 20 MG/ML VIAL IV ONE (17:15)
[2023-02-05] MEDS ORDERED: FUROSEMIDE INJ 20 MG/2 ML VIAL IV ONE (17:23)
[2023-02-05] MEDS ORDERED: carvediloL 6.25 MG TAB PO SCH (21:00)
--- NOTE | 2023-02-05 22:14 | CT Scan Report ---
Exam(s): CT HEAD Without Contrast EXAM: CT Head Without Intravenous Contrast CLINICAL HISTORY: Reason for exam: AMS. TECHNIQUE: Axial computed tomography images of the head/brain without intravenous contrast. CTDI is 35.07 mGy and DLP is 614.27 mGy-cm. Automated exposure control was utilized for the study. A dose lowering technique was utilized adhering to the principles of ALARA. COMPARISON: No relevant prior studies available. FINDINGS: No acute intracranial hemorrhage. No midline shift or mass effect. The territorial escalante-white matter differentiation is maintained throughout. Age-related cerebral volume loss. Periventricular and subcortical white matter hypoattenuation, consistent with chronic microangiopathy. The visualized orbits appear grossly unremarkable. The calvarium is intact. The visualized paranasal sinuses and mastoid air cells are grossly clear. IMPRESSION: No acute intracranial hemorrhage, midline shift, or mass effect. Electronically signed by: Bebo Tony MD 02/05/23 22:13 PM
[2023-02-05] MEDS: SPIRIVA RESPIMAT INH SCH (22:45)
[2023-02-05] MEDS: carvediloL 25 MG TAB PO SCH (22:45)
[2023-02-05 23:01] LABS: Base Excess ABG -0.1 mEq/L (-9-1.8); HCO3 ABG 24 mmol/L (19-24); Oxygen Saturation ABG 98.3 % (90-95); PCO2 ABG 36 mmHg (35-46); PO2 ABG 76 mmHg (80-95); pH ABG 7.43 (7.35-7.45)
[2023-02-05 23:42] LABS: Allen Test Pos (Pos)
[2023-02-06] MEDS: CEFEPIME 2,000 MG in SYRINGE 0 ML IV SCH ×2 (01:45→15:27)
[2023-02-06] MEDS ORDERED: HALOPERIDOL LACTATE 5 MG/ML 1 ML VIAL IM STA (02:06)
[2023-02-06] MEDS: LANTUS PER UNIT CHARGE SQ SCH ×2 (11:18→20:53)
[2023-02-06] MEDS: INSULIN ASPART PER UNIT CHARGE SC SCH ×4 (11:18→20:35)
[2023-02-06 11:27] LABS: Appearance Urine Clear (Clear); Bacteria Urine Automated Negative (Negative); Bilirubin Urine Negative (Negative); Blood Urine 1+ (Negative); Color Urine Dark Yellow; Glucose Urine UA Negative (Negative); Ketones Urine 1+ (Negative); Leukocyte Esterase Urine Negative (Negative); Nitrite Urine Negative (Negative); Protein Urine 2+ (Negative); RBC Urine Automated 0-4 /hpf (0-4); Specific Gravity Urine 1.018 (1.000-1.030); Urobilinogen Urine Negative (Negative); pH Urine 5.5 (4.5-7.5)
[2023-02-06] MEDS: ASPIRIN 81 MG ECTAB PO SCH (12:02)
[2023-02-06] MEDS: carvediloL 25 MG TAB PO SCH ×2 (12:02→17:16)
[2023-02-06] MEDS: FLUTICASONE/VILANTEROL 100/25MCG 14 PUFFS/INHALER INH SCH (12:02)
[2023-02-06] MEDS: ALBUTEROL 0.083% NEBU SOLN 3 ML VIAL INH PRN (12:16)
[2023-02-06] MEDS: LIDOCAINE 5% 1 PATCH TD SCH (12:48)
[2023-02-06 13:01] LABS: Basophils # (auto) 0.03 K/uL (0-0.2); Basophils % (auto) 0.5 %; Eosinophils # (auto) 0.22 K/uL (0-0.50); Eosinophils % (auto) 3.3 %; Hematocrit (blood only) 27.8 % (42.0-52.0); Hemoglobin 10.4 g/dl (14.0-18.0); Immature Granulocytes # (auto) 0.04 K/uL (0.01-0.20); Immature Granulocytes % (auto) 0.6 %; Lymphocytes # (auto) 1.55 K/uL (1.2-3.4); Lymphocytes % (auto) 23.6 %; Mean Corpuscular Hemoglobin 35.3 pg (25.0-34.0); Mean Corpuscular Hgb Conc 37.4 g/dL (32.0-36.0); Mean Corpuscular Volume 94.2 fL (80.0-100.0); Monocytes # (auto) 0.39 K/uL (0.11-0.59); Monocytes % (auto) 5.9 %; Neutrophils # (auto) 4.34 K/uL (1.40-6.50); Neutrophils % (auto) 66.1 %; Platelet Count 105 K/uL (130-400); RDW Coefficient of Variation 15.4 % (11.5-14.5); RDW Standard Deviation 50.4 fL (36.4-46.3); Red Blood Count 2.95 M/uL (4.70-6.10); White Blood Count 6.57 K/ul (4.8-10.8)
[2023-02-06 13:13] LABS: BUN Creatinine Ratio 19.1 (10-20); Calcium 8.9 mg/dl (8.6-10.3); Creatinine Clr Calc Pharmacy 39.9 ml/min; Est GFR (African American) 44.1 ml/min; Potassium 4.5 mmol/L (3.5-5.1)
--- NOTE | 2023-02-06 15:00 | Communication Note ---
Date of Service: February 06, 2023 Consult received. Chart reviewed. Patient has been growing more paranoid and resistant to care (not keeping leads on). Haldol 2.5 mg IM was ordered overnight but not given. Patient on pain meds for thoracic fracture (Dilaudid and Oxy), UTI, LOS, all consistent with delirium. Hx of heavy ETOH abuse per neuro but none for several years as would also be in window for protracted withdrawal. If hospitalist does not want to order Haldol, could start with low dose Zyprexa 2.5 mg IM q8 prn, assuming diabetes reasonably controlled. IM Zyprexa should not be administered with parenteral Ativan. may have excessive sedation with pain meds. Dr. Johnson thankful for recommendations and will try before additional consultation is completed.
[2023-02-06] MEDS ORDERED: OLANZapine 10 MG/2.1 ML SDV IM PRN (15:50)
--- NOTE | 2023-02-06 15:59 | Hospitalist Progress Note ---
Date of Service February 06, 2023 Assessment & Plan (1) Acute confusion: Plan: Was noted to be very confused last night with agitation Received IM dose of Haldol and also Ativan IV Remained agitated this morning and was trying to take out lines and did not cooperate with the nursing staff Later on he was more calm and be cooperative Likely secondary to narcotic pain medications and Ativan CT scan was negative for any acute events and will resend the urine We will get a psychiatric evaluation given the history of cognitive impairment and paranoia Zyprexa will be given as needed instead of other medication (2) Complicated UTI (urinary tract infection): Plan: No sepsis for now UA was suggestive but culture came back 3 different organisms Was started with intravenous cefepime We will continue antibiotic for 3 days on discharge Antibiotics will be discontinued Repeat UA has been pending Troponin elevation in the setting of mild rhabdomyolysis, kidney dysfunction and elevated BP upon arrival at the ER Patient denies chest pain or unusual shortness of breath No cardiac symptoms (3) Fall from standing: Plan: Weakness followed by legs gave way with a fall Hit his head with loss of consciousness as in H&P Clinically much better today Complains of pain at the upper back We will get PT and OT evaluation Possible discharge to [facility] for rehab tomorrow [facility] not [facility] patient Has been waiting to be placed Will need more physical therapy with the back brace on Awaiting placement (4) Syncope: Plan: Possible loss of consciousness with the fall Appreciate neurology input and recommendation Appreciate neurology input and recommendation With a history of prior stroke aspirin 81 mg was recommended to continue No more syncope and no arrhythmias (5) Compression fracture of T12 vertebra: Plan: Compression fracture of the T12 vertebral Appreciate Ortho input and recommended Will have brace placement and PT and OT evaluation prior to discharge Has a brace and awaiting PT and OT evaluation-recommended rehab Has a back brace and awaiting placement (6) Chronic kidney disease, stage 3b: Plan: Has chronic kidney disease stage III Creatinine remains stable (7) HTN (hypertension): Plan: Blood pressure is on the upper side at 162/75 Continue his current medication (8) COPD (chronic obstructive pulmonary disease): Plan: Has COPD with minimal wheezing and shortness of breath We will continue nebulized bronchodilator No acute wheezing and no shortness of breath (9) Diabetes mellitus, type II: Plan: Basal bolus insulin, ISS BG goal 1 10-1 40, carb count coverage, update hemoglobin A1c On SSI (10) H/O: stroke: Plan: As above Has been started on baby aspirin Plan Other significant medical conditions are as follow: Alcoholic cirrhosis no overt decompensation hx HCV status post Rx Chronic anemia, hemoglobin at baseline Past tobacco/alcohol abuse DVT prophylaxis. SCDs Re: Multiple ecchymoses post fall DNR Admission and Anticipated Discharge Date Admission Date: February 02, 2023 Subjective 02/03/2023 The patient was seen and examined in medical telemetry unit He has been complaining of back pain without any radiation of pain Otherwise feeling better and denies any significant urinary symptoms 02/04/2023 The patient was seen and examined in medical telemetry unit He has been stable but he still complains some pain in the upper back Has not had physical therapy yet [facility] the [facility] not accepted 02/05/2023 The patient was seen and examined in medical telemetry unit in presence of the daughter He has been stable but is still complaining back pain and dizziness with a standing He denies any chest pain, palpitation or shortness of breath He does not have any urinary symptoms 02/06/2023 The patient was seen and examined in medical floor in presence of the daughter She was very agitated and confused last night and required IM Haldol and small dose of Ativan Has been feeling much better during examination and is cooperating Occasional confusion with paranoia Behavioral consult will be taken Review of Systems Review of Systems: All systems reviewed and are unremarkable except as noted below Physical Exam Physical Exam: Lying in bed comfortably Constitutional: well developed, well nourished, + ill appearing and + obese Eyes: PERRL, conjunctivae normal, anicteric sclerae ENMT: external ear and nose normal, oropharynx normal Neck: trachea midline, no thyromegaly Respiratory: no respiratory distress Auscultation: + diminished lung sounds and + crackles (Minimal crackles at the bases with occasional wheezing) Cardiovascular: Rate/Rhythm: regular rate and regular rhythm; not tachycardic Heart Sounds: normal S1 and normal S2; no murmur Extremities: + edema (Trace edema bilaterally) Gastrointestinal (Abdomen): Inspection/Auscultation: normal bowel sounds; abdomen not distended Percussion/Palpation: abdomen soft; abdomen nontender Musculoskeletal: Spine: + limited thoraco-lumbar ROM Neurologic: normal touch/pain/proprioception and moves all extremities; no focal motor deficits Psychiatric: A+Ox3, euthymic affect Lymphatic: no cervical or axillary lymphadenopathy Results & Data Results & Data Vital Signs (Past 12 Hours) Vital Signs Temp Pulse Resp BP BP Pulse Ox O2 Del Method 02/06/23 14:51 36.4 C L 73 18 165/67 H 93 Room Air 02/06/23 12:01 36.5 C 73 16 160/75 H 93 Room Air 02/06/23 12:16 75 16 95 Room Air 02/06/23 09:45 36.4 C L 72 18 175/78 H 94 Room Air Laboratory Results Short CBC 02/06/23 Range/Units 12:29 WBC 6.57 (4.8-10.8) K/ul Hgb 10.4 L (14.0-18.0) g/dl Hct 27.8 L (42.0-52.0) % Plt Count 105 L (130-400) K/uL BMP 02/06/23 12:29 Sodium 136 Potassium 4.5 Chloride 104 Carbon Dioxide 24 BUN 33 H Creatinine 1.73 H Glucose 85 Calcium 8.9 Urine 02/06/23 Range/Units Unknown Urine Color Dark Yellow Urine Appearance Clear (Clear) Urine pH 5.5 (4.5-7.5) Ur Specific [employer] 1.018 (1.000-1.030) Urine Protein 2+ H (Negative) Urine Glucose (UA) Negative (Negative) Medications Administered Current Inpatient Medications Acetaminophen (Acetaminophen 325 Mg Tab) 325 mg PO Q6H PRN PRN Reason: Mild Pain (Scale 1, 2, 3) Stop: 03/04/23 01:26 Last Admin: 02/04/23 14:45 Dose: 325 mg Albuterol (Albuterol 0.083% Nebu Soln 3 Ml Vial) 2.5 mg INH QID PRN; Protocol PRN Reason: Shortness Of Breath Or Wheezing Stop: 03/05/23 11:12 Last Admin: 02/06/23 12:16 Dose: 2.5 mg Albuterol (Albuterol Hfa Inhaler 8.5 Gm) 1 puffs INH QIDR PRN PRN Reason: Shortness Of Breath Or Wheezing Stop: 03/08/23 12:53 Aspirin (Aspirin 81 Mg Ectab) [facility] [place] Stop: 03/04/23 13:44 Last Admin: 02/06/23 12:02 Dose: 81 mg Carvedilol (Carvedilol 25 Mg Tab) 25 mg PO BIDM [facility] Stop: 03/07/23 20:58 Last Admin: 02/06/23 12:02 Dose: 25 mg Dextrose (Dextrose 50% 50 Ml Syringe) 25 - 50 ml IV UD PRN; Protocol PRN Reason: Hypoglycemia Protocol Stop: 03/04/23 02:05 Fluticasone/Vilanterol (Fluticasone/Vilanterol 100/25mcg 14 Puffs/Inhaler) 1 puffs INH DAILY [facility] Stop: 03/04/23 08:59 Last Admin: 02/06/23 12:02 Dose: 1 puffs Glucagon (Glucagon For Inj 1 Mg Vial) 1 mg SQ UD PRN; Protocol PRN Reason: Hypoglycemia Protocol Stop: 03/04/23 02:05 Glucose (Glucose 10 Tab/Tube) 4 - 8 tab PO UD PRN; Protocol PRN Reason: Hypoglycemia Treatment Stop: 03/04/23 02:05 Glucose (Glucose 40% Gel 15 Gm Tube) 15 - 30 gm PO UD PRN; Protocol PRN Reason: Hypoglycemia Protocol Stop: 03/04/23 02:05 Hydromorphone HCl (Hydromorphone Inj 0.5 Mg/0.5 Ml Syr) 0.5 mg IV Q3H PRN PRN Reason: Pain Stop: 02/16/23 01:13 Last Admin: 02/04/23 02:22 Dose: 0.5 mg Insulin Aspart (Insulin Aspart Per Unit Charge) 0 units SC ACHS [facility] Stop: 03/04/23 02:05 Last Admin: 02/06/23 12:48 Dose: Not Given Insulin Glargine (Lantus Per Unit Charge) 5 units SQ BID [facility] Stop: 03/04/23 08:59 Last Admin: 02/06/23 11:18 Dose: Not Given Lidocaine (Lidocaine 5% 1 Patch) 1 patch TD QAM [facility] Stop: 03/05/23 08:59 Last Admin: 02/06/23 12:48 Dose: Not Given Miscellaneous (Remove Lidoderm Patch) 1 each N/A DAILY@2100 [facility] Stop: 03/04/23 13:59 Last Admin: 02/05/23 22:45 Dose: 1 each Miscellaneous (Carbohydrates For Hypoglycemia ) 15 - 30 gm PO UD PRN PRN Reason: Hypoglycemia Protocol Stop: 03/04/23 02:05 Spiriva Respimat - (Patient's Own Med) 2 each INH HS [facility] Stop: 03/05/23 00:29 Last Admin: 02/05/23 22:45 Dose: 2 puffs Olanzapine (Olanzapine 10 Mg/2.1 Ml Sdv) 2.5 mg IM ONE PRN PRN Reason: Anxiety/Agitation Stop: 03/08/23 15:49 Ondansetron HCl (Ondansetron Inj 2 Mg/Ml 2 Ml Vial) 4 mg IV Q6H PRN PRN Reason: Nausea And Vomiting Stop: 03/07/23 16:49 Last Admin: 02/05/23 16:57 Dose: 4 mg Oxycodone HCl (Oxycodone Hcl Ir 5 Mg Tab (Immediate Release)) 5 - 10 mg PO QID PRN PRN Reason: Pain Stop: 02/16/23 01:26 Last Admin: 02/05/23 14:15 Dose: 10 mg
[2023-02-06] MEDS: SPIRIVA RESPIMAT INH SCH (20:54)
[2023-02-07 07:42] LABS: Basophils # (auto) 0.02 K/uL (0-0.2); Basophils % (auto) 0.3 %; Eosinophils # (auto) 0.24 K/uL (0-0.50); Eosinophils % (auto) 3.2 %; Hematocrit (blood only) 30.3 % (42.0-52.0); Hemoglobin 11.1 g/dl (14.0-18.0); Immature Granulocytes # (auto) 0.05 K/uL (0.01-0.20); Immature Granulocytes % (auto) 0.7 %; Lymphocytes # (auto) 1.53 K/uL (1.2-3.4); Lymphocytes % (auto) 20.3 %; Mean Corpuscular Hemoglobin 35.6 pg (25.0-34.0); Mean Corpuscular Hgb Conc 36.6 g/dL (32.0-36.0); Mean Corpuscular Volume 97.1 fL (80.0-100.0); Mean Platelet Volume 8.8 fL (9.4-12.4); Monocytes % (auto) 5.3 %; Neutrophils # (auto) 5.29 K/uL (1.40-6.50); Neutrophils % (auto) 70.2 %; Platelet Count 105 K/uL (130-400); RDW Coefficient of Variation 15.9 % (11.5-14.5); RDW Standard Deviation 52.8 fL (36.4-46.3); Red Blood Count 3.12 M/uL (4.70-6.10); White Blood Count 7.53 K/ul (4.8-10.8)
[2023-02-07 07:49] LABS: BUN Creatinine Ratio 22.9 (10-20); Creatinine Clr Calc Pharmacy 36.7 ml/min; Est GFR (African American) 39.9 ml/min; Est GFR (Non-African American) 34.4 ml/min; Potassium 4.4 mmol/L (3.5-5.1)
[2023-02-07] MEDS: INSULIN ASPART PER UNIT CHARGE SC SCH ×4 (07:50→20:26)
[2023-02-07] MEDS: ASPIRIN 81 MG ECTAB PO SCH (09:24)
[2023-02-07] MEDS: FLUTICASONE/VILANTEROL 100/25MCG 14 PUFFS/INHALER INH SCH (09:25)
[2023-02-07] MEDS: carvediloL 25 MG TAB PO SCH ×2 (09:25→17:05)
[2023-02-07] MEDS: LANTUS PER UNIT CHARGE SQ SCH ×2 (09:27→20:26)
[2023-02-07] MEDS: LIDOCAINE 5% 1 PATCH TD SCH (09:28)
--- NOTE | 2023-02-07 10:17 | Psychiatric Consultation ---
Date of Consultation February 07, 2023 Impression / Recommendations Impression Diagnostically consistent with encephalopathy/delirium given waxing and waning nature of symptoms and no known psychiatric symptoms at baseline, likely hospital acquired in setting of age, chronic oxycodone use for back pain, fall prior to admission, hx CVA. Goal in delirium is to avoid medication management of behaviors if possible by maximizing non-pharmacologic strategies for behavioral management. However, given periods of worsening agitation could consider starting antipsychotic if signs of worsening delirium re-occur. (1) Acute confusion: (2) Delirium: Plan -Consider seroquel 25 mg qhs and can titrate up to 25mg BID for behavioral management as needed; would check EKG QTc routinely -Consider melatonin 3mg qhs -Continue medical workup to rule out and treat any underlying causes contributing to potential delirium, avoid or limit use of deliriogenic medications (benzodiazepines, opioids (on chronically but try to avoid additional doses beyond his baseline use if possible), anticholinergics) -Continue with delirium prevention measures: raising blinds during the day, closing at night, frequent re-orientation, contact with family/friends, explaining procedures/nursing care measures prior to physical contact, correct any hearing and visual impairments -For behavioral emergency: olanzapine 2.5 mg IM x 1 (DO NOT exceed 10mg per 24 hours, check EKG if IM dose required, NEVER co-administer with IM or IV benzodiazepines). 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 Psychiatry consulted for delirium management recommendations. Chief Complaint "Hi dear". History of Present Illness Ihsan has no known cognitive deficits or psychiatric history at baseline but demonstrated periods of increased paranoia and confusion during hospital admission. Last night required no IM medication. Additional recent history per psych liason assessment yesterday on 02/06/2023: "Patient seen for initial consult, alert and oriented x 3 - states the year is 2012 but quickly corrected himself and for the president states "I unfortunately know who the president is", denies SI/HI, denies hallucinations/delusions, patient denies any psychiatric history and does not have any providers nor feels any need for any, he was able to recall his stroke in 2020 and [facility], denies any PTSD or psychiatric history related to his service in the [employer], denies drug/alcohol/tobacco use - quit drinking alcohol 3 years ago, he feels had fully recovered from his stroke with no residual but that non psychiatric medications he started on at the [facility] recently have been making his dizzy and weak, he currently lives in [place] with family close by - he states his daughter is on her way in to visit this evening and agreed to sign an KRISHNA incase more collateral is needed. Patient thankful for interview and denies other questions at this time." This morning Ihsan is lying in bed, pleasant. Oriented to hospital, city, month, and year (initially states 2012 but quickly corrects himself to 2022). Accurately recalls that his daughter has been visiting him in the hospital. Agrees he's been more confused at times during this hospitalization. Denies any other concerns today. Calm and cooperative with interview. Allergies Allergy/AdvReac Type Severity Reaction Status Date / Time gabapentin Allergy Unknown Verified 12/18/21 11:15 tramadol Allergy Unknown Verified 12/18/21 11:15 Home Medications Medication Instructions Recorded Confirmed Type albuterol sulfate 2.5 mg/3 mL 2.5 mg inhalation QID PRN 10/26/19 02/02/23 History (0.083 %) solution for nebulization Shortness Of Breath Or Wheezing albuterol sulfate 90 mcg/actuation 1 puff inhalation QID PRN 10/26/19 02/02/23 History aerosol inhaler Shortness Of Breath Or Wheezing carvedilol 25 mg tablet 25 mg PO BID 10/26/19 12/18/21 History tiotropium 2.5 mcg-olodaterol 2.5 2 puff inhalation DAILY 10/26/19 12/18/21 History mcg/actuation mist for inhalation aspirin 81 mg capsule 81 mg PO DAILY 11/20/21 02/02/23 History atorvastatin 20 mg tablet 40 mg PO DAILY 11/20/21 12/18/21 History furosemide 20 mg tablet 20 mg PO DAILY 11/20/21 12/18/21 History insulin aspart U-100 100 unit/mL 14 unit subcut TIDM 11/20/21 02/02/23 History (3 mL) subcutaneous pen (Novolog FlexPen U-100 Insulin aspart) insulin glargine 100 unit/mL (3 16 unit subcut BID 11/20/21 02/02/23 History mL) subcutaneous pen pregabalin 75 mg capsule 75 mg PO BID 11/20/21 12/18/21 History cholecalciferol (vitamin D3) 50 50 mcg PO DAILY 11/22/21 12/18/21 History mcg (2,000 unit) capsule lisinopril 5 mg tablet 2.5 mg PO UD 11/22/21 11/22/21 History fluticasone 250 mcg-salmeterol 50 1 inh inhalation BID 12/18/21 02/02/23 History mcg/dose blistr powdr for inhalation spironolactone 50 mg tablet 50 mg PO DAILY PRN swelling 12/18/21 History lancets (Accu-Chek Softclix 01/15/22 History Lancets) Patient History Medical History Cataract Cirrhosis COPD (chronic obstructive pulmonary disease) COPD exacerbation CVA (cerebral vascular accident) Diabetes mellitus, type II Hematuria HTN (hypertension) Hypothyroidism Tobacco abuse Vitamin D deficiency Surgical History History of cholecystectomy Family History Other Family history non-contributory Social History Smoking Status: Current every day smoker Tobacco Type: Cigarettes Cigarettes Per Day: 1ppd; Do You Dip or Chew Tobacco: No; Hx Alcohol Use: No Hx Substance Use: No Preferred Language: Tajik Communication Ability: Effective Beam Department Supervisor Required: No Beliefs That Will Affect Care: None Current Living Situation: Alone Feels Safe at Home: Yes Assistive Devices: Glasses and Walker Physical Exam Psychiatric: Orientation: alert and oriented x 3 Apperance: + inappropriately dressed (no gown on but blankets covering lower body ) Eye Contact: good eye contact Motor Behavior: no abnormal motor movements Speech: normal rate/rhythm/volume of speech Affect: euthymic affect Mood: no depressed mood and no anxious mood Thought Process: linear/logical thought process Thought Content: reality based without delusions Suicidal Thoughts: denies suicidal thoughts Homicidal Thoughts: denies homicidal thoughts Hallucinations: no auditory hallucinations and no visual hallucinations Cognition: recent memory grossly intact, remote memory grossly intact, attention grossly intact and language grossly intact Estimated Intelligence: consistent with education level Insight: + fair insight Judgment: + fair judgement Vital Signs (Past 24 Hours): Last Vital Signs Temp 36.6 C 02/07/23 07:32 Pulse 69 02/07/23 07:32 Resp 18 02/07/23 07:32 BP 160/73 H 02/07/23 07:32 Pulse Ox 95 02/07/23 07:32 O2 Del Method Room Air 02/07/23 09:36 O2 Flow Rate 2 02/02/23 04:44 Review of Systems All systems reviewed & are unremarkable except as noted in HPI & below (endorses "a little back pain") Results & Data (PSY) Laboratory Results QTc 452ms on 02/01/2023 EKG Na+ normal Medications Administered Acetaminophen (Acetaminophen 325 Mg Tab) 325 mg PO Q6H PRN PRN Reason: Mild Pain (Scale 1, 2, 3) Stop: 03/04/23 01:26 Last Admin: 02/04/23 14:45 Dose: 325 mg Documented By: Admin: 02/04/23 08:20 Dose: 325 mg Documented By: Admin: 02/03/23 08:33 Dose: 325 mg Documented By: ISABELL Albuterol (Albuterol 0.083% Nebu Soln 3 Ml Vial) 2.5 mg INH QID PRN; Protocol PRN Reason: Shortness Of Breath Or Wheezing Stop: 03/05/23 11:12 Last Admin: 02/06/23 12:16 Dose: 2.5 mg Documented By: JAIveth Admin: 02/05/23 17:10 Dose: 2.5 mg Documented By: Admin: 02/04/23 21:38 Dose: 2.5 mg Documented By: Admin: 02/04/23 15:20 Dose: 2.5 mg Documented By: Admin: 02/03/23 11:55 Dose: 2.5 mg Documented By: EM Aspirin (Aspirin 81 Mg Ectab) [facility] [place] Stop: 03/04/23 13:44 Last Admin: 02/07/23 09:24 Dose: 81 mg Documented By: IVANOF BAY Admin: 02/06/23 12:02 Dose: 81 mg Documented By: [id number] Admin: 02/05/23 07:38 Dose: 81 mg Documented By: ENMA Co-signed By: KIM Admin: 02/04/23 08:18 Dose: 81 mg Documented By: Admin: 02/03/23 08:34 Dose: 81 mg Documented By: Admin: 02/02/23 14:23 Dose: 81 mg Documented By: JJR Carvedilol (Carvedilol 25 Mg Tab) 25 mg PO BIDM [facility] Stop: 03/07/23 20:58 Last Admin: 02/07/23 09:25 Dose: 25 mg Documented By: IVANOF BAY Admin: 02/06/23 17:16 Dose: 25 mg Documented By: [id number] Admin: 02/06/23 12:02 Dose: 25 mg Documented By: [id number] Admin: 02/05/23 22:45 Dose: 25 mg Documented By: CARLOS Fluticasone/Vilanterol (Fluticasone/Vilanterol 100/25mcg 14 Puffs/Inhaler) 1 puffs INH DAILY [facility] Stop: 03/04/23 08:59 Last Admin: 02/07/23 09:25 Dose: 1 puffs Documented By: IVANOF BAY Admin: 02/06/23 12:02 Dose: 1 puffs Documented By: [id number] Admin: 02/05/23 07:45 Dose: Not Given Documented By: Admin: 02/04/23 08:19 Dose: 1 puffs Documented By: Admin: 02/03/23 09:17 Dose: 1 puffs Documented By: Admin: 02/02/23 10:28 Dose: Not Given Documented By: ALBINO Hydromorphone HCl (Hydromorphone Inj 0.5 Mg/0.5 Ml Syr) 0.5 mg IV Q3H PRN PRN Reason: Pain Stop: 02/16/23 01:13 Last Admin: 02/04/23 02:22 Dose: 0.5 mg Documented By: Admin: 02/03/23 17:15 Dose: 0.5 mg Documented By: Admin: 02/03/23 10:17 Dose: 0.5 mg Documented By: Admin: 02/03/23 01:40 Dose: 0.5 mg Documented By: Admin: 02/02/23 21:08 Dose: 0.5 mg Documented By: Admin: 02/02/23 17:12 Dose: 0.5 mg Documented By: Admin: 02/02/23 14:20 Dose: 0.5 mg Documented By: Admin: 02/02/23 10:40 Dose: 0.5 mg Documented By: Admin: 02/02/23 05:11 Dose: 0.5 mg Documented By: LORNE Insulin Aspart (Insulin Aspart Per Unit Charge) 0 units SC ACHS [facility] Stop: 03/04/23 02:05 Last Admin: 02/07/23 07:50 Dose: Not Given Documented By: IVANOF BAY Admin: 02/06/23 20:35 Dose: Not Given Documented By: Admin: 02/06/23 16:54 Dose: Not Given Documented By: [id number] Admin: 02/06/23 12:48 Dose: Not Given Documented By: [id number] Admin: 02/06/23 11:18 Dose: Not Given Documented By: [id number] Co-signed By: MARILYN Admin: 02/05/23 22:39 Dose: Not Given Documented By: Admin: 02/05/23 17:42 Dose: Not Given Documented By: [id number] Admin: 02/05/23 12:00 Dose: Not Given Documented By: Admin: 02/05/23 09:52 Dose: Not Given Documented By: Admin: 02/04/23 20:56 Dose: Not Given Documented By: Admin: 02/04/23 17:08 Dose: Not Given Documented By: Admin: 02/04/23 12:09 Dose: Not Given Documented By: Admin: 02/04/23 08:16 Dose: Not Given Documented By: Admin: 02/03/23 22:08 Dose: 2 units Documented By: ANSON Co-signed By: AMS Admin: 02/03/23 17:15 Dose: Not Given Documented By: Admin: 02/03/23 12:42 Dose: Not Given Documented By: Admin: 02/03/23 08:34 Dose: Not Given Documented By: Admin: 02/02/23 20:38 Dose: Not Given Documented By: Admin: 02/02/23 17:10 Dose: Not Given Documented By: Admin: 02/02/23 12:33 Dose: Not Given Documented By: Admin: 02/02/23 08:21 Dose: Not Given Documented By: ALBINO Co-signed By: ABILIO(2) Admin: 02/02/23 03:24 Dose: Not Given Documented By: LORNE Co-signed By: SHIRLEY(2) Insulin Glargine (Lantus Per Unit Charge) 5 units SQ BID [facility] Stop: 03/04/23 08:59 Last Admin: 02/07/23 09:27 Dose: 5 units Documented By: IVANOF BAY Co-signed By: MARILYN Admin: 02/06/23 20:53 Dose: Not Given Documented By: Admin: 02/06/23 11:18 Dose: Not Given Documented By: [id number] Admin: 02/05/23 22:40 Dose: Not Given Documented By: Admin: 02/05/23 09:54 Dose: Not Given Documented By: Admin: 02/04/23 21:08 Dose: 5 units Documented By: DINESH Co-signed By: ABILIO Admin: 02/04/23 08:18 Dose: 5 units Documented By: ISABELL Co-signed By: SHIRLEY Admin: 02/03/23 22:07 Dose: 5 units Documented By: ANSON Co-signed By: ABILIO Admin: 02/03/23 08:30 Dose: 5 units Documented By: ISABELL Co-signed By: KVNG Admin: 02/02/23 20:40 Dose: 5 units Documented By: ANSON Co-signed By: CHELE Admin: 02/02/23 10:40 Dose: 5 units Documented By: ALBINO Co-signed By: ABILIO(2) Lidocaine (Lidocaine 5% 1 Patch) 1 patch TD QAM [facility] Stop: 03/05/23 08:59 Last Admin: 02/07/23 09:28 Dose: 1 patch Documented By: IVANOF BAY Admin: 02/06/23 12:48 Dose: Not Given Documented By: [id number] Admin: 02/05/23 07:46 Dose: 1 patch Documented By: ENMA Co-signed By: KIM Admin: 02/04/23 08:19 Dose: 1 patch Documented By: Admin: 02/03/23 08:34 Dose: 1 patch Documented By: ISABELL Miscellaneous (Remove Lidoderm Patch) 1 each N/A DAILY@2100 [facility] Stop: 03/04/23 13:59 Last Admin: 02/06/23 20:53 Dose: Not Given Documented By: Admin: 02/05/23 22:45 Dose: 1 each Documented By: Admin: 02/04/23 21:08 Dose: 1 each Documented By: Admin: 02/03/23 19:34 Dose: 1 each Documented By: Admin: 02/02/23 15:23 Dose: Not Given Documented By: KAI Spiriva Respimat - (Patient's Own Med) 2 each INH HS [facility] Stop: 03/05/23 00:29 Last Admin: 02/06/23 20:54 Dose: 2 puffs Documented By: Admin: 02/05/23 22:45 Dose: 2 puffs Documented By: Admin: 02/04/23 21:07 Dose: 2 puffs Documented By: Admin: 02/03/23 19:33 Dose: 2 puffs Documented By: Admin: 02/03/23 01:34 Dose: 2 puffs Documented By: ANSON Ondansetron HCl (Ondansetron Inj 2 Mg/Ml 2 Ml Vial) 4 mg IV Q6H PRN PRN Reason: Nausea And Vomiting Stop: 03/07/23 16:49 Last Admin: 02/05/23 16:57 Dose: 4 mg Documented By: [id number] Oxycodone HCl (Oxycodone Hcl Ir 5 Mg Tab (Immediate Release)) 5 - 10 mg PO QID PRN PRN Reason: Pain Stop: 02/16/23 01:26 Last Admin: 02/05/23 14:15 Dose: 10 mg Documented By: Admin: 02/04/23 21:15 Dose: 10 mg Documented By: Admin: 02/04/23 14:49 Dose: 10 mg Documented By: Admin: 02/04/23 08:20 Dose: 10 mg Documented By: Admin: 02/03/23 22:09 Dose: 10 mg Documented By: Admin: 02/03/23 14:13 Dose: 10 mg Documented By: Admin: 02/03/23 08:33 Dose: 10 mg Documented By: Admin: 02/02/23 22:52 Dose: 10 mg Documented By: Admin: 02/02/23 13:21 Dose: 10 mg Documented By: Admin: 02/02/23 04:38 Dose: 10 mg Documented By: LORNE Coding Level of Care Code 81560 IN/OBS CONSULT LVL 3,45M Diagnoses Acute confusion R41.0 Delirium R41.0 Time Spent (min) 50
--- NOTE | 2023-02-07 16:12 | Hospitalist Progress Note ---
Date of Service February 07, 2023 Assessment & Plan (1) Acute confusion: Plan: Was noted to be very confused last night with agitation Received IM dose of Haldol and also Ativan IV Remained agitated this morning and was trying to take out lines and did not cooperate with the nursing staff Later on he was more calm and be cooperative Likely secondary to narcotic pain medications and Ativan CT scan was negative for any acute events and will resend the urine We will get a psychiatric evaluation given the history of cognitive impairment and paranoia Zyprexa will be given as needed instead of other medication Confusion has been cleared up Appreciate psychiatric input and recommendation-Seroquel can be given if needed for sedation Zyprexa for acute agitation (2) Complicated UTI (urinary tract infection): Plan: No sepsis for now UA was suggestive but culture came back 3 different organisms Was started with intravenous cefepime We will continue antibiotic for 3 days on discharge Antibiotics will be discontinued Repeat UA has been pending-did not require to send it for culture Troponin elevation in the setting of mild rhabdomyolysis, kidney dysfunction and elevated BP upon arrival at the ER Patient denies chest pain or unusual shortness of breath No cardiac symptoms (3) Fall from standing: Plan: Weakness followed by legs gave way with a fall Hit his head with loss of consciousness as in H&P Clinically much better today Complains of pain at the upper back We will get PT and OT evaluation Possible discharge to [place] [facility] Has been waiting to be placed Will need more physical therapy with the back brace on Awaiting placement Back pain seems to be controlled (4) Syncope: Plan: Possible loss of consciousness with the fall Appreciate neurology input and recommendation Appreciate neurology input and recommendation With a history of prior stroke aspirin 81 mg was recommended to continue No more syncope and no arrhythmias (5) Compression fracture of T12 vertebra: Plan: Compression fracture of the T12 vertebral Appreciate Ortho input and recommended Will have brace placement and PT and OT evaluation prior to discharge Has a brace and awaiting PT and OT evaluation-recommended rehab Has a back brace and awaiting placement (6) Chronic kidney disease, stage 3b: Plan: Has chronic kidney disease stage III Creatinine remains stable (7) HTN (hypertension): Plan: Blood pressure is on the upper side at 162/75 Continue his current medication Blood pressure noted to be very high-blood pressure medications has been updated (8) COPD (chronic obstructive pulmonary disease): Plan: Has COPD with minimal wheezing and shortness of breath We will continue nebulized bronchodilator No acute wheezing and no shortness of breath (9) Diabetes mellitus, type II: Plan: Basal bolus insulin, ISS BG goal 1 10-1 40, carb count coverage, update hemoglobin A1c On SSI (10) H/O: stroke: Plan: As above Has been started on baby aspirin Plan Other significant medical conditions are as follow: Alcoholic cirrhosis no overt decompensation hx HCV status post Rx Chronic anemia, hemoglobin at baseline Past tobacco/alcohol abuse DVT prophylaxis. SCDs Re: Multiple ecchymoses post fall DNR Admission and Anticipated Discharge Date Admission Date: February 02, 2023 Subjective 02/03/2023 The patient was seen and examined in medical telemetry unit He has been complaining of back pain without any radiation of pain Otherwise feeling better and denies any significant urinary symptoms 02/04/2023 The patient was seen and examined in medical telemetry unit He has been stable but he still complains some pain in the upper back Has not had physical therapy yet [facility] not [facility] 02/05/2023 The patient was seen and examined in medical telemetry unit in presence of the daughter He has been stable but is still complaining back pain and dizziness with a standing He denies any chest pain, palpitation or shortness of breath He does not have any urinary symptoms 02/06/2023 The patient was seen and examined in medical floor in presence of the daughter She was very agitated and confused last night and required IM Haldol and small dose of Ativan Has been feeling much better during examination and is cooperating Occasional confusion with paranoia Behavioral consult will be taken 02/07/2023 The patient was seen and examined in medical telemetry unit He has been stable and does not have any more paranoia Not to be any confused today and denies any significant symptoms Did not want to put monitor wires and he was transferred to [facility] Review of Systems Review of Systems: All systems reviewed and are unremarkable except as noted below Musculoskeletal: Upper back pain with tenderness without any radiation of pain Physical Exam Physical Exam: Lying in bed comfortably Constitutional: well developed, well nourished, + ill appearing and + obese Eyes: PERRL, conjunctivae normal, anicteric sclerae ENMT: external ear and nose normal, oropharynx normal Neck: trachea midline, no thyromegaly Respiratory: no respiratory distress Auscultation: + diminished lung sounds and + crackles (Minimal crackles at the bases with occasional wheezing) Cardiovascular: Rate/Rhythm: regular rate and regular rhythm; not tachycardic Heart Sounds: normal S1 and normal S2; no murmur Extremities: + edema (Trace edema bilaterally) Gastrointestinal (Abdomen): Inspection/Auscultation: normal bowel sounds; abdomen not distended Percussion/Palpation: abdomen soft; abdomen nontender Musculoskeletal: Spine: + limited thoraco-lumbar ROM Neurologic: normal touch/pain/proprioception and moves all extremities; no focal motor deficits Psychiatric: A+Ox3, euthymic affect Lymphatic: no cervical or axillary lymphadenopathy Results & Data Results & Data Vital Signs (Past 12 Hours) Vital Signs Temp Pulse Pulse Resp BP Pulse Ox O2 Del Method 02/07/23 15:15 36.6 C 70 18 134/67 96 Room Air 02/07/23 11:09 36.4 C L 67 18 132/67 94 Room Air 02/07/23 09:36 Room Air 02/07/23 07:32 36.6 C 69 18 160/73 H 95 Room Air 02/07/23 05:58 72 Laboratory Results Short CBC 02/07/23 Range/Units 07:07 WBC 7.53 (4.8-10.8) K/ul Hgb 11.1 L (14.0-18.0) g/dl Hct 30.3 L (42.0-52.0) % Plt Count 105 L (130-400) K/uL BMP 02/07/23 07:07 Sodium 137 Potassium 4.4 Chloride 103 Carbon Dioxide 23 BUN 43 H Creatinine 1.88 H Glucose 72 Calcium 9.0 Medications Administered Current Inpatient Medications Acetaminophen (Acetaminophen 325 Mg Tab) 325 mg PO Q6H PRN PRN Reason: Mild Pain (Scale 1, 2, 3) Stop: 03/04/23 01:26 Last Admin: 02/04/23 14:45 Dose: 325 mg Albuterol (Albuterol 0.083% Nebu Soln 3 Ml Vial) 2.5 mg INH QID PRN; Protocol PRN Reason: Shortness Of Breath Or Wheezing Stop: 03/05/23 11:12 Last Admin: 02/06/23 12:16 Dose: 2.5 mg Albuterol (Albuterol Hfa Inhaler 8.5 Gm) 1 puffs INH QIDR PRN PRN Reason: Shortness Of Breath Or Wheezing Stop: 03/08/23 12:53 Aspirin (Aspirin 81 Mg Ectab) 81 mg PO QAM [facility] Stop: 03/04/23 13:44 Last Admin: 02/07/23 09:24 Dose: 81 mg Carvedilol (Carvedilol 25 Mg Tab) 25 mg PO BIDM [facility] Stop: 03/07/23 20:58 Last Admin: 02/07/23 09:25 Dose: 25 mg Dextrose (Dextrose 50% 50 Ml Syringe) 25 - 50 ml IV UD PRN; Protocol PRN Reason: Hypoglycemia Protocol Stop: 03/04/23 02:05 Fluticasone/Vilanterol (Fluticasone/Vilanterol 100/25mcg 14 Puffs/Inhaler) 1 puffs INH DAILY [facility] Stop: 03/04/23 08:59 Last Admin: 02/07/23 09:25 Dose: 1 puffs Glucagon (Glucagon For Inj 1 Mg Vial) 1 mg SQ UD PRN; Protocol PRN Reason: Hypoglycemia Protocol Stop: 03/04/23 02:05 Glucose (Glucose 10 Tab/Tube) 4 - 8 tab PO UD PRN; Protocol PRN Reason: Hypoglycemia Treatment Stop: 03/04/23 02:05 Glucose (Glucose 40% Gel 15 Gm Tube) 15 - 30 gm PO UD PRN; Protocol PRN Reason: Hypoglycemia Protocol Stop: 03/04/23 02:05 Hydromorphone HCl (Hydromorphone Inj 0.5 Mg/0.5 Ml Syr) 0.5 mg IV Q3H PRN PRN Reason: Pain Stop: 02/16/23 01:13 Last Admin: 02/04/23 02:22 Dose: 0.5 mg Insulin Aspart (Insulin Aspart Per Unit Charge) 0 units SC ACHS [facility] Stop: 03/04/23 02:05 Last Admin: 02/07/23 12:14 Dose: 1 units Insulin Glargine (Lantus Per Unit Charge) 5 units SQ BID [facility] Stop: 03/04/23 08:59 Last Admin: 02/07/23 09:27 Dose: 5 units Lidocaine (Lidocaine 5% 1 Patch) 1 patch TD QAM [facility] Stop: 03/05/23 08:59 Last Admin: 02/07/23 09:28 Dose: 1 patch Miscellaneous (Remove Lidoderm Patch) 1 each N/A DAILY@2100 [facility] Stop: 03/04/23 13:59 Last Admin: 02/06/23 20:53 Dose: Not Given Miscellaneous (Carbohydrates For Hypoglycemia ) 15 - 30 gm PO UD PRN PRN Reason: Hypoglycemia Protocol Stop: 03/04/23 02:05 Spiriva Respimat - (Patient's Own Med) 2 each INH HS [facility] Stop: 03/05/23 00:29 Last Admin: 02/06/23 20:54 Dose: 2 puffs Olanzapine (Olanzapine 10 Mg/2.1 Ml Sdv) 2.5 mg IM ONE PRN PRN Reason: Anxiety/Agitation Stop: 03/08/23 15:49 Ondansetron HCl (Ondansetron Inj 2 Mg/Ml 2 Ml Vial) 4 mg IV Q6H PRN PRN Reason: Nausea And Vomiting Stop: 03/07/23 16:49 Last Admin: 02/05/23 16:57 Dose: 4 mg Oxycodone HCl (Oxycodone Hcl Ir 5 Mg Tab (Immediate Release)) 5 - 10 mg PO QID PRN PRN Reason: Pain Stop: 02/16/23 01:26 Last Admin: 02/05/23 14:15 Dose: 10 mg
[2023-02-07] MEDS: SPIRIVA RESPIMAT INH SCH (20:07)
[2023-02-08] MEDS: ASPIRIN 81 MG ECTAB PO SCH (07:55)
[2023-02-08] MEDS: INSULIN ASPART PER UNIT CHARGE SC SCH ×4 (07:55→21:07)
[2023-02-08] MEDS: carvediloL 25 MG TAB PO SCH ×2 (07:55→16:03)
[2023-02-08] MEDS: FLUTICASONE/VILANTEROL 100/25MCG 14 PUFFS/INHALER INH SCH ×2 (08:01→21:20)
[2023-02-08] MEDS: ALBUTEROL HFA INHALER 8.5 GM INH PRN ×2 (08:01→19:59)
[2023-02-08] MEDS: LIDOCAINE 5% 1 PATCH TD SCH (08:08)
[2023-02-08] MEDS: LANTUS PER UNIT CHARGE SQ SCH ×2 (08:09→21:01)
[2023-02-08] MEDS ORDERED: Nursing to Pharmacy Communication SCH (08:15)
--- NOTE | 2023-02-08 13:41 | Hospitalist Progress Note ---
Date of Service February 08, 2023 Assessment & Plan (1) Acute confusion: Plan: Was noted to be very confused last night with agitation Received IM dose of Haldol and also Ativan IV Remained agitated this morning and was trying to take out lines and did not cooperate with the nursing staff Later on he was more calm and be cooperative Likely secondary to narcotic pain medications and Ativan CT scan was negative for any acute events and will resend the urine We will get a psychiatric evaluation given the history of cognitive impairment and paranoia Zyprexa will be given as needed instead of other medication Confusion has been cleared up Appreciate psychiatric input and recommendation-Seroquel can be given if needed for sedation Zyprexa for acute agitation No more confusion and has been cooperating well Denies any significant symptoms (2) Complicated UTI (urinary tract infection): Plan: No sepsis for now UA was suggestive but culture came back 3 different organisms Was started with intravenous cefepime We will continue antibiotic for 3 days on discharge Antibiotics will be discontinued Repeat UA has been pending-did not require to send it for culture Troponin elevation in the setting of mild rhabdomyolysis, kidney dysfunction and elevated BP upon arrival at the ER Patient denies chest pain or unusual shortness of breath No cardiac symptoms (3) Fall from standing: Plan: Weakness followed by legs gave way with a fall Hit his head with loss of consciousness as in H&P Clinically much better today Complains of pain at the upper back We will get PT and OT evaluation Possible discharge to [facility] facility for rehab [facility] patient Has been waiting to be placed Will need more physical therapy with the back brace on Awaiting placement Back pain seems to be controlled (4) Syncope: Plan: Possible loss of consciousness with the fall Appreciate neurology input and recommendation Appreciate neurology input and recommendation With a history of prior stroke aspirin 81 mg was recommended to continue No more syncope and no arrhythmias (5) Compression fracture of T12 vertebra: Plan: Compression fracture of the T12 vertebral Appreciate Ortho input and recommended Will have brace placement and PT and OT evaluation prior to discharge Has a brace and awaiting PT and OT evaluation-recommended rehab Has a back brace and awaiting placement Still complains back pain both at the lower thoracic and lower lumbar area (6) Chronic kidney disease, stage 3b: Plan: Has chronic kidney disease stage III Creatinine remains stable (7) HTN (hypertension): Plan: Blood pressure is on the upper side at 162/75 Continue his current medication Blood pressure noted to be very high-blood pressure medications has been updated (8) COPD (chronic obstructive pulmonary disease): Plan: Has COPD with minimal wheezing and shortness of breath We will continue nebulized bronchodilator No acute wheezing and no shortness of breath (9) Diabetes mellitus, type II: Plan: Basal bolus insulin, ISS BG goal 1 10-1 40, carb count coverage, update hemoglobin A1c On SSI (10) H/O: stroke: Plan: As above Has been started on baby aspirin Plan Other significant medical conditions are as follow: Alcoholic cirrhosis no overt decompensation hx HCV status post Rx Chronic anemia, hemoglobin at baseline Past tobacco/alcohol abuse DVT prophylaxis. SCDs Re: Multiple ecchymoses post fall DNR Admission and Anticipated Discharge Date Admission Date: February 02, 2023 Subjective 02/03/2023 The patient was seen and examined in medical telemetry unit He has been complaining of back pain without any radiation of pain Otherwise feeling better and denies any significant urinary symptoms 02/04/2023 The patient was seen and examined in medical telemetry unit He has been stable but he still complains some pain in the upper back Has not had physical therapy yet [facility] not [facility] 02/05/2023 The patient was seen and examined in medical telemetry unit in presence of the daughter He has been stable but is still complaining back pain and dizziness with a standing He denies any chest pain, palpitation or shortness of breath He does not have any urinary symptoms 02/06/2023 The patient was seen and examined in medical floor in presence of the daughter She was very agitated and confused last night and required IM Haldol and small dose of Ativan Has been feeling much better during examination and is cooperating Occasional confusion with paranoia Behavioral consult will be taken 02/07/2023 The patient was seen and examined in medical telemetry unit He has been stable and does not have any more paranoia Not to be any confused today and denies any significant symptoms Did not want to put monitor wires and he was transferred to [facility] 02/08/2023 The patient was seen and examined in medical floor He has been quite and no more aggressive Has not been keeping his IV line but otherwise stable Review of Systems Review of Systems: All systems reviewed and are unremarkable except as noted below Musculoskeletal: Upper back pain with tenderness without any radiation of pain Physical Exam Physical Exam: Lying in bed comfortably Constitutional: well developed, well nourished, + ill appearing and + obese Eyes: PERRL, conjunctivae normal, anicteric sclerae ENMT: external ear and nose normal, oropharynx normal Neck: trachea midline, no thyromegaly Respiratory: no respiratory distress Auscultation: + diminished lung sounds and + crackles (Minimal crackles at the bases with occasional wheezing) Cardiovascular: Rate/Rhythm: regular rate and regular rhythm; not tachycardic Heart Sounds: normal S1 and normal S2; no murmur Extremities: + edema (Trace edema bilaterally) Gastrointestinal (Abdomen): Inspection/Auscultation: normal bowel sounds; abdomen not distended Percussion/Palpation: abdomen soft; abdomen nontender Musculoskeletal: Spine: + limited thoraco-lumbar ROM Neurologic: normal touch/pain/proprioception and moves all extremities; no focal motor deficits Psychiatric: A+Ox3, euthymic affect Lymphatic: no cervical or axillary lymphadenopathy Results & Data Results & Data Vital Signs (Past 12 Hours) Vital Signs Temp Pulse Pulse Resp BP Pulse Ox O2 Del Method 02/08/23 11:24 36.5 C 67 17 146/68 H 95 Room Air 02/08/23 08:00 Room Air 02/08/23 07:53 36.3 C L 73 18 193/75 H 95 Room Air 02/08/23 04:35 168/77 H 02/08/23 04:00 36.4 C L 70 20 192/72 H 97 Room Air Medications Administered Current Inpatient Medications Acetaminophen (Acetaminophen 325 Mg Tab) 325 mg PO Q6H PRN PRN Reason: Mild Pain (Scale 1, 2, 3) Stop: 03/04/23 01:26 Last Admin: 02/04/23 14:45 Dose: 325 mg Albuterol (Albuterol 0.083% Nebu Soln 3 Ml Vial) 2.5 mg INH QID PRN; Protocol PRN Reason: Shortness Of Breath Or Wheezing Stop: 03/05/23 11:12 Last Admin: 02/06/23 12:16 Dose: 2.5 mg Albuterol (Albuterol Hfa Inhaler 8.5 Gm) 1 puffs INH QIDR PRN PRN Reason: Shortness Of Breath Or Wheezing Stop: 03/08/23 12:53 Last Admin: 02/08/23 08:01 Dose: 1 puffs Aspirin (Aspirin 81 Mg Ectab) 81 mg PO QAM [facility] Stop: 03/04/23 13:44 Last Admin: 02/08/23 07:55 Dose: 81 mg Carvedilol (Carvedilol 25 Mg Tab) 25 mg PO BIDM [facility] Stop: 03/07/23 20:58 Last Admin: 02/08/23 07:55 Dose: 25 mg Dextrose (Dextrose 50% 50 Ml Syringe) 25 - 50 ml IV UD PRN; Protocol PRN Reason: Hypoglycemia Protocol Stop: 03/04/23 02:05 Fluticasone/Vilanterol (Fluticasone/Vilanterol 100/25mcg 14 Puffs/Inhaler) 1 puffs INH HS [facility] Stop: 03/10/23 20:59 Glucagon (Glucagon For Inj 1 Mg Vial) 1 mg SQ UD PRN; Protocol PRN Reason: Hypoglycemia Protocol Stop: 03/04/23 02:05 Glucose (Glucose 10 Tab/Tube) 4 - 8 tab PO UD PRN; Protocol PRN Reason: Hypoglycemia Treatment Stop: 03/04/23 02:05 Glucose (Glucose 40% Gel 15 Gm Tube) 15 - 30 gm PO UD PRN; Protocol PRN Reason: Hypoglycemia Protocol Stop: 03/04/23 02:05 Hydromorphone HCl (Hydromorphone Inj 0.5 Mg/0.5 Ml Syr) 0.5 mg IV Q3H PRN PRN Reason: Pain Stop: 02/16/23 01:13 Last Admin: 02/04/23 02:22 Dose: 0.5 mg Insulin Aspart (Insulin Aspart Per Unit Charge) 0 units SC ACHS [facility] Stop: 03/04/23 02:05 Last Admin: 02/08/23 12:24 Dose: 2 units Insulin Glargine (Lantus Per Unit Charge) 5 units SQ BID [facility] Stop: 03/04/23 08:59 Last Admin: 02/08/23 08:09 Dose: 5 units Lidocaine (Lidocaine 5% 1 Patch) [facility] [place]: 03/05/23 08:59 Last Admin: 02/08/23 08:08 Dose: Not Given Miscellaneous (Remove Lidoderm Patch) 1 each N/A DAILY@2100 [facility] Stop: 03/04/23 13:59 Last Admin: 02/07/23 20:08 Dose: 1 each Miscellaneous (Carbohydrates For Hypoglycemia ) 15 - 30 gm PO UD PRN PRN Reason: Hypoglycemia Protocol Stop: 03/04/23 02:05 Spiriva Respimat - (Patient's Own Med) 2 each INH HS [facility] Stop: 03/05/23 00:29 Last Admin: 02/07/23 20:07 Dose: 2 puffs Olanzapine (Olanzapine 10 Mg/2.1 Ml Sdv) 2.5 mg IM ONE PRN PRN Reason: Anxiety/Agitation Stop: 03/08/23 15:49 Ondansetron HCl (Ondansetron Inj 2 Mg/Ml 2 Ml Vial) 4 mg IV Q6H PRN PRN Reason: Nausea And Vomiting Stop: 03/07/23 16:49 Last Admin: 02/05/23 16:57 Dose: 4 mg Oxycodone HCl (Oxycodone Hcl Ir 5 Mg Tab (Immediate Release)) 5 - 10 mg PO QID PRN PRN Reason: Pain Stop: 02/16/23 01:26 Last Admin: 02/05/23 14:15 Dose: 10 mg
[2023-02-08] MEDS ORDERED: cloNIDine HCL 0.1 MG TAB PO ONE (19:57)
[2023-02-08] MEDS: SPIRIVA RESPIMAT INH SCH (21:03)
[2023-02-09] MEDS: INSULIN ASPART PER UNIT CHARGE SC SCH ×4 (08:29→20:47)
[2023-02-09] MEDS: LIDOCAINE 5% 1 PATCH TD SCH (08:30)
[2023-02-09] MEDS: carvediloL 25 MG TAB PO SCH ×2 (08:30→17:02)
[2023-02-09] MEDS: ASPIRIN 81 MG ECTAB PO SCH (08:31)
[2023-02-09] MEDS: ALBUTEROL HFA INHALER 8.5 GM INH PRN ×2 (08:31→19:58)
[2023-02-09] MEDS: LANTUS PER UNIT CHARGE SQ SCH ×2 (08:37→20:46)
[2023-02-09] MEDS: oxyCODONE HCL IR 5 MG TAB (IMMEDIATE RELEASE) PO PRN ×2 (15:48→21:28)
--- NOTE | 2023-02-09 15:53 | Hospitalist Progress Note ---
Date of Service February 09, 2023 Assessment & Plan (1) Acute confusion: Plan: Was noted to be very confused last night with agitation Received IM dose of Haldol and also Ativan IV Remained agitated this morning and was trying to take out lines and did not cooperate with the nursing staff Later on he was more calm and be cooperative Likely secondary to narcotic pain medications and Ativan CT scan was negative for any acute events and will resend the urine We will get a psychiatric evaluation given the history of cognitive impairment and paranoia Zyprexa will be given as needed instead of other medication Confusion has been cleared up Appreciate psychiatric input and recommendation-Seroquel can be given if needed for sedation Zyprexa for acute agitation No more confusion and has been cooperating well (2) Complicated UTI (urinary tract infection): Plan: No sepsis for now UA was suggestive but culture came back 3 different organisms Was started with intravenous cefepime We will continue antibiotic for 3 days on discharge Antibiotics will be discontinued Repeat UA has been pending-did not require to send it for culture No more symptoms Troponin elevation in the setting of mild rhabdomyolysis, kidney dysfunction and elevated BP upon arrival at the ER Patient denies chest pain or unusual shortness of breath No cardiac symptoms (3) Fall from standing: Plan: Weakness followed by legs gave way with a fall Hit his head with loss of consciousness as in H&P Clinically much better today Complains of pain at the upper back We will get PT and OT evaluation Possible discharge to [place] facility for rehab tomorrow [facility] not take [facility] patient Has been waiting to be placed Will need more physical therapy with the back brace on Awaiting placement (4) Syncope: Plan: Possible loss of consciousness with the fall Appreciate neurology input and recommendation Appreciate neurology input and recommendation With a history of prior stroke aspirin 81 mg was recommended to continue No more syncope and no arrhythmias (5) Compression fracture of T12 vertebra: Plan: Compression fracture of the T12 vertebral Appreciate Ortho input and recommended Will have brace placement and PT and OT evaluation prior to discharge Has a brace and awaiting PT and OT evaluation-recommended rehab Has a back brace and awaiting placement Still complains back pain both at the lower thoracic and lower lumbar area Strongly advised to wear the brace while ambulating (6) Chronic kidney disease, stage 3b: Plan: Has chronic kidney disease stage III Creatinine remains stable (7) HTN (hypertension): Plan: Blood pressure is on the upper side at 162/75 Continue his current medication Blood pressure noted to be very high-blood pressure medications has been updated (8) COPD (chronic obstructive pulmonary disease): Plan: Has COPD with minimal wheezing and shortness of breath We will continue nebulized bronchodilator No acute wheezing and no shortness of breath (9) Diabetes mellitus, type II: Plan: Basal bolus insulin, ISS BG goal 1 10-1 40, carb count coverage, update hemoglobin A1c On SSI (10) H/O: stroke: Plan: As above Has been started on baby aspirin Plan Other significant medical conditions are as follow: Alcoholic cirrhosis no overt decompensation hx HCV status post Rx Chronic anemia, hemoglobin at baseline Past tobacco/alcohol abuse DVT prophylaxis. SCDs Re: Multiple ecchymoses post fall DNR Admission and Anticipated Discharge Date Admission Date: February 02, 2023 Subjective 02/03/2023 The patient was seen and examined in medical telemetry unit He has been complaining of back pain without any radiation of pain Otherwise feeling better and denies any significant urinary symptoms 02/04/2023 The patient was seen and examined in medical telemetry unit He has been stable but he still complains some pain in the upper back Has not had physical therapy yet [facility] not accepted 02/05/2023 The patient was seen and examined in medical telemetry unit in presence of the daughter He has been stable but is still complaining back pain and dizziness with a standing He denies any chest pain, palpitation or shortness of breath He does not have any urinary symptoms 02/06/2023 The patient was seen and examined in medical floor in presence of the daughter She was very agitated and confused last night and required IM Haldol and small dose of Ativan Has been feeling much better during examination and is cooperating Occasional confusion with paranoia Behavioral consult will be taken 02/07/2023 The patient was seen and examined in medical telemetry unit He has been stable and does not have any more paranoia Not to be any confused today and denies any significant symptoms Did not want to put monitor wires and he was transferred to [facility] [place] 02/08/2023 The patient was seen and examined in medical floor He has been quite and no more aggressive Has not been keeping his IV line but otherwise stable 02/09/2023 The patient was seen and examined in medical floor He did not have any more aggressiveness Denies any significant symptoms except back pain which has been ongoing without radiation Review of Systems Review of Systems: All systems reviewed and are unremarkable except as noted below Musculoskeletal: Upper back pain with tenderness without any radiation of pain Physical Exam Physical Exam: Lying in bed comfortably Constitutional: well developed, well nourished, + ill appearing and + obese Eyes: PERRL, conjunctivae normal, anicteric sclerae ENMT: external ear and nose normal, oropharynx normal Neck: trachea midline, no thyromegaly Respiratory: no respiratory distress Auscultation: + diminished lung sounds and + crackles (Minimal crackles at the bases with occasional wheezing) Cardiovascular: Rate/Rhythm: regular rate and regular rhythm; not tachycardic Heart Sounds: normal S1 and normal S2; no murmur Extremities: + edema (Trace edema bilaterally) Gastrointestinal (Abdomen): Inspection/Auscultation: normal bowel sounds; abdomen not distended Percussion/Palpation: abdomen soft; abdomen nontender Musculoskeletal: Spine: + limited thoraco-lumbar ROM Neurologic: normal touch/pain/proprioception and moves all extremities; no focal motor deficits Psychiatric: A+Ox3, euthymic affect Lymphatic: no cervical or axillary lymphadenopathy Results & Data Results & Data Vital Signs (Past 12 Hours) Vital Signs Temp Pulse Pulse Resp BP Pulse Ox O2 Del Method 02/09/23 15:39 36.7 C 78 18 145/71 H 93 Room Air 02/09/23 12:05 36.7 C 57 L 18 145/65 H 98 Room Air 02/09/23 08:30 Room Air 02/09/23 08:27 36.6 C 72 18 175/67 H 94 Room Air Medications Administered Current Inpatient Medications Acetaminophen (Acetaminophen 325 Mg Tab) 325 mg PO Q6H PRN PRN Reason: Mild Pain (Scale 1, 2, 3) Stop: 03/04/23 01:26 Last Admin: 02/04/23 14:45 Dose: 325 mg Albuterol (Albuterol 0.083% Nebu Soln 3 Ml Vial) 2.5 mg INH QID PRN; Protocol PRN Reason: Shortness Of Breath Or Wheezing Stop: 03/05/23 11:12 Last Admin: 02/06/23 12:16 Dose: 2.5 mg Albuterol (Albuterol Hfa Inhaler 8.5 Gm) 1 puffs INH QIDR PRN PRN Reason: Shortness Of Breath Or Wheezing Stop: 03/08/23 12:53 Last Admin: 02/09/23 08:31 Dose: 1 puffs Aspirin (Aspirin 81 Mg Ectab) 81 mg PO QAM [facility] Stop: 03/04/23 13:44 Last Admin: 02/09/23 08:31 Dose: 81 mg Carvedilol (Carvedilol 25 Mg Tab) 25 mg PO BIDM [facility] Stop: 03/07/23 20:58 Last Admin: 02/09/23 08:30 Dose: 25 mg Dextrose (Dextrose 50% 50 Ml Syringe) 25 - 50 ml IV UD PRN; Protocol PRN Reason: Hypoglycemia Protocol Stop: 03/04/23 02:05 Fluticasone/Vilanterol (Fluticasone/Vilanterol 100/25mcg 14 Puffs/Inhaler) 1 puffs INH HS [facility] Stop: 03/10/23 20:59 Last Admin: 02/08/23 21:20 Dose: Not Given Glucagon (Glucagon For Inj 1 Mg Vial) 1 mg SQ UD PRN; Protocol PRN Reason: Hypoglycemia Protocol Stop: 03/04/23 02:05 Glucose (Glucose 10 Tab/Tube) 4 - 8 tab PO UD PRN; Protocol PRN Reason: Hypoglycemia Treatment Stop: 03/04/23 02:05 Glucose (Glucose 40% Gel 15 Gm Tube) 15 - 30 gm PO UD PRN; Protocol PRN Reason: Hypoglycemia Protocol Stop: 03/04/23 02:05 Hydromorphone HCl (Hydromorphone Inj 0.5 Mg/0.5 Ml Syr) 0.5 mg IV Q3H PRN PRN Reason: Pain Stop: 02/16/23 01:13 Last Admin: 02/04/23 02:22 Dose: 0.5 mg Insulin Aspart (Insulin Aspart Per Unit Charge) 0 units SC ACHS [facility] Stop: 03/04/23 02:05 Last Admin: 02/09/23 12:13 Dose: 2 units Insulin Glargine (Lantus Per Unit Charge) 5 units SQ BID [facility] Stop: 03/04/23 08:59 Last Admin: 02/09/23 08:37 Dose: 5 units Lidocaine (Lidocaine 5% 1 Patch) 1 patch TD QAM [facility] Stop: 03/05/23 08:59 Last Admin: 02/09/23 08:30 Dose: 1 patch Miscellaneous (Remove Lidoderm Patch) 1 each N/A DAILY@2100 [facility] Stop: 03/04/23 13:59 Last Admin: 02/08/23 21:09 Dose: Not Given Miscellaneous (Carbohydrates For Hypoglycemia ) 15 - 30 gm PO UD PRN PRN Reason: Hypoglycemia Protocol Stop: 03/04/23 02:05 Spiriva Respimat - (Patient's Own Med) 2 each INH HS [facility] Stop: 03/05/23 00:29 Last Admin: 02/08/23 21:03 Dose: 2 puffs Olanzapine (Olanzapine 10 Mg/2.1 Ml Sdv) 2.5 mg IM ONE PRN PRN Reason: Anxiety/Agitation Stop: 03/08/23 15:49 Ondansetron HCl (Ondansetron Inj 2 Mg/Ml 2 Ml Vial) 4 mg IV Q6H PRN PRN Reason: Nausea And Vomiting Stop: 03/07/23 16:49 Last Admin: 02/05/23 16:57 Dose: 4 mg Oxycodone HCl (Oxycodone Hcl Ir 5 Mg Tab (Immediate Release)) 5 - 10 mg PO QID PRN PRN Reason: Pain Stop: 02/16/23 01:26 Last Admin: 02/09/23 15:48 Dose: 10 mg
[2023-02-09] MEDS: FLUTICASONE/VILANTEROL 100/25MCG 14 PUFFS/INHALER INH SCH (20:41)
[2023-02-09] MEDS: SPIRIVA RESPIMAT INH SCH (21:28)
[2023-02-10] MEDS: oxyCODONE HCL IR 5 MG TAB (IMMEDIATE RELEASE) PO PRN ×3 (05:54→20:47)
[2023-02-10 07:54] LABS: Basophils # (auto) 0.04 K/uL (0-0.2); Basophils % (auto) 0.6 %; Eosinophils # (auto) 0.14 K/uL (0-0.50); Eosinophils % (auto) 2.3 %; Hematocrit (blood only) 27.1 % (42.0-52.0); Hemoglobin 9.8 g/dl (14.0-18.0); Immature Granulocytes # (auto) 0.03 K/uL (0.01-0.20); Immature Granulocytes % (auto) 0.5 %; Mean Corpuscular Hemoglobin 35.4 pg (25.0-34.0); Mean Corpuscular Hgb Conc 36.2 g/dL (32.0-36.0); Mean Corpuscular Volume 97.8 fL (80.0-100.0); Mean Platelet Volume 9.4 fL (9.4-12.4); Monocytes % (auto) 6.5 %; Neutrophils # (auto) 3.15 K/uL (1.40-6.50); Neutrophils % (auto) 51.1 %; Platelet Count 91 K/uL (130-400); RDW Coefficient of Variation 16.4 % (11.5-14.5); RDW Standard Deviation 55.6 fL (36.4-46.3); Red Blood Count 2.77 M/uL (4.70-6.10); White Blood Count 6.16 K/ul (4.8-10.8)
[2023-02-10 08:18] LABS: BUN Creatinine Ratio 23.2 (10-20); Calcium 8.1 mg/dl (8.6-10.3); Creatinine Clr Calc Pharmacy 36.7 ml/min; Est GFR (African American) 40.7 ml/min; Est GFR (Non-African American) 35.1 ml/min; Potassium 4.1 mmol/L (3.5-5.1)
[2023-02-10] MEDS: carvediloL 25 MG TAB PO SCH ×2 (08:36→16:59)
[2023-02-10] MEDS: ASPIRIN 81 MG ECTAB PO SCH (08:36)
[2023-02-10] MEDS: LIDOCAINE 5% 1 PATCH TD SCH (08:36)
[2023-02-10] MEDS: ALBUTEROL HFA INHALER 8.5 GM INH PRN (08:37)
[2023-02-10] MEDS: LANTUS PER UNIT CHARGE SQ SCH ×2 (08:40→20:45)
[2023-02-10] MEDS: INSULIN ASPART PER UNIT CHARGE SC SCH ×4 (08:45→20:40)
--- NOTE | 2023-02-10 14:34 | Hospitalist Progress Note ---
Date of Service February 10, 2023 Assessment & Plan (1) Acute confusion: Plan: Was noted to be very confused last night with agitation Received IM dose of Haldol and also Ativan IV Remained agitated this morning and was trying to take out lines and did not cooperate with the nursing staff Later on he was more calm and be cooperative Likely secondary to narcotic pain medications and Ativan CT scan was negative for any acute events and will resend the urine We will get a psychiatric evaluation given the history of cognitive impairment and paranoia Zyprexa will be given as needed instead of other medication Confusion has been cleared up Appreciate psychiatric input and recommendation-Seroquel can be given if needed for sedation Zyprexa for acute agitation No more confusion and has been cooperating well No more agitation and no more confusion (2) Complicated UTI (urinary tract infection): Plan: No sepsis for now UA was suggestive but culture came back 3 different organisms Was started with intravenous cefepime We will continue antibiotic for 3 days on discharge Antibiotics will be discontinued Repeat UA has been pending-did not require to send it for culture No more symptoms Troponin elevation in the setting of mild rhabdomyolysis, kidney dysfunction and elevated BP upon arrival at the ER Patient denies chest pain or unusual shortness of breath No cardiac symptoms (3) Fall from standing: Plan: Weakness followed by legs gave way with a fall Hit his head with loss of consciousness as in H&P Clinically much better today Complains of pain at the upper back We will get PT and OT evaluation Possible discharge to ID facility for rehab [facility] Has been waiting to be placed Will need more physical therapy with the back brace on Awaiting placement (4) Syncope: Plan: Possible loss of consciousness with the fall Appreciate neurology input and recommendation Appreciate neurology input and recommendation With a history of prior stroke aspirin 81 mg was recommended to continue No more syncope and no arrhythmias (5) Compression fracture of T12 vertebra: Plan: Compression fracture of the T12 vertebral Appreciate Ortho input and recommended Will have brace placement and PT and OT evaluation prior to discharge Has a brace and awaiting PT and OT evaluation-recommended rehab Has a back brace and awaiting placement Still complains back pain both at the lower thoracic and lower lumbar area Strongly advised to wear the brace while ambulating Still has minimal pain involving the lower back-family advised to wear the brace with movement (6) Chronic kidney disease, stage 3b: Plan: Has chronic kidney disease stage III Creatinine remains stable (7) HTN (hypertension): Plan: Blood pressure is on the upper side at 162/75 Continue his current medication Blood pressure noted to be very high-blood pressure medications has been updated (8) COPD (chronic obstructive pulmonary disease): Plan: Has COPD with minimal wheezing and shortness of breath We will continue nebulized bronchodilator No acute wheezing and no shortness of breath (9) Diabetes mellitus, type II: Plan: Basal bolus insulin, ISS BG goal 1 10-1 40, carb count coverage, update hemoglobin A1c On SSI (10) H/O: stroke: Plan: As above Has been started on baby aspirin No new symptoms of stroke and does not require any further testing Plan Other significant medical conditions are as follow: Alcoholic cirrhosis no overt decompensation hx HCV status post Rx Chronic anemia, hemoglobin at baseline Past tobacco/alcohol abuse DVT prophylaxis. SCDs Re: Multiple ecchymoses post fall DNR Admission and Anticipated Discharge Date Admission Date: February 02, 2023 Subjective 02/03/2023 The patient was seen and examined in medical telemetry unit He has been complaining of back pain without any radiation of pain Otherwise feeling better and denies any significant urinary symptoms 02/04/2023 The patient was seen and examined in medical telemetry unit He has been stable but he still complains some pain in the upper back Has not had physical therapy yet [facility] 02/05/2023 The patient was seen and examined in medical telemetry unit in presence of the daughter He has been stable but is still complaining back pain and dizziness with a standing He denies any chest pain, palpitation or shortness of breath He does not have any urinary symptoms 02/06/2023 The patient was seen and examined in medical floor in presence of the daughter She was very agitated and confused last night and required IM Haldol and small dose of Ativan Has been feeling much better during examination and is cooperating Occasional confusion with paranoia Behavioral consult will be taken 02/07/2023 The patient was seen and examined in medical telemetry unit He has been stable and does not have any more paranoia Not to be any confused today and denies any significant symptoms Did not want to put monitor wires and he was transferred to [facility] 02/08/2023 The patient was seen and examined in medical floor He has been quite and no more aggressive Has not been keeping his IV line but otherwise stable 02/09/2023 The patient was seen and examined in medical floor He did not have any more aggressiveness Denies any significant symptoms except back pain which has been ongoing without radiation 02/10/2023 The patient was seen and examined in medical floor He has been stable and denies any significant symptoms He denies any neurological symptoms involving the right upper extremity Does not have any unusual or new symptoms regarding his vision His pain seems to be reasonably controlled Review of Systems Review of Systems: All systems reviewed and are unremarkable except as noted below Musculoskeletal: Upper back pain with tenderness without any radiation of pain Physical Exam Physical Exam: Lying in bed comfortably Constitutional: well developed, well nourished, + ill appearing and + obese Eyes: PERRL, conjunctivae normal, anicteric sclerae ENMT: external ear and nose normal, oropharynx normal Neck: trachea midline, no thyromegaly Respiratory: no respiratory distress Auscultation: + diminished lung sounds and + crackles (Minimal crackles at the bases with occasional wheezing) Cardiovascular: Rate/Rhythm: regular rate and regular rhythm; not tachycardic Heart Sounds: normal S1 and normal S2; no murmur Extremities: + edema (Trace edema bilaterally) Gastrointestinal (Abdomen): Inspection/Auscultation: normal bowel sounds; abdomen not distended Percussion/Palpation: abdomen soft; abdomen nontender Musculoskeletal: Spine: + limited thoraco-lumbar ROM Neurologic: normal touch/pain/proprioception and moves all extremities; no focal motor deficits Psychiatric: A+Ox3, euthymic affect Lymphatic: no cervical or axillary lymphadenopathy Results & Data Results & Data Vital Signs (Past 12 Hours) Vital Signs Temp Pulse Pulse Resp BP Pulse Ox O2 Del Method 02/10/23 08:45 Room Air 02/10/23 08:42 71 153/71 H 02/10/23 06:28 36.7 C 73 20 129/68 93 Room Air Laboratory Results Short CBC 02/10/23 Range/Units 07:16 WBC 6.16 (4.8-10.8) K/ul Hgb 9.8 L (14.0-18.0) g/dl Hct 27.1 L (42.0-52.0) % Plt Count 91 L (130-400) K/uL BMP 02/10/23 07:16 Sodium 136 Potassium 4.1 Chloride 107 Carbon Dioxide 24 BUN 43 H Creatinine 1.85 H Glucose 109 H Calcium 8.1 L Medications Administered Current Inpatient Medications Acetaminophen (Acetaminophen 325 Mg Tab) 325 mg PO Q6H PRN PRN Reason: Mild Pain (Scale 1, 2, 3) Stop: 03/04/23 01:26 Last Admin: 02/04/23 14:45 Dose: 325 mg Albuterol (Albuterol 0.083% Nebu Soln 3 Ml Vial) 2.5 mg INH QID PRN; Protocol PRN Reason: Shortness Of Breath Or Wheezing Stop: 03/05/23 11:12 Last Admin: 02/06/23 12:16 Dose: 2.5 mg Albuterol (Albuterol Hfa Inhaler 8.5 Gm) 1 puffs INH QIDR PRN PRN Reason: Shortness Of Breath Or Wheezing Stop: 03/08/23 12:53 Last Admin: 02/10/23 08:37 Dose: 1 puffs Aspirin (Aspirin 81 Mg Ectab) 81 mg PO QAM [facility] Stop: 03/04/23 13:44 Last Admin: 02/10/23 08:36 Dose: 81 mg Carvedilol (Carvedilol 25 Mg Tab) 25 mg PO BIDM [facility] Stop: 03/07/23 20:58 Last Admin: 02/10/23 08:36 Dose: 25 mg Dextrose (Dextrose 50% 50 Ml Syringe) 25 - 50 ml IV UD PRN; Protocol PRN Reason: Hypoglycemia Protocol Stop: 03/04/23 02:05 Glucagon (Glucagon For Inj 1 Mg Vial) 1 mg SQ UD PRN; Protocol PRN Reason: Hypoglycemia Protocol Stop: 03/04/23 02:05 Glucose (Glucose 10 Tab/Tube) 4 - 8 tab PO UD PRN; Protocol PRN Reason: Hypoglycemia Treatment Stop: 03/04/23 02:05 Glucose (Glucose 40% Gel 15 Gm Tube) 15 - 30 gm PO UD PRN; Protocol PRN Reason: Hypoglycemia Protocol Stop: 03/04/23 02:05 Hydromorphone HCl (Hydromorphone Inj 0.5 Mg/0.5 Ml Syr) 0.5 mg IV Q3H PRN PRN Reason: Pain Stop: 02/16/23 01:13 Last Admin: 02/04/23 02:22 Dose: 0.5 mg Insulin Aspart (Insulin Aspart Per Unit Charge) 0 units SC ACHS [facility] Stop: 03/04/23 02:05 Last Admin: 02/10/23 12:13 Dose: Not Given Insulin Glargine (Lantus Per Unit Charge) 5 units SQ BID [facility] Stop: 03/04/23 08:59 Last Admin: 02/10/23 08:40 Dose: 5 units Lidocaine (Lidocaine 5% 1 Patch) 1 patch TD QAM [facility] Stop: 03/05/23 08:59 Last Admin: 02/10/23 08:36 Dose: 1 patch Miscellaneous (Remove Lidoderm Patch) 1 each N/A DAILY@2100 [facility] Stop: 03/04/23 13:59 Last Admin: 02/09/23 21:32 Dose: 1 each Miscellaneous (Carbohydrates For Hypoglycemia ) 15 - 30 gm PO UD PRN PRN Reason: Hypoglycemia Protocol Stop: 03/04/23 02:05 Spiriva Respimat - (Patient's Own Med) 2 each INH HS [facility] Stop: 03/05/23 00:29 Last Admin: 02/09/23 21:28 Dose: 2 puffs Olanzapine (Olanzapine 10 Mg/2.1 Ml Sdv) 2.5 mg IM ONE PRN PRN Reason: Anxiety/Agitation Stop: 03/08/23 15:49 Ondansetron HCl (Ondansetron Inj 2 Mg/Ml 2 Ml Vial) 4 mg IV Q6H PRN PRN Reason: Nausea And Vomiting Stop: 03/07/23 16:49 Last Admin: 02/05/23 16:57 Dose: 4 mg Oxycodone HCl (Oxycodone Hcl Ir 5 Mg Tab (Immediate Release)) 5 - 10 mg PO QID PRN PRN Reason: Pain Stop: 02/16/23 01:26 Last Admin: 02/10/23 05:54 Dose: 10 mg
[2023-02-10] MEDS: ALBUTEROL 0.083% NEBU SOLN 3 ML VIAL INH PRN (16:19)
[2023-02-10] MEDS: POLYETHYLENE (MIRALAX) 17 GM PACK PO SCH (16:59)
[2023-02-10] MEDS: SPIRIVA RESPIMAT INH SCH (20:46)
[2023-02-11] MEDS: oxyCODONE HCL IR 5 MG TAB (IMMEDIATE RELEASE) PO PRN ×2 (05:11→12:25)
[2023-02-11] MEDS: POLYETHYLENE (MIRALAX) 17 GM PACK PO SCH (08:30)
[2023-02-11] MEDS: carvediloL 25 MG TAB PO SCH (08:30)
[2023-02-11] MEDS: ASPIRIN 81 MG ECTAB PO SCH (08:31)
[2023-02-11] MEDS: INSULIN ASPART PER UNIT CHARGE SC SCH ×2 (08:37→12:23)
[2023-02-11] MEDS: LANTUS PER UNIT CHARGE SQ SCH (08:37)
[2023-02-11] MEDS ORDERED: bisacodyL 10 MG SUPP PR ONE (09:12)
[2023-02-11] MEDS: LIDOCAINE 5% 1 PATCH TD SCH (09:43)
--- NOTE | 2023-02-11 12:03 | Hospitalist Progress Note ---
Date of Service February 11, 2023 Assessment & Plan (1) Acute confusion: Plan: Likely delirium Vs Pain meds/Ativan CT Head:No acute intracranial hemorrhage, midline shift, or mass effect. Appreciate psychiatry input Zyprexa as needed Confusion resolved (2) Complicated UTI (urinary tract infection): Plan: No sepsis UA was suggestive but culture came back 3 different organisms Completed 3 day course of intravenous cefepime No symptoms As per Prior Provider Troponin elevation in the setting of mild rhabdomyolysis, kidney dysfunction and elevated BP upon arrival at the ER Patient denies chest pain or unusual shortness of breath No cardiac symptoms (3) Fall from standing: Plan: Weakness followed by legs gave way with a fall Hit his head with loss of consciousness per record Continue PT/OT Rehab today (4) Syncope: Plan: Syncope due to fall Appreciate neurology input and recommendation With a history of prior stroke aspirin 81 mg was recommended to continue No more syncope/arrhythmias issues while hospitalized (5) Compression fracture of T12 vertebra: Plan: Compression fracture of the T12 vertebral Appreciate Ortho input and recommended TLSO brace with activity Continue PT/OT Needs repeat x-ray and follow-up with Ortho in 2 weeks upon discharge (6) Chronic kidney disease, stage 3b: Plan: Has chronic kidney disease stage III Creatinine stable (7) HTN (hypertension): Plan: Continue current medications Monitor (8) COPD (chronic obstructive pulmonary disease): Plan: Continue home inhalers (9) Diabetes mellitus, type II: Plan: HbA1c 4.7 Decrease/adjust insulin as needed Monitor BGs (10) H/O: stroke: Plan: As above on baby aspirin No new symptoms of stroke and does not require any further testing Plan Other significant medical conditions are as follow: Alcoholic cirrhosis no overt decompensation hx HCV status post Rx Chronic anemia, hemoglobin at baseline Past tobacco/alcohol abuse DVT Px: SCDs Re: Multiple ecchymoses S/P fall Code Status DNR/DNI Disposition Rehab Admission and Anticipated Discharge Date Admission Date: February 02, 2023 Subjective Patient is seen and examined at bedside States having some back pain with movement but otherwise feels well Discussed with patient's daughter at bedside Had bowel movement today Denies any chest pain, dizziness, nausea, abdominal pain Plan to be discharged to rehab facility today Review of Systems Review of Systems: All systems reviewed & are unremarkable except as noted in Subjective Physical Exam Physical Exam: Physical Exam: Vitals signs as noted above General Appearance:Obese, no apparent distress Head: normocephalic, Atraumatic Eyes: normal inspection, EOMI Neck: supple, Trachea midline Respiratory/Chest: Decreased breath sounds, CTA, No accessory muscle use Cardiovascular: S1, S2, No murmur Abdomen/GI:Soft, Non tender, Bowel sounds present Extremities/Musculoskeletal:normal inspection, Trace edema, chronic venous stasis changes Neurologic/Psych:AAOX3, grossly no focal neurological deficits Skin: normal color, warm Results & Data Results & Data Vital Signs (Past 12 Hours) Vital Signs Temp Pulse Resp BP Pulse Ox O2 Del Method 02/11/23 11:06 36.6 C 72 20 121/66 94 Room Air 02/11/23 08:00 Room Air 02/11/23 08:15 36.6 C 70 18 139/58 L 96 Room Air 02/11/23 00:28 Room Air
--- NOTE | 2023-02-11 15:37 | Discharge Summary ---
Date of Service February 11, 2023 Admission HPI Per Admitting Provider History obtained from patient and records. Medical history significant for COPD, hypertension, CVA, valvular heart disease (mild MR/AR, TTE 2019), chronic pain, DM2 insulin requiring, alcoholic cirrhosis, HCV status post Rx, CRI (baseline creatinine 1.7), chronic anemia (baseline hemoglobin of 12 ), BPH, past tobacco/alcohol abuse. Last confinement October 2019 for acute/subacute CVA left thalamus presenting as right-sided weakness. Patient discharged on antiplatelet Rx. Patient woke up feeling weak 2 days ago. Legs gave out causing him to fall and hit his head. Thinks he may have passed out after hitting his head. Patient denies chest pain, unusual shortness of breath, abdominal pain. Patient not sure how long he was out but when he woke up he noted achy back pain without radiation and bilateral arm bruising. EMS called to patient's home. Medical History as above Surgical History : Cholecystectomy Family History : Heart disease Personal/Social history : Past tobacco/alcohol abuse Admission Exam Per Admitting Provider GENERAL: Slightly uncomfortable, obese, no respiratory distress SKIN: Pallor, warm HEENT: Pale palpebral conjunctivae, no ptosis, dry buccal mucosa NECK : Supple, short neck, no tenderness CHEST : Decreased breath sounds, occasional expiratory wheezes, no tenderness HEART : RRR, no obvious murmurs ABDOMEN: Some distention, nontender BACK : Mid back tenderness, negative SLR EXTREMITIES : Bilateral LE swelling, no LE tenderness, ecchymoses noted over both upper extremities L>R NEUROLOGIC : Coherent, no facial asymmetry, no other gross focality Principal Diagnosis Syncope Compression fracture of the T12 vertebra Fall Discharge Data Allergies Allergy/AdvReac Type Severity Reaction Status Date / Time gabapentin Allergy Unknown Verified 12/18/21 11:15 tramadol Allergy Unknown Verified 12/18/21 11:15 Consultations 02/02/23 00:51 ED Decision to Admit Stat 02/02/23 01:27 Consult Orthopedic Surgery Routine 02/02/23 02:06 Consult Neurology Routine 02/06/23 12:13 Consult Psychiatry Routine Ordered Studies 02/01/23 22:31 CT abd pelvis wo con Stat CT chest diagnostic wo con Stat CT head/brain wo con Stat CT lumbar spine wo con Stat CT thoracic spine wo con Stat 02/01/23 22:48 CT cervical spine wo con Stat 02/05/23 21:44 CT head/brain wo con Urgent Laboratory Results WBC 6.16 K/ul (4.8-10.8) 02/10/23 07:16 RBC 2.77 M/uL (4.70-6.10) L 02/10/23 07:16 Hgb 9.8 g/dl (14.0-18.0) L 02/10/23 07:16 Hct 27.1 % (42.0-52.0) L 02/10/23 07:16 MCV 97.8 fL (80.0-100.0) 02/10/23 07:16 MCH 35.4 pg (25.0-34.0) H 02/10/23 07:16 MCHC 36.2 g/dL (32.0-36.0) H 02/10/23 07:16 RDW Std Deviation 55.6 fL (36.4-46.3) H 02/10/23 07:16 RDW Coeff of Khushboo 16.4 % (11.5-14.5) H 02/10/23 07:16 Plt Count 91 K/uL (130-400) L 02/10/23 07:16 MPV 9.4 fL (9.4-12.4) 02/10/23 07:16 Immature Gran % (Auto) 0.5 % 02/10/23 07:16 Neut % (Auto) 51.1 % 02/10/23 07:16 Lymph % (Auto) 39.0 % 02/10/23 07:16 Woods % (Auto) 6.5 % 02/10/23 07:16 Eos % (Auto) 2.3 % 02/10/23 07:16 Baso % (Auto) 0.6 % 02/10/23 07:16 Neut # (Auto) 3.15 K/uL (1.40-6.50) 02/10/23 07:16 Lymph # (Auto) 2.40 K/uL (1.2-3.4) 02/10/23 07:16 Woods # (Auto) 0.40 K/uL (0.11-0.59) 02/10/23 07:16 Eos # (Auto) 0.14 K/uL (0-0.50) 02/10/23 07:16 Baso # (Auto) 0.04 K/uL (0-0.2) 02/10/23 07:16 Immature Gran # (Auto) 0.03 K/uL (0.01-0.20) 02/10/23 07:16 Absolute Nucleated RBC Cancelled 02/02/23 04:12 Nucleated RBC % (auto) Cancelled 02/02/23 04:12 Neutrophils % (Manual) Cancelled 02/02/23 04:12 Band Neutrophils % Cancelled 02/02/23 04:12 Lymphocytes % (Manual) Cancelled 02/02/23 04:12 Prolymphocyte % Cancelled 02/02/23 04:12 Reactive Lymphs % (Man) Cancelled 02/02/23 04:12 Monocytes % (Manual) Cancelled 02/02/23 04:12 Eosinophils % (Manual) Cancelled 02/02/23 04:12 Basophils % (Manual) Cancelled 02/02/23 04:12 Metamyelocytes % (Man) Cancelled 02/02/23 04:12 Myelocytes % (Man) Cancelled 02/02/23 04:12 Promyelocytes % (Man) Cancelled 02/02/23 04:12 Blast Cells % (Manual) Cancelled 02/02/23 04:12 Plasma Cell % (Manual) Cancelled 02/02/23 04:12 Other Cells % Cancelled 02/02/23 04:12 Nucleated RBC % Cancelled 02/02/23 04:12 Neutrophils # (Manual) Cancelled 02/02/23 04:12 Band Neutrophils # Cancelled 02/02/23 04:12 Total Absolute Neuts Cancelled 02/02/23 04:12 Lymphocytes # (Manual) Cancelled 02/02/23 04:12 Prolymphocyte # Cancelled 02/02/23 04:12 Reactive Lymphs # Cancelled 02/02/23 04:12 Total Abs Lymphocytes Cancelled 02/02/23 04:12 Monocytes # (Manual) Cancelled 02/02/23 04:12 Eosinophils # (Manual) Cancelled 02/02/23 04:12 Basophils # (Manual) Cancelled 02/02/23 04:12 Metamyelocytes # (Man) Cancelled 02/02/23 04:12 Myelocytes # (Manual) Cancelled 02/02/23 04:12 Promyelocytes # (Man) Cancelled 02/02/23 04:12 Blast Cells # (Man) Cancelled 02/02/23 04:12 Plasma Cell # (Manual) Cancelled 02/02/23 04:12 Other Cells # Cancelled 02/02/23 04:12 Nucleated RBCs # (Man) Cancelled 02/02/23 04:12 Hypersegmented Neuts Cancelled 02/02/23 04:12 Hyposegmented Neuts Cancelled 02/02/23 04:12 Hypogranular Neuts Cancelled 02/02/23 04:12 Large Granular Lymphs Cancelled 02/02/23 04:12 # Lrg Granular Lymphs Cancelled 02/02/23 04:12 Hairy Cells Cancelled 02/02/23 04:12 Smudge Cells Cancelled 02/02/23 04:12 Toxic Granulation Cancelled 02/02/23 04:12 Toxic Vacuolation Cancelled 02/02/23 04:12 Dohle Bodies Cancelled 02/02/23 04:12 Jackson Rods Cancelled 02/02/23 04:12 Platelet Estimate Cancelled 02/02/23 04:12 Hypogranular Platelets Cancelled 02/02/23 04:12 Giant Platelets Cancelled 02/02/23 04:12 Platelet Satelliting Cancelled 02/02/23 04:12 RBC Morphology Cancelled 02/02/23 04:12 Polychromasia 1+ 02/02/23 05:37 Hypochromasia Cancelled 02/02/23 04:12 Poikilocytosis Cancelled 02/02/23 04:12 Basophilic Stippling Cancelled 02/02/23 04:12 Anisocytosis Cancelled 02/02/23 04:12 Microcytosis Cancelled 02/02/23 04:12 Macrocytosis Cancelled 02/02/23 04:12 Spherocytes Cancelled 02/02/23 04:12 Pappenheimer Bodies Cancelled 02/02/23 04:12 Sickle Cells Cancelled 02/02/23 04:12 Target Cells Cancelled 02/02/23 04:12 Tear Drop Cells Cancelled 02/02/23 04:12 Ovalocytes Cancelled 02/02/23 04:12 Stomatocytes Cancelled 02/02/23 04:12 Sam-Mokuleia Bodies Cancelled 02/02/23 04:12 Echinocytes Cancelled 02/02/23 04:12 Acanthocytes (Spur) Cancelled 02/02/23 04:12 Rouleaux Cancelled 02/02/23 04:12 RBC Agglutinates Cancelled 02/02/23 04:12 Schistocytes Cancelled 02/02/23 04:12 Sezary Cell Cancelled 02/02/23 04:12 PT 12.6 Seconds (9.0-12.0) H 02/01/23 20:31 INR 1.2 (0.9-1.1) H 02/01/23 20:31 ABG pH 7.43 (7.35-7.45) 02/05/23 22:54 ABG pCO2 36 mmHg (35-46) 02/05/23 22:54 ABG pO2 76 mmHg (80-95) L 02/05/23 22:54 ABG HCO3 24 mmol/L (19-24) 02/05/23 22:54 ABG O2 Saturation 98.3 % (90-95) H 02/05/23 22:54 ABG Base Excess -0.1 mEq/L (-9-1.8) 02/05/23 22:54 Hosea Test Pos (Pos) 02/05/23 22:54 Oxygen Given RA 02/05/23 22:54 Sodium 136 mmol/L (136-145) 02/10/23 07:16 Potassium 4.1 mmol/L (3.5-5.1) 02/10/23 07:16 Chloride 107 mmol/L (98-107) 02/10/23 07:16 Carbon Dioxide 24 mmol/L (21-32) 02/10/23 07:16 Anion Gap 5 (3-11) 02/10/23 07:16 BUN 43 mg/dl (6-23) H 02/10/23 07:16 Creatinine 1.85 mg/dl (0.6-1.4) H 02/10/23 07:16 Est Cr Clr Drug Dosing 36.7 ml/min 02/10/23 07:16 Est GFR ( Amer) 40.7 ml/min 02/10/23 07:16 Est GFR (Non-Af Amer) 35.1 ml/min 02/10/23 07:16 BUN/Creatinine Ratio 23.2 (10-20) H 02/10/23 07:16 Glucose 109 mg/dl (70-99(Fasting)) H 02/10/23 07:16 POC Glucose 151 mg/dl (70-99) H 02/11/23 11:46 Estimat Average Glucose 88 mg/dl 02/02/23 04:12 Hemoglobin A1c 4.7 % (4.5-5.6) 02/02/23 04:12 Lactate 1.5 mmol/L (0.4-2.0) 02/01/23 23:57 Calcium 8.1 mg/dl (8.6-10.3) L 02/10/23 07:16 Phosphorus 3.1 mg/dl (2.5-4.9) 02/01/23 20:31 Magnesium 2.0 mg/dl (1.7-2.4) 02/01/23 20:31 Total Bilirubin 6.3 mg/dl (0.2-1.0) H 02/04/23 07:46 Direct Bilirubin 1.0 mg/dl (0-0.2) H 02/04/23 07:46 AST 27 U/L (13-39) 02/04/23 07:46 ALT 20 U/L (7-52) 02/04/23 07:46 Alkaline Phosphatase 71 U/L (34-104) 02/04/23 07:46 Ammonia 38.0 umol/L (18-72) 02/05/23 22:54 Total Creatine Kinase 229 U/L (30-223) H 02/02/23 04:12 Troponin I High Sens 20.3 pg/ml (0-20) H 02/02/23 04:12 Total Protein 5.7 gm/dl (6.0-8.3) L 02/04/23 07:46 Albumin 2.9 gm/dl (3.4-5.0) L 02/04/23 07:46 Globulin 3.5 gm/dl (2.5-4.0) 02/01/23 20:31 Albumin/Globulin Ratio 1.0 (0.9-2) 02/01/23 20:31 Lipase 120 U/L (11-82) H 02/01/23 20:31 TSH 4.625 uIu/ml (0.300-4.500) H 02/01/23 20:31 Free T4 1.18 ng/dl (0.61-1.60) 02/01/23 20:31 Urine Color Dark Yellow 02/06/23 Unknown Urine Appearance Clear (Clear) 02/06/23 Unknown Urine pH 5.5 (4.5-7.5) 02/06/23 Unknown Ur Specific Hardin 1.018 (1.000-1.030) 02/06/23 Unknown Urine Protein 2+ (Negative) H 02/06/23 Unknown Urine Glucose (UA) Negative (Negative) 02/06/23 Unknown Urine Ketones 1+ (Negative) H 02/06/23 Unknown Urine Blood 1+ (Negative) H 02/06/23 Unknown Urine Nitrite Negative (Negative) 02/06/23 Unknown Urine Bilirubin Negative (Negative) 02/06/23 Unknown Urine Urobilinogen Negative (Negative) 02/06/23 Unknown Ur Leukocyte Esterase Negative (Negative) 02/06/23 Unknown Urine WBC (Auto) 1-5 /hpf (0-5) 02/06/23 Unknown Urine RBC (Auto) 0-4 /hpf (0-4) 02/06/23 Unknown U Hyaline Cast (Auto) 1-5 /lpf (0-5) 02/06/23 Unknown U Epithel Cells (Auto) 10-20 /lpf (0-5) H 02/06/23 Unknown Urine Bacteria (Auto) Negative (Negative) 02/06/23 Unknown Ethyl Alcohol mg/dL < 10.0 mg/dl (<10.0) 02/01/23 23:57 SARS-CoV-2, RNA, NAAT NEGATIVE (NEGATIVE) 02/11/23 Unknown Blood Parasites ID Cancelled 02/02/23 04:12 Impressions Chest X-Ray 02/01/23 21:25 XR chest 1V portable HISTORY: weakness COMPARISON: Chest 10/26/2019. FINDINGS: No pneumothorax. No pleural effusions. The cardiac silhouette remains mildly enlarged. There is mild interstitial thickening which is likely chronic. No new focal lung consolidations to suggest a pneumonia. No evidence for pulmonary edema. Suspect mild emphysema. Increased markings at the lung bases favors vascular crowding. IMPRESSION: No significant change compared to the prior study. No acute process. ACT 112: Negative or not required by law. Electronically signed by: Richar Collado M.D. 02/02/2023 8:04 AM Abdomen/Pelvis CT 02/01/23 22:31 Exam(s): CT ABDOMEN + PELVIS Without Contrast EXAM: CT Abdomen and Pelvis Without Intravenous Contrast CLINICAL HISTORY: Reason for exam: pain, fall, trauma. TECHNIQUE: Axial computed tomography images of the abdomen and pelvis without intravenous contrast. CTDI is 54.58 mGy and DLP is 884.08 mGy-cm. Automated exposure control was utilized for the study. A dose lowering technique was utilized adhering to the principles of ALARA. COMPARISON: No relevant prior studies available. FINDINGS: Lung bases: There is a smooth oval pulmonary nodule the right costophrenic angle measuring 2 cm. ABDOMEN: Liver: The liver is small and nodular suggesting cirrhosis. The portal vein is upper limits of normal in diameter measuring 1.5 cm. The spleen is not enlarged. No ascites is seen. Gallbladder and bile ducts: The gallbladder has been removed. No ductal dilation. Pancreas: Unremarkable. No ductal dilation. Spleen: Unremarkable. No splenomegaly. Adrenals: Unremarkable. No mass. Kidneys and ureters: There are 2 3 mm calcifications in the renal hilum bilaterally, possibly vascular. No hydronephrosis or ureterolithiasis is seen. Stomach and bowel: Unremarkable. No obstruction. No mucosal thickening. PELVIS: Appendix: No findings to suggest acute appendicitis. Bladder: Unremarkable. No stones. Reproductive: Unremarkable as visualized. ABDOMEN and PELVIS: Intraperitoneal space: See above. Bones/joints: There is a compression fracture involving the superior aspect of the T12 vertebral body. There is a cleft under the superior endplate consistent with 10% compression which has subsequently distracted due to positioning. No posterior protrusion fracture fragments or spinal stenosis. No dislocation. Soft tissues: Unremarkable. Vasculature: The abdominal aorta is severely calcified but nondilated. Lymph nodes: Unremarkable. No enlarged lymph nodes. IMPRESSION: There is a compression fracture involving the superior aspect of the T12 vertebral body. There is a cleft under the superior endplate consistent with 10% compression which has subsequently distracted due to positioning. No posterior protrusion fracture fragments or spinal stenosis. Electronically signed by: Jose C Lopez MD 02/01/23 23:[address] 02/01/23 22:31 Exam(s): CT CHEST Without Contrast EXAM: CT Chest Without Intravenous Contrast CLINICAL HISTORY: Reason for exam: pain, fall, trauma. TECHNIQUE: Axial computed tomography images of the chest without intravenous contrast. CTDI is 54.58 mGy and DLP is 884.08 mGy-cm. Automated exposure control was utilized for the study. A dose lowering technique was utilized adhering to the principles of ALARA. COMPARISON: No relevant prior studies available. FINDINGS: Lungs: Mild emphysematous changes throughout both lungs. No acute infiltrate is seen. There is a 1.8 cm pulmonary nodule the right costophrenic angle. This was not visible on previous plain films. This contacts the pleura. Pleural space: Unremarkable. No pneumothorax. No significant effusion. Heart: The heart is not enlarged. Severe coronary calcification is present. No significant pericardial effusion. Bones/joints: There is a 10% compression fracture involving the supra aspect of the T12 vertebral body. No posterior protrusion fracture fragments. There are mild degenerative changes throughout the remainder of the spine. No dislocation. Soft tissues: Unremarkable. Vasculature: Unremarkable. No thoracic aortic aneurysm. Lymph nodes: Unremarkable. No enlarged lymph nodes. IMPRESSION: 1. There is a 10% compression fracture involving the supra aspect of the T12 vertebral body. No posterior protrusion fracture fragments. There are mild degenerative changes throughout the remainder of the spine. 2. Mild emphysematous changes throughout both lungs. No acute infiltrate is seen. There is a 1.8 cm pulmonary nodule the right costophrenic angle. This was not visible on previous plain films. This contacts the pleura. Fleischner Society Guidelines suggest no follow-up is necessary for patients with low or high risk of malignancy. Electronically signed by: Jose C Lopez MD 02/01/23 23:[address] 02/01/23 22:31 Exam(s): CT L SPINE EXAM: CT Lumbar Spine Without Intravenous Contrast CLINICAL HISTORY: Reason for exam: pain, fall, trauma. TECHNIQUE: Axial computed tomography images of the lumbar spine without intravenous contrast. CTDI is 54.58 mGy and DLP is 884.08 mGy-cm. Automated exposure control was utilized for the study. A dose lowering technique was utilized adhering to the principles of ALARA. COMPARISON: No relevant prior studies available. FINDINGS: Vertebrae: Mild multilevel degenerative disc disease and facet arthrosis throughout the lumbar spine. No acute fracture or subluxation is seen. There is an old healed 20% superior endplate compression fracture of L5. The remaining lumbar spine vertebral body heights are within normal limits. No acute compression fracture or burst fracture is seen involving the lumbar spine. Discs/spinal canal/neural foramina: No significant spinal stenosis is identified. Soft tissues: Unremarkable. IMPRESSION: 1. No significant spinal stenosis is identified. 2. Mild multilevel degenerative disc disease and facet arthrosis throughout the lumbar spine. No acute fracture or subluxation is seen. 3. There is an old healed 20% superior endplate compression fracture of L5. The remaining lumbar spine vertebral body heights are within normal limits. No acute compression fracture or burst fracture is seen involving the lumbar spine. Electronically signed by: Jose C Lopez MD 02/01/23 23:[address] 02/01/23 22:31 Exam(s): CT T SPINE EXAM: CT Thoracic Spine Without Intravenous Contrast CLINICAL HISTORY: Reason for exam: pain, fall, trauma. TECHNIQUE: Axial computed tomography images of the thoracic spine without intravenous contrast. CTDI is 54.58 mGy and DLP is 884.08 mGy-cm. Automated exposure control was utilized for the study. A dose lowering technique was utilized adhering to the principles of ALARA. COMPARISON: No relevant prior studies available. FINDINGS: Vertebrae: There is a cleft immediately inferior to the superior end plate of T12 consistent with an approximately 10% compression fracture which has subsequently returned to normal height. No posterior protrusion fracture fragments or spinal stenosis. Discs/spinal canal/neural foramina: Moderate multilevel degenerative disc disease and osteophytosis throughout the thoracic spine. No other acute fracture is seen. No subluxation or spinal stenosis. Soft tissues: Unremarkable. IMPRESSION: 1. There is a cleft immediately inferior to the superior end plate of T12 consistent with an approximately 10% compression fracture which has subsequently returned to normal height. No posterior protrusion fracture fragments or spinal stenosis. 2. Moderate multilevel degenerative disc disease and osteophytosis throughout the thoracic spine. No other acute fracture is seen. No subluxation or spinal stenosis. Electronically signed by: Jose C Lopez MD 02/01/23 23:[address] 02/01/23 22:48 Exam(s): CT C SPINE EXAM: CT Cervical Spine Without Intravenous Contrast CLINICAL HISTORY: Reason for exam: pain, fall trauma. TECHNIQUE: Axial computed tomography images of the cervical spine without intravenous contrast. CTDI is 54.58 mGy and DLP is 884.08 mGy-cm. Automated exposure control was utilized for the study. A dose lowering technique was utilized adhering to the principles of ALARA. COMPARISON: No relevant prior studies available. FINDINGS: Vertebrae: Mild narrowing and osteophytosis of the atlantodental joint. The odontoid process is intact. The spinal alignment is normal. No subluxation is seen. No acute fracture. Soft tissues: The prevertebral soft tissues are normal. Vasculature: Mild calcification of the carotid bifurcation bilaterally. DISCS/SPINAL CANAL/NEURAL FORAMINA: C2-C3: Moderate degenerative disc disease. No stenosis. C3-C4: Moderate degenerative disc disease. Mild spinal stenosis measuring 8 mm due to posterior disc marginal osteophyte. C4-C5: Moderate degenerative disc disease. No stenosis. C5-C6: Moderate degenerative disc disease. No stenosis. C6-C7: Moderate degenerative disc disease. No stenosis. C7-T1: Moderate degenerative disc disease. No stenosis. 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 There is posterior osteophyte formation at C2-3 and C3-4 measuring up to 4 mm causing mild spinal stenosis narrowing the canal to 8 mm at C3-4. Electronically signed by: Jose C Lopez MD 02/01/23 23:[address] 02/05/23 21:44 Exam(s): CT HEAD Without Contrast EXAM: CT Head Without Intravenous Contrast CLINICAL HISTORY: Reason for exam: AMS. TECHNIQUE: Axial computed tomography images of the head/brain without intravenous contrast. CTDI is 35.07 mGy and DLP is 614.27 mGy-cm. Automated exposure control was utilized for the study. A dose lowering technique was utilized adhering to the principles of ALARA. COMPARISON: No relevant prior studies available. FINDINGS: No acute intracranial hemorrhage. No midline shift or mass effect. The territorial escalante-white matter differentiation is maintained throughout. Age-related cerebral volume loss. Periventricular and subcortical white matter hypoattenuation, consistent with chronic microangiopathy. The visualized orbits appear grossly unremarkable. The calvarium is intact. The visualized paranasal sinuses and mastoid air cells are grossly clear. IMPRESSION: No acute intracranial hemorrhage, midline shift, or mass effect. Electronically signed by: Bebo Tony MD 02/05/23 22:13 PM Hospital Course (1) Acute confusion: Likely delirium Vs Pain meds/Ativan CT Head:No acute intracranial hemorrhage, midline shift, or mass effect. Appreciate psychiatry input Zyprexa as needed Confusion resolved (2) Complicated UTI (urinary tract infection): No sepsis UA was suggestive but culture came back 3 different organisms Completed 3 day course of intravenous cefepime No symptoms As per Prior Provider Troponin elevation in the setting of mild rhabdomyolysis, kidney dysfunction and elevated BP upon arrival at the ER Patient denies chest pain or unusual shortness of breath No cardiac symptoms (3) Fall from standing: Weakness followed by legs gave way with a fall Hit his head with loss of consciousness per record Continue PT/OT Rehab today (4) Syncope: Syncope due to fall Appreciate neurology input and recommendation With a history of prior stroke aspirin 81 mg was recommended to continue No more syncope/arrhythmias issues while hospitalized (5) Compression fracture of T12 vertebra: Compression fracture of the T12 vertebral Appreciate Ortho input and recommended TLSO brace with activity Continue PT/OT Needs repeat x-ray and follow-up with Ortho in 2 weeks upon discharge (6) Chronic kidney disease, stage 3b: Has chronic kidney disease stage III Creatinine stable (7) HTN (hypertension): Continue current medications Monitor (8) COPD (chronic obstructive pulmonary disease): Continue home inhalers (9) Diabetes mellitus, type II: HbA1c 4.7 Decrease/adjust insulin as needed Monitor BGs (10) H/O: stroke: As above on baby aspirin No new symptoms of stroke and does not require any further testing Plan Other significant medical conditions are as follow: Alcoholic cirrhosis no overt decompensation hx HCV status post Rx Chronic anemia, hemoglobin at baseline Past tobacco/alcohol abuse DVT Px: SCDs Re: Multiple ecchymoses S/P fall Code Status DNR/DNI Disposition Rehab Total Time Total Time Spent Total Time Spent (In Minutes): 56 minutes Discharge Plan Discharge Items Patient Disposition: Transfer Correction Fac Reason For Visit: CONCUSSION Discharge Diagnosis: Syncope Compression fracture of the T12 vertebra Fall Activity: Per Instructions section Exercise/Sports: As tolerated Non-emergency contact: Primary Care Provider and Surgeon Call non-emergency contact if: you have any medication questions, your symptoms worsen, your pain is concerning for you and you have a fever Follow-up/Referrals: Madeline Au PA-C [Primary Care Provider] - Diet: Carb Consistent or DM2 and Heart Healthy Diet Texture: Easy to Chew Addtl Attending Provider Instructions: Follow-up with your primary care physician in 1 week upon discharge from rehab facility Follow-up with your orthopedic surgeon Dr. Moralez in 2 weeks as advised --- Your insulin is decreased given well-controlled blood glucose levels while you are hospitalized. Your HbA1c is 4.7 on 02/02/23. Discuss with your physician for further adjustment of insulin as needed. Seek immediate medical attention if your symptoms reoccur or worsen Please take all medications as instructed on discharge list below. Please call if you have any questions or problems. You can reach a [facility] hospitalist on duty at [facility] 24 hours a day by calling [phone] [facility] Provider Instructions: Use TLSO braceas recommended by orthopedic surgeon for activity/ambulation May remove the brace while in bed or when in seated position No lifting over 5 pounds. Needs follow-up with orthopedic surgery in 2 weeks with repeat x-rays with Pending Studies at Discharge: No Stand-Alone Forms: My [facility] Skilled Items Patient informed of condition?: Yes DNR: Yes Discharge Level of Care: Skilled Communicable Disease: No Discharge Prognosis: Stable Lines: None Urinary Catheter: No Medications and DC Order Prescriptions: Continued fluticasone propion-salmeterol 250-50 mcg/dose blister with device 1 inh inhalation BID spironolactone 50 mg tablet 50 mg PO DAILY PRN (Reason: swelling) (DME) lancets [Accu-Chek Softclix Lancets] Misc See Rx Instructions .ROUTE Rx Instructions: As directed pregabalin 75 mg capsule 75 mg PO BID atorvastatin 20 mg tablet 40 mg PO DAILY furosemide 20 mg tablet 20 mg PO DAILY Hold Instructions: Home Medication placed on hold at Doctor's office aspirin 81 mg capsule 81 mg PO DAILY lisinopril 5 mg tablet 2.5 mg PO UD Hold Instructions: Home Medication placed on hold at Doctor's office Rx Instructions: pt not sure he takes this cholecalciferol (vitamin D3) 50 mcg (2,000 unit) capsule 50 mcg PO DAILY carvedilol 25 mg Tablet 25 mg PO BID albuterol sulfate 2.5 mg /3 mL (0.083 %) Solution For Nebulization 2.5 mg INHALATION QID PRN (Reason: Shortness Of Breath Or Wheezing) albuterol sulfate 90 mcg/actuation Hfa Aerosol Inhaler 1 puff INHALATION QID PRN (Reason: Shortness Of Breath Or Wheezing) tiotropium-olodaterol 2.5-2.5 mcg/actuation Mist 2 puff INHALATION DAILY oxycodone 5 mg tablet 5 mg PO BID PRN (Reason: Pain) Changed insulin glargine 100 unit/mL (3 mL) insulin pen 5 unit SUBCUT BID Qty: 15 0RF Discontinued insulin aspart U-100 [Novolog FlexPen U-100 Insulin] 100 unit/mL (3 mL) insulin pen 14 unit SUBCUT TIDM Discharge Orders: Discharge Order (Routine); Ordered 02/11/23 Ordered By: Corwin Donovan Admission Data Admit Date/Time: 02/02/23 01:24 Attending Provider: Corwin Donovan Admit Provider: Andrae Urbina Primary Care Provider: Madeline Au Other Providers: [facility] ; [facility] ; [place] ; Andrae Urbina ; Ahsan Moralez Emile ; Xiomy Aoyn ; Shweta Pritchard ; Kwesi Bowman Other Interventions: Discharge Summary Assessment (RN) Last Done: 02/11/23 12:38
--- NOTE | 2023-02-12 11:00 | Coding Query ---
CODING QUERY To promote full compliance with coding requirements relating to patient care, provider participation is requested in all cases of medical biller coder uncertainty. Please assist us with the question(s) below: Coding Question(s): There is documentation in the record, as on the Discharge Summary, of, " Acute confusion: Likely delirium Vs Pain meds/Ativan CT Head:No acute intracranial hemorrhage, midline shift, or mass effect. Appreciate psychiatry input Zyprexa as needed Confusion resolved", and documentation on the 02/07 Psychiatric Consultation of, "Diagnostically consistent with encephalopathy/delirium". Encephalopathy is not documented any further and it is not clear if the Acute Confusion was possible Encephalopathy or if Encephalopathy was ruled-out. Please specify below, in your clinical opinion: ( x) Acute Confusion is possible Encephalopathy ( ) Acute Confusion is not Encephalopathy - Encephalopathy is Ruled-Out ( ) Other: Please Specify Physician's Response(s): Thank you Roma Kirk Principal Diagnosis: "that condition established after study, to be chiefly responsible for occasioning the admission of the patient to the hospital for care." Co-Existing Principal Diagnosis: "when two or more diagnoses equally meet the criteria for principal diagnosis as determined by the circumstances of admission, diagnostic work up, and/or therapy provided, and the Alphabetic Index, Tabular List, or another coding guideline does not provide sequencing direction, any one of the diagnoses may be sequenced first." "When the physician has documented what appears to be a current diagnosis in the body of the record, but has not included the diagnosis in the final diagnostic statement, the physician should be asked whether the diagnosis should be added." (Source Coding [facility] 2 QTR90. p3-4) MIMI
== END 2023-02-11 13:18 | DRG 551 ==
LOC: ED 20:09 → EDINP 02-02 01:24 → SUATTDRO 02-02 01:24 → 2N 02-02 12:50 → 2W 02-05 15:41

== ENCOUNTER 2024-11-30 15:33 | Inpatient (IN) ==
--- NOTE | 2024-11-30 16:18 | XRay Report ---
Clinical History: Chest pain Technique: A frontal view of the chest was obtained Comparison is made to the prior examination dated 08/26/2024 Findings: There are no confluent pulmonary infiltrates. The heart size is within normal limits. No pleural effusion or pneumothorax is seen. There is no definite pulmonary nodule. No fracture is noted. No foreign body is seen Impression: No active disease Electronically signed by Dion Gomez 11-30-2024 4:18 PM
[2024-11-30 16:21] LABS: Basophils # (auto) 0.01 K/uL (0.00-0.20); Basophils % (auto) 0.2 %; Eosinophils # (auto) 0.14 K/uL (0.00-0.50); Hematocrit (blood only) 32.4 % (42.0-52.0); Hemoglobin 11.6 g/dl (14.0-18.0); Immature Granulocytes # (auto) 0.02 K/uL (0.01-0.20); Immature Granulocytes % (auto) 0.4 %; Lymphocytes # (auto) 1.26 K/uL (1.20-3.40); Lymphocytes % (auto) 27.2 %; Mean Corpuscular Hemoglobin 34.2 pg (25.0-34.0); Mean Corpuscular Hgb Conc 35.8 g/dL (32.0-36.0); Mean Corpuscular Volume 95.6 fL (80.0-100.0); Mean Platelet Volume 9.5 fL (9.4-12.4); Monocytes # (auto) 0.21 K/uL (0.11-0.59); Monocytes % (auto) 4.5 %; Neutrophils # (auto) 2.99 K/uL (1.40-6.50); Neutrophils % (auto) 64.7 %; Platelet Count 70 K/uL (130-400); RDW Coefficient of Variation 13.9 % (11.5-14.5); RDW Standard Deviation 48.6 fL (36.4-46.3); Red Blood Count 3.39 M/uL (4.70-6.10); White Blood Count 4.63 K/ul (4.8-10.8)
[2024-11-30 16:35] LABS: Alanine Aminotransferase 30 U/L (7-52); Albumin Globulin Ratio 1.2 (0.9-2); Albumin Level 3.5 gm/dl (3.4-5.0); Alkaline Phosphatase 75 U/L (34-104); Anion Gap 2 (3-11); Aspartate Aminotransferase 25 U/L (13-39); Bilirubin,Total 2.2 mg/dl (0.2-1.0); Blood Urea Nitrogen 45 mg/dl (6-23); Calcium 8.8 mg/dl (8.6-10.3); Carbon Dioxide 29 mmol/L (21-32); Chloride 105 mmol/L (98-107); Globulin 2.9 gm/dl (2.5-4.0); Glucose 150 mg/dl (70-99(Fasting)); Potassium 4.8 mmol/L (3.5-5.1); Sodium 136 mmol/L (136-145); Total Protein 6.4 gm/dl (6.0-8.3)
[2024-11-30 16:41] LABS: Troponin I High Sensitivity 10.8 pg/ml (0-20)
--- NOTE | 2024-11-30 16:41 | Electrocardiogram Report ---
Test Reason : Blood Pressure : */* mmHG Vent. Rate : 69 BPM Atrial Rate : 69 BPM P-R Int : 192 ms QRS Dur : 86 ms QT Int : 394 ms P-R-T Axes : 67 45 78 degrees QTcB Int : 422 ms Normal sinus rhythm Normal ECG When compared with ECG of 09-Aug-2024 15:42, Nonspecific T wave abnormality no longer evident in Lateral leads Confirmed by Ed Verduzco ([id number]) on 11/30/2024 4:40:31 PM Referred By: Confirmed By: Ed Verduzco
[2024-11-30 16:45] LABS: INR 1.1 (0.9-1.1); Partial Thromboplastin Time 27 Seconds (21-31); Prothrombin Time 11.6 Seconds (9.0-12.0)
[2024-11-30 17:18] LABS: Adenovirus PCR Not Detected (NotDetected); Bordetella parapertussis PCR Not Detected (NotDetected); Bordetella pertussis PCR Not Detected (NotDetected); Chlamydia pneumoniae PCR Not Detected (NotDetected); Coronavirus 229E PCR Not Detected (NotDetected); Coronavirus CoV-2 (COVID19)PCR Not Detected (NotDetected); Coronavirus HKU1 PCR Not Detected (NotDetected); Coronavirus NL63 PCR Not Detected (NotDetected); Coronavirus OC43PCR Not Detected (NotDetected); Human Metapneumovirus PCR Not Detected (NotDetected); Influenza A PCR Not Detected (NotDetected); Influenza B PCR Not Detected (NotDetected); Mycoplasma pneumoniae PCR Not Detected (NotDetected); Parainfluenza Virus 1 PCR Not Detected (NotDetected); Parainfluenza Virus 2 PCR Not Detected (NotDetected); Parainfluenza Virus 3 PCR Not Detected (NotDetected); Parainfluenza Virus 4 PCR Not Detected (NotDetected); Respiratory Syncytial VirusPCR Not Detected (NotDetected); Rhinovirus/Enterovirus PCR Not Detected (NotDetected)
--- NOTE | 2024-11-30 18:19 | Emergency Department Note ---
Impression & Plan Neurological deficit present, National Institutes of Health (NIH) Stroke Scale motor arm score 1, drift, arm drifts from starting position (palms down extended 90 degrees if sitting or 45 degrees if supine) to intermediate position prior to end of full 10 seconds but never relies on support, Stroke ED Provider Note NAME: REENTTA GUZMAN AGE: 74 SEX: M : 1950 ARRIVES VIA: Walk-In INFORMANT: Patient, ED PROVIDER(S): Jennifer Salomon MD CHIEF COMPLAINT: Left arm numbness HPI: This is a 74-year-old male presents for left arm numbness. Patient notes that he last felt well about 2 days ago. Yesterday he developed slight left upper extremity numbness/tingling. This then progressed to include lower extremity today. He notes over the past 1 days also had increasing weakness of his left upper extremity. He had a stroke to his right side previously and now uses his left side for his usual activities. He notes that his been dropping things more frequently on the left side compared to previous days. He also has some slight chest tightness as well. ROS: See above HPI for pertinent positives & negatives. A total of 10 systems reviewed and were otherwise negative. PAST MEDICAL HISTORY: See Below PAST SURGICAL HISTORY: See Below FAMILY HISTORY: See Below SOCIAL HISTORY: See Below HOME MEDICATIONS: See Below ALLERGIES: See Below VITALS: See Below PHYSICAL EXAMINATION: General: resting comfortably in no acute distress Head: Normocephalic and atraumatic Eyes: Normal inspection, extraocular muscles intact Ear, nose, throat: Normal external exam Neck: Normal range of motion Respiratory: lungs clear to auscultation bilaterally Cardiovascular: Regular rate/rhythm, no murmur GI: soft, nontender, no guarding or rebound Extremities: nontender, moves all extremities Neuro: The patient awake and alert, appropriately conversive, left upper extremity motor drift, sensation intact bilaterally Skin: Warm, dry, and intact MEDICAL DECISION MAKING: This is 74-year-old male present for left arm numbness. Patient has she has slight left upper extremity motor drift but no distinct weakness on strength exam. This is a new change as per daughter and patient. Otherwise he mentions slightly numb feeling of his left upper extremity. Concern for stroke at this time. Also concern for ACS with the chest tightness. -CT of the head, CTA head and neck revealed no acute LVO at this time or hemorrhage -Blood was reviewed showing no significant abnormalities-creatinine 2.14. Stable anemia is otherwise noted. -Troponin currently negative -Chest Xray independently interpreted by me showing no pneumothorax, focal opacity, or pleural effusions. -Patient will require admission at this time for his new left upper extremity motor drift concerning for subacute stroke. -Care discussed Dr. Knox for admission Differential diagnosis: Stroke, subarachnoid hemorrhage, TIA, meningitis Independent History obtained from: Daughter Diagnostics interpreted by me: ECG: ECG independently interpreted by me with normal sinus rhythm, rate of 69, normal axis, normal MI, normal QRS, normal QTc, no ST segment elevations consistent with STEMI criteria Cardiac Monitoring: An order was placed for continuous cardiac monitoring. The monitor shows a rate of 79 with sinus rhythm. Past Med/Surg History Problem List (Updated 12/01/24 @ 01:40 by Jennifer Salomon MD) Stroke (Acute) National Institutes of Health (NIH) Stroke Scale motor arm score 1, drift, arm drifts from starting position (palms down extended 90 degrees if sitting or 45 degrees if supine) to intermediate position prior to end of full 10 seconds but never relies on support (Acute) Neurological deficit present (Acute) BRADEN (acute kidney injury) Lung nodule (Chronic) Delirium Acute confusion H/O: stroke Complicated UTI (urinary tract infection) Syncope (Acute) Elevated troponin (Acute) Fall from standing (Acute) Compression fracture of T12 vertebra (Acute) Elevated CPK (Acute) Seizure-like activity Cognitive and behavioral changes Chronic kidney disease, stage 3b (Chronic) CVA (cerebral vascular accident) Hypothyroidism History of cholecystectomy Tobacco abuse Cirrhosis HTN (hypertension) COPD (chronic obstructive pulmonary disease) Diabetes mellitus, type II Right sided weakness (Acute) Ambulatory dysfunction (Acute) Elevated troponin (Acute) Encounter for smoking cessation counseling (Acute) COPD exacerbation Medical History Hematuria Cataract Vitamin D deficiency Surgical History (Updated 05/12/24 @ 10:49 by Thuy Waller RN) History of cataract surgery Hx of appendectomy S/P cholecystectomy Family History Other Family history non-contributory Social History Smoking Status: Current every day smoker Tobacco Type: Cigarettes Age Started Using Tobacco: 10; packs per day: 1; Cigarettes Per Day: 1PPD; Do You Dip or Chew Tobacco: No; Hx Alcohol Use: No Hx Substance Use: No Preferred Language: Wolof Communication Ability: Effective Communication Ability Comment: CHALINO Hearing Ability: Hard of Hearing Programmer Required: No Beliefs That Will Affect Care: None Current Living Situation: Alone Feels Safe at Home: Yes Safety Concerns: Feels Safe At This Time Diet: diabetic and low salt during the past year weight has: decreased > 10 lbs Assistive Devices: Wheelchair Allergies Allergies Allergy/AdvReac Type Severity Reaction Status Date / Time gabapentin Allergy Unknown Verified 06/20/24 08:37 tramadol Allergy Unknown Verified 06/20/24 08:37 Home Meds Home Medications Medication Instructions Recorded Confirmed albuterol sulfate 2.5 mg/3 mL 2.5 mg inhalation QID PRN 10/26/19 11/30/24 (0.083 %) solution for nebulization Shortness Of Breath Or Wheezing carvedilol 25 mg tablet 25 mg PO BID 10/26/19 11/30/24 aspirin 81 mg capsule 81 mg PO DAILY 11/20/21 11/30/24 furosemide 20 mg tablet 20 mg PO DAILY 11/20/21 11/30/24 cholecalciferol (vitamin D3) 50 50 mcg PO DAILY 11/22/21 11/30/24 mcg (2,000 unit) capsule lancets (Accu-Chek Softclix 01/15/22 06/20/24 Lancets) oxycodone 5 mg tablet 5 mg PO BID PRN Pain 02/11/23 11/30/24 atorvastatin 20 mg tablet 40 mg PO DAILY 05/12/24 11/30/24 ciclesonide 160 mcg/actuation 1 puff inhalation BID 05/12/24 06/20/24 aerosol inhaler diclofenac sodium 1 % topical gel 2 g topical QID PRN Pain 05/12/24 11/30/24 (Arthritis Pain (diclofenac)) folic acid 1 mg tablet 1 mg PO DAILY 05/12/24 11/30/24 insulin NPH isoph U-100 human 100 10 unit subcut BID 05/12/24 11/30/24 unit/mL (3 mL) subcutaneous pen (Novolin N FlexPen) insulin glargine 100 unit/mL (3 10 unit subcut HS 05/12/24 11/30/24 mL) subcutaneous pen naloxone 4 mg/actuation nasal spray 4 mg intranasal Q3M PRN 05/12/24 06/20/24 Results & Data (ED) Vital Signs Vital Signs - 24 hr 11/30/24 15:36 11/30/24 17:19 11/30/24 17:21 Temperature 36.5 C Temperature Source Skin Pulse Rate 71 Pulse Rate [Apical] Pulse Rate from SpO2 Sensor Pulse Rhythm Pulse Rhythm [Apical] Pulse Strength [Apical] Respiratory Rate 19 Respiratory Effort / Characteristics Non-Labored Spontaneous Respiratory Depth Normal Respiratory Pattern Regular Blood Pressure 153/77 H Blood Pressure [Left Arm] Blood Pressure Mean 102 Blood Pressure Mean [Left Arm] Blood Pressure Position [Left Arm] Pulse Oximetry 96 98 98 Oxygen Delivery Method Room Air Room Air Room Air Sepsis Recent Fever Within 48 Hours No Sepsis New/Unexplained Change in Mental Status N/A Sepsis Action Taken by Nursing No Action Required 11/30/24 17:21 11/30/24 17:22 11/30/24 17:35 Temperature Temperature Source Pulse Rate 67 67 Pulse Rate [Apical] 66 Pulse Rate from SpO2 Sensor Pulse Rhythm Regular Pulse Rhythm [Apical] Regular Pulse Strength [Apical] Normal Respiratory Rate 17 17 Respiratory Effort / Characteristics Non-Labored Spontaneous Respiratory Depth Normal Respiratory Pattern Blood Pressure Blood Pressure [Left Arm] 168/83 H Blood Pressure Mean Blood Pressure Mean [Left Arm] 111 Blood Pressure Position [Left Arm] Semi-fowlers Pulse Oximetry 98 98 Oxygen Delivery Method Room Air Sepsis Recent Fever Within 48 Hours Sepsis New/Unexplained Change in Mental Status Sepsis Action Taken by Nursing 11/30/24 19:00 11/30/24 19:30 11/30/24 19:50 Temperature Temperature Source Pulse Rate 71 79 78 Pulse Rate [Apical] Pulse Rate from SpO2 Sensor 71 Pulse Rhythm Pulse Rhythm [Apical] Pulse Strength [Apical] Respiratory Rate 17 20 Respiratory Effort / Characteristics Respiratory Depth Respiratory Pattern Blood Pressure 197/84 H 187/84 H 187/84 H Blood Pressure [Left Arm] Blood Pressure Mean 131 157 Blood Pressure Mean [Left Arm] Blood Pressure Position [Left Arm] Pulse Oximetry 98 97 Oxygen Delivery Method Sepsis Recent Fever Within 48 Hours Sepsis New/Unexplained Change in Mental Status Sepsis Action Taken by Nursing 11/30/24 20:00 11/30/24 20:22 11/30/24 20:30 Temperature 36.4 C L Temperature Source Oral Pulse Rate 73 77 Pulse Rate [Apical] Pulse Rate from SpO2 Sensor 72 Pulse Rhythm Pulse Rhythm [Apical] Pulse Strength [Apical] Respiratory Rate 19 18 Respiratory Effort / Characteristics Non-Labored Spontaneous Respiratory Depth Normal Respiratory Pattern Regular Blood Pressure 203/97 H 173/112 H Blood Pressure [Left Arm] 205/81 H Blood Pressure Mean 152 Blood Pressure Mean [Left Arm] 122 Blood Pressure Position [Left Arm] Pulse Oximetry 98 97 Oxygen Delivery Method Room Air Sepsis Recent Fever Within 48 Hours Sepsis New/Unexplained Change in Mental Status Sepsis Action Taken by Nursing 11/30/24 20:30 Temperature Temperature Source Pulse Rate 75 Pulse Rate [Apical] Pulse Rate from SpO2 Sensor 75 Pulse Rhythm Pulse Rhythm [Apical] Pulse Strength [Apical] Respiratory Rate 21 Respiratory Effort / Characteristics Respiratory Depth Respiratory Pattern Blood Pressure 173/112 H Blood Pressure [Left Arm] Blood Pressure Mean 117 Blood Pressure Mean [Left Arm] Blood Pressure Position [Left Arm] Pulse Oximetry 97 Oxygen Delivery Method Sepsis Recent Fever Within 48 Hours Sepsis New/Unexplained Change in Mental Status Sepsis Action Taken by Nursing Laboratory Data 11/30/24 15:58 11/30/24 15:58 Lab Results 11/30/24 11/30/24 11/30/24 Range/Units 15:58 16:00 20:40 WBC 4.63 L (4.8-10.8) K/ul RBC 3.39 L (4.70-6.10) M/uL Hgb 11.6 L (14.0-18.0) g/dl Hct 32.4 L (42.0-52.0) % MCV 95.6 (80.0-100.0) fL MCH 34.2 H (25.0-34.0) pg MCHC 35.8 (32.0-36.0) g/dL RDW Std Deviation 48.6 H (36.4-46.3) fL RDW Coeff of Khushboo 13.9 (11.5-14.5) % Plt Count 70 L (130-400) K/uL MPV 9.5 (9.4-12.4) fL Immature Gran % (Auto) 0.4 % Neut % (Auto) 64.7 % Lymph % (Auto) 27.2 % Lake % (Auto) 4.5 % Eos % (Auto) 3.0 % Baso % (Auto) 0.2 % Neut # (Auto) 2.99 (1.40-6.50) K/uL Lymph # (Auto) 1.26 (1.20-3.40) K/uL [place] # (Auto) 0.21 (0.11-0.59) K/uL Eos # (Auto) 0.14 (0.00-0.50) K/uL Baso # (Auto) 0.01 (0.00-0.20) K/uL Immature Gran # (Auto) 0.02 (0.01-0.20) K/uL PT 11.6 (9.0-12.0) Seconds INR 1.1 (0.9-1.1) APTT 27 (21-31) Seconds PTT Ratio 1.0 Sodium 136 (136-145) mmol/L Potassium 4.8 (3.5-5.1) mmol/L Chloride 105 (98-107) mmol/L Carbon Dioxide 29 (21-32) mmol/L Anion Gap 2 L (3-11) BUN 45 H (6-23) mg/dl Creatinine 2.14 H (0.6-1.4) mg/dl Est Cr Clr Drug Dosing Not Reportable eGFR 31.30 BUN/Creatinine Ratio 21.0 H (10-20) Glucose 150 H (70-99(Fasting)) mg/dl Calcium 8.8 (8.6-10.3) mg/dl Magnesium 1.8 (1.7-2.4) mg/dl Total Bilirubin 2.2 H (0.2-1.0) mg/dl AST 25 (13-39) U/L ALT 30 (7-52) U/L Alkaline Phosphatase 75 (34-104) U/L Troponin I High Sens 10.8 (0-20) pg/ml Total Protein 6.4 (6.0-8.3) gm/dl Albumin 3.5 (3.4-5.0) gm/dl Globulin 2.9 (2.5-4.0) gm/dl Albumin/Globulin Ratio 1.2 (0.9-2) Urine Color Yellow Urine Appearance Clear (Clear) Urine pH 7.0 (4.5-7.5) Ur Specific [place] 1.031 H (1.000-1.030) Urine Protein 2+ H (Negative) Urine Glucose (UA) Negative (Negative) Urine Ketones Negative (Negative) Urine Blood Trace H (Negative) Urine Nitrite Negative (Negative) Urine Bilirubin Negative (Negative) Urine Urobilinogen Negative (Negative) Ur Leukocyte Esterase Negative (Negative) Urine WBC (Auto) 0-5 (0-5) /hpf Urine RBC (Auto) 3-5 H (0-2) /hpf U Hyaline Cast (Auto) 0-2 (0-2) /lpf U Epithel Cells (Auto) 0-2 (0-2) /hpf Urine Bacteria (Auto) None Seen (None Seen) Adenovirus (PCR) Not Detected (NotDetected) B. pertussis DNA (PCR) Not Detected (NotDetected) B.parapertussis DNA PCR Not Detected (NotDetected) C. pneumoniae DNA (PCR) Not Detected (NotDetected) Coronavirus OC43 (PCR) Not Detected (NotDetected) Coronavirus HKU1 (PCR) Not Detected (NotDetected) Coronavirus 229E (PCR) Not Detected (NotDetected) SARS-CoV-2 (PCR) Not Detected (NotDetected) Coronavirus NL63 (PCR) Not Detected (NotDetected) Human Metapneumovir PCR Not Detected (NotDetected) Influenza Type A (PCR) Not Detected (NotDetected) Influenza Type B (PCR) Not Detected (NotDetected) M. pneumoniae (PCR) Not Detected (NotDetected) Parainfluenza 1 (PCR) Not Detected (NotDetected) Parainfluenza 2 (PCR) Not Detected (NotDetected) Parainfluenza 3 (PCR) Not Detected (NotDetected) Parainfluenza 4 (PCR) Not Detected (NotDetected) RSV (PCR) Not Detected (NotDetected) Entero/Rhino (PCR) Not Detected (NotDetected) Administered Medications Insulin Aspart (Insulin Aspart Per Unit Charge) 0 units SC ACHS DARIAN Stop: 12/30/24 22:21 Last Admin: 12/01/24 00:25 Dose: Not Given Documented By: JRB Discontinued Medications Ioversol (Optiray 320 125ml) 119 ml IV ONCE ONE Stop: 11/30/24 18:56 Last Admin: 11/30/24 18:55 Dose: 119 ml Documented By: DONOVAN Metoprolol Tartrate (Metoprolol Tartrate 1 Mg/Ml Vial) 2.5 mg IV NOW STA Stop: 11/30/24 19:42 Last Admin: 11/30/24 19:50 Dose: 2.5 mg Documented By: RACHEL Imaging Data Radiologist's Impression: Chest X-Ray 11/30/24 15:41 Clinical History: Chest pain Technique: A frontal view of the chest was obtained Comparison is made to the prior examination dated 08/26/2024 Findings: There are no confluent pulmonary infiltrates. The heart size is within normal limits. No pleural effusion or pneumothorax is seen. There is no definite pulmonary nodule. No fracture is noted. No foreign body is seen Impression: No active disease Electronically signed by Dion Gomez 11-30-2024 4:[address] 11/30/24 17:46 EXAMINATION: Head CT without CLINICAL HISTORY: Chest pain PRIORS: 02/05/2023 TECHNIQUE: Contiguous axial images were obtained through the head without the use of intravenous contrast. Sagittal and coronal reformations are supplied. FINDINGS: Mild parenchymal volume loss noted. Hurtado-white differentiation is preserved. No edema or midline shift. No intra-axial or extra-axial hemorrhage. Ventricles are normal in size and configuration. Brainstem and cerebellum have a normal appearance. Calvarium unremarkable. Paranasal sinuses and mastoid air cells are well-pneumatized. Globes are intact. No retrobulbar abnormality. IMPRESSION: No CT evidence of an acute intracranial abnormality. Electronically signed by Ritika Davidson 11-30-2024 7:15 PM Head CTA 11/30/24 17:46 EXAM: CTA head with CLINICAL HISTORY: Chest pain chest pain TECHNIQUE: Contiguous CTA axial images were obtained through the head after the administration of intravenous contrast. Sagittal and coronal reformations are supplied. PRIORS: None FINDINGS: The vertebral arteries form the basilar artery at the skull base. [place] of [place] is patent. No thrombus or hemodynamically significant stenosis. Moderate atherosclerotic disease is present involving the internal carotid arteries and the cavernous portion with no high-grade stenosis or thrombosis. No aneurysmal dilatation or sánchez aneurysm. No enhancing mass in the brain. IMPRESSION: No CTA evidence of an acute vascular abnormality. Electronically signed by Ritika Davidson 11-30-2024 7:15 PM Neck CTA 11/30/24 17:46 EXAM: CT angio neck with con CLINICAL HISTORY: TECHNIQUE: Contiguous CTA axial images were obtained through the neck with the administration of intravenous contrast. Sagittal and coronal reformations are supplied. MIPS are supplied. COMPARISON: None FINDINGS: A left-sided aortic arch is present moderate to advanced atherosclerotic disease present. Mild to moderate atherosclerotic disease at the origin of the left subclavian artery with no hemodynamically significant stenosis. RIGHT: Moderate atherosclerotic disease involving the carotid bulb and proximal internal carotid artery with approximately 50% stenosis. The internal carotid artery opacifies normally and enters the petrous portion of the skull base. LEFT: Moderate atherosclerotic disease of the carotid bulb and involving a short segment of proximal internal carotid artery with stenosis of approximately 50%. The internal carotid artery enters the petrous portion of the skull base normally. Vertebral arteries are codominant with no atherosclerotic disease identified. Both contribute to the basilar artery at the skull base. Moderate osseous demineralization noted. No adenopathy identified in the neck. IMPRESSION: Moderate atherosclerotic disease of the proximal internal carotid arteries with approximately 50% stenosis and no hemodynamically significant stenosis or thrombosis. Electronically signed by Ritika Davidson 11-30-2024 7:15 PM Discharge Plan Visit Data Chief Complaint: Chest Pain Stated Complaint: CHEST PAIN, LT SIDE, NUMBMESS ON SIDE, SOB ED Provider: Jennifer Salomon Discharge Problem: Neurological deficit present, National Institutes of Health (NIH) Stroke Scale motor arm score 1, drift, arm drifts from starting position (palms down extended 90 degrees if sitting or 45 degrees if supine) to intermediate position prior to end of full 10 seconds but never relies on support, Stroke Patient Disposition: Admitted As Inpatient Discharge Instructions Interventions: ED Discharge Assessment Last Done: 11/30/24 21:23
[2024-11-30] MEDS: OPTIRAY 320 125ml IV ONE (18:55)
--- NOTE | 2024-11-30 19:15 | CT Scan Report ---
EXAM: CTA head with CLINICAL HISTORY: Chest pain chest pain TECHNIQUE: Contiguous CTA axial images were obtained through the head after the administration of intravenous contrast. Sagittal and coronal reformations are supplied. PRIORS: None FINDINGS: The vertebral arteries form the basilar artery at the skull base. [place] is patent. No thrombus or hemodynamically significant stenosis. Moderate atherosclerotic disease is present involving the internal carotid arteries and the cavernous portion with no high-grade stenosis or thrombosis. No aneurysmal dilatation or sánchez aneurysm. No enhancing mass in the brain. IMPRESSION: No CTA evidence of an acute vascular abnormality. Electronically signed by Ritika Davidson 11-30-2024 7:15 PM
--- NOTE | 2024-11-30 19:16 | CT Scan Report ---
EXAMINATION: Head CT without CLINICAL HISTORY: Chest pain PRIORS: 02/05/2023 TECHNIQUE: Contiguous axial images were obtained through the head without the use of intravenous contrast. Sagittal and coronal reformations are supplied. FINDINGS: Mild parenchymal volume loss noted. Hurtado-white differentiation is preserved. No edema or midline shift. No intra-axial or extra-axial hemorrhage. Ventricles are normal in size and configuration. Brainstem and cerebellum have a normal appearance. Calvarium unremarkable. Paranasal sinuses and mastoid air cells are well-pneumatized. Globes are intact. No retrobulbar abnormality. IMPRESSION: No CT evidence of an acute intracranial abnormality. Electronically signed by Ritika Davidson 11-30-2024 7:15 PM
--- NOTE | 2024-11-30 19:16 | CT Scan Report ---
EXAM: CT angio neck with con CLINICAL HISTORY: TECHNIQUE: Contiguous CTA axial images were obtained through the neck with the administration of intravenous contrast. Sagittal and coronal reformations are supplied. MIPS are supplied. COMPARISON: None FINDINGS: A left-sided aortic arch is present moderate to advanced atherosclerotic disease present. Mild to moderate atherosclerotic disease at the origin of the left subclavian artery with no hemodynamically significant stenosis. RIGHT: Moderate atherosclerotic disease involving the carotid bulb and proximal internal carotid artery with approximately 50% stenosis. The internal carotid artery opacifies normally and enters the petrous portion of the skull base. LEFT: Moderate atherosclerotic disease of the carotid bulb and involving a short segment of proximal internal carotid artery with stenosis of approximately 50%. The internal carotid artery enters the petrous portion of the skull base normally. Vertebral arteries are codominant with no atherosclerotic disease identified. Both contribute to the basilar artery at the skull base. Moderate osseous demineralization noted. No adenopathy identified in the neck. IMPRESSION: Moderate atherosclerotic disease of the proximal internal carotid arteries with approximately 50% stenosis and no hemodynamically significant stenosis or thrombosis. Electronically signed by Ritika Davidson 11-30-2024 7:15 PM
[2024-11-30] MEDS: METOPROLOL TARTRATE 1 MG/ML VIAL IV STA (19:50)
[2024-11-30 20:22] LABS: Magnesium 1.8 mg/dl (1.7-2.4)
--- NOTE | 2024-11-30 20:42 | History & Physical Report ---
Date of Service November 30, 2024 Assessment & Plan (1) Hypertensive crisis: Plan: Hypertensive crisis Left-sided weakness Possible recurrent CVA ? Aspirin failure PVD Hyperlipidemia on statin Rx COPD, lung status at baseline valvular heart disease (mild MR/AR, TTE 2019)/right to left interatrial shunt on TTE DM2 insulin requiring, well-controlled as of hemoglobin A1c of 4.7 last 2022 hypothyroidism, currently not on maintenance Rx Alcoholic cirrhosis, no overt decompensation HCV status post Rx CRI, creatinine at baseline chronic anemia, at baseline chronic thrombocytopenia secondary to liver disease PET positive left upper lobe lung nodule status post radiation past tobacco/alcohol abuse. Admit to PCU IV Lopressor 1 dose now Neurochecks Plavix 1 dose for possible aspirin failure Continue aspirin and statin Rx for stroke prevention MRI brain, TTE for stroke workup Neurology consult Re: Left-sided weakness (Patient seen by [facility] during 2021 visit.) Update lipid profile Check TSH Basal bolus insulin, ISS BG goal 1 10-1 40, carb count coverage, update hemoglobin A1c DVT prophylaxis. SCDs Re: Thrombocytopenia DNR Patient daughter requesting updates providers. Rocio Ruben, contact #[phone]. Text document was generated using [employer] voice recognition software. It may contain grammatical or spelling errors. Kindly contact undersigned for clarification of any documentation item in question. History of Present Illness Chief Complaint: Left-sided weakness Primary Care Provider: Madeline Au PA-C History obtained from patient and records. Medical history significant for COPD, hypertension, hyperlipidemia, CVA, valvular heart disease (mild MR/AR, TTE 2019), right to left interatrial shunt as per records, chronic pain, DM2 insulin requiring, hypothyroidism, alcoholic cirrhosis, HCV status post Rx, CRI (baseline creatinine 1.7), chronic anemia (baseline hemoglobin of 10-11), chronic thrombocytopenia, PET positive left upper lobe lung nodule status post radiation, BPH, past tobacco/alcohol abuse. Last confinement January 2023 for complicated UTI in the setting of fall resulting in cerebral concussion and T12 compression fracture. 2 days ago, patient noted left-sided weakness/numbness without headache or neck pain complaints. No recent trauma. Patient compliant with home medications. Intermittent slurred speech noted by daughter at home. Old right-sided weakness from previous stroke as per daughter. Patient dropping things more frequently with left hand. Intermittent chest tightness complaints, last episode was this morning. Patient denies cough or unusual SOB symptoms. Highest SBP of 200s documented at the ER. Medical History as above Surgical History : Cholecystectomy, appendectomy, cataract surgeries Family History : Heart disease Personal/Social history : Past tobacco/alcohol abuse Allergies Allergy/AdvReac Type Severity Reaction Status Date / Time gabapentin Allergy Unknown Verified 06/20/24 08:37 tramadol Allergy Unknown Verified 06/20/24 08:37 Home Medications Medication Instructions Recorded Confirmed Type albuterol sulfate 2.5 mg/3 mL 2.5 mg inhalation QID PRN 10/26/19 11/30/24 History (0.083 %) solution for nebulization Shortness Of Breath Or Wheezing carvedilol 25 mg tablet 25 mg PO BID 10/26/19 11/30/24 History aspirin 81 mg capsule 81 mg PO DAILY 11/20/21 11/30/24 History furosemide 20 mg tablet 20 mg PO DAILY 11/20/21 11/30/24 History cholecalciferol (vitamin D3) 50 50 mcg PO DAILY 11/22/21 11/30/24 History mcg (2,000 unit) capsule lancets (Accu-Chek Softclix 01/15/22 06/20/24 History Lancets) oxycodone 5 mg tablet 5 mg PO BID PRN Pain 02/11/23 11/30/24 History atorvastatin 20 mg tablet 40 mg PO DAILY 05/12/24 11/30/24 History ciclesonide 160 mcg/actuation 1 puff inhalation BID 05/12/24 06/20/24 History aerosol inhaler diclofenac sodium 1 % topical gel 2 g topical QID PRN Pain 05/12/24 11/30/24 History (Arthritis Pain (diclofenac)) folic acid 1 mg tablet 1 mg PO DAILY 05/12/24 11/30/24 History insulin NPH isoph U-100 human 100 10 unit subcut BID 05/12/24 11/30/24 History unit/mL (3 mL) subcutaneous pen (Novolin N FlexPen) insulin glargine 100 unit/mL (3 10 unit subcut HS 05/12/24 11/30/24 History mL) subcutaneous pen naloxone 4 mg/actuation nasal spray 4 mg intranasal Q3M PRN 05/12/24 06/20/24 History Past Med/Surg History Problem List (Updated 12/01/24 @ 06:11 by Andrae Urbina MD) Hypertensive crisis Stroke (Acute) National Institutes of Health (NIH) Stroke Scale motor arm score 1, drift, arm drifts from starting position (palms down extended 90 degrees if sitting or 45 degrees if supine) to intermediate position prior to end of full 10 seconds but never relies on support (Acute) Neurological deficit present (Acute) BRADEN (acute kidney injury) Lung nodule (Chronic) Delirium Acute confusion H/O: stroke Complicated UTI (urinary tract infection) Syncope (Acute) Elevated troponin (Acute) Fall from standing (Acute) Compression fracture of T12 vertebra (Acute) Elevated CPK (Acute) Seizure-like activity Cognitive and behavioral changes Chronic kidney disease, stage 3b (Chronic) CVA (cerebral vascular accident) Hypothyroidism History of cholecystectomy Tobacco abuse Cirrhosis HTN (hypertension) COPD (chronic obstructive pulmonary disease) Diabetes mellitus, type II Right sided weakness (Acute) Ambulatory dysfunction (Acute) Elevated troponin (Acute) Encounter for smoking cessation counseling (Acute) COPD exacerbation Medical History Hematuria Cataract Vitamin D deficiency Surgical History (Updated 05/12/24 @ 10:49 by Thuy Waller RN) History of cataract surgery Hx of appendectomy S/P cholecystectomy Family History Other Family history non-contributory Social History Smoking Status: Current every day smoker Tobacco Type: Cigarettes Age Started Using Tobacco: 10; packs per day: 1; Cigarettes Per Day: 1PPD; Do You Dip or Chew Tobacco: No; Hx Alcohol Use: No Hx Substance Use: No Preferred Language: [place] Communication Ability: Effective Communication Ability Comment: [place] Hearing Ability: Hard of Hearing Individualized Education Plan Aide Required: No Beliefs That Will Affect Care: None Current Living Situation: Alone Feels Safe at Home: Yes Safety Concerns: Feels Safe At This Time Diet: diabetic and low salt during the past year weight has: decreased > 10 lbs Assistive Devices: Wheelchair Review of Systems Review of Systems: As per HPI, all other systems reviewed and negative Physical Exam Physical Exam: GENERAL: comfortable, obese, pleasant, no respiratory distress SKIN: Pallor, warm HEENT: Alopecia, pale palpebral conjunctivae, no ptosis, dry buccal mucosa NECK : Supple, short neck, no tenderness CHEST : Decreased breath sounds, no tenderness HEART : RRR, systolic murmur ABDOMEN: Some distention, nontender EXTREMITIES : Minimal LE swelling, no LE tenderness, ecchymoses noted over upper extremity (chronic as per daughter) NEUROLOGIC : Coherent, no facial asymmetry, MMTs BUE 4/5, BLE 3/5 (R>L), gait and stance not assessed Results & Data Results & Data Vital Signs (Past 12 Hours) Vital Signs Temp Pulse Pulse Resp BP BP Pulse Ox 11/30/24 20:30 77 173/112 H 11/30/24 20:00 73 19 203/97 H 98 11/30/24 19:50 78 187/84 H 11/30/24 19:30 79 20 187/84 H 97 11/30/24 19:00 71 17 197/84 H 98 11/30/24 17:35 67 11/30/24 17:22 66 17 168/83 H 98 11/30/24 17:21 67 17 98 11/30/24 17:21 98 11/30/24 17:19 98 11/30/24 15:36 36.5 C 71 19 153/77 H 96 O2 Del Method 11/30/24 20:30 11/30/24 20:00 11/30/24 19:50 11/30/24 19:30 11/30/24 19:00 11/30/24 17:35 11/30/24 17:22 Room Air 11/30/24 17:21 11/30/24 17:21 Room Air 11/30/24 17:19 Room Air 11/30/24 15:36 Room Air Laboratory Results Laboratory Results WBC 4.63 K/ul (4.8-10.8) L 11/30/24 15:58 RBC 3.39 M/uL (4.70-6.10) L 11/30/24 15:58 Hgb 11.6 g/dl (14.0-18.0) L 11/30/24 15:58 Hct 32.4 % (42.0-52.0) L 11/30/24 15:58 MCV 95.6 fL (80.0-100.0) 11/30/24 15:58 MCH 34.2 pg (25.0-34.0) H 11/30/24 15:58 MCHC 35.8 g/dL (32.0-36.0) 11/30/24 15:58 RDW Std Deviation 48.6 fL (36.4-46.3) H 11/30/24 15:58 RDW Coeff of Khushboo 13.9 % (11.5-14.5) 11/30/24 15:58 Plt Count 70 K/uL (130-400) L 11/30/24 15:58 MPV 9.5 fL (9.4-12.4) 11/30/24 15:58 Immature Gran % (Auto) 0.4 % 11/30/24 15:58 Neut % (Auto) 64.7 % 11/30/24 15:58 Lymph % (Auto) 27.2 % 11/30/24 15:58 [place] % (Auto) 4.5 % 11/30/24 15:58 Eos % (Auto) 3.0 % 11/30/24 15:58 Baso % (Auto) 0.2 % 11/30/24 15:58 Neut # (Auto) 2.99 K/uL (1.40-6.50) 11/30/24 15:58 Lymph # (Auto) 1.26 K/uL (1.20-3.40) 11/30/24 15:58 [place] # (Auto) 0.21 K/uL (0.11-0.59) 11/30/24 15:58 Eos # (Auto) 0.14 K/uL (0.00-0.50) 11/30/24 15:58 Baso # (Auto) 0.01 K/uL (0.00-0.20) 11/30/24 15:58 Immature Gran # (Auto) 0.02 K/uL (0.01-0.20) 11/30/24 15:58 PT 11.6 Seconds (9.0-12.0) 11/30/24 15:58 INR 1.1 (0.9-1.1) 11/30/24 15:58 APTT 27 Seconds (21-31) 11/30/24 15:58 PTT Ratio 1.0 11/30/24 15:58 Sodium 136 mmol/L (136-145) 11/30/24 15:58 Potassium 4.8 mmol/L (3.5-5.1) 11/30/24 15:58 Chloride 105 mmol/L (98-107) 11/30/24 15:58 Carbon Dioxide 29 mmol/L (21-32) 11/30/24 15:58 Anion Gap 2 (3-11) L 11/30/24 15:58 BUN 45 mg/dl (6-23) H 11/30/24 15:58 Creatinine 2.14 mg/dl (0.6-1.4) H 11/30/24 15:58 Est Cr Clr Drug Dosing Not Reportable 11/30/24 15:58 eGFR 31.30 11/30/24 15:58 BUN/Creatinine Ratio 21.0 (10-20) H 11/30/24 15:58 Glucose 150 mg/dl (70-99(Fasting)) H 11/30/24 15:58 Calcium 8.8 mg/dl (8.6-10.3) 11/30/24 15:58 Magnesium 1.8 mg/dl (1.7-2.4) 11/30/24 15:58 Total Bilirubin 2.2 mg/dl (0.2-1.0) H 11/30/24 15:58 AST 25 U/L (13-39) 11/30/24 15:58 ALT 30 U/L (7-52) 11/30/24 15:58 Alkaline Phosphatase 75 U/L (34-104) 11/30/24 15:58 Troponin I High Sens 10.8 pg/ml (0-20) 11/30/24 15:58 Total Protein 6.4 gm/dl (6.0-8.3) 11/30/24 15:58 Albumin 3.5 gm/dl (3.4-5.0) 11/30/24 15:58 Globulin 2.9 gm/dl (2.5-4.0) 11/30/24 15:58 Albumin/Globulin Ratio 1.2 (0.9-2) 11/30/24 15:58 Adenovirus (PCR) Not Detected (NotDetected) 11/30/24 16:00 B. pertussis DNA (PCR) Not Detected (NotDetected) 11/30/24 16:00 B.parapertussis DNA PCR Not Detected (NotDetected) 11/30/24 16:00 C. pneumoniae DNA (PCR) Not Detected (NotDetected) 11/30/24 16:00 Coronavirus OC43 (PCR) Not Detected (NotDetected) 11/30/24 16:00 Coronavirus HKU1 (PCR) Not Detected (NotDetected) 11/30/24 16:00 Coronavirus 229E (PCR) Not Detected (NotDetected) 11/30/24 16:00 SARS-CoV-2 (PCR) Not Detected (NotDetected) 11/30/24 16:00 Coronavirus NL63 (PCR) Not Detected (NotDetected) 11/30/24 16:00 Human Metapneumovir PCR Not Detected (NotDetected) 11/30/24 16:00 Influenza Type A (PCR) Not Detected (NotDetected) 11/30/24 16:00 Influenza Type B (PCR) Not Detected (NotDetected) 11/30/24 16:00 M. pneumoniae (PCR) Not Detected (NotDetected) 11/30/24 16:00 Parainfluenza 1 (PCR) Not Detected (NotDetected) 11/30/24 16:00 Parainfluenza 2 (PCR) Not Detected (NotDetected) 11/30/24 16:00 Parainfluenza 3 (PCR) Not Detected (NotDetected) 11/30/24 16:00 Parainfluenza 4 (PCR) Not Detected (NotDetected) 11/30/24 16:00 RSV (PCR) Not Detected (NotDetected) 11/30/24 16:00 Entero/Rhino (PCR) Not Detected (NotDetected) 11/30/24 16:00 Impressions Chest X-Ray 11/30/24 15:41 Clinical History: Chest pain Technique: A frontal view of the chest was obtained Comparison is made to the prior examination dated 08/26/2024 Findings: There are no confluent pulmonary infiltrates. The heart size is within normal limits. No pleural effusion or pneumothorax is seen. There is no definite pulmonary nodule. No fracture is noted. No foreign body is seen Impression: No active disease Electronically signed by Dion Gomez 11-30-2024 4:[address] 11/30/24 17:46 EXAMINATION: Head CT without CLINICAL HISTORY: Chest pain PRIORS: 02/05/2023 TECHNIQUE: Contiguous axial images were obtained through the head without the use of intravenous contrast. Sagittal and coronal reformations are supplied. FINDINGS: Mild parenchymal volume loss noted. Hurtado-white differentiation is preserved. No edema or midline shift. No intra-axial or extra-axial hemorrhage. Ventricles are normal in size and configuration. Brainstem and cerebellum have a normal appearance. Calvarium unremarkable. Paranasal sinuses and mastoid air cells are well-pneumatized. Globes are intact. No retrobulbar abnormality. IMPRESSION: No CT evidence of an acute intracranial abnormality. Electronically signed by Ritika Davidson 11-30-2024 7:15 PM Head CTA 11/30/24 17:46 EXAM: CTA head with CLINICAL HISTORY: Chest pain chest pain TECHNIQUE: Contiguous CTA axial images were obtained through the head after the administration of intravenous contrast. Sagittal and coronal reformations are supplied. PRIORS: None FINDINGS: The vertebral arteries form the basilar artery at the skull base. [place] of [place] is patent. No thrombus or hemodynamically significant stenosis. Moderate atherosclerotic disease is present involving the internal carotid arteries and the cavernous portion with no high-grade stenosis or thrombosis. No aneurysmal dilatation or sánchez aneurysm. No enhancing mass in the brain. IMPRESSION: No CTA evidence of an acute vascular abnormality. Electronically signed by Ritika Davidson 11-30-2024 7:15 PM Neck CTA 11/30/24 17:46 EXAM: CT angio neck with con CLINICAL HISTORY: TECHNIQUE: Contiguous CTA axial images were obtained through the neck with the administration of intravenous contrast. Sagittal and coronal reformations are supplied. MIPS are supplied. COMPARISON: None FINDINGS: A left-sided aortic arch is present moderate to advanced atherosclerotic disease present. Mild to moderate atherosclerotic disease at the origin of the left subclavian artery with no hemodynamically significant stenosis. RIGHT: Moderate atherosclerotic disease involving the carotid bulb and proximal internal carotid artery with approximately 50% stenosis. The internal carotid artery opacifies normally and enters the petrous portion of the skull base. LEFT: Moderate atherosclerotic disease of the carotid bulb and involving a short segment of proximal internal carotid artery with stenosis of approximately 50%. The internal carotid artery enters the petrous portion of the skull base normally. Vertebral arteries are codominant with no atherosclerotic disease identified. Both contribute to the basilar artery at the skull base. Moderate osseous demineralization noted. No adenopathy identified in the neck. IMPRESSION: Moderate atherosclerotic disease of the proximal internal carotid arteries with approximately 50% stenosis and no hemodynamically significant stenosis or thrombosis. Electronically signed by Ritika Davidson 11-30-2024 7:15 PM Diagnostic Findings EKG as per my interpretation :Rate 70, NSR, normal axis, T wave abnormality septal leads
[2024-11-30] MEDS ORDERED: PHARMACIST DISCHARGE MED REC CONSULT PRN (20:46)
[2024-11-30 21:08] LABS: Appearance Urine Clear (Clear); Bacteria Urine Automated None Seen (None Seen); Bilirubin Urine Negative (Negative); Blood Urine Trace (Negative); Cast Urine Automated 0-2 /lpf (0-2); Color Urine Yellow; Epithelial Cell Urine Auto 0-2 /hpf (0-2); Glucose Urine UA Negative (Negative); Ketones Urine Negative (Negative); Leukocyte Esterase Urine Negative (Negative); Nitrite Urine Negative (Negative); Protein Urine 2+ (Negative); Specific Gravity Urine 1.031 (1.000-1.030); Urobilinogen Urine Negative (Negative); WBC Urine Automated 0-5 /hpf (0-5)
[2024-11-30] MEDS ORDERED: oxyCODONE HCL IR 5 MG TAB (IMMEDIATE RELEASE) PO PRN (22:09)
[2024-11-30] MEDS ORDERED: ACETAMINOPHEN 325 MG TAB PO PRN (22:10)
[2024-11-30] MEDS ORDERED: GLUCAGON FOR INJ 1 MG VIAL SQ PRN (22:22)
[2024-11-30] MEDS ORDERED: CARBOHYDRATES FOR HYPOGLYCEMIA PO PRN (22:22)
[2024-11-30] MEDS ORDERED: GLUCOSE 10 TAB/TUBE PO PRN (22:22)
[2024-11-30] MEDS ORDERED: DEXTROSE 50% 50 ML SYRINGE IV PRN (22:22)
[2024-11-30] MEDS ORDERED: GLUCOSE 40% GEL 15 GM TUBE PO PRN (22:22)
[2024-12-01] MEDS: INSULIN ASPART PER UNIT CHARGE SC SCH (00:25)
[2024-12-01] MEDS: CLOPIDOGREL BISULFATE 75 MG TAB PO ONE (01:10)
[2024-12-01 07:33] LABS: Basophils # (auto) 0.01 K/uL (0.00-0.20); Basophils % (auto) 0.2 %; Eosinophils # (auto) 0.11 K/uL (0.00-0.50); Eosinophils % (auto) 2.3 %; Hematocrit (blood only) 27.7 % (42.0-52.0); Hemoglobin 10.3 g/dl (14.0-18.0); Immature Granulocytes # (auto) 0.07 K/uL (0.01-0.20); Immature Granulocytes % (auto) 1.5 %; Lymphocytes # (auto) 1.79 K/uL (1.20-3.40); Lymphocytes % (auto) 37.4 %; Mean Corpuscular Hemoglobin 34.8 pg (25.0-34.0); Mean Corpuscular Hgb Conc 37.2 g/dL (32.0-36.0); Mean Corpuscular Volume 93.6 fL (80.0-100.0); Mean Platelet Volume 9.1 fL (9.4-12.4); Monocytes % (auto) 6.3 %; Neutrophils # (auto) 2.51 K/uL (1.40-6.50); Neutrophils % (auto) 52.3 %; Platelet Count 66 K/uL (130-400); RDW Coefficient of Variation 13.5 % (11.5-14.5); RDW Standard Deviation 46.6 fL (36.4-46.3); Red Blood Count 2.96 M/uL (4.70-6.10); White Blood Count 4.79 K/ul (4.8-10.8)
[2024-12-01 07:59] LABS: Thyroid Stimulating Hormone 4.581 uIu/ml (0.300-4.500)
[2024-12-01 08:01] LABS: Calcium 8.6 mg/dl (8.6-10.3); Chol HDL Ratio 2.1 (0-5); Creatinine Clr Calc Pharmacy 33.2 ml/min; Potassium 4.5 mmol/L (3.5-5.1)
[2024-12-01 08:36] LABS: T4 Free Thyroxine 0.96 ng/dl (0.61-1.60)
[2024-12-01] MEDS ORDERED: carvediloL 6.25 MG TAB PO SCH (09:00)
[2024-12-01 09:07] LABS: Estimated Average Glucose 82 mg/dl; Hemoglobin A1C 4.5 % (4.5-5.6)
[2024-12-01] MEDS: carvediloL 3.125 MG TAB PO SCH (09:25)
[2024-12-01] MEDS: FOLIC ACID 1 MG TAB PO SCH (09:25)
[2024-12-01] MEDS: ATORVASTATIN 40 MG TAB PO SCH (09:25)
[2024-12-01] MEDS: ASPIRIN 81 MG ECTAB PO SCH (09:25)
[2024-12-01] MEDS: LANTUS PER UNIT CHARGE SQ SCH (09:28)
[2024-12-01] MEDS: LORazepam 0.5 MG TAB PO STA (10:55)
--- NOTE | 2024-12-01 11:00 | Neurology Consultation ---
Date of Consultation December 01, 2024 Assessment & Plan (1) Stroke-like symptoms: (2) Hypertensive crisis: (3) H/O: stroke: Plan 74-year-old male with a history of acute ischemic stroke within the left thalamus/internal capsule identified on brain MRI at [facility] October 2019. Several other chronic lacunar infarcts, insulin-dependent diabetes mellitus that appears to be well-controlled, remote history of alcohol use disorder with associated cirrhosis of the liver, history of syncope/fall in January 2023 complicated by acute T12 spinal fracture not involving the posterior elements (I had seen him in [facility] at that time). Now presenting with left-sided sensorimotor symptoms potentially consistent with an acute ischemic infarct involving the subcortical right cerebral hemisphere. His motor symptoms have resolved although he continues to complain of sensory disturbance, numbness, but with hypersensitivity to touch for the left face, arm, and leg. The symptoms occur in the context of hypertensive crisis. No obvious acute process on CT of the head or CTA of the head and neck. Would recommend brain MRI. If patient unable to tolerate MRI, would recommend a repeat noncontrast CT of the head. Would also recommend dual antiplatelet therapy, aspirin 81 mg/day and Plavix 75 mg/day for 3 weeks. Would then transition to Plavix monotherapy. May continue with atorvastatin at the current dosage. His LDL is 24 (goal 70 or less). Continue medical management of hypertensive crisis, gradual reduction of blood pressure to avoid hypoperfusion. Consider obtaining mobile cardiac outpatient telemetry. Patient should continue to follow-up with his PCP for ongoing monitoring and management of cardiovascular risk factors. He should not require additional outpatient pathology follow-up. Please call with any questions. History of Present Illness Reason for Consultation: concern for stroke Requesting Physician: Ciara Attending Physician: Eduardo Diaz MD History of Present Illness The patient is a 74-year-old male who presented to the emergency department yesterday with a complaint of left-sided numbness and weakness that began the previous day. Symptoms began with left upper extremity numbness and tingling and progressed to the lower limb. He then became aware of a feeling of weakness in the left arm and hand. The weakness seems to have resolved although he continues to report a strange feeling of numbness or sensory disturbance affecting the left face, arm, and leg. I independently reviewed the CT of the head completed yesterday evening. There are chronic lacunar infarcts in the left cerebellar hemisphere, right cerebellar hemisphere, bilateral thalami, and left internal capsule. There is generalized atrophy, no hydrocephalus, no hemorrhage or acute process. CT angiography of the neck revealed 50% stenoses of the proximal internal carotid arteries due to atherosclerotic plaque. A CTA of the head was unremarkable. His blood pressure has been significantly elevated and he has been admitted with a diagnosis of hypertensive crisis with concern for possible recurrent stroke. He has been taking aspirin and atorvastatin as an outpatient. History also notable for insulin-dependent diabetes mellitus and alcoholic cirrhosis of the liver. He follows with [facility] nephrology regarding history of chronic kidney disease and follows with [facility] radiation oncology regarding a PET positive left upper lobe lung nodule, post radiotherapy. Allergies Allergy/AdvReac Type Severity Reaction Status Date / Time gabapentin Allergy Unknown Verified 06/20/24 08:37 tramadol Allergy Unknown Verified 06/20/24 08:37 Home Medications Medication Instructions Recorded Confirmed Type albuterol sulfate 2.5 mg/3 mL 2.5 mg inhalation QID PRN 10/26/19 11/30/24 History (0.083 %) solution for nebulization Shortness Of Breath Or Wheezing carvedilol 25 mg tablet 25 mg PO BID 10/26/19 11/30/24 History aspirin 81 mg capsule 81 mg PO DAILY 11/20/21 11/30/24 History furosemide 20 mg tablet 20 mg PO DAILY 11/20/21 11/30/24 History cholecalciferol (vitamin D3) 50 50 mcg PO DAILY 11/22/21 11/30/24 History mcg (2,000 unit) capsule lancets (Accu-Chek Softclix 01/15/22 06/20/24 History Lancets) oxycodone 5 mg tablet 5 mg PO BID PRN Pain 02/11/23 11/30/24 History atorvastatin 20 mg tablet 40 mg PO DAILY 05/12/24 11/30/24 History ciclesonide 160 mcg/actuation 1 puff inhalation BID 05/12/24 06/20/24 History aerosol inhaler diclofenac sodium 1 % topical gel 2 g topical QID PRN Pain 05/12/24 11/30/24 History (Arthritis Pain (diclofenac)) folic acid 1 mg tablet 1 mg PO DAILY 05/12/24 11/30/24 History insulin NPH isoph U-100 human 100 10 unit subcut BID 05/12/24 11/30/24 History unit/mL (3 mL) subcutaneous pen (Novolin N FlexPen) insulin glargine 100 unit/mL (3 10 unit subcut HS 05/12/24 11/30/24 History mL) subcutaneous pen naloxone 4 mg/actuation nasal spray 4 mg intranasal Q3M PRN 05/12/24 06/20/24 History Patient History Medical History Hematuria Cataract Vitamin D deficiency Surgical History History of cataract surgery Hx of appendectomy S/P cholecystectomy Family History Other Family history non-contributory Social History Smoking Status: Current every day smoker Tobacco Type: Cigarettes Age Started Using Tobacco: 10; packs per day: 1; Cigarettes Per Day: 1PPD; Do You Dip or Chew Tobacco: No; Hx Alcohol Use: No Hx Substance Use: No Preferred Language: Kyrgyz Communication Ability: Effective Communication Ability Comment: [facility] Hearing Ability: Hard of Hearing [employer] Technician Required: No Beliefs That Will Affect Care: None Current Living Situation: Alone Feels Safe at Home: Yes Safety Concerns: Feels Safe At This Time Diet: diabetic and low salt during the past year weight has: decreased > 10 lbs Assistive Devices: Wheelchair Review of Systems Constitutional: no fever and no chills Eyes: no blind spots and no diplopia Ear, Nose, Mouth, Throat: no hearing loss Respiratory: no cough Cardiovascular: no chest pain and no palpitations Gastrointestinal: no nausea and no vomiting Genitourinary: no urinary incontinence Musculoskeletal: no myalgia Integumentary: no rash and no lesions Neurologic: as per Subjective / HPI Psychiatric: no depression and no anxiety Hematologic / Lymphatic: no easy bleeding and no easy bruising Exam (Neuro) Constitutional: well developed; no acute distress Eyes: normal visual terry by confrontation, PERRL and EOM intact bilaterally; no nystagmus Neurologic: Oriented to:: Person, Place and Time Memory: Short Term Intact and Remote Intact Attention: Span Intact and Concentration Intact Speech Fluency: negative Dysarthria or Dysfluency Speech Aphasia: negative Aphasia Fund of Knowledge: Current Events, Past History and Vocabulary Cranial Nerves: Normal II, III, IV, , V, VII, VIII, IX, X, XI and XII Motor Strength: Normal Lower Extremities and Normal Upper Extremities Motor Tone: Normal Lower Extremities and Normal Upper Extremities Muscle Bulk/Involuntary Movements: No Involuntary Movements; negative Muscle Atrophy Sensation: Light Touch Intact, Pain/Temperature Intact and Proprioception Intact Coordination: Normal; negative Limited Balance, Dysdiadochokinesia or Finger-Nose Abnormal Deep Tendon Reflexes: Rt Triceps: 1+, Lt Triceps: 1+, Rt Biceps: 1+, Lt Biceps: 1+, Rt Brachioradialis: 1+, Lt Brachioradialis: 1+, Rt Patellar: 1+, Lt Patellar: 1+, Rt Ankle: 1+ and Lt Ankle: 1+ Special Tests: negative Babinski Present Results & Data Vital Signs (Past 12 Hours) Vital Signs Temp Pulse Pulse Resp BP Pulse Ox O2 Del Method 12/01/24 07:22 36.4 C L 63 18 180/72 H 96 Room Air 12/01/24 03:46 36.8 C 73 17 160/76 H 98 Room Air 11/30/24 23:00 79 Laboratory Results WBC 4.79, hemoglobin 10.3, hematocrit 27.7, platelet count 66, sodium 138, potassium 4.523, glucose 94 calcium 8.6, magnesium 1.30, triglycerides 45, cholesterol 63, LDL 24, VLDL 9, HDL 30, TSH 4.581 Diagnostic Findings An echocardiogram revealed normal left ventricular systolic function, mild conc entric LVH normal left atrial size. Electrocardiogram revealed normal sinus rhythm. Coding Level of Care Code 34176 INT INP/OBS CARE /75MIN Diagnoses Stroke-like symptoms R29.90 Hypertensive crisis I16.9 H/O: stroke Z86.73 Time Spent (min) 90 Comment Total time includes patient contact, chart review, counseling, note preparation
[2024-12-01] MEDS: carvediloL 3.125 MG TAB PO ONE (13:38)
[2024-12-01] MEDS: LORazepam 2 MG/1 ML VIAL IV STA (16:44)
[2024-12-01] MEDS: carvediloL 6.25 MG TAB PO SCH (16:55)
--- NOTE | 2024-12-01 17:35 | Hospitalist Progress Note ---
Date of Service December 01, 2024 Assessment & Plan (1) Hypertensive crisis: Plan: Hypertensive crisis Left-sided weakness Acute R thalamic infarct Brain MRI: 1. Small acute infarct of the right thalamus 2. Cerebral atrophy, old infarcts, and chronic small vessel ischemic disease CT angio head and neck: no occlusion Echo: no ASD Neurologist consulted recommendations noted add Plavix to Aspirin x 3 weeks, then Plavix only monitor Plt permissive HTN PT/OT evaluation PVD Hyperlipidemia on statin Rx COPD, lung status at baseline valvular heart disease (mild MR/AR, TTE 2019)/right to left interatrial shunt on TTE DM2 insulin requiring, well-controlled as of hemoglobin A1c of 4.7 last 2022 hypothyroidism, currently not on maintenance Rx Alcoholic cirrhosis, no overt decompensation HCV status post Rx CRI, creatinine at baseline chronic anemia, at baseline chronic thrombocytopenia secondary to liver disease PET positive left upper lobe lung nodule status post radiation past tobacco/alcohol abuse. Admit to PCU IV Lopressor 1 dose now Neurochecks Plavix 1 dose for possible aspirin failure Continue aspirin and statin Rx for stroke prevention MRI brain, TTE for stroke workup Neurology consult Re: Left-sided weakness (Patient seen by [facility] during 2021 visit.) Update lipid profile Check TSH Basal bolus insulin, ISS BG goal 1 10-1 40, carb count coverage, update hemoglobin A1c DVT prophylaxis. SCDs Re: Thrombocytopenia DNR Admission and Anticipated Discharge Date Admission Date: November 30, 2024 Subjective ff up for left sided weakness, etc seen resting in bed, comfortable still having L sided weakness lower ext> Upper ext also has some left hand coordination difficulty no other neuro symptoms no chest pain, dyspnea, palpitations, dizziness no headache, nausea, etc Review of Systems Review of Systems: all noted and negative except for above Physical Exam Physical Exam: General- oriented x 3, not in distress, speaks in sentences with no effort or accessory muscle use Eyes- anicteric Neck- no JVD Lungs- clear breath sounds bilaterally, no rales/wheezes Heart- normal rate, regular rhythm; no murmurs Abdomen- normal bowel sounds, nondistended, soft, nontender Extremities- no pretibial edema, no calf tenderness Neuro- alert, oriented x 3; motor strength 5/5 except LLE 2/5 sensation 100% on all ext Skin- warm & dry Results & Data Results & Data Vital Signs (Past 12 Hours) Vital Signs Temp Pulse Resp BP Pulse Ox O2 Del Method 12/01/24 16:11 36.7 C 72 18 180/73 H 96 Room Air 12/01/24 11:27 36.6 C 74 19 170/64 H 96 Room Air 12/01/24 07:22 36.4 C L 63 18 180/72 H 96 Room Air all noted and reviewed including below
[2024-12-01] MEDS ORDERED: LEVALBUTEROL 1.25 MG/3 ML NEB NEB PRN (17:52)
[2024-12-01] MEDS: LORazepam 2 MG/1 ML VIAL IV PRN (18:17)
[2024-12-01] MEDS: UMECLIDINIUM/VILANTEROL 62.5/25MCG 7 PUFFS/INHALER INH SCH (18:21)
--- NOTE | 2024-12-01 19:15 | Magnetic Resonance Report ---
Clinical History: Left-sided weakness and numbness Technique: Multiple T1 and T2-weighted magnetic resonance images were obtained of the brain without gadolinium contrast Findings: There is a small acute infarct in the right thalamus, measuring 7 x 4 mm. There is an adjacent old right thalamic infarct There is cerebral atrophy, within expected limits for the patient's age. There are focal and confluent areas of increased T2 signal intensity within the periventricular white matter of the cerebral hemispheres bilaterally. This is most likely due to chronic small vessel ischemic disease. There is a small old infarct of the left cerebellar hemisphere. There is also a small old infarct of the left thalamus. No definite mass lesion is seen on this noncontrast study. There is no intracranial hemorrhage or other fluid collection. No midline shift or other form of herniation is seen. There is no hydrocephalus. Normal flow-voids are seen within the arteries of the [id number]. The orbits and paranasal sinuses appear normal. The mastoid air cells appear clear. Impression: 1. Small acute infarct of the right thalamus 2. Cerebral atrophy, old infarcts, and chronic small vessel ischemic disease Electronically signed by Dino Gomez 12-01-2024 7:14 PM
[2024-12-02 06:58] LABS: Basophils # (auto) 0.01 K/uL (0.00-0.20); Basophils % (auto) 0.2 %; Eosinophils # (auto) 0.11 K/uL (0.00-0.50); Eosinophils % (auto) 2.4 %; Hematocrit (blood only) 26.8 % (42.0-52.0); Hemoglobin 9.8 g/dl (14.0-18.0); Immature Granulocytes # (auto) 0.02 K/uL (0.01-0.20); Immature Granulocytes % (auto) 0.4 %; Lymphocytes # (auto) 1.72 K/uL (1.20-3.40); Lymphocytes % (auto) 37.1 %; Mean Corpuscular Hgb Conc 36.6 g/dL (32.0-36.0); Mean Corpuscular Volume 95.7 fL (80.0-100.0); Mean Platelet Volume 8.8 fL (9.4-12.4); Monocytes # (auto) 0.26 K/uL (0.11-0.59); Monocytes % (auto) 5.6 %; Neutrophils # (auto) 2.52 K/uL (1.40-6.50); Neutrophils % (auto) 54.3 %; Platelet Count 64 K/uL (130-400); RDW Coefficient of Variation 13.7 % (11.5-14.5); RDW Standard Deviation 48.1 fL (36.4-46.3); White Blood Count 4.64 K/ul (4.8-10.8)
[2024-12-02 07:23] LABS: BUN Creatinine Ratio 19.7 (10-20); Calcium 8.4 mg/dl (8.6-10.3); Creatinine Clr Calc Pharmacy 27.9 ml/min; Potassium 4.4 mmol/L (3.5-5.1)
[2024-12-02] MEDS: CLOPIDOGREL BISULFATE 75 MG TAB PO SCH (08:29)
[2024-12-02] MEDS: FLUTICASONE FUROATE 100MCG 14 PUFFS/INHALER INH SCH (08:31)
[2024-12-02] MEDS: SODIUM CHLORIDE 0.9% 1,000 ML IV SCH (10:31)
--- NOTE | 2024-12-02 15:07 | Pharmacy Report ---
- Date of Service December 02, 2024 - Pharmacy CVA/TIA Medication Review Medications to Prevent Stroke handout has been added to the patients discharge packet. Antiplatelet(s) * aspirin 81 mg daily + plavix 75 mg daily x 3 weeks / then plavix ongoing thereafter Cholesterol * High intensity statin: atorvastatin 40 mg daily DVT Prophylaxis * SCD knee Therapeutic Anticoagulation * No history of Afib/Aflutter noted Type 2 Diabetes * Patient has T2DM, however A1c only ~4.5% - likely could defer DM medication with proven CVD benefit to outpatient provider. Would assess if patient having any hypoglycemia outpatient as A1c lower, would recommend follow up with provider for any insulin adjustments if needed.
--- NOTE | 2024-12-02 17:09 | Hospitalist Progress Note ---
Date of Service December 02, 2024 Assessment & Plan (1) Hypertensive crisis: Plan: Hypertensive crisis Left-sided weakness Acute R thalamic infarct Brain MRI: 1. Small acute infarct of the right thalamus 2. Cerebral atrophy, old infarcts, and chronic small vessel ischemic disease CT angio head and neck: no occlusion Echo: no ASD Neurologist consulted recommendations noted add Plavix to Aspirin x 3 weeks, then Plavix only monitor Plt permissive HTN PT/OT evaluation 12/02 Remains stable overall Tolerating aspirin plus Plavix Platelet count stable around 60K Blood pressure still in the systolic 170s Will add amlodipine 5 mg p.o. daily Monitor closely Avoid hypotension Patient declines inpatient acute rehab Prefers to be discharged to home PVD Hyperlipidemia on statin Rx COPD, lung status at baseline valvular heart disease (mild MR/AR, TTE 2019)/right to left interatrial shunt on TTE DM2 insulin requiring, well-controlled as of hemoglobin A1c of 4.7 last 2022 hypothyroidism, currently not on maintenance Rx Alcoholic cirrhosis, no overt decompensation HCV status post Rx CRI, creatinine at baseline chronic anemia, at baseline chronic thrombocytopenia secondary to liver disease PET positive left upper lobe lung nodule status post radiation past tobacco/alcohol abuse. DVT prophylaxis. SCDs Re: Thrombocytopenia, also on ASA and Plavix already DNR Admission and Anticipated Discharge Date Admission Date: November 30, 2024 Subjective Follow-up for acute CVA, hypertension, etc. Seen resting in wheelchair at the bedside Awake and alert, oriented, not in distress, comfortable States he feels fine overall Feels left lower extremity weakness is improving No other new neurologic symptoms Denies headache, chest pain, palpitations, dizziness No other new symptom Review of Systems Review of Systems: all noted and negative except for above Physical Exam Physical Exam: General- oriented x 3, not in distress, speaks in sentences with no effort or accessory muscle use Eyes- anicteric Neck- no JVD Lungs- clear breath sounds bilaterally, no rales/wheezes Heart- normal rate, regular rhythm; no murmurs Abdomen- normal bowel sounds, nondistended, soft, nontender Extremities- no pretibial edema, no calf tenderness Neuro- alert, oriented x 3; Left lower extremity motor strength 3/5 no gross focal neurologic deficits Skin- warm & dry Results & Data Results & Data Vital Signs (Past 12 Hours) Vital Signs Temp Pulse Pulse Resp BP BP Pulse Ox 12/02/24 15:56 36.7 C 78 19 176/76 H 98 12/02/24 15:31 76 12/02/24 11:00 36.3 C L 71 19 158/72 H 97 12/02/24 10:54 70 12/02/24 07:22 36.8 C 69 19 166/64 H 94 O2 Del Method 12/02/24 15:56 Room Air 12/02/24 15:31 12/02/24 11:00 Room Air 12/02/24 10:54 12/02/24 07:22 Room Air all noted and reviewed including below
[2024-12-02] MEDS: amLODIPine BESYLATE 5 MG TAB PO ONE (17:26)
[2024-12-02] MEDS: hydrALAZINE HCL 20 MG/ML VIAL IV PRN (22:51)
[2024-12-02 23:06] VITALS: TEMP 98.1
[2024-12-03 03:34] VITALS: O2SAT 96
[2024-12-03 08:06] LABS: BUN Creatinine Ratio 19.8 (10-20); Calcium 7.9 mg/dl (8.6-10.3); Creatinine Clr Calc Pharmacy 30.9 ml/min; Potassium 4.2 mmol/L (3.5-5.1)
[2024-12-03] MEDS: amLODIPine BESYLATE 5 MG TAB PO SCH (08:09)
[2024-12-03 08:21] LABS: Hematocrit (blood only) 26.4 % (42.0-52.0); Hemoglobin 9.7 g/dl (14.0-18.0); Mean Corpuscular Hemoglobin 33.8 pg (25.0-34.0); Mean Corpuscular Hgb Conc 36.7 g/dL (32.0-36.0); Mean Platelet Volume 9.2 fL (9.4-12.4); Platelet Count 68 K/uL (130-400); RDW Coefficient of Variation 13.6 % (11.5-14.5); RDW Standard Deviation 45.8 fL (36.4-46.3); Red Blood Count 2.87 M/uL (4.70-6.10); White Blood Count 4.62 K/ul (4.8-10.8)
[2024-12-03 08:22] LABS: Basophils # (auto) 0.01 K/uL (0.00-0.20); Basophils % (auto) 0.2 %; Eosinophils # (auto) 0.14 K/uL (0.00-0.50); Immature Granulocytes # (auto) 0.01 K/uL (0.01-0.20); Immature Granulocytes % (auto) 0.2 %; Lymphocytes # (auto) 1.64 K/uL (1.20-3.40); Lymphocytes % (auto) 35.5 %; Monocytes # (auto) 0.28 K/uL (0.11-0.59); Monocytes % (auto) 6.1 %; Neutrophils # (auto) 2.54 K/uL (1.40-6.50); Polychromasia 1+
[2024-12-03] MEDS: carvediloL 12.5 MG TAB PO ONE (09:21)
[2024-12-03 10:53] VITALS: BP 146/64; RESP 19
[2024-12-03] MEDS ORDERED: STROKE PATIENT DISCHARGE STA (12:52)
[2024-12-03 13:09] VITALS: PULSE 78
--- NOTE | 2024-12-03 16:17 | Discharge Summary ---
Discharge Summary Date of Service December 03, 2024 Principal Dx & Hospital Course #1 = Principal Diagnosis (1) Acute CVA (cerebrovascular accident): (2) Hypertensive crisis: Left-sided weakness Acute R thalamic infarct Proximal Internal Carotid Arteries Stenosis 50% Brain MRI: 1. Small acute infarct of the right thalamus 2. Cerebral atrophy, old infarcts, and chronic small vessel ischemic disease CT angio head and neck: Moderate atherosclerotic disease of the proximal internal carotid arteries with approximately 50% stenosis and no hemodynamically significant stenosis or thrombosis. Echo: EF 55-60%, mild concentric LVH, mild valvular aortic stenosis, aortic root mildly enlarged Neurologist consulted recommendations noted add Plavix to Aspirin x 3 weeks, then Plavix only monitor Plt level closely outpatient Zio patch monitor 12/03 Remains stable overall Tolerating aspirin plus Plavix Platelet count stable around 60K Patient declines inpatient acute rehab Prefers to be discharged to home Hypertensive crisis Blood pressure noted to be elevated, systolic 170s started amlodipine 5 mg p.o. daily Monitor closely PVD Hyperlipidemia on statin Rx COPD, lung status at baseline valvular heart disease (mild MR/AR, TTE 2019)/right to left interatrial shunt on TTE DM2 insulin requiring, well-controlled as of hemoglobin A1c of 4.7 last 2022 hypothyroidism, currently not on maintenance Rx Alcoholic cirrhosis, no overt decompensation HCV status post Rx CRI, creatinine at baseline chronic anemia, at baseline chronic thrombocytopenia secondary to liver disease PET positive left upper lobe lung nodule status post radiation past tobacco/alcohol abuse. Notes For Next Care Provider monitor Plt level (thrombocytopenia now on ASA + Plavix) monitor BP Medication Changes From Visit Clopidogrel (Plavix)- antiplatelet for stroke prevention Stop Aspirin after 19 days. Amlodipine- for high blood pressure control Admission HPI Per Admitting Provider History obtained from patient and records. Medical history significant for COPD, hypertension, hyperlipidemia, CVA, valvular heart disease (mild MR/AR, TTE 2019), right to left interatrial shunt as per records, chronic pain, DM2 insulin requiring, hypothyroidism, alcoholic cirrhosis, HCV status post Rx, CRI (baseline creatinine 1.7), chronic anemia (baseline hemoglobin of 10-11), chronic thrombocytopenia, PET positive left upper lobe lung nodule status post radiation, BPH, past tobacco/alcohol abuse. Last confinement January 2023 for complicated UTI in the setting of fall resulting in cerebral concussion and T12 compression fracture. 2 days ago, patient noted left-sided weakness/numbness without headache or neck pain complaints. No recent trauma. Patient compliant with home medications. Intermittent slurred speech noted by daughter at home. Old right-sided weakness from previous stroke as per daughter. Patient dropping things more frequently with left hand. Intermittent chest tightness complaints, last episode was this morning. Patient denies cough or unusual SOB symptoms. Highest SBP of 200s documented at the ER. Medical History as above Surgical History : Cholecystectomy, appendectomy, cataract surgeries Family History : Heart disease Personal/Social history : Past tobacco/alcohol abuse Admission Exam Per Admitting Provider GENERAL: comfortable, obese, pleasant, no respiratory distress SKIN: Pallor, warm HEENT: Alopecia, pale palpebral conjunctivae, no ptosis, dry buccal mucosa NECK : Supple, short neck, no tenderness CHEST : Decreased breath sounds, no tenderness HEART : RRR, systolic murmur ABDOMEN: Some distention, nontender EXTREMITIES : Minimal LE swelling, no LE tenderness, ecchymoses noted over upper extremity (chronic as per daughter) NEUROLOGIC : Coherent, no facial asymmetry, MMTs BUE 4/5, BLE 3/5 (R>L), gait and stance not assessed Discharge Exam General- oriented x 3, not in distress, speaks in sentences with no effort or accessory muscle use Eyes- anicteric Neck- no JVD Lungs- clear breath sounds bilaterally, no rales/wheezes Heart- normal rate, regular rhythm; no murmurs Abdomen- normal bowel sounds, nondistended, soft, nontender Extremities- no pretibial edema, no calf tenderness Neuro- alert, oriented x 3; Left lower ext: 4/5 motor strength, no gross focal neurologic deficits Skin- warm & dry Updated Medication List Medication Instructions Recorded Confirmed Type albuterol sulfate 2.5 mg/3 mL 2.5 mg inhalation QID PRN 10/26/19 11/30/24 History (0.083 %) solution for nebulization Shortness Of Breath Or Wheezing carvedilol 25 mg tablet 25 mg PO BID 10/26/19 11/30/24 History furosemide 20 mg tablet 20 mg PO DAILY 11/20/21 11/30/24 History cholecalciferol (vitamin D3) 50 50 mcg PO DAILY 11/22/21 11/30/24 History mcg (2,000 unit) capsule lancets (Accu-Chek Softclix 01/15/22 06/20/24 History Lancets) oxycodone 5 mg tablet 5 mg PO BID PRN Pain 02/11/23 11/30/24 History atorvastatin 20 mg tablet 40 mg PO DAILY 05/12/24 11/30/24 History ciclesonide 160 mcg/actuation 1 puff inhalation BID 05/12/24 06/20/24 History aerosol inhaler diclofenac sodium 1 % topical gel 2 g topical QID PRN Pain 05/12/24 11/30/24 History (Arthritis Pain (diclofenac)) folic acid 1 mg tablet 1 mg PO DAILY 05/12/24 11/30/24 History insulin NPH isoph U-100 human 100 10 unit subcut BID 05/12/24 11/30/24 History unit/mL (3 mL) subcutaneous pen (Novolin N FlexPen) insulin glargine 100 unit/mL (3 10 unit subcut HS 05/12/24 11/30/24 History mL) subcutaneous pen naloxone 4 mg/actuation nasal spray 4 mg intranasal Q3M PRN 05/12/24 06/20/24 History amlodipine 5 mg tablet (Norvasc) 5 mg PO QAM 30 days #30 tabs 12/03/24 Rx aspirin 81 mg capsule 81 mg PO DAILY #0 caps 12/03/24 11/30/24 Rx clopidogrel 75 mg tablet 75 mg PO QAM 30 days #30 tabs 12/03/24 Rx Hospital Stay Data Consultations 11/30/24 20:05 ED Decision to Admit Stat 11/30/24 20:46 Consult Neurology Routine Diagnostic Imagining Performed Laboratory Results WBC 4.62 K/ul (4.8-10.8) L 12/03/24 07:23 RBC 2.87 M/uL (4.70-6.10) L 12/03/24 07:23 Hgb 9.7 g/dl (14.0-18.0) L 12/03/24 07:23 Hct 26.4 % (42.0-52.0) L 12/03/24 07:23 MCV 92.0 fL (80.0-100.0) 12/03/24 07:23 MCH 33.8 pg (25.0-34.0) 12/03/24 07:23 MCHC 36.7 g/dL (32.0-36.0) H 12/03/24 07:23 RDW Std Deviation 45.8 fL (36.4-46.3) 12/03/24 07: RDW Coeff of [place]bo[place] 13.6 % (11.5-14.5) 12/03/24 07:23 Plt Count 68 K/uL (130-400) L 12/03/24 07:23 MPV 9.2 fL (9.4-12.4) L 12/03/24 07:23 Immature Gran % (Auto) 0.2 % 12/03/24 07:23 Neut % (Auto) 55.0 % 12/03/24 07:23 Lymph % (Auto) 35.5 % 12/03/24 07:23 [place] % (Auto) 6.1 % 12/03/24 07:23 Eos % (Auto) 3.0 % 12/03/24 07:23 Baso % (Auto) 0.2 % 12/03/24 07:23 Neut # (Auto) 2.54 K/uL (1.40-6.50) 12/03/24 07:23 Lymph # (Auto) 1.64 K/uL (1.20-3.40) 12/03/24 07:23 [place] # (Auto) 0.28 K/uL (0.11-0.59) 12/03/24 07:23 Eos # (Auto) 0.14 K/uL (0.00-0.50) 12/03/24 07:23 Baso # (Auto) 0.01 K/uL (0.00-0.20) 12/03/24 07:23 Immature Gran # (Auto) 0.01 K/uL (0.01-0.20) 12/03/24 07:23 Polychromasia 1+ 12/03/24 07:23 PT 11.6 Seconds (9.0-12.0) 11/30/24 15:58 INR 1.1 (0.9-1.1) 11/30/24 15:58 APTT 27 Seconds (21-31) 11/30/24 15:58 PTT Ratio 1.0 11/30/24 15:58 Sodium 136 mmol/L (136-145) 12/03/24 07:23 Potassium 4.2 mmol/L (3.5-5.1) 12/03/24 07:23 Chloride 108 mmol/L (98-107) H 12/03/24 07:23 Carbon Dioxide 26 mmol/L (21-32) 12/03/24 07:23 Anion Gap 2 (3-11) L 12/03/24 07:23 BUN 39 mg/dl (6-23) H 12/03/24 07:23 Creatinine 1.97 mg/dl (0.6-1.4) H 12/03/24 07:23 Est Cr Clr Drug Dosing 30.9 ml/min 12/03/24 07:23 eGFR 34.57 12/03/24 07:23 BUN/Creatinine Ratio 19.8 (10-20) 12/03/24 07:23 Glucose 109 mg/dl (70-99(Fasting)) H 12/03/24 07:23 POC Glucose 131 mg/dl (70-99) H 12/03/24 11:17 Estimat Average Glucose 82 mg/dl 11/30/24 15:58 Hemoglobin A1c 4.5 % (4.5-5.6) 11/30/24 15:58 Calcium 7.9 mg/dl (8.6-10.3) L 12/03/24 07:23 Magnesium 1.8 mg/dl (1.7-2.4) 11/30/24 15:58 Total Bilirubin 2.2 mg/dl (0.2-1.0) H 11/30/24 15:58 AST 25 U/L (13-39) 11/30/24 15:58 ALT 30 U/L (7-52) 11/30/24 15:58 Alkaline Phosphatase 75 U/L (34-104) 11/30/24 15:58 Troponin I High Sens 10.8 pg/ml (0-20) 11/30/24 15:58 Total Protein 6.4 gm/dl (6.0-8.3) 11/30/24 15:58 Albumin 3.5 gm/dl (3.4-5.0) 11/30/24 15:58 Globulin 2.9 gm/dl (2.5-4.0) 11/30/24 15:58 Albumin/Globulin Ratio 1.2 (0.9-2) 11/30/24 15:58 Triglycerides 45 mg/dl (0-150) 12/01/24 06:44 Cholesterol 63 mg/dl (0-200) 12/01/24 06:44 LDL Cholesterol, Calc 24 mg/dl 12/01/24 06:44 VLDL Cholesterol, Calc 9 mg/dl (0-30) 12/01/24 06:44 HDL Cholesterol 30 mg/dl 12/01/24 06:44 Cholesterol/HDL Ratio 2.1 (0-5) 12/01/24 06:44 TSH 4.581 uIu/ml (0.300-4.500) H 12/01/24 06:44 Free T4 0.96 ng/dl (0.61-1.60) 12/01/24 06:44 Urine Color Yellow 11/30/24 20:40 Urine Appearance Clear (Clear) 11/30/24: Urine pH 7.0 (4.5-7.5) 11/30/24 20:40 Ur Specific [place] 1.031 (1.000-1.030) H 11/30/24 20:40 Urine Protein 2+ (Negative) H 11/30/24 20:40 Urine Glucose (UA) Negative (Negative) 11/30/24 20:40 Urine Ketones Negative (Negative) 11/30/24 20:40 Urine Blood Trace (Negative) H 11/30/24 20:40 Urine Nitrite Negative (Negative) 11/30/24 20:40 Urine Bilirubin Negative (Negative) 11/30/24 20:40 Urine Urobilinogen Negative (Negative) 11/30/24 20:40 Ur Leukocyte Esterase Negative (Negative) 11/30/24 20:40 Urine WBC (Auto) 0-5 /hpf (0-5) 11/30/24 20:40 Urine RBC (Auto) 3-5 /hpf (0-2) H 11/30/24 20:40 U Hyaline Cast (Auto) 0-2 /lpf (0-2) 11/30/24 20:40 U Epithel Cells (Auto) 0-2 /hpf (0-2) 11/30/24 20:40 Urine Bacteria (Auto) None Seen (None Seen) 11/30/24 20:40 Adenovirus (PCR) Not Detected (NotDetected) 11/30/24 16:00 B. pertussis DNA (PCR) Not Detected (NotDetected) 11/30/24 16:00 B.parapertussis DNA PCR Not Detected (NotDetected) 11/30/24 16:00 C. pneumoniae DNA (PCR) Not Detected (NotDetected) 11/30/24 16:00 Coronavirus OC43 (PCR) Not Detected (NotDetected) 11/30/24 16:00 Coronavirus HKU1 (PCR) Not Detected (NotDetected) 11/30/24 16:00 Coronavirus 229E (PCR) Not Detected (NotDetected) 11/30/24 16:00 SARS-CoV-2 (PCR) Not Detected (NotDetected) 11/30/24 16:00 Coronavirus NL63 (PCR) Not Detected (NotDetected) 11/30/24 16:00 Human Metapneumovir PCR Not Detected (NotDetected) 11/30/24 16:00 Influenza Type A (PCR) Not Detected (NotDetected) 11/30/24 16:00 Influenza Type B (PCR) Not Detected (NotDetected) 11/30/24 16:00 M. pneumoniae (PCR) Not Detected (NotDetected) 11/30/24 16:00 Parainfluenza 1 (PCR) Not Detected (NotDetected) 11/30/24 16:00 Parainfluenza 2 (PCR) Not Detected (NotDetected) 11/30/24 16:00 Parainfluenza 3 (PCR) Not Detected (NotDetected) 11/30/24 16:00 Parainfluenza 4 (PCR) Not Detected (NotDetected) 11/30/24 16:00 RSV (PCR) Not Detected (NotDetected) 11/30/24 16:00 Entero/Rhino (PCR) Not Detected (NotDetected) 11/30/24 16:00 Impressions Chest X-Ray 11/30/24 15:41 Clinical History: Chest pain Technique: A frontal view of the chest was obtained Comparison is made to the prior examination dated 08/26/2024 Findings: There are no confluent pulmonary infiltrates. The heart size is within normal limits. No pleural effusion or pneumothorax is seen. There is no definite pulmonary nodule. No fracture is noted. No foreign body is seen Impression: No active disease Electronically signed by Dion Gomez 02-19-2025 4:[address] 11/30/24 17:46 EXAMINATION: Head CT without CLINICAL HISTORY: Chest pain PRIORS: 02/05/2023 TECHNIQUE: Contiguous axial images were obtained through the head without the use of intravenous contrast. Sagittal and coronal reformations are supplied. FINDINGS: Mild parenchymal volume loss noted. [place]-white differentiation is preserved. No edema or midline shift. No intra-axial or extra-axial hemorrhage. Ventricles are normal in size and configuration. Brainstem and cerebellum have a normal appearance. Calvarium unremarkable. Paranasal sinuses and mastoid air cells are well-pneumatized. Globes are intact. No retrobulbar abnormality. IMPRESSION: No CT evidence of an acute intracranial abnormality. Electronically signed by Ritika Davidson 11-30-2024 7:15 PM Head CTA 11/30/24 17:46 EXAM: CTA head with CLINICAL HISTORY: Chest pain chest pain TECHNIQUE: Contiguous CTA axial images were obtained through the head after the administration of intravenous contrast. Sagittal and coronal reformations are supplied. PRIORS: None FINDINGS: The vertebral arteries form the basilar artery at the skull base. [place] is patent. No thrombus or hemodynamically significant stenosis. Moderate atherosclerotic disease is present involving the internal carotid arteries and the cavernous portion with no high-grade stenosis or thrombosis. No aneurysmal dilatation or sánchez aneurysm. No enhancing mass in the brain. IMPRESSION: No CTA evidence of an acute vascular abnormality. Electronically signed by Ritika Davidson 11-30-2024 7:15 PM Neck CTA 11/30/24 17:46 EXAM: CT angio neck with con CLINICAL HISTORY: TECHNIQUE: Contiguous CTA axial images were obtained through the neck with the administration of intravenous contrast. Sagittal and coronal reformations are supplied. MIPS are supplied. COMPARISON: None FINDINGS: A left-sided aortic arch is present moderate to advanced atherosclerotic disease present. Mild to moderate atherosclerotic disease at the origin of the left subclavian artery with no hemodynamically significant stenosis. RIGHT: Moderate atherosclerotic disease involving the carotid bulb and proximal internal carotid artery with approximately 50% stenosis. The internal carotid artery opacifies normally and enters the petrous portion of the skull base. LEFT: Moderate atherosclerotic disease of the carotid bulb and involving a short segment of proximal internal carotid artery with stenosis of approximately 50%. The internal carotid artery enters the petrous portion of the skull base normally. Vertebral arteries are codominant with no atherosclerotic disease identified. Both contribute to the basilar artery at the skull base. Moderate osseous demineralization noted. No adenopathy identified in the neck. IMPRESSION: Moderate atherosclerotic disease of the proximal internal carotid arteries with approximately 50% stenosis and no hemodynamically significant stenosis or thrombosis. Electronically signed by Ritika Davidson 11-30-2024 7:15 PM Brain MRI 12/01/24 00:00 Clinical History: Left-sided weakness and numbness Technique: Multiple T1 and T2-weighted magnetic resonance images were obtained of the brain without gadolinium contrast Findings: There is a small acute infarct in the right thalamus, measuring 7 x 4 mm. There is an adjacent old right thalamic infarct There is cerebral atrophy, within expected limits for the patient's age. There are focal and confluent areas of increased T2 signal intensity within the periventricular white matter of the cerebral hemispheres bilaterally. This is most likely due to chronic small vessel ischemic disease. There is a small old infarct of the left cerebellar hemisphere. There is also a small old infarct of the left thalamus. No definite mass lesion is seen on this noncontrast study. There is no intracranial hemorrhage or other fluid collection. No midline shift or other form of herniation is seen. There is no hydrocephalus. Normal flow-voids are seen within the arteries of the [id number]. The orbits and paranasal sinuses appear normal. The mastoid air cells appear clear. Impression: 1. Small acute infarct of the right thalamus 2. Cerebral atrophy, old infarcts, and chronic small vessel ischemic disease Electronically signed by Dion Gomez 12-01-2024 7:14 PM Pending Results Patient Have Any Pending Studies at Discharge: No Discharge Instructions Given to Patient (Per Discharging Provider) PLEASE REFER TO YOUR NEW MEDICATION LIST AND FOLLOW INSTRUCTIONS CAREFULLY. YOUR NEW MEDICATIONS INCLUDE: Clopidogrel (Plavix)- antiplatelet for stroke prevention Stop Aspirin after 19 days. Amlodipine- for high blood pressure control You need to have a clinical research monitor placed as outpatient. Your primary care physician can arrange this for you. FOLLOW UP WITH PRIMARY CARE PHYSICIAN OUTLINED ABOVE. Who to Call and When: Medical Emergencies: Call 911 immediately if you experience any of the following warning signs and symptoms of Stroke: Sudden numbness or weakness of the face, arm or leg, especially on one side of the body Sudden confusion, trouble speaking or understanding Sudden trouble seeing in one or both eyes Sudden trouble walking, dizziness, loss of balance or coordination Sudden severe headache with no cause Do not delay calling 911 if you experience any warning signs or symptoms of a stroke. Delay in seeking medical attention may affect what treatments can be given to you. Risk Factors for Stroke: You can reduce your chances of stroke by working with your medical provider to adopt a healthy lifestyle. Some specific ways to lower your chance of stroke are: If you are a smoker, now is the time to stop smoking cigarettes If you are diabetic, improve the control of your blood sugars Avoid excessive amounts of alcohol Control high blood pressure Lose weight if you are overweight Be sure to lead an active lifestyle Eat a healthy diet low in salt, cholesterol and fat You should know about other risk factors for stroke that you are unable to contr ol. These include: Age 55 years or older Male gender Certain racial groups: , or / Family History of Stroke, Mini stroke or Heart Attack Sickle Cell Disease Follow Up: It is important for you to keep your follow up appointments with your medical provider. . . Total Time Total Time Spent Total Time Spent (In Minutes): 45 minutes
[2024-12-03] MEDS ORDERED: carvediloL 25 MG TAB PO SCH (17:00)
--- NOTE | 2024-12-06 13:02 | Pharmacy Report ---
Pharmacist Stroke Counseling - Date of Service December 06, 2024 - Scope: Pharmacy has been consulted to provide medication discharge counseling for this patient admitted with [ischemic stroke] [hemorrhagic stroke] [transient ischemic attack] as per the Pharmacist Discharge Counseling for Stroke Patients Pro tocol. - Medications on Discharge: Home Medications Medication Instructions Recorded Confirmed albuterol sulfate 2.5 mg/3 mL 2.5 mg inhalation QID PRN 10/26/19 11/30/24 (0.083 %) solution for nebulization Shortness Of Breath Or Wheezing carvedilol 25 mg tablet 25 mg PO BID 10/26/19 11/30/24 furosemide 20 mg tablet 20 mg PO DAILY 11/20/21 11/30/24 cholecalciferol (vitamin D3) 50 50 mcg PO DAILY 11/22/21 11/30/24 mcg (2,000 unit) capsule lancets (Accu-Chek Softclix 01/15/22 06/20/24 Lancets) oxycodone 5 mg tablet 5 mg PO BID PRN Pain 02/11/23 11/30/24 atorvastatin 20 mg tablet 40 mg PO DAILY 05/12/24 11/30/24 ciclesonide 160 mcg/actuation 1 puff inhalation BID 05/12/24 06/20/24 aerosol inhaler diclofenac sodium 1 % topical gel 2 g topical QID PRN Pain 05/12/24 11/30/24 (Arthritis Pain (diclofenac)) folic acid 1 mg tablet 1 mg PO DAILY 05/12/24 11/30/24 insulin NPH isoph U-100 human 100 10 unit subcut BID 05/12/24 11/30/24 unit/mL (3 mL) subcutaneous pen (Novolin N FlexPen) insulin glargine 100 unit/mL (3 10 unit subcut HS 05/12/24 11/30/24 mL) subcutaneous pen naloxone 4 mg/actuation nasal spray 4 mg intranasal Q3M PRN 05/12/24 06/20/24 New Rx's Medication Instructions Recorded amlodipine 5 mg tablet (Norvasc) 5 mg PO QAM 30 days #30 tabs 12/03/24 aspirin 81 mg capsule 81 mg PO DAILY #0 caps 12/03/24 clopidogrel 75 mg tablet 75 mg PO QAM 30 days #30 tabs 12/03/24 - Action: The above medications, specifically ones for stroke treatment/prophylaxis, have been reviewed in detail with the patient and/or patient accounting representative(s) prior to discharge. This includes indication, common adverse reactions, drug interactions, and medication administration. Medication counseling has been employed using the teach-back method to ensure understanding. - Outcome: Attempted to review medication changes with patient, however he reported that his daughter takes care of his medications for him. He could not confirm medication names/doses. Cautioned patient on increased risk of bleeding from anti-platelet medications. Reviewed s/s of bleeding. Advised that he is to take ASA + Plavix together for 19 days from day of discharge and then STOP the ASA but continue the Plavix. Patient agreed. [facility] and [facility]. Thank you for allowing pharmacy to be involved in the care of this patient. Please call [phone] with any additional questions
== END 2024-12-03 13:21 | disposition home or self-care (01) | DRG 65 ==
LOC: ED 15:33 → 2S 20:43